=== PATIENT | female | born 1980 | race Caucasian/White ===

== ENCOUNTER 2016-08-28 07:15 | Emergency (ER) | payer OTHER ==
[~2016-08-28] VITALS: Ht 172.7 cm; Wt 86.2 kg
[~2016-08-28 07:15] MED LIST: AMOX500C2 PO; BETH25TA; CIPR500T4 PO; CIPR500T78 PO; CPR500T PO; CYCL10TA9 PO; DCS100C PO; DOXY100C2 PO; FAMO-119 PO; FLUO40CA PO; GABA300T PO; HYDR-1231 PO; HYDR-2890 PO; HYDR-34 PO; HYDR-3720 PO; HYDR-707 PO; IBP800T PO; IBUP800T26 PO; MELO-195 PO; METR500T PO; NAPR-243 PO; NITR-65 PO; NITR100C44 PO; ONDA-42 SL; ONDA8TAB12 PO; ONDA8TAB13 PO; ONDN4T PO; OXYC-12 PO; OXYC1TAB12 PO; PHEN-640 PO; PHEN200T27 PO; POTA-51 PO; POTA10CA43 PO; PRD20T PO; TRAM50TA2 PO
--- OUTSIDE RECORDS SUMMARY | 2016-08-28 07:20 | XMS REPORT | Continuity of Care Document ---
Author Author [facility] Organization [facility] Address Unknown Phone Unavailable Care Team Providers Care Sandblast Or Shotblast Equipment Tender Name Role Phone NO, LOCAL PHYSICIAN PCP Unavailable Insurance Providers Payer Name Policy Number Subscriber Name Relationship [facility] [id number] Annalee Chavarria 19 Self / Same As Patient Advance Directives Directive Response Recorded Date/Time Advance Directives No 12/31/14 12:25pm Health Care Power of Security Test Engineer No 12/31/14 12:25pm Organ Donor Yes 12/31/14 12:25pm Resuscitation Status Full Code 12/31/14 12:25pm Problems Medical Problems Problem Onset Date Status Right lower quadrant pain Unknown Active Nausea alone Unknown Active Urinary tract infection Unknown Active Vomiting and diarrhea Unknown Active Abdominal pain Unknown Active Hypokalemia Unknown Active Medications Medication Dose Route Sig Days/Qty Instructions Order Date Discontinued Date Status Meloxicam (Mobic) 1 Each PO DAILY 09/21/12 10/22/13 Discontinued Acetaminophen/Hydrocodone Bitart 1 Ea PO Q6HR PRN 09/21/12 06/09/14 Discontinued Ciprofloxacin 1 Tab PO TWICE A DAY 7 Days 09/21/12 10/22/13 Discontinued Ondansetron HCl 1 Tab PO TWICE A DAY 20 Qty 09/21/12 10/22/13 Discontinued Ciprofloxacin HCl 500 Mg PO TWICE A DAY 14 Qty 12/10/13 01/07/14 Discontinued Metronidazole 1 Each PO THREE TIMES A DAY 21 Qty 12/10/13 01/07/14 Discontinued Ibuprofen (Motrin) 800 Mg PO q8h PRN PAIN 10 Qty 01/07/14 06/09/14 Discontinued Ondansetron Hcl 4 Mg SL EVERY 4HRS PRN 10 Qty 01/07/14 06/09/14 Discontinued Acetaminophen/Hydrocodone Bitart 1 Ea PO Q6HR PRN 06/09/14 11/27/14 Discontinued Hydrocodone Bit/Acetaminophen 1-2 Tab PO EVERY 6 HOURS PRN PAIN 10 Qty 06/09/14 11/27/14 Discontinued Ondansetron Hcl 4 Mg SL EVERY 4HRS 10 Qty FOR NAUSEA AND VOMITING Active Nitrofurantoin Macrocrystals 1 Each PO TWICE A DAY 14 Qty 06/09/14 Discontinued Ciprofloxacin 500 Mg PO TWICE A DAY 7 Days 06/15/14 11/27/14 Discontinued Tramadol Hcl 50 Mg PO FOUR TIMES DAILY 30 Qty 11/15/14 Active Hydrocodone Bit/Acetaminophen 1 Each PO EVERY 6 HOURS PRN PAIN Active Docusate Sodium 100 Mg PO TWICE A DAY 60 Qty 12/03/14 12/31/14 Discontinued Ibuprofen 800 Mg PO GIVE EVERY 6 HR ON SCHEDULE 60 Qty 12/03/14 Active Oxycodone Hcl/Acetaminophen 1-2 Tab PO EVERY 4HRS PRN PAIN 60 Qty 12/03 Active Nitrofurantoin/Nitrofuran Mac 100 Mg PO DAILY 10 Qty 12/03/14 Discontinued Bethanechol Chloride 30 Qty 12/31/14 Active Ondansetron 8 Mg PO EVERY 6 HOURS PRN NAUSEA/VOMITING 10 Qty 12/31/14 Active Phenazopyridine HCl 1 Each PO THREE TIMES A DAY PRN PAIN 15 Qty Active Ciprofloxacin HCl 500 Mg PO TWICE A DAY 6 Qty 12/31/14 Active Potassium Chloride (Micro K) 2 Each PO TWICE A DAY WITH MEALS 8 Qty Active Social History Social History Problem Response Recorded Date/Time Alcohol Use Denies Use 12/31/2014 12:25pm Recreational Drug Use No 12/31/2014 12:25pm Recent Foreign Travel No 12/31/2014 12:21pm Recent Infectious Disease Exposure No 12/31/2014 12:21pm Sexually Transmitted Disease No 12/31/2014 12:25pm HIV/AIDS No 12/31/2014 12:25pm Smoking Status Never a Smoker 12/31/2014 12:25pm Query Response Start Date Stop Date Smoking Status Never a Smoker Hospital Discharge Instructions No hospital discharge instructions. Plan of Care No plan of care. Functional Status No functional status results. Allergies, Adverse Reactions, Alerts Allergen Type Severity Reaction Status Last Updated Sulfa (Sulfonamide Antibiotics) ([id number]) Allergy Severe RASH Active Morphine Allergy Severe RASH Active 05/24/12 Immunizations No immunization records. Vital Signs Acute Vital Signs Vital Response Date/Time Temperature (Fahrenheit) 97.8 degrees F (97.6 - 99.5) Temperature (Calculated Celsius) 36.74259 degrees C (36.4 - 37.5) Temperature Source Temporal Pulse Rate (adult) 105 bpm (60 - 90) Respiratory Rate 18 bpm (12 - 24) O2 Sat by Pulse Oximetry 99 % (88 - 100) Blood Pressure 189/101 mm Hg Pain Pain Intensity 6 Height (Feet) 5 feet Height (Inches) 8.00 inches Height (Calculated Centimeters) 172.047018 cm Weight (Pounds) 190 pounds Weight (Calculated Grams) 60526.551 gm Weight (Calculated Kilograms) 86.238355 kilograms Calculated BMI 28.12 Results Laboratory Results Test Name Result Units Flags Reference Collection Date/Time Result Date/ Time Comments White Blood Count 11.0 10^3/uL 4.3-11.0 12/03/2014 2:50pm 12/03/2014 2: 59pm Red Blood Count 3.33 10^6/uL L 4.35-5.85 12/03/2014 2:50pm 12/03/2014 2: 59pm Hemoglobin 8.8 G/DL L 11.5-16.0 12/03/2014 2:50pm 12/03/2014 2:59pm Hematocrit 28 % L 35-52 12/03/2014 2:50pm 12/03/2014 2:59pm Mean Corpuscular Volume 84 FL 80-99 12/03/2014 2:50pm 12/03/2014 2: 59pm Mean Corpuscular Hemoglobin 26 PG 25-34 12/03/2014 2:50pm 12/03/2014 2: 59pm Mean Corpuscular Hemoglobin Concent 32 G/DL 32-36 12/03/2014 2:50pm 2:59pm Red Cell Distribution Width 13.7 % 10.0-14.5 12/03/2014 2:50pm 2014 2:59pm Platelet Count 314 10^3/uL 130-400 12/03/2014 2:50pm 12/03/2014 2:59pm Mean Platelet Volume 11.0 FL H 7.4-10.4 12/03/2014 2:50pm 12/03/2014 2: 59pm Neutrophils (%) (Auto) 74 % 42-75 12/03/2014 2:50pm 12/03/2014 2:59pm Lymphocytes (%) (Auto) 18 % 12-44 12/03/2014 2:50pm 12/03/2014 2:59pm Monocytes (%) (Auto) 7 % 0-12 12/03/2014 2:50pm 12/03/2014 2:59pm Eosinophils (%) (Auto) 0 % 0-10 12/03/2014 2:50pm 12/03/2014 2:59pm Basophils (%) (Auto) 0 % 0-10 12/03/2014 2:50pm 12/03/2014 2:59pm Neutrophils # (Auto) 8.2 X 10^3 H 1.8-7.8 12/03/2014 2:50pm 12/03/2014 2: 59pm Lymphocytes # (Auto) 2.0 X 10^3 1.0-4.0 12/03/2014 2:50pm 12/03/2014 2: 59pm Monocytes # (Auto) 0.7 X 10^3 0.0-1.0 12/03/2014 2:50pm 12/03/2014 2: 59pm Eosinophils # (Auto) 0.0 10^3/uL 0.0-0.3 12/03/2014 2:50pm 12/03/2014 2 :59pm Basophils # (Auto) 0.0 10^3/uL 0.0-0.1 12/03/2014 2:50pm 12/03/2014 2: 59pm Sodium Level 142 MMOL/L 135-145 12/03/2014 2:50pm 12/03/2014 3:32pm Potassium Level 3.7 MMOL/L 3.6-5.0 12/03/2014 2:50pm 12/03/2014 3:32pm Chloride Level 109 MMOL/L H 98-107 12/03/2014 2:5012/03/2014 3:32pm Carbon Dioxide Level 23 MMOL/L 21-32 12/03/2014 2:50pm 12/03/2014 3: 32pm Blood Urea Nitrogen 11 MG/DL 7-18 12/03/2014 2:5012/03/2014 3:32pm Creatinine 0.62 MG/DL 0.60-1.30 12/03/2014 2:5012/03/2014 3:32pm BUN/Creatinine Ratio 18 12/03/2014 2:5012/03/2014 3:32pm Estimat Glomerular Filtration Rate > 60 12/03/2014 2:502014 3:32pm GFR INTERPRETIVE DATA UNITS FOR ESTIMATED GFR (eGFR): mL/min/1.73 M2 REFERENCE RANGE FOR ESTIMATED GFR (eGFR) eGFR NORMAL eGFR >60 MODERATELY DECREASED eGFR 30-59 SEVERLY DECREASED eGFR 15-29 KIDNEY FAILURE <15 (OR DIALYSIS) Glucose Level 133 MG/DL H 70-105 12/03/2014 2:50pm 12/03/2014 3:32pm Calcium Level 8.2 MG/DL L 8.5-10.1 12/03/2014 2:5012/03/2014 3:32pm Total Bilirubin 0.6 MG/DL 0.1-1.0 12/03/2014 2:5012/03/2014 3:32pm Alkaline Phosphatase 38 U/L L 40-136 12/03/2014 2:5012/03/2014 3:32pm Aspartate Amino Transf (AST/SGOT) 13 U/L 5-34 12/03/2014 2:502014 3:32pm Alanine Aminotransferase (ALT/SGPT) 9 U/L 0-55 12/03/2014 2:502014 3:32pm Total Protein 5.5 G/DL L 6.4-8.2 12/03/2014 2:50pm 12/03/2014 3:32pm Albumin 3.1 G/DL L 3.2-4.5 12/03/2014 2:5012/03/2014 3:32pm 17-Hydroxyprogesterone 75.10 NG/DL <=206.00 12/02/2014 9:07am 2014 5:44am INTERPRETIVE INFORMATION for 17-Hydroxyprogesterone in females: Follicular 15 to 70 ng/dL Luteal 35 to 290 ng/dL REFERENCE INTERVAL: 17-Hydroxyprogesterone Qnt, HPLC-MS/MS Access complete set of age- and/or gender-specific referenceintervals for this test in the [employer] [facility] ([facility]). Test developed and characteristics determined by [facility]. See Compliance Statement B: [facility] Performed by [facility], [address] [place] [id number] [email or web address] Michele Heredia MD - Lab. Director White Blood Count 5.8 10^3/uL 4.3-11.0 12/31/2014 12:39pm 12/31/2014 12 :46pm Red Blood Count 4.66 10^6/uL 4.35-5.85 12/31/2014 12:39pm 12/31/2014 12 :46pm Hemoglobin 12.0 G/DL 11.5-16.0 12/31/2014 12:39pm 12/31/2014 12:46pm Hematocrit 37 % 35-52 12/31/2014 12:39pm 12/31/2014 12:46pm Mean Corpuscular Volume 79 FL L 80-99 12/31/2014 12:39pm 12/31/2014 12: 46pm Mean Corpuscular Hemoglobin 26 PG 25-34 12/31/2014 12:39pm 12/31/2014 12:46pm Mean Corpuscular Hemoglobin Concent 32 G/DL 32-36 12/31/2014 12:39pm 12:46pm Red Cell Distribution Width 13.8 % 10.0-14.5 12/31/2014 12:39pm 2014 12:46pm Platelet Count 347 10^3/uL 130-400 12/31/2014 12:39pm 12/31/2014 12: 46pm Mean Platelet Volume 11.0 FL H 7.4-10.4 12/31/2014 12:39pm 12/31/2014 12: 46pm Neutrophils (%) (Auto) 46 % 42-75 12/31/2014 12:39pm 12/31/2014 12: 46pm Lymphocytes (%) (Auto) 40 % 12-44 12/31/2014 12:39pm 12/31/2014 12: 46pm Monocytes (%) (Auto) 8 % 0-12 12/31/2014 12:39pm 12/31/2014 12:46pm Eosinophils (%) (Auto) 5 % 0-10 12/31/2014 12:39pm 12/31/2014 12:46pm Basophils (%) (Auto) 1 % 0-10 12/31/2014 12:39pm 12/31/2014 12:46pm Neutrophils # (Auto) 2.7 X 10^3 1.8-7.8 12/31/2014 12:39pm 12/31/2014 12:46pm Lymphocytes # (Auto) 2.3 X 10^3 1.0-4.0 12/31/2014 12:39pm 12/31/2014 12:46pm Monocytes # (Auto) 0.4 X 10^3 0.0-1.0 12/31/2014 12:39pm 12/31/2014 12: 46pm Eosinophils # (Auto) 0.3 10^3/uL 0.0-0.3 12/31/2014 12:39pm 12/31/2014 12:46pm Basophils # (Auto) 0.1 10^3/uL 0.0-0.1 12/31/2014 12:39pm 12/31/2014 12 :46pm Urine Color YELLOW 12/31/2014 3:pm 12/31/2014 3:40pm Urine Clarity CLEAR 12/31/2014 3:pm 12/31/2014 3:40pm Urine pH 6.5 5-9 12/31/2014 3:pm 12/31/2014 3:40pm Urine Specific [place] 1.005 * 1.016-1.022 12/31/2014 3:pm 2014 3:40pm Urine Protein 2+ * NEGATIVE 12/31/2014 3:pm 12/31/2014 3:40pm Urine Glucose (UA) NEGATIVE NEGATIVE 12/31/2014 3:pm 12/31/2014 3: 40pm Urine RBC (Auto) 1+ * NEGATIVE 12/31/2014 3:15pm 12/31/2014 3:40pm Urine Ketones NEGATIVE NEGATIVE 12/31/2014 3:15pm 12/31/2014 3:40pm Urine Nitrite NEGATIVE NEGATIVE 12/31/2014 3:15pm 12/31/2014 3:40pm Urine Bilirubin NEGATIVE NEGATIVE 12/31/2014 3:15pm 12/31/2014 3: 40pm Urine Urobilinogen NORMAL MG/DL NORMAL 12/31/2014 3:15pm 12/31/2014 3: 40pm Urine Leukocyte Esterase NEGATIVE NEGATIVE 12/31/2014 3:15pm 2014 3:40pm Urine RBC RARE /HPF 12/31/2014 3:15pm 12/31/2014 3:40pm Urine WBC 2-5 /HPF 12/31/2014 3:15pm 12/31/2014 3:40pm Urine Bacteria FEW /HPF * 12/31/2014 3:15pm 12/31/2014 3:40pm Urine Squamous Epithelial Cells 0-2 /HPF 12/31/2014 3:15pm 2014 3:40pm Urine Crystals NONE /LPF 12/31/2014 3:15pm 12/31/2014 3:40pm Urine Casts NONE /LPF 12/31/2014 3:15pm 12/31/2014 3:40pm Urine Mucus NEGATIVE /LPF 12/31/2014 3:15pm 12/31/2014 3:40pm Urine Culture Indicated NO 12/31/2014 3:15pm 12/31/2014 3:40pm Sodium Level 142 MMOL/L 135-145 12/31/2014 12:39pm 12/31/2014 1:06pm Potassium Level 2.8 MMOL/L L 3.6-5.0 12/31/2014 12:39pm 12/31/2014 1: 06pm Chloride Level 106 MMOL/L 98-107 12/31/2014 12:39pm 12/31/2014 1:06pm Carbon Dioxide Level 24 MMOL/L 21-32 12/31/2014 12:39pm 12/31/2014 1: 06pm Blood Urea Nitrogen 13 MG/DL 7-18 12/31/2014 12:39pm 12/31/2014 1:06pm Creatinine 0.82 MG/DL 0.60-1.30 12/31/2014 12:39pm 12/31/2014 1:06pm BUN/Creatinine Ratio 16 12/31/2014 12:39pm 12/31/2014 1:06pm Estimat Glomerular Filtration Rate > 60 12/31/2014 12:39pm 2014 1:06pm GFR INTERPRETIVE DATA UNITS FOR ESTIMATED GFR (eGFR): mL/min/1.73 M2 REFERENCE RANGE FOR ESTIMATED GFR (eGFR) eGFR NORMAL eGFR >60 MODERATELY DECREASED eGFR 30-59 SEVERLY DECREASED eGFR 15-29 KIDNEY FAILURE <15 (OR DIALYSIS) Glucose Level 143 MG/DL H 70-105 12/31/2014 12:39pm 12/31/2014 1:06pm Calcium Level 9.1 MG/DL 8.5-10.1 12/31/2014 12:39pm 12/31/2014 1:06pm Total Bilirubin 0.6 MG/DL 0.1-1.0 12/31/2014 12:39pm 12/31/2014 1:06pm Alkaline Phosphatase 61 U/L 40-136 12/31/2014 12:39pm 12/31/2014 1: 06pm Aspartate Amino Transf (AST/SGOT) 20 U/L 5-34 12/31/2014 12:39pm 2014 1:06pm Alanine Aminotransferase (ALT/SGPT) 21 U/L 0-55 12/31/2014 12:39pm 1:06pm Total Protein 7.4 G/DL 6.4-8.2 12/31/2014 12:39pm 12/31/2014 1:06pm Albumin 4.1 G/DL 3.2-4.5 12/31/2014 12:39pm 12/31/2014 1:06pm Lipase 20 U/L 8-78 12/31/2014 12:39pm 12/31/2014 1:06pm Procedures Procedure Status Date Provider(s) EXTENSIVE REPAIR OF VAGINA completed 12/02/14 LEE MELTON MD [facility] W/T/O 250 G OR LESS completed 12/02/14 LEE MELTON MD REPAIR OF BLADDER WOUND completed 12/02/14 LEE MELTON MD Encounters Encounter Location Date/Time Departed Emergency Room [facility] 12/31/14 12:16pm Registered Clinic [facility] 12/11/14 9:40am Registered Clinic [facility] 12/10/14 10:50am Departed Surgical Day Care [facility] 12/02/14 8:30am Recent Diagnosis
[2016-08-28] MEDS ORDERED: NS IV 1000 ML 1,000 ML IV ONE (07:37)
[2016-08-28] MEDS ORDERED: KETOROLAC 30 MG/ML VIAL IVP STA (07:37)
[2016-08-28] MEDS ORDERED: fentaNYL INJECTION 100 MCG/2 ML AMP IVP STA ×2 (07:44→10:28)
[2016-08-28] MEDS ORDERED: ONDANSETRON 4 MG/2 ML (SDV) Z0FRAN IVP ONE ×2 (07:45→10:30)
--- NOTE | 2016-08-28 07:49 | ED Abdominal Pain ---
General Chief Complaint: Abdominal/GI Problems Stated Complaint: LOW ABD PAIN Nursing Triage Note: c/o low abd pain x 2 days. Vomiting reported with intermittant fever. No diarrhea. Had normal BM this morning. Sepsis Screen: Possible Sepsis Risk Source of Information: Patient Exam Limitations: No Limitations History of Present Illness Time Seen By Provider: 07:37 Initial Comments Here with complaint of lower abdominal pain for the last few days with intermittent fever. She denies diarrhea but has had vomiting. Denies blood in her vomit or stool. Denies dysuria. Does have history of kidney stones but states this feels different. Has had a complete hysterectomy and appendectomy. States pain is increasing. She has had limited intake of food or fluids due to nausea and pain. Denies vaginal discharge or bleeding. Timing/Duration: 2-3 Days Severity/Quality: Moderate, Severe, Aching Location: RLQ, Suprapubic Radiation: No Radiation Activities at Onset: None Modifying Factors: Worsens With Eating, Worsens With Movement, Improves With Resting Associated Symptoms: No Back Pain, No Chest Pain, Fever/Chills Nausea/ VomitingNo Shortness of Air, No Weakness Allergies and Home Medications Allergies Coded Allergies: Sulfa (Sulfonamide Antibiotics) (Verified Allergy, Severe, RASH, 05/24/12) morphine (Verified Allergy, Severe, RASH, 05/24/12) Home Medications No Active Prescriptions or Reported Meds Review of Systems Constitutional: see HPI chills fever EENTM: No Symptoms Reported Respiratory: No Symptoms Reported Cardiovascular: No Symptoms ReportedDenies Chest Pain, Denies Palpitations Gastrointestinal: Abdominal PainDenies Diarrhea, NauseaDenies Rectal Bleeding , Vomiting Genitourinary: See HPIDenies Frequency, Denies Pain Musculoskeletal: no symptoms reported Skin: no symptoms reported Psychiatric/Neurological: No Symptoms Reported All Other Systems Reviewed Negative Unless Noted: Yes Past Rjtcrdh-Zvxojx-Nfbwij Hx Patient Social History Alcohol Use: Occasionally Uses Recreational Drug Use: No Smoking Status: Never a Smoker Recent Foreign Travel: No Contact w/Someone Who Travel: No Recent Infectious Disease Expo: No Recent Hopitalizations: No Seasonal Allergies Seasonal Allergies: No Surgeries HX Surgeries: Yes (BACKx2, KIDNEY STENT, D&E, ENDOMETRIOSIS) Surgeries: Abdominal, Appendectomy, Section, Hysterectomy, Orthopedic Respiratory Hx Respiratory Disorders: No Cardiovascular Hx Cardiac Disorders: No Neurological Hx Neurological Disorders: Yes Neurological Disorders: Headaches /Migraines Reproductive System : No Hx Reproductive Disorders: Yes Sexually Transmitted Disease: No HIV/AIDS: No Female Reproductive Disorders: Endometriosis [employer] History: Hysterectomy Genitourinary Hx Genitourinary Disorders: Yes (RENAL STENT) Genitourinary Disorders: Kidney Infection, Bladder Infection, Kidney Stones, UTI-Chronic Gastrointestinal Hx Gastrointestinal Disorders: No Musculoskeletal Hx Musculoskeletal Disorders: Yes Musculoskeletal Disorders: Back Injury, Chronic Back Pain Endocrine Hx Endocrine Disorders: No HEENT HX ENT Disorders: No Loss of Vision: Denies Hearing Impairment: Denies Cancer Hx Cancer: No Psychosocial Hx Psychiatric Problems: Yes Behavioral Health Disorders: Depression Integumentary HX Skin/Integumentary Disorder: No Blood Transfusions Hx Blood Disorders: No Adverse Reaction to a Blood Tr: No Reviewed Nursing Assessment Reviewed/Agree w Nursing PMH: Yes Family Medical History Significant Family History: Cancer, Diabetes, Hypertension, Other Conditions/Hx Family Medial History: Arthritis 19 FATHER 19 MOTHER Asthma 19 FATHER Diabetes mellitus 19 MOTHER FH: congestive heart failure 19 MOTHER Hypercholesterolemia 19 MOTHER Hypertension 19 MOTHER Kidney disease 19 MOTHER Physical Exam Vital Signs VS - Last 72 Hours, by Label 08/28/16 08/28/16 08/28/16 07:30 07:40 07:50 Temp 97.3 97.3 Pulse 105 Resp 18 B/P 143/107 Pulse Ox 98 Capillary Refill : Less Than 3 Seconds General Appearance: WD/WN no apparent distress HEENT: PERRL/EOMI pharynx normal Neck: full range of motion supple Respiratory: lungs clear normal breath sounds Cardiovascular: no murmur tachycardia Peripheral Pulses: 2+ Dorsalis Pedis (R), 2+ Left Dors-Pedis (L), 2+ Radial Pulses (R), 2+ Radial Pulses (L) Gastrointestinal: soft tenderness (lower abdominal area overall but right greater than left) Extremities: non-tender normal inspection no pedal edema Back: normal inspection no CVA tenderness no vertebral tenderness Neurologic/Psychiatric: alert oriented x 3 Skin: normal color warm/dry Progress/Results/Core Measures Results/Orders Lab Results Laboratory Tests Test 08/28/16 07:30 08/28/16 07:55 Range/Units Urine Bacteria MODERATE H /HPF Urine Bilirubin NEGATIVE NEGATIVE Urine Casts NONE /LPF Urine Clarity SLIGHTLY CLOUDY Urine Color YELLOW Urine Crystals NONE /LPF Urine Culture Indicated YES Urine Glucose (UA) NEGATIVE NEGATIVE Urine Ketones NEGATIVE NEGATIVE Urine Leukocyte Esterase 1+ H NEGATIVE Urine Mucus NEGATIVE /LPF Urine Nitrite POSITIVE H NEGATIVE Urine Protein 1+ H NEGATIVE Urine RBC NONE /HPF Urine RBC (Auto) NEGATIVE NEGATIVE Urine Specific [place] 1.015 L 1.016-1.022 Urine Squamous Epithelial Cells 2-5 /HPF Urine Urobilinogen NORMAL NORMAL MG/DL Urine WBC 2-5 /HPF Urine pH 5 5-9 Alanine Aminotransferase (ALT/SGPT) 12 0-55 U/L Albumin 4.6 H 3.2-4.5 G/DL Alkaline Phosphatase 66 40-136 U/L Anion Gap 13 5-14 MMOL/L Aspartate Amino Transf (AST/SGOT) 12 5-34 U/L BUN/Creatinine Ratio 9 Basophils # (Auto) 0.0 0.0-0.1 10^3/uL Basophils (%) (Auto) 0 0-10 % Blood Urea Nitrogen 7 7-18 MG/DL Calcium Level 9.3 8.5-10.1 MG/DL Carbon Dioxide Level 18 L 21-32 MMOL/L Chloride Level 107 98-107 MMOL/L Creatinine 0.77 0.60-1.30 MG/DL Eosinophils # (Auto) 0.0 0.0-0.3 10^3/uL Eosinophils (%) (Auto) 1 0-10 % Estimat Glomerular Filtration Rate > 60 Glucose Level 119 H 70-105 MG/DL Hematocrit 38 35-52 % Hemoglobin 12.8 11.5-16.0 G/DL Lymphocytes # (Auto) 1.7 1.0-4.0 X 10^3 Lymphocytes (%) (Auto) 24 12-44 % Mean Corpuscular Hemoglobin 27 25-34 PG Mean Corpuscular Hemoglobin Concent 34 32-36 G/DL Mean Corpuscular Volume 79 L 80-99 FL Mean Platelet Volume 10.5 H 7.4-10.4 FL Monocytes # (Auto) 0.2 0.0-1.0 X 10^3 Monocytes (%) (Auto) 3 0-12 % Neutrophils # (Auto) 5.1 1.8-7.8 X 10^3 Neutrophils (%) (Auto) 71 42-75 % Platelet Count 413 H 130-400 10^3/uL Potassium Level 3.0 L 3.6-5.0 MMOL/L Red Blood Count 4.83 4.35-5.85 10^6/uL Red Cell Distribution Width 15.0 H 10.0-14.5 % Sodium Level 138 135-145 MMOL/L Total Bilirubin 0.7 0.1-1.0 MG/DL Total Protein 7.9 6.4-8.2 G/DL White Blood Count 7.2 4.3-11.0 10^3/uL My Orders Orders-RANI GAMBOA MD Cbc With Automated Diff (08/28/16 07:37) Comprehensive Metabolic Panel (08/28/16 07:37) Ua Culture If Indicated (08/28/16 07:37) Saline Lock/Iv-Start (08/28/16 07:37) Ns Iv 1000 Ml (Sodium Chloride 0.9%) (08/28/16 07:37) Ketorolac Injection (Toradol Injection) (08/28/16 07:37) Ondansetron Injection (Zofran Injectio (08/28/16 07:45) Fentanyl Injection (Sublimaze Injection (08/28/16 07:44) Urine Culture (08/28/16 07:30) Ct Abdomen/Pelvis W (08/28/16 09:30) Iohexol Injection (Omnipaque 350 Mg/Ml 1 (08/28/16 09:45) Ns (Ivpb) (Sodium Chloride 0.9% Ivpb Bag (08/28/16 09:45) Ceftriaxone Injection (Rocephin Injectio (08/28/16 10:30) Fentanyl Injection (Sublimaze Injection (08/28/16 10:28) Ondansetron Injection (Zofran Injectio (08/28/16 10:30) Medications Given in ED Current Medications Medications Dose Ordered Sig/Aleida Route Start Time Stop Time Status Last Admin Dose Admin Ceftriaxone Sodium/Sodium Chloride 50 ml @ 100 mls/hr ONCE ONCE IV 08/28/16 10:30 08/28/16 10:59 DC 08/28/16 10:59 100 MLS/HR Iohexol 100 ml ONCE ONCE IV 08/28/16 09:45 08/28/16 09:46 DC 08/28/16 09:41 100 ML Ondansetron HCl 4 mg ONCE ONCE IVP 08/28/16 07:45 08/28/16 07:46 DC 08/28/16 07:50 4 MG Ondansetron HCl 4 mg ONCE ONCE IVP 08/28/16 10:30 08/28/16 10:31 DC 08/28/16 10:54 4 MG Sodium Chloride 1,000 ml @ 0 mls/hr Q0M ONCE IV 08/28/16 07:37 08/28/16 07:39 DC 08/28/16 07:40 0 MLS/HR Sodium Chloride 100 ml 100 ml ONCE ONCE IV 08/28/16 09:45 08/28/16 09:46 DC 08/28/16 09:41 80 ML Vital Signs/I&O Vital Sign - Last 12Hours 08/28/16 08/28/16 08/28/16 07:30 07:40 07:50 Temp 97.3 97.3 Pulse 105 Resp 18 B/P 143/107 Pulse Ox 98 Blood Pressure Mean: 119 Progress Note : Progress Note Seen and evaluated. IV, labs and UA ordered. Normal saline 1 L bolus. Toradol 30 mg IV, fentanyl 50 g IV and Zofran 4 mg IV ordered. Anticipate CT but we will wait for UA studies. Monitor patient. UTI noted on UA. Pain persisted. CT ordered. Monitor patient. 1045: Rocephin 1 g IV because she had repeat pain and nausea with concerns for vomiting. Fentanyl 50 g IV and Zofran 4 mg IV ordered as well. Monitor patient. 1110: CT results discussed with patient. We will attempt outpatient therapy with oral antibiotics, pain medicines and nausea medicines. Patient was in agreement with plan. Discharged home with return precautions. Patient verbalize understanding instructions and agreement with plan. Diagnostic Imaging Diagonstic Imaging: CT Plain Films/CT/US/NM/MRI: abdomen, pelvis Comments VIA [facility]. [place], [place] NAME: ANNALEE CHAVARRIA [facility] REC#: [id number] PT STATUS: REG ER : 1980 PHYSICIAN: RANI GAMBOA MD ADMIT DATE: 08/28/16/ER Draft Date of Exam:08/28/16 CT ABDOMEN/PELVIS W PROCEDURE: CT abdomen and pelvis with contrast. TECHNIQUE: Multiple contiguous axial images were obtained through the abdomen and pelvis after administration of intravenous contrast. INDICATION: Abdominal pain. Nausea. COMPARISON: CT abdomen pelvis with IV contrast 12/31/2014. FINDINGS: Stable 8 mm cyst in the left hepatic lobe. Hysterectomy. Appendectomy. 4.0 cm cystic structure in the left pelvis is continuous with a left ovarian vein and presumably originates from a retained left ovary. No right ovary is identified. The gallbladder, pancreas, spleen, adrenals, kidneys and collecting systems are negative. Lung bases are clear. No free intraperitoneal air/fluid, lymphadenopathy or evidence of bowel obstruction. Postoperative findings of laminectomy and fusion at L3-L4. IMPRESSION: 4 cm simple cystic structure in the left pelvis appears to be originating from a retained left ovary and this patient with hysterectomy. CT of the abdomen and pelvis, otherwise unremarkable. No free fluid or intraperitoneal air. No evidence of obstruction. Dictated on workstation # [id number] Dict: 08/28/16 0955 Trans: 08/28/16 1010 [facility] [id number] Interpreted by: ARIEL DANIELS MD Electronically signed by: Departure Impression Impression: Primary Impression: Urinary tract infection Qualified Code: N30.00 - Acute cystitis without hematuria Additional Impression: Nausea and vomiting Qualified Code: R11.14 - Bilious vomiting Disposition: 01 HOME, SELF-CARE Condition: Stable Departure-Patient Inst. Decision time for Depature: 11:25 Referrals: [facility] (PCP/Family) Primary Care Physician Patient Instructions: Acute Abdomen (Belly Pain), Adult (DC), Nausea and Vomiting, Adult (DC), Urinary Tract Infection, Adult (DC) Add. Discharge Instructions: All discharge instructions reviewed with patient and/or family. Voiced understanding. Take medications as directed. Follow-up with your doctor on Tuesday for recheck and further evaluation. Return for worsening, fever, vomiting, weakness, breathing problems or other concerns as needed. Drink plenty of fluids. Discussed with your doctor about the ovarian cyst structure noted on CT. Scripts No Active Prescriptions or Reported Meds Copy Copies To 1: BRIAN JACOBS TIMOTHY D MD Aug 28, 2016 07:49
[2016-08-28 08:04] LABS: BASOPHILS % (AUTO) 0 % (0-10); EOSINOPHILS % (AUTO) 1 % (0-10); LYMPHOCYTES # (AUTO) 1.7 X 10^3 (1.0-4.0); LYMPHOCYTES % (AUTO) 24 % (12-44); MEAN CORPUSCULAR HEMOGLOBIN 27 PG (25-34); MEAN CORPUSCULAR HGB CONC 34 G/DL (32-36); MEAN CORPUSCULAR VOLUME 79 FL (80-99); MEAN PLATELET VOLUME 10.5 FL (7.4-10.4); MONOCYTES # (AUTO) 0.2 X 10^3 (0.0-1.0); MONOCYTES % (AUTO) 3 % (0-12); NEUTROPHILS # (AUTO) 5.1 X 10^3 (1.8-7.8); NEUTROPHILS % (AUTO) 71 % (42-75); PLATELET COUNT 413 10^3/uL (130-400); RED BLOOD COUNT 4.83 10^6/uL (4.35-5.85); WHITE BLOOD COUNT 7.2 10^3/uL (4.3-11.0)
[2016-08-28 08:23] LABS: ALANINE AMINOTRANSFERASE 12 U/L (0-55); ALBUMIN 4.6 G/DL (3.2-4.5); ANION GAP 13 MMOL/L (5-14); ASPARTATE AMINO TRANSFERASE 12 U/L (5-34); BILIRUBIN,TOTAL 0.7 MG/DL (0.1-1.0); BLOOD UREA NITROGEN 7 MG/DL (7-18); BUN/CREATININE RATIO 9; CALCIUM 9.3 MG/DL (8.5-10.1); CARBON DIOXIDE 18 MMOL/L (21-32); CHLORIDE 107 MMOL/L (98-107); CREATININE SERUM 0.77 MG/DL (0.60-1.30); GFR ESTIMATED > 60; GLUCOSE 119 MG/DL (70-105); SODIUM 138 MMOL/L (135-145); TOTAL PROTEIN 7.9 G/DL (6.4-8.2)
[2016-08-28 08:57] LABS: BILIRUBIN,URINE NEGATIVE (NEGATIVE); KETONES,URINE NEGATIVE (NEGATIVE); LEUKOCYTE ESTERASE ,URINE 1+ (NEGATIVE); NITRITE,URINE POSITIVE (NEGATIVE); PH,URINE 5 (5-9); PROTEIN,URINE 1+ (NEGATIVE); UROBILINOGEN,URINE NORMAL (NORMAL)
[2016-08-28] MEDS ORDERED: NS 100 ML (IVPB) BAG IV ONE (09:45)
[2016-08-28] MEDS ORDERED: IOHEXOL 350 MG/ML 100 ML (OMNIPAQUE 350) VIAL IV ONE (09:45)
--- NOTE | 2016-08-28 10:11 | Diagnostic Imaging Report ---
PROCEDURE: CT abdomen and pelvis with contrast. TECHNIQUE: Multiple contiguous axial images were obtained through the abdomen and pelvis after administration of intravenous contrast. INDICATION: Abdominal pain. Nausea. COMPARISON: CT abdomen pelvis with IV contrast 12/31/2014. FINDINGS: Stable 8 mm cyst in the left hepatic lobe. Hysterectomy. Appendectomy. 4.0 cm cystic structure in the left pelvis is continuous with a left ovarian vein and presumably originates from a retained left ovary. No right ovary is identified. The gallbladder, pancreas, spleen, adrenals, kidneys and collecting systems are negative. Lung bases are clear. No free intraperitoneal air/fluid, lymphadenopathy or evidence of bowel obstruction. Postoperative findings of laminectomy and fusion at L3-L4. IMPRESSION: 4 cm simple cystic structure in the left pelvis appears to be originating from a retained left ovary and this patient with hysterectomy. CT of the abdomen and pelvis, otherwise unremarkable. No free fluid or intraperitoneal air. No evidence of obstruction. Dictated by: Dictated on workstation # [id number]
[2016-08-28] MEDS ORDERED: cefTRIAXone INJECTION 1,000 MG in NS (IVPB) 50 ML IV ONE (10:30)
[2016-08-28] MEDS ORDERED: HYDR-3812 PO (11:28)
[2016-08-28] MEDS ORDERED: CIPR500T4 PO (11:28)
[2016-08-28 11:50] VITALS: BP 138/88
== END 2016-08-28 11:50 | disposition home or self-care (01) ==
LOC: EDUNIT# 07:15 → ER 07:16
DX: N39.0 Urinary tract infection, site not specified (principal); R11.2 Nausea with vomiting, unspecified; N83.202 Unspecified ovarian cyst, left side; Z90.710 Acquired absence of both cervix and uterus
CPT/HCPCS: 36415; 74177; 80053; 81000; 85025; 87077; 87088; 87186; 96361; 96365; 96375; 96376

== ENCOUNTER → 2017-03-28 | Outpatient (CLI) | payer OTHER ==
[~2017-03-28] MED LIST changes: +CATHETER FLUSH 10 ML SYR IV PRN; +HYDR-3812 PO; +IOHEXOL 350 MG/ML 100 ML (OMNIPAQUE 350) VIAL IV ONE; +NS 100 ML (IVPB) BAG IV ONE
--- NOTE | 2017-03-28 13:16 | Diagnostic Imaging Report ---
PROCEDURE: CT abdomen and pelvis with contrast. TECHNIQUE: Multiple contiguous axial images were obtained through the abdomen and pelvis after administration of intravenous contrast. INDICATION: Right-sided abdominal swelling. Low back pain, nausea, and vomiting. CORRELATION STUDY: 08/28/2016. FINDINGS: Lung bases clear. An 8-mm low-density nodule, left lobe of the liver anteriorly, favoring probable cyst unchanged. Additional asymmetric geographic low-attenuation adjacent falciform ligament, left lobe of the liver, favors probable fatty infiltration. Gallbladder is slightly distended. No significant bile duct dilatation. Pancreas, spleen, adrenal glands unremarkable. Abdominal aorta normal. Major branches patent. Splenic vein and portal vein patent. Kidneys unremarkable. There may be a tiny cyst of the right kidney. Gastrointestinal tract demonstrates no obstruction or inflammation. Findings compatible with prior appendectomy with clips adjacent to the cecum. No abdominal ascites or free air. Urinary bladder unremarkable. Hysterectomy changes are noted. Two adjacent low-density masses in the left adnexa favoring probable cysts present. Largest measuring 2.5 cm has decreased in size, previously measured 4.3 cm. Osseous structures demonstrate no acute feature. Increased sclerosis, L4-L5 disc space, likely owing to inter spacer device with prior laminectomy changes of the lower lumbar spine. IMPRESSION: 1. Negative for acute abnormality about the abdomen and/or pelvis. 2. Gallbladder is somewhat distended but otherwise unremarkable. 2. Left adnexal cystic masses with post hysterectomy changes. Dictated by: Dictated on workstation # [id number]
== END ==
LOC: RAD 11:17
PROVIDERS: ATTEND Nurse Practitioner Community Health
DX: N83.202 Unspecified ovarian cyst, left side (principal); Z90.710 Acquired absence of both cervix and uterus; R10.31 Right lower quadrant pain; R11.0 Nausea
CPT/HCPCS: 74177

== ENCOUNTER 2017-04-11 22:03 | Emergency (ER) | payer OTHER ==
[~2017-04-11] VITALS: Ht 172.7 cm; Wt 83.9 kg
[~2017-04-11 22:03] MED LIST changes: -CATHETER FLUSH 10 ML SYR IV PRN; -IOHEXOL 350 MG/ML 100 ML (OMNIPAQUE 350) VIAL IV ONE; -NS 100 ML (IVPB) BAG IV ONE
[2017-04-11 22:16] VITALS: BP 112/93
[2017-04-11] MEDS ORDERED: NS IV 500 ML 500 ML IV ONE (22:31)
--- NOTE | 2017-04-11 22:39 | ED Abdominal Pain ---
General Chief Complaint: Abdominal/GI Problems Stated Complaint: STOMACH/BACK PAIN Nursing Triage Note: PT REPORTS R UPPER ABDOMINAL PAIN THAT RADIATES TO THE MIDLINE. PT ALSO REPORTS VOMITING AND INTERMITTENT CONSTIPATION/DIAHRREA. Sepsis Screen: No Definite Risk Source of Information: Patient Exam Limitations: No Limitations History of Present Illness Time Seen By Provider: 22:24 Initial Comments Patient presents to ER by private conveyance with a chief complaint she is having all over abdominal pain mostly situated on her right side wrap around her back and feels that the knife stabbing into her back. She's been had thing this pain off and on for last 6 months that is accompanied with nausea and vomiting a couple times tonight. She has no blood in the vomitus. She is been worked up by her primary care physician who has given her pain medicines as well as Phenergan which tonight is not working. She has also been given a referral to a general surgeon at [facility] in [place], [place] however she does not have the appointment or the physician's name yet. She has an extensive surgical history of her abdomen to include section, hysterectomy, 2 surgeries for endometriosis debulking, and another abdominal surgery by Dr. Cordero about 2 years ago for something with her rectum and a mesh being placed and adhesiolysis as well as apparently her bladder was nicked so they tied her bladder up. She was doing fine until the beginning of this year about 9 months ago she started having some pains again. 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 She had this didn't subsequently removed and was told if she ever had problems with that again that she would probably need a bypass graft placed but she has not ever had to follow-up with that urologist Dr. Jovel in [place]. Her last bowel movement was earlier today and was normal. However for the last several weeks she has had intermittent diarrhea and constipation. She started seeing her primary care physician 2 weeks ago for this series of symptoms that started about 6 weeks ago. He checked her urine and told her she might have a UTI but she says she chronically has a UTI. She just recently finished an unknown antibiotic. She claims she's lost 11 pounds in the last 6 weeks. She had her appendix taken out by Dr. Consuelo but still has her gallbladder intact. Allergies and Home Medications Allergies Coded Allergies: Sulfa (Sulfonamide Antibiotics) (Verified Allergy, Severe, RASH, 05/24/12) morphine (Verified Allergy, Severe, RASH, 05/24/12) Home Medications Cephalexin 500 Mg Capsule, 500 MG PO BID for 10 Days, #20 Ref 0 Prescribed by: RENE PUGH on 04/12/17116 Ciprofloxacin HCl 500 Mg Tablet, 500 MG PO BID, #14 Prescribed by: RANI GAMBOA on 08/28/16 1128 Hydrocodone/Acetaminophen 1 Each Tablet, 1-2 EACH PO Q6H PRN for PAIN, #10 Prescribed by: RANI GAMBOA on 08/28/16 1128 Ondansetron 4 Mg Tab.rapdis, 4 MG PO Q4H PRN for NAUSEA/VOMITING-1ST LINE, #30 Ref 0 Prescribed by: RENE PUGH on 04/12/17 011 Oxycodone HCl/Acetaminophen 1 Each Tablet, 1-2 EACH PO Q6H PRN for BREAKTHROUGH PAIN, #20 Ref 0 Prescribed by: RENE PUGH on 04/12/17116 Promethazine HCl 25 Mg Supp.rect, 25 MG RC Q6H PRN for NAUSEA/VOMITING-2ND LINE , #12 Ref 0 Prescribed by: RENE PUGH on 04/12/17116 Review of Systems Constitutional: No chills, No diaphoresis, No fever EENTM: No Blurred Vision, No Double Vision Respiratory: Denies Cough, Denies Shortness of Air Cardiovascular: Denies Chest Pain, Denies Lightheadedness, Denies Palpitations , Denies Syncope Gastrointestinal: See HPI, Abdomen Distended, Abdominal Pain, Denies Blood Streaked Stools, Denies Constipated, Denies Diarrhea, Nausea, Vomiting Genitourinary: Denies Burning, Denies Discharge Musculoskeletal: see HPI, back pain, No gout, No joint pain Skin: No pruritus, No rash Psychiatric/Neurological: Denies Headache, Denies Numbness, Denies Paresthesia Hematologic/Lymphatic: Denies Easy Bleeding, Denies Easy Bruising Past Lvwizaa-Bplvxo-Rkkdyr Hx Patient Social History Alcohol Use: Rarely Uses Recreational Drug Use: No Smoking Status: Never a Smoker Recent Foreign Travel: No Contact w/Someone Who Travel: No Recent Infectious Disease Expo: No Recent Hopitalizations: No Physical Abuse: No Sexual Abuse: No Mistreated: No Fear: No Seasonal Allergies Seasonal Allergies: No Surgeries History of Surgeries: Yes (BACKx2, KIDNEY STENT, D&E, ENDOMETRIOSIS) Surgeries: Abdominal, Appendectomy, Section, Hysterectomy, Orthopedic Respiratory History of Respiratory Disorde: No Cardiovascular History of Cardiac Disorders: No Neurological History of Neurological Disord: Yes Neurological Disorders: Headaches /Migraines Reproductive System Hx Reproductive Disorders: Yes Sexually Transmitted Disease: No HIV/AIDS: No Female Reproductive Disorders: Endometriosis [employer] History: Hysterectomy Genitourinary Genitourinary Disorders: Kidney Infection, Bladder Infection, Kidney Stones, UTI-Chronic Gastrointestinal History of Gastrointestinal Di: No Musculoskeletal History of Musculoskeletal Dis: Yes Musculoskeletal Disorders: Back Injury, Chronic Back Pain Endocrine History of Endocrine Disorders: No HEENT Loss of Vision: Denies Hearing Impairment: Denies Cancer History of Cancer: No Psychosocial History of Psychiatric Problem: Yes Behavioral Health Disorders: Depression Suicide Risk Score: 0 Integumentary History of Skin or Integumenta: No Blood Transfusions History of Blood Disorders: No Adverse Reaction to a Blood Tr: No Family Medical History Significant Family History: Cancer, Diabetes, Hypertension, Other Conditions/Hx Family Medial History: Arthritis 19 FATHER 19 MOTHER Asthma 19 FATHER Diabetes mellitus 19 MOTHER FH: congestive heart failure 19 MOTHER Hypercholesterolemia 19 MOTHER Hypertension 19 MOTHER Kidney disease 19 MOTHER Physical Exam Vital Signs VS - Last 72 Hours, by Label 04/11/17 22:16 Temp 97.0 Pulse 111 Resp 20 B/P (MAP) 112/93 Pulse Ox 97 Capillary Refill : Less Than 3 Seconds General Appearance: WD/WN, moderate distress HEENT: PERRL/EOMI, pharynx normal Neck: full range of motion, normal inspection Respiratory: chest non-tender, lungs clear, normal breath sounds, no respiratory distress Cardiovascular: normal peripheral pulses, regular rate, rhythm, no edema, no murmur Peripheral Pulses: 2+ Dorsalis Pedis (R), 2+ Left Dors-Pedis (L), 2+ Radial Pulses (R), 2+ Radial Pulses (L) Gastrointestinal: normal bowel sounds, no organomegaly (Ching sign negative), No distended, No guarding, No rebound, tenderness (diffusely however very tender to the right lower quadrant without rebound) Extremities: normal range of motion, non-tender, normal inspection, no pedal edema, no calf tenderness, normal capillary refill Back: normal inspection, CVA tenderness (R), CVA tenderness (L) Neurologic/Psychiatric: alert, normal mood/affect, oriented x 3 Skin: normal color, warm/dry Progress/Results/Core Measures Results/Orders Lab Results Laboratory Tests Test 04/11/17 22:36 04/11/17 22:46 Range/Units Urine Color VALENTINO H Urine Clarity SLIGHTLY CLOUDY Urine pH 5 5-9 Urine Specific [place] 1.020 1.016-1.022 Urine Protein 2+ H NEGATIVE Urine Glucose (UA) NEGATIVE NEGATIVE Urine Ketones NEGATIVE NEGATIVE Urine Nitrite NEGATIVE NEGATIVE Urine Bilirubin NEGATIVE NEGATIVE Urine Urobilinogen NORMAL NORMAL MG/DL Urine Leukocyte Esterase 3+ H NEGATIVE Urine RBC (Auto) 1+ H NEGATIVE Urine RBC 0-2 /HPF Urine WBC 10-25 H /HPF Urine Squamous Epithelial Cells 2-5 /HPF Urine Crystals NONE /LPF Urine Bacteria LARGE H /HPF Urine Casts NONE /LPF Urine Mucus SMALL H /LPF Urine Culture Indicated YES Urine Opiates Screen POSITIVE H NEGATIVE Urine Oxycodone Screen NEGATIVE NEGATIVE Urine Methadone Screen NEGATIVE NEGATIVE Urine Propoxyphene Screen NEGATIVE NEGATIVE Urine Barbiturates Screen NEGATIVE NEGATIVE Ur Tricyclic Antidepressants Screen POSITIVE H NEGATIVE Urine Phencyclidine Screen NEGATIVE NEGATIVE Urine Amphetamines Screen NEGATIVE NEGATIVE Urine Methamphetamines Screen NEGATIVE NEGATIVE Urine Benzodiazepines Screen NEGATIVE NEGATIVE Urine Cocaine Screen NEGATIVE NEGATIVE Urine Cannabinoids Screen POSITIVE H NEGATIVE White Blood Count 8.3 4.3-11.0 10^3/uL Red Blood Count 4.95 4.35-5.85 10^6/uL Hemoglobin 13.3 11.5-16.0 G/DL Hematocrit 40 35-52 % Mean Corpuscular Volume 80 80-99 FL Mean Corpuscular Hemoglobin 27 25-34 PG Mean Corpuscular Hemoglobin Concent 34 32-36 G/DL Red Cell Distribution Width 14.7 H 10.0-14.5 % Platelet Count 395 130-400 10^3/uL Mean Platelet Volume 10.9 H 7.4-10.4 FL Neutrophils (%) (Auto) 68 42-75 % Lymphocytes (%) (Auto) 25 12-44 % Monocytes (%) (Auto) 8 0-12 % Eosinophils (%) (Auto) 0 0-10 % Basophils (%) (Auto) 0 0-10 % Neutrophils # (Auto) 5.6 1.8-7.8 X 10^3 Lymphocytes # (Auto) 2.1 1.0-4.0 X 10^3 Monocytes # (Auto) 0.6 0.0-1.0 X 10^3 Eosinophils # (Auto) 0.0 0.0-0.3 10^3/uL Basophils # (Auto) 0.0 0.0-0.1 10^3/uL Sodium Level 140 135-145 MMOL/L Potassium Level 3.1 L 3.6-5.0 MMOL/L Chloride Level 102 98-107 MMOL/L Carbon Dioxide Level 22 21-32 MMOL/L Anion Gap 16 H 5-14 MMOL/L Blood Urea Nitrogen 13 7-18 MG/DL Creatinine 1.19 0.60-1.30 MG/DL Estimat Glomerular Filtration Rate 51 BUN/Creatinine Ratio 11 Glucose Level 109 H 70-105 MG/DL Calcium Level 9.8 8.5-10.1 MG/DL Magnesium Level 2.2 1.8-2.4 MG/DL Total Bilirubin 0.8 0.1-1.0 MG/DL Aspartate Amino Transf (AST/SGOT) 12 5-34 U/L Alanine Aminotransferase (ALT/SGPT) 9 0-55 U/L Alkaline Phosphatase 59 40-136 U/L Total Protein 8.5 H 6.4-8.2 GM/DL Albumin 4.8 H 3.2-4.5 GM/DL Lipase 14 8-78 U/L My Orders Orders - RENE PUGH Cbc With Automated Diff (04/11/17 22:31) Comprehensive Metabolic Panel (04/11/17 22:31) Drug Screen Stat (Urine) (04/11/17 22:31) Lipase (04/11/17 22:31) Magnesium (04/11/17 22:31) Ua Culture If Indicated (04/11/17 22:31) Saline Lock/Iv-Start (04/11/17 22:31) Ns Iv 500 Ml (Sodium Chloride 0.9%) (04/11/17 22:31) Ondansetron Injection (Zofran Injectio (04/11/17 22:45) Fentanyl Injection (Sublimaze Injection (04/11/17 22:45) Ct Abdomen/Pelvis W (04/11/17 22:50) Iohexol Injection (Omnipaque 350 Mg/Ml 1 (04/11/17 23:15) Ns (Ivpb) (Sodium Chloride 0.9% Ivpb Bag (04/11/17 23:15) Potassium Chloride (Tablet) (K Dur Table (04/11/17 23:30) Urine Culture (04/11/17 22:36) Ondansetron Injection (Zofran Injectio (04/12/17 00:30) Fentanyl Injection (Sublimaze Injection (04/12/17 01:00) Rx-Ondansetron Po (Rx-Zofran Po) (04/12/17 01:08) Ceftriaxone Injection (Rocephin Injectio (04/12/17 01:15) Ceftriaxone Injection (Rocephin Injectio (04/12/17 01:02) Ns (Ivpb) (Sodium Chloride 0.9% Ivpb Bag (04/12/17 01:04) Rx-Oxycodone/Apap 5-325 Mg (Rx-Percocet (04/12/17 01:30) Medications Given in ED Current Medications Medications Dose Ordered Sig/Aleida Route Start Time Stop Time Status Last Admin Dose Admin Ceftriaxone Sodium 1000 mg/ Sodium Chloride 50 ml @ 100 mls/hr ONCE ONCE IV 04/12/17 01:15 04/12/17 01:32 DC 04/12/17 01:16 100 MLS/HR Fentanyl Citrate 50 mcg ONCE ONCE IVP 04/11/17 22:45 04/11/17 22:46 DC 04/11/17 22:54 50 MCG Fentanyl Citrate 100 mcg ONCE ONCE IVP 04/12/17 01:00 04/12/17 01:01 DC 04/12/17 01:15 100 MCG Iohexol 100 ml ONCE ONCE IV 04/11/17 23:15 04/11/17 23:16 DC 04/11/17 23:10 100 ML Ondansetron HCl 4 mg ONCE ONCE IVP 04/11/17 22:45 04/11/17 22:46 DC 04/11/17 22:53 4 MG Ondansetron HCl 4 mg ONCE ONCE IVP 04/12/17 00:30 04/12/17 00:31 DC 04/12/17 00:25 4 MG Oxycodone/ Acetaminophen 1 ea Q4H PRN PO 04/12/17 01:30 04/12/17 01:32 DC 04/12/17 01:29 1 EA Potassium Chloride 20 meq ONCE ONCE PO 04/11/17 23:30 04/11/17 23:31 DC 04/11/17 23:33 20 MEQ Sodium Chloride 80 ml ONCE ONCE IV 04/11/17 23:15 04/11/17 23:16 DC 04/11/17 23:10 80 ML Sodium Chloride 500 ml @ 0 mls/hr Q0M ONCE IV 04/11/17 22:31 04/11/17 22:33 DC 04/11/17 22:53 0 MLS/HR Vital Signs/I&O Vital Sign - Last 12Hours 04/11/17 22:16 Temp 97.0 Pulse 111 Resp 20 B/P (MAP) 112/93 Pulse Ox 97 Blood Pressure Mean: 99 Progress Note : Time: 22:44 Progress Note Endometriosis, adhesions, urinary tract infection or obstructed urinary system, colitis. We'll obtain another CT to surgery allayed compared to the March 28 CT of the abdomen pelvis. We will also obtain urine by straight catheter instead of clean catch to reduce the risk of contaminants. Reviewed the historical lab records and imaging. Diagnostic Imaging Diagonstic Imaging: CT (03/28/17) Plain Films/CT/US/NM/MRI: abdomen, pelvis Comments NAME: ANNALEE [facility] REC#: [id number] PHYSICIAN: JASMIN MOSER CC: JASMIN MOSER; DESTINY LIMA DO Page 2 of 2 RADIOLOGY REPORT VIA [place], [place] CC: JASMIN MOSER; DESTINY LIMA DO Page 1 of 2 RADIOLOGY REPORT NAME: ANNALEE [facility]RI[facility] REC#: [id number] PT STATUS: REG CLI : 1980 PHYSICIAN: JASMIN MOSER ADMIT DATE: 03/28/17/RAD Signed Date of Exam: 03/28/17 CT ABDOMEN/PELVIS W PROCEDURE: CT abdomen and pelvis with contrast. TECHNIQUE: Multiple contiguous axial images were obtained through the abdomen and pelvis after administration of intravenous contrast. INDICATION: Right-sided abdominal swelling. Low back pain, nausea, and vomiting. CORRELATION STUDY: 08/28/2016. FINDINGS: Lung bases clear. An 8-mm low-density nodule, left lobe of the liver anteriorly, favoring probable cyst unchanged. Additional asymmetric geographic low-attenuation adjacent falciform ligament, left lobe of the liver, favors probable fatty infiltration. Gallbladder is slightly distended. No significant bile duct dilatation. Pancreas, spleen, adrenal glands unremarkable. Abdominal aorta normal. Major branches patent. Splenic vein and portal vein patent. Kidneys unremarkable. There may be a tiny cyst of the right kidney. Gastrointestinal tract demonstrates no obstruction or inflammation. Findings compatible with prior appendectomy with clips adjacent to the cecum. No abdominal ascites or free air. Urinary bladder unremarkable. Hysterectomy changes are noted. Two adjacent low-density masses in the left adnexa favoring probable cysts present. Largest measuring 2.5 cm has decreased in size, previously measured 4.3 cm. Osseous structures demonstrate no acute feature. Increased sclerosis, L4-L5 disc space, likely owing to inter spacer device with prior laminectomy changes of the lower lumbar spine. IMPRESSION: 1. Negative for acute abnormality about the abdomen and/or pelvis. 2. Gallbladder is somewhat distended but otherwise unremarkable. 2. Left adnexal cystic masses with post hysterectomy changes. Dictated by: Dictated on workstation # [id number] Dict: 03/28/17 1254 Trans: 03/28/171955 Interpreted by: DESTINY LIMA DO Electronically signed by: DESTINY LIMA DO 03/28/171955 Diagonstic Imaging: CT Plain Films/CT/US/NM/MRI: abdomen, pelvis Comments palmira seen in the kidneys, ureters or bladder. no hydronephrosis. there is persistent evidence of lesion within the hepatic segment 2/for a likely simple cysts. gallbladder, spleen, pancreas, adrenal glands are unremarkable. kidneys, ureters and urinary bladder are unremarkable. uterus is surgically absent. no adnexal masses. appendix is surgically absent. stomach, small bowel and colon are unremarkable. postsurgical changes within the lumbar spine. no acute fracture. Reviewed: Reviewed by Me Departure Impression Impression: Primary Impression: Abdominal pain Qualified Codes: R10.31 - Right lower quadrant pain Additional Impression: UTI (urinary tract infection) Qualified Codes: N30.00 - Acute cystitis without hematuria Disposition: HOME, SELF-CARE Condition: Stable Departure-Patient Inst. Decision time for Depature: 01:11 Referrals: ASIM AGUILAR MD (PCP) Primary Care Physician JASMIN MOSER (Family) Primary Care Physician Patient Instructions: Acute Abdomen (Belly Pain), Adult (DC) Add. Discharge Instructions: While you do appear to have a urinary tract infection we have not satisfactorily explained why you keep getting urinary tract infections. It would be reasonable to follow up with general surgeon as well as a urologist. Tomorrow morning please call Dr. Dow at his clinic at [phone] for follow-up. Please keep in contact with your primary care physician as well for pain management and nausea management. I will send home Zofran 4 mg to be taken 1-2 tablets every 4 hours and you may continue to use the Phenergan or you may use the Phenergan suppositories if you're unable to keep the Phenergan down. We have given you a single dose of Rocephin through your IV tonight and he will need to pick up and delivery driver the Keflex at the pharmacy tomorrow to be taken twice a day with food. Make sure you're drinking plenty of fluids to catch up with your fluid loss from nausea and help flush your kidneys. All discharge instructions reviewed with patient and/or family. Voiced understanding. Scripts Oxycodone HCl/Acetaminophen (Percocet 10-325 mg Tablet) 1 Each Tablet 1-2 EACH PO Q6H Y for BREAKTHROUGH PAIN, #20 TAB 0 Refills Prov: RENE PUGH 04/12/17 Cephalexin (Keflex) 500 Mg Capsule 500 MG PO BID for 10 Days, #20 CAP 0 Refills Prov: RENE PUGH 04/12/17 Promethazine HCl (Phenergan) 25 Mg Supp.rect 25 MG RC Q6H Y for NAUSEA/VOMITING-2ND LINE, #12 SUPP.RECT 0 Refills Prov: RENE PUGH 04/12/17 Ondansetron (Zofran Odt) 4 Mg Tab.rapdis 4 MG PO Q4H Y for NAUSEA/VOMITING-1ST LINE, #30 TAB 0 Refills Prov: RENE PUGH 04/12/17 Copy Copies To 1: BRIAN JACOBS DO Copies To 2: LISA DOW MD, TITUS J Apr 11, 2017 22:39
[2017-04-11] MEDS ORDERED: ONDANSETRON 4 MG/2 ML (SDV) Z0FRAN IVP ONE (22:45)
[2017-04-11] MEDS ORDERED: fentaNYL INJECTION 100 MCG/2 ML AMP IVP ONE (22:45)
[2017-04-11 22:55] LABS: BASOPHILS % (AUTO) 0 % (0-10); EOSINOPHILS % (AUTO) 0 % (0-10); LYMPHOCYTES # (AUTO) 2.1 X 10^3 (1.0-4.0); LYMPHOCYTES % (AUTO) 25 % (12-44); MEAN CORPUSCULAR HEMOGLOBIN 27 PG (25-34); MEAN CORPUSCULAR HGB CONC 34 G/DL (32-36); MEAN CORPUSCULAR VOLUME 80 FL (80-99); MEAN PLATELET VOLUME 10.9 FL (7.4-10.4); MONOCYTES # (AUTO) 0.6 X 10^3 (0.0-1.0); MONOCYTES % (AUTO) 8 % (0-12); NEUTROPHILS # (AUTO) 5.6 X 10^3 (1.8-7.8); NEUTROPHILS % (AUTO) 68 % (42-75); PLATELET COUNT 395 10^3/uL (130-400); RED BLOOD COUNT 4.95 10^6/uL (4.35-5.85); RED CELL DISTRIBUTION WIDTH 14.7 % (10.0-14.5); WHITE BLOOD COUNT 8.3 10^3/uL (4.3-11.0)
[2017-04-11] MEDS ORDERED: IOHEXOL 350 MG/ML 100 ML (OMNIPAQUE 350) VIAL IV ONE (23:15)
[2017-04-11] MEDS ORDERED: NS 100 ML (IVPB) BAG IV ONE (23:15)
[2017-04-11 23:19] LABS: ALBUMIN 4.8 GM/DL (3.2-4.5); BILIRUBIN,TOTAL 0.8 MG/DL (0.1-1.0); CALCIUM 9.8 MG/DL (8.5-10.1); CREATININE SERUM 1.19 MG/DL (0.60-1.30); MAGNESIUM 2.2 MG/DL (1.8-2.4); POTASSIUM 3.1 MMOL/L (3.6-5.0); TOTAL PROTEIN 8.5 GM/DL (6.4-8.2)
[2017-04-11] MEDS ORDERED: KCL 20 MEQ TAB (K-DUR) PO ONE (23:30)
[2017-04-11 23:33] LABS: BILIRUBIN,URINE NEGATIVE (NEGATIVE); KETONES,URINE NEGATIVE (NEGATIVE); LEUKOCYTE ESTERASE ,URINE 3+ (NEGATIVE); NITRITE,URINE NEGATIVE (NEGATIVE); PH,URINE 5 (5-9); PROTEIN,URINE 2+ (NEGATIVE); UROBILINOGEN,URINE NORMAL (NORMAL)
[2017-04-12] MEDS ORDERED: ONDANSETRON 4 MG/2 ML (SDV) Z0FRAN IVP ONE (00:30)
[2017-04-12] MEDS ORDERED: fentaNYL INJECTION 100 MCG/2 ML AMP IVP ONE (01:00)
[2017-04-12] MEDS ORDERED: cefTRIAXone 1 GM (ROCEPHIN) VIAL ONE (01:02)
[2017-04-12] MEDS ORDERED: NS (IVPB) 50 ML ONE (01:04)
[2017-04-12] MEDS ORDERED: RX-ONDANSETRON 4 MG ODT (ZOFRAN) PPK #4 PO STA (01:08)
[2017-04-12] MEDS ORDERED: cefTRIAXone INJECTION 1,000 MG in NS (IVPB) 50 ML IV ONE (01:15)
[2017-04-12] MEDS ORDERED: ONDA4TAB8 PO (01:17)
[2017-04-12] MEDS ORDERED: PROM25SU43 RC (01:17)
[2017-04-12] MEDS ORDERED: OXYC-202 PO (01:17)
[2017-04-12] MEDS ORDERED: CEPH-507 PO (01:17)
[2017-04-12] MEDS ORDERED: RX-OXYCODONE/APAP 5-325 MG #4 TAB PK PO PRN (01:30)
--- NOTE | 2017-04-12 07:03 | Diagnostic Imaging Report ---
PROCEDURE: CT abdomen and pelvis with contrast. TECHNIQUE: Multiple contiguous axial images were obtained through the abdomen and pelvis after administration of intravenous contrast. INDICATION: Abdominal pain with history of kidney stones COMPARISON: 03/28/2017 FINDINGS: Lower chest: The lung bases are clear. No pericardial or pleural effusion. Peritoneum: No free intraperitoneal air or fluid. Liver and biliary system: Stable focal fatty infiltration along the gallbladder fossa. Unchanged 1 cm cyst lateral segment 2 of the liver. The gallbladder is normal. No biliary duct dilation. Spleen and Pancreas: Spleen is normal. The pancreas enhances normally without mass lesion or peripancreatic inflammatory changes. Adrenals: Normal. tract: The kidneys enhance normally without suspicious mass or obstruction. No renal or ureteral calculi. Urinary bladder is distended without wall thickening. Status post hysterectomy. No adnexal mass. Left ovary is normal in appearance. Right ovary is not identified. GI tract: Stomach is decompressed. No bowel obstruction. No pericolonic inflammatory changes. Appendectomy. Vasculature and Lymph nodes: Normal caliber aorta. No abdominal or pelvic lymphadenopathy. Musculoskeletal: No concerning osseous lesion. Status post L3 laminectomy with L3-4 discectomy. IMPRESSION: 1. No urinary tract calculi or obstructive uropathy. 2. No acute inflammatory process in the abdomen or pelvis. 3. Findings are in agreement with the preliminary report. Dictated by: Dictated on workstation # [id number]
== END 2017-04-12 01:32 | disposition home or self-care (01) ==
LOC: EDUNIT# 22:03 → ER 22:05
DX: N39.0 Urinary tract infection, site not specified (principal); F32.9 Major depressive disorder, single episode, unspecified; G43.909 Migraine, unspecified, not intractable, without status migrainosus; Z87.442 Personal history of urinary calculi; Z80.9 Family history of malignant neoplasm, unspecified; Z82.49 Family history of ischemic heart disease and other diseases of the circulatory system; Z90.710 Acquired absence of both cervix and uterus
CPT/HCPCS: 36415; 74177; 80053; 80306; 81000; 83690; 83735; 85025; 87088; 87186; 96361; 96374; 96375; 96376; 99282

== ENCOUNTER 2017-06-18 00:14 | Emergency (ER) | payer OTHER ==
[~2017-06-18] VITALS: Ht 172.7 cm; Wt 77.1 kg
[~2017-06-18 00:14] MED LIST changes: +CEPH-507 PO; +ONDA4TAB8 PO; +OXYC-202 PO; +PROM25SU43 RC
[2017-06-18] MEDS ORDERED: FAMOTIDINE 20MG/2ML IV (PEPCID) IV STA (00:29)
[2017-06-18] MEDS ORDERED: ANTACID SUSP 30 ML UDC (MYLANTA) PO ONE (00:30)
[2017-06-18] MEDS ORDERED: LIDOCAINE 2% VISCOUS 15 ML UDC PO ONE (00:30)
--- NOTE | 2017-06-18 00:38 | ED Chest Pain ---
General Chief Complaint: Chest Pain Stated Complaint: BE BARROSO Source: patient, other Exam Limitations: no limitations History of Present Illness Time seen by provider: 00:29 Initial Comments Patient presents to ER by private conveyance with a chief complaint that she's having some chest pain and left-sided chest and radiates to her back. Started just prior to arrival. She's been having this pain intermittently since yesterday lasting several hours. She tried Tylenol without any help. She tried ibuprofen this did not help either. She's having no shortness of breath and only a dry occasional cough. She has no upper respirations symptoms. She has no abdominal pain. She has no primary history of coronary disease. No primary family history is known since she is adopted. She's had problems with palpitations and chest pain in the past but never had it worked up. She is having palpitations tonight as well. Palpitations felt like pounding in her heart followed by fluttering. She's nauseated and had some vomiting tonight. She's been nauseated and having vomiting for the past week off and on as well. She has a history of hysterectomy for endometriosis as well as to endometriosis debulking surgeries and a rectal reconstruction surgery. She still has her gallbladder and appendix. As the patient is more critical she's giving me more history included her nausea and vomiting that she going on since February. She says she's had a CAT scan to workup her nausea and vomiting that showed a spot on her liver and kidneys. She was also told there were some retained ovarian tissue. Allergies and Home Medications Allergies Coded Allergies: Sulfa (Sulfonamide Antibiotics) (Verified Allergy, Severe, RASH, 06/18/17) morphine (Verified Allergy, Severe, RASH, 06/18/17) Review of Systems Constitutional: No chills, No diaphoresis, No fever, No malaise EENTM: No Blurred Vision, No Double Vision Respiratory: See HPI, Cough, Denies Shortness of Air Cardiovascular: See HPI, Chest Pain, Palpitations, Denies Syncope Gastrointestinal: Denies Abdomen Distended, Denies Abdominal Pain, Denies Constipated, Denies Diarrhea, Denies Nausea Genitourinary: Denies Burning, Denies Discharge Musculoskeletal: No back pain, No joint pain Skin: No pruritus, No rash Psychiatric/Neurological: Denies Headache, Denies Numbness, Denies Paresthesia Past [id number] Hx Patient Social History Alcohol Use: Denies Use Recreational Drug Use: No Smoking Status: Never a Smoker 2nd Hand Smoke Exposure: No Recent Foreign Travel: No Contact w/Someone Who Travel: No Recent Hopitalizations: No Seasonal Allergies Seasonal Allergies: No Surgeries History of Surgeries: Yes (BACKx2, KIDNEY STENT, D&E, ENDOMETRIOSIS) Surgeries: Abdominal, Appendectomy, Section, Hysterectomy, Orthopedic Respiratory History of Respiratory Disorde: No Cardiovascular History of Cardiac Disorders: No Neurological History of Neurological Disord: Yes Neurological Disorders: Headaches /Migraines Reproductive System Hx Reproductive Disorders: Yes Sexually Transmitted Disease: No HIV/AIDS: No Female Reproductive Disorders: Endometriosis AD TAKER History: Hysterectomy Genitourinary Genitourinary Disorders: Kidney Infection, Bladder Infection, Kidney Stones, UTI-Chronic Gastrointestinal History of Gastrointestinal Di: No Musculoskeletal History of Musculoskeletal Dis: Yes Musculoskeletal Disorders: Back Injury, Chronic Back Pain Endocrine History of Endocrine Disorders: No HEENT Loss of Vision: Denies Hearing Impairment: Denies Cancer History of Cancer: No Psychosocial History of Psychiatric Problem: Yes Behavioral Health Disorders: Depression Integumentary History of Skin or Integumenta: No Blood Transfusions History of Blood Disorders: No Adverse Reaction to a Blood Tr: No Family Medical History Significant Family History: Cancer, Diabetes, Hypertension, Other Conditions/Hx Family Medial History: Arthritis 19 FATHER 19 MOTHER Asthma 19 FATHER Diabetes mellitus 19 MOTHER FH: congestive heart failure 19 MOTHER Hypercholesterolemia 19 MOTHER Hypertension 19 MOTHER Kidney disease 19 MOTHER Physical Exam Vital Signs Vital Sign - Last 12Hours Capillary Refill : General Appearance: No Apparent Distress, WD/WN HEENT: PERRL/EOMI, Pharynx Normal Neck: Full Range of Motion, Non Tender, Supple Respiratory: Chest Non Tender, Lungs Clear, Normal Breath Sounds, No Accessory Muscle Use, No Respiratory Distress Cardiovascular: Regular Rate, Rhythm, No Edema, No JVD Gastrointestinal: Normal Bowel Sounds, No Organomegaly, Non Tender, Soft Neurologic/Psychiatric: Alert, Oriented x3 Skin: Normal Color, Warm/Dry Progress/Results/Core Measures Results/Orders Lab Results Laboratory Tests Test 06/18/17 00:29 06/18/17 01:39 Range/Units White Blood Count 10.2 4.3-11.0 10^3/uL Red Blood Count 4.54 4.35-5.85 10^6/uL Hemoglobin 12.5 11.5-16.0 G/DL Hematocrit 36 35-52 % Mean Corpuscular Volume 79 L 80-99 FL Mean Corpuscular Hemoglobin 28 25-34 PG Mean Corpuscular Hemoglobin Concent 35 32-36 G/DL Red Cell Distribution Width 14.5 10.0-14.5 % Platelet Count 462 H 130-400 10^3/uL Mean Platelet Volume 10.4 7.4-10.4 FL Neutrophils (%) (Auto) 61 42-75 % Lymphocytes (%) (Auto) 30 12-44 % Monocytes (%) (Auto) 8 0-12 % Eosinophils (%) (Auto) 2 0-10 % Basophils (%) (Auto) 1 0-10 % Neutrophils # (Auto) 6.2 1.8-7.8 X 10^3 Lymphocytes # (Auto) 3.0 1.0-4.0 X 10^3 Monocytes # (Auto) 0.8 0.0-1.0 X 10^3 Eosinophils # (Auto) 0.2 0.0-0.3 10^3/uL Basophils # (Auto) 0.1 0.0-0.1 10^3/uL Prothrombin Time 12.2 12.2-14.7 SEC INR Comment 0.9 0.8-1.4 Activated Partial Thromboplast Time 30 24-35 SEC D-Dimer < 0.27 0.00-0.49 UG/ML Sodium Level 142 135-145 MMOL/L Potassium Level 2.8 L 3.6-5.0 MMOL/L Chloride Level 104 98-107 MMOL/L Carbon Dioxide Level 25 21-32 MMOL/L Anion Gap 13 5-14 MMOL/L Blood Urea Nitrogen 4 L 7-18 MG/DL Creatinine 0.74 0.60-1.30 MG/DL Estimat Glomerular Filtration Rate > 60 BUN/Creatinine Ratio 5 Glucose Level 113 H 70-105 MG/DL Calcium Level 10.1 8.5-10.1 MG/DL Magnesium Level 1.7 L 1.8-2.4 MG/DL Total Bilirubin 0.6 0.1-1.0 MG/DL Aspartate Amino Transf (AST/SGOT) 11 5-34 U/L Alanine Aminotransferase (ALT/SGPT) 20 0-55 U/L Alkaline Phosphatase 72 40-136 U/L Myoglobin 16.5 10.0-92.0 NG/ML Troponin I < 0.30 <0.30 NG/ML Total Protein 7.7 6.4-8.2 GM/DL Albumin 4.4 3.2-4.5 GM/DL Lipase 28 8-78 U/L Urine Color YELLOW Urine Clarity CLEAR Urine pH 6.5 5-9 Urine Specific [place] 1.010 L 1.016-1.022 Urine Protein NEGATIVE NEGATIVE Urine Glucose (UA) NEGATIVE NEGATIVE Urine Ketones NEGATIVE NEGATIVE Urine Nitrite NEGATIVE NEGATIVE Urine Bilirubin NEGATIVE NEGATIVE Urine Urobilinogen NORMAL NORMAL MG/DL Urine Leukocyte Esterase NEGATIVE NEGATIVE Urine RBC (Auto) NEGATIVE NEGATIVE Urine RBC NONE /HPF Urine WBC NONE /HPF Urine Squamous Epithelial Cells 2-5 /HPF Urine Crystals NONE /LPF Urine Bacteria LARGE H /HPF Urine Casts NONE /LPF Urine Mucus NEGATIVE /LPF Urine Culture Indicated YES Urine Opiates Screen NEGATIVE NEGATIVE Urine Oxycodone Screen NEGATIVE NEGATIVE Urine Methadone Screen NEGATIVE NEGATIVE Urine Propoxyphene Screen NEGATIVE NEGATIVE Urine Barbiturates Screen NEGATIVE NEGATIVE Ur Tricyclic Antidepressants Screen NEGATIVE NEGATIVE Urine Phencyclidine Screen NEGATIVE NEGATIVE Urine Amphetamines Screen POSITIVE H NEGATIVE Urine Methamphetamines Screen NEGATIVE NEGATIVE Urine Benzodiazepines Screen NEGATIVE NEGATIVE Urine Cocaine Screen NEGATIVE NEGATIVE Urine Cannabinoids Screen NEGATIVE NEGATIVE My Orders Orders - KEATON,RENE J Cbc With Automated Diff (06/18/17 00:29) Magnesium (06/18/17 00:29) Ekg Tracing (06/18/17 00:29) Cardiac Profile 1 (06/18/17 00:29) Comprehensive Metabolic Panel (06/18/17 00:29) Myoglobin Serum (06/18/17 00:29) Protime With Inr (06/18/17:) Partial Thromboplastin Time (06/18/17 00:29) O2 (06/18/17 00:29) Monitor-Rhythm Ecg Trace Only (06/18/17 00:29) Lipid Panel (06/19/17 06:00) Saline Lock/Iv-Start (06/18/17 00:29) Lipase (06/18/17 00:29) Fibrin Degradation Products (06/18/17:29) Chest Pa/Lat (2 View) (06/18/17 00:29) Lidocaine 2% Viscous 15 Ml (Xylocaine Vi (06/18/17 00:30) Antacid Suspension (Mylanta Suspension (06/18/17 00:30) Famotidine Injection (Pepcid Injection) (06/18/17 00:29) Ua Culture If Indicated (06/18/17 00:49) Drug Screen Stat (Urine) (06/18/17 00:49) Ondansetron Injection (Zofran Injectio (06/18/17 01:03) Ondansetron Injection (Zofran Injectio (06/18/17 01:15) Potassium Chloride (Tablet) (K Dur Table (06/18/17 01:15) Magnesium Oxide Tablet (Mag Ox Tablet) (06/18/17 01:15) Lactated Ringers (Lr 1000 Ml Iv Solution (06/18/17 01:18) Potassium Cl 10meq/50ml Ivpb (Kcl 10 Meq (06/18/17 01:30) Magnesium 1 Gm/100 Ml Ivpb (Magnesium Perrin (06/18/17 01:30) Fentanyl Injection (Sublimaze Injection (06/18/17 01:45) Ondansetron Injection (Zofran Injectio (06/18/17 01:45) Urine Culture (06/18/17 01:39) Fentanyl Injection (Sublimaze Injection (06/18/17 03:00) Ondansetron Injection (Zofran Injectio (06/18/17 03:00) Ekg Tracing (06/18/17 02:46) Ct Abdomen/Pelvis W (06/18/17 02:46) Rx-Ondansetron Po (Rx-Zofran Po) (06/18/17 04:52) Hydrocodone/Apap 5/325 Tablet (Lortab 5 (06/18/17 05:00) Medications Given in ED Current Medications Medications Dose Ordered Sig/Aleida Route Start Time Stop Time Status Last Admin Dose Admin Al Hydrox/Mg Hydrox/Simethicone 30 ml ONCE ONCE PO 06/18/17 00:30 06/18/17 00:33 DC 06/18/17 00:54 30 ML Fentanyl Citrate 50 mcg ONCE ONCE IVP 06/18/17 01:45 06/18/17 01:46 DC 06/18/17 01:49 50 MCG Fentanyl Citrate 50 mcg ONCE ONCE IVP 06/18/17 03:00 06/18/17 03:01 DC 06/18/17 03:04 50 MCG Lactated Ringer's 1,000 ml @ 0 mls/hr Q0M ONCE IV 06/18/17 01:18 06/18/17 01:19 DC 06/18/17 01:25 0 MLS/HR Lidocaine HCl 15 ml ONCE ONCE PO 06/18/17 00:30 06/18/17 00:33 DC 06/18/17 00:54 15 ML Magnesium Sulfate/ Dextrose 100 ml @ 100 mls/hr ONCE ONCE IV 06/18/17 01:30 06/18/17 02:29 DC 06/18/17 01:54 100 MLS/HR Ondansetron HCl 4 mg ONCE ONCE IVP 06/18/17 01:45 06/18/17 01:46 DC 06/18/17 01:48 4 MG Ondansetron HCl 4 mg STK-MED ONCE .ROUTE 06/18/17 01:03 06/18/17 01:05 DC 06/18/17 01:06 4 MG Potassium Chloride 50 ml @ 50 mls/hr Q1H ONCE IV 06/18/17 01:30 06/18/17 02:29 DC 06/18/17 02:56 50 MLS/HR Vital Signs/I&O Vital Sign - Last 12Hours 06/18/17 06/18/17 06/18/17 00:38 00:38 00:38 Temp 98.7 Pulse 102 Resp 14 B/P (MAP) 160/106 (124) Pulse Ox 98 98 O2 Delivery Room Air Room Air Room Air Progress Note #1: Time: 00:37 Progress Note We'll get a urine drug screen, chest x-ray, blood work give her an aspirin. Coronary disease is rather unlikely. We'll get fibrin degradation products and give her a GI cocktail. Progress Note #2: Time: 01:20 Progress Note Lipase is normal. A referred gallbladder pain would explain the nausea vomiting and neck pain. The alkaline phosphatase is normal. She has no Ching sign on examination. Her nausea is improving on the nausea medicine. Her pain has not let up much. She was unable to drink much of the GI cocktail due to her nausea however. We'll try some opiates for pain. Recurrent endometriosis would also explain some of her symptoms. The patient's history gets longer and longer nausea explain she's been worked up before with a CAT scan outpatient for her nausea and vomiting has been going on for 3 months. There is apparently some retained ovarian tissue and may be some sort of a mass growing on it. Perhaps this is endometriosis recurrent. Reexamination demonstrates her abdomen to be still with a negative for Ching sign and but right lower quadrant is very tender. She says she had her appendix out when she had her hysterectomy. She may benefit from a pelvic ultrasound. She had a CT of the abdomen to 3 months ago that demonstrated no significant pathology or mass on the ovaries. She has an ultrasound from 2014 of her gallbladder that was normal. Progress Note #3: Time: 01:43 Progress Note We discussed with the patient and her significant other the likelihood of endometriosis recurrent versus other pelvic pathology and we could do an ultrasound tonight or rigidity just get her pain, nausea, hypokalemia, hypomagnesemia under control and get her follow-up with her primary care physician in the next 1-2 weeks to do the workup outpatient. There is very limited benefit to doing the ultrasound tonight as her not likely to do anything if it is endometriosis. Been going on for several months so the complaint is fairly subacute. The patient agrees to this probably more appropriate just to get her pain and nausea under control and get her follow-up with her own doctor. Progress Note #4: Time: 03:19 Progress Note Patient's chest pain came back severe intensity. We got another EKG does not show any changes. Her abdomen is modestly more tender than it was before. We'll go ahead and obtain a CT abdomen with contrast. Her nausea is back. Fentanyl and Zofran. ECG Initial ECG Impression Date: Jun 18, 2017 Initial ECG Impression Time: 00:21 Initial ECG Rate: 104 Initial ECG Rhythm: S.Tach Initial ECG Intervals: Normal Initial ECG Impression: Normal, Nonspecific Changes Initial ECG Comparisson: No Previous ECG Available Comment Sinus tachycardia without T-wave elevation or depression. No evidence of pericarditis on EKG. Borderline flattened T waves. EKG : EKG Time: 02:45 Rate: 95 Rhythm: Normal Sinus ECG Comparisson: Unchanged ECG Impression: Normal Comment No T-wave elevation or depression. Diagnostic Imaging Diagonstic Imaging: Xray Plain Films/CT/US/NM/MRI: chest (2v) Comments No acute cardiopulmonary processes noted. Reviewed: Reviewed by Me Departure Impression Impression: Primary Impression: Amphetamine adverse reaction Qualified Codes: T43.625A - Adverse effect of amphetamines, initial encounter Additional Impressions: Abdominal pain Qualified Codes: R10.84 - Generalized abdominal pain Nausea and vomiting Qualified Codes: R11.2 - Nausea with vomiting, unspecified Disposition: 01 HOME, SELF-CARE Condition: Improved Departure-Patient Inst. Decision time for Depature: 04:55 Referrals: [facility] (PCP/Family) Primary Care Physician Patient Instructions: Nausea and Vomiting, Adult (DC) Add. Discharge Instructions: Drink plenty of fluids. Use the nausea medicine every 6 hours as needed for nausea. Follow-up with her primary care physician this week. All discharge instructions reviewed with patient and/or family. Voiced understanding. Scripts Ondansetron (Zofran Odt) 4 Mg Tab.rapdis 4 MG PO Q6H Y for NAUSEA/VOMITING-1ST LINE, #8 TAB 0 Refills Prov: RENE PUGH 06/18/17 Hydrocodone/Acetaminophen (Hydrocodon -Acetaminophen 5-325) 1 Each Tablet 1 EACH PO Q6H Y for BREAKTHROUGH PAIN, #8 TAB 0 Refills Prov: RENE PUGH 06/18/17 Copy Copies To 1: BRIAN JACOBS TITUS J Jun 18, 2017 00:38
[2017-06-18 00:43] LABS: BASOPHILS # (AUTO) 0.1 10^3/uL (0.0-0.1); BASOPHILS % (AUTO) 1 % (0-10); EOSINOPHILS # (AUTO) 0.2 10^3/uL (0.0-0.3); EOSINOPHILS % (AUTO) 2 % (0-10); LYMPHOCYTES % (AUTO) 30 % (12-44); MEAN CORPUSCULAR HEMOGLOBIN 28 PG (25-34); MEAN CORPUSCULAR HGB CONC 35 G/DL (32-36); MEAN CORPUSCULAR VOLUME 79 FL (80-99); MEAN PLATELET VOLUME 10.4 FL (7.4-10.4); MONOCYTES # (AUTO) 0.8 X 10^3 (0.0-1.0); MONOCYTES % (AUTO) 8 % (0-12); NEUTROPHILS # (AUTO) 6.2 X 10^3 (1.8-7.8); NEUTROPHILS % (AUTO) 61 % (42-75); PLATELET COUNT 462 10^3/uL (130-400); RED BLOOD COUNT 4.54 10^6/uL (4.35-5.85); RED CELL DISTRIBUTION WIDTH 14.5 % (10.0-14.5); WHITE BLOOD COUNT 10.2 10^3/uL (4.3-11.0)
[2017-06-18 00:53] LABS: INR 0.9 (0.8-1.4); PROTHROMBIN TIME PATIENT 12.2 SEC (12.2-14.7)
[2017-06-18] MEDS ORDERED: ONDANSETRON 4 MG/2 ML (SDV) Z0FRAN ONE (01:03)
[2017-06-18 01:04] LABS: ALANINE AMINOTRANSFERASE 20 U/L (0-55); ALBUMIN 4.4 GM/DL (3.2-4.5); ANION GAP 13 MMOL/L (5-14); ASPARTATE AMINO TRANSFERASE 11 U/L (5-34); BILIRUBIN,TOTAL 0.6 MG/DL (0.1-1.0); BLOOD UREA NITROGEN 4 MG/DL (7-18); BUN/CREATININE RATIO 5; CALCIUM 10.1 MG/DL (8.5-10.1); CARBON DIOXIDE 25 MMOL/L (21-32); CHLORIDE 104 MMOL/L (98-107); CREATININE SERUM 0.74 MG/DL (0.60-1.30); GFR ESTIMATED > 60; GLUCOSE 113 MG/DL (70-105); LIPASE 28 U/L (8-78); MAGNESIUM 1.7 MG/DL (1.8-2.4); POTASSIUM 2.8 MMOL/L (3.6-5.0); SODIUM 142 MMOL/L (135-145); TOTAL PROTEIN 7.7 GM/DL (6.4-8.2)
[2017-06-18 01:11] LABS: MYOGLOBIN SERUM 16.5 NG/ML (10.0-92.0)
[2017-06-18] MEDS ORDERED: ONDANSETRON 4 MG/2 ML (SDV) Z0FRAN IVP ONE ×3 (01:15→03:00)
[2017-06-18] MEDS ORDERED: MAGNESIUM OXIDE (MAG-OX)400 MG TAB PO ONE (01:15)
[2017-06-18] MEDS ORDERED: KCL 20 MEQ TAB (K-DUR) PO ONE (01:15)
[2017-06-18] MEDS ORDERED: LACTATED RINGERS 1,000 ML IV ONE (01:18)
[2017-06-18] MEDS ORDERED: POTASSIUM CL 10MEQ/50ML IVPB 50 ML IV ONE (01:30)
[2017-06-18] MEDS ORDERED: MAGNESIUM 1 GM/100 ML IVPB 100 ML IV ONE (01:30)
[2017-06-18] MEDS ORDERED: fentaNYL INJECTION 100 MCG/2 ML AMP IVP ONE ×2 (01:45→03:00)
[2017-06-18 01:50] LABS: BILIRUBIN,URINE NEGATIVE (NEGATIVE); KETONES,URINE NEGATIVE (NEGATIVE); LEUKOCYTE ESTERASE ,URINE NEGATIVE (NEGATIVE); NITRITE,URINE NEGATIVE (NEGATIVE); PH,URINE 6.5 (5-9); PROTEIN,URINE NEGATIVE (NEGATIVE); UROBILINOGEN,URINE NORMAL (NORMAL)
[2017-06-18] MEDS ORDERED: RX-ONDANSETRON 4 MG ODT (ZOFRAN) PPK #4 PO STA (04:52)
[2017-06-18] MEDS ORDERED: HYDR-3812 PO (04:56)
[2017-06-18] MEDS ORDERED: ONDA4TAB8 PO (04:56)
[2017-06-18] MEDS ORDERED: HYDROcodone/APAP 5 MG/325 MG (LORTAB) TAB PO ONE (05:00)
[2017-06-18 05:15] VITALS: BP 163/108
--- NOTE | 2017-06-18 07:31 | Diagnostic Imaging Report ---
PROCEDURE: CT abdomen and pelvis with contrast. TECHNIQUE: Multiple contiguous axial images were obtained through the abdomen and pelvis after administration of intravenous contrast. INDICATION: Chest pain, shortness of air, nausea COMPARISON: April 11, 2017 FINDINGS: The visualized lung bases are clear. Hypodensities are identified adjacent to the falciform ligament anteriorly. These appear similar to prior examinations. The liver is otherwise unremarkable. The spleen is unremarkable. The adrenal glands are unremarkable. The pancreas is unremarkable. The gallbladder is decompressed, though otherwise unremarkable. The kidneys and bilateral ureters are unremarkable. No aneurysmal dilatation of the abdominal aorta. The urinary bladder is unremarkable. The uterus is not visualized, likely surgically absent. Small bilateral ovarian cysts are identified. No large abnormal adnexal mass lesion. Postsurgical changes of prior appendectomy. No bowel obstruction or pneumatosis. No significant adenopathy, free air, or free fluid within the abdomen or pelvis. Postsurgical changes within the lower lumbar spine. No acute osseous abnormality. IMPRESSION: Similar hypodensities within the anterior aspect of the liver. These are favored to relate to focal fatty infiltration with an adjacent cyst. Bilateral ovarian cysts, which are small in size. These are likely physiologic cysts. Additional findings as above. Agree with preliminary interpretation. Dictated by: Dictated on workstation # [id number]
--- NOTE | 2017-06-18 07:37 | Diagnostic Imaging Report ---
INDICATION: Heart palpitations chest pain. COMPARISON: None. FINDINGS: Frontal and lateral views of the chest demonstrate clear lungs bilaterally. The heart is normal. No pneumothorax. The osseous structures normal. IMPRESSION: Negative chest. Dictated by: Dictated on workstation # [id number]
== END 2017-06-18 05:19 | disposition home or self-care (01) ==
LOC: EDUNIT# 00:14 → ER 00:16
DX: R11.2 Nausea with vomiting, unspecified (principal); R10.84 Generalized abdominal pain; G43.909 Migraine, unspecified, not intractable, without status migrainosus; F32.9 Major depressive disorder, single episode, unspecified; T43.625A Adverse effect of amphetamines, initial encounter; Z87.442 Personal history of urinary calculi; Z90.710 Acquired absence of both cervix and uterus; Z90.49 Acquired absence of other specified parts of digestive tract; Z87.59 Personal history of other complications of pregnancy, childbirth and the puerperium; Z82.49 Family history of ischemic heart disease and other diseases of the circulatory system
CPT/HCPCS: 36415; 71020; 74177; 80053; 80306; 81000; 83690; 83735; 83874; 84484; 85025; 85379; 85610; 85730; 87077; 87088; 87186; 93005; 93041

== ENCOUNTER → 2017-08-17 | Outpatient (CLI) | payer OTHER ==
[~2017-08-17] MED LIST changes: +ACHD5005 PO; +CATHETER FLUSH 10 ML SYR IV PRN; -HYDR-3812 PO; +IOHEXOL 350 MG/ML 100 ML (OMNIPAQUE 350) VIAL IV ONE; +NS 250 ML (IVPB) BAG IV ONE
[2017-08-17 13:11] LABS: HEMOGLOBIN 12.8 G/DL (11.5-16.0); MEAN PLATELET VOLUME 10.4 FL (7.4-10.4); RED BLOOD COUNT 4.72 10^6/uL (4.35-5.85); RED CELL DISTRIBUTION WIDTH 13.8 % (10.0-14.5); WHITE BLOOD COUNT 7.6 10^3/uL (4.3-11.0)
[2017-08-17 13:15] LABS: BILIRUBIN,URINE NEGATIVE (NEGATIVE); CLARITY,URINE SLIGHTLY CLOUDY; COLOR,URINE YELLOW; GLUCOSE, URINE (UA) NEGATIVE (NEGATIVE); KETONES,URINE NEGATIVE (NEGATIVE); LEUKOCYTE ESTERASE ,URINE 2+ (NEGATIVE); NITRITE,URINE POSITIVE (NEGATIVE); PH,URINE 6 (5-9); PROTEIN,URINE 1+ (NEGATIVE); UROBILINOGEN,URINE NORMAL (NORMAL)
[2017-08-17 13:23] LABS: BACTERIA,URINE LARGE /HPF; SQUAMOUS EPITHELIAL CELL,UR 25-50 /HPF
[2017-08-17 13:30] LABS: ALANINE AMINOTRANSFERASE 32 U/L (0-55); ALBUMIN 4.5 GM/DL (3.2-4.5); ALKALINE PHOSPHATASE 71 U/L (40-136); BILIRUBIN,TOTAL 0.7 MG/DL (0.1-1.0); BUN/CREATININE RATIO 10; CALCIUM 9.6 MG/DL (8.5-10.1); CARBON DIOXIDE 22 MMOL/L (21-32); CHLORIDE 100 MMOL/L (98-107); CREATININE SERUM 0.72 MG/DL (0.60-1.30); GFR ESTIMATED > 60; GLUCOSE 121 MG/DL (70-105); POTASSIUM 3.6 MMOL/L (3.6-5.0); SODIUM 135 MMOL/L (135-145); TOTAL PROTEIN 7.9 GM/DL (6.4-8.2)
--- NOTE | 2017-08-17 14:51 | Diagnostic Imaging Report ---
PROCEDURE: CT abdomen and pelvis with and without contrast. TECHNIQUE: Precontrast acquisitions were acquired through the abdomen and pelvis. Multiple contiguous axial images were obtained through the abdomen and pelvis after the administration of intravenous contrast. INDICATION: Right lower quadrant pain. COMPARISON: None available. FINDINGS: Lower chest: 06/18/2017. Peritoneum: No free intraperitoneal air or fluid. Liver and biliary system: Focal fatty infiltration along the falciform ligament is stable. No concerning hepatic lesions. The gallbladder is normal. No biliary duct dilation. Spleen and Pancreas: Spleen is normal. The pancreas enhances normally without mass lesion or peripancreatic inflammatory changes. Adrenals: Normal. tract: The kidneys enhance normally without suspicious mass or obstruction. Urinary bladder is distended without wall thickening. Status post hysterectomy. No adnexal mass. GI tract: Stomach is decompressed. No bowel obstruction. No pericolonic inflammatory changes. Status post appendectomy. Vasculature and Lymph nodes: Normal caliber aorta. No abdominal or pelvic lymphadenopathy. Musculoskeletal: No concerning osseous lesion. L3 laminectomy with L3-L4 discectomy. There is no abdominal, pelvic or groin hernia. IMPRESSION: 1. No acute inflammatory or obstructive process in the abdomen or pelvis. 2. No abdominal, pelvic or groin hernia. 3. Status post appendectomy. Report was called to Ish Flood/KATHY by wesley at 2:50 pm. Dictated by: Dictated on workstation # [id number]
== END ==
LOC: RAD 12:57
PROVIDERS: ATTEND Nurse Practitioner Family
DX: R10.31 Right lower quadrant pain (principal)
CPT/HCPCS: 36415; 74178; 80053; 81000; 85027; 87088; 87186

== ENCOUNTER → 2017-08-29 | Outpatient (CLI) | payer OTHER ==
[~2017-08-29] MED LIST changes: -IOHEXOL 350 MG/ML 100 ML (OMNIPAQUE 350) VIAL IV ONE; -NS 250 ML (IVPB) BAG IV ONE; +OXYC-464 PO; +PANT40TA2 PO
--- NOTE | 2017-08-29 12:54 | Diagnostic Imaging Report ---
CLINICAL INDICATION: Patient with right upper quadrant pain. COMPARISON: CT scan of the abdomen and pelvis with and without contrast dated 08/17/2017. PROCEDURE: The patient was administered 5.14 millicuries of technetium 99m Choletec. After 60 minutes of the images, one half can of Ensure was drink followed by another 60 minutes of imaging. Patient became nauseous after Ensure ingestion. A nuclear medicine hepatobiliary scan with ejection fraction was performed. FINDINGS: There is prompt uptake and excretion of radiotracer by the liver. Activity is visible in the gallbladder by 10 minutes and the small bowel by 5 minutes. There is note of reflux of radiotracer within the stomach. Ejection fraction of the gallbladder is calculated at 50% (normal > 33 %). The gallbladder visibly empties on the scans following the ingestion of Ensure. IMPRESSION: Normal hepatobiliary scan with normal gallbladder ejection fraction. Dictated by: Dictated on workstation # [id number]
== END ==
LOC: CARD 09:58
PROVIDERS: ATTEND Surgery
DX: R10.11 Right upper quadrant pain (principal); R11.2 Nausea with vomiting, unspecified
CPT/HCPCS: 78227

== ENCOUNTER 2017-08-31 13:00 | Outpatient (CLI) | payer OTHER ==
[~2017-08-31] VITALS: Ht 172.7 cm; Wt 77.1 kg
[~2017-08-31 13:00] MED LIST changes: -CATHETER FLUSH 10 ML SYR IV PRN; -OXYC-464 PO; -PANT40TA2 PO
[2017-08-31] MEDS ORDERED: PROM25SU43 RC (13:50)
[2017-08-31] MEDS ORDERED: OXYC-464 PO (13:50)
[2017-09-01] MEDS ORDERED: PANT40TA2 PO (15:21)
== END 2017-08-31 13:52 ==
LOC: PREOP 13:00
PROVIDERS: ATTEND Surgery
DX: Z01.818 Encounter for other preprocedural examination (principal); K82.8 Other specified diseases of gallbladder; K21.9 Gastro-esophageal reflux disease without esophagitis

== ENCOUNTER 2017-09-01 09:36 | Day surgery (SDC) | payer OTHER ==
[~2017-09-01] VITALS: Ht 172.7 cm; Wt 77.1 kg
[~2017-09-01 09:36] MED LIST changes: +OXYC-464 PO
[2017-09-01] MEDS ORDERED: ceFAZolin INJECTION 1,000 MG in NS (IVPB) 50 ML IV ONE (09:45)
[2017-09-01] MEDS ORDERED: CATHETER FLUSH 10 ML SYR IV PRN (10:00)
[2017-09-01] MEDS ORDERED: ceFAZolin 1 GM/NS 50 ML IVPB IV ONE ×2 (10:00)
[2017-09-01 10:08] VITALS: BP 141/76
[2017-09-01] MEDS ORDERED: ONDANSETRON 4 MG/2 ML (SDV) Z0FRAN IVP ONE (10:15)
--- NOTE | 2017-09-01 10:51 | Progress Note-Pre Operative ---
Pre-Operative Progress Note H&P Reviewed The H&P was reviewed, patient examined and no changes noted. Date Seen by Provider: Sep 01, 2017 Time Seen by Provider: 10:45 Date H&P Reviewed: Sep 01, 2017 Time H&P Reviewed: 10:45 Pre-Operative Diagnosis: symptomatic biliary dyskinesia ASPEN SHOOK MD Sep 01, 2017 10:51 am
[2017-09-01] MEDS ORDERED: HYDROcodone/APAP 5 MG/325 MG (LORTAB) TAB PO ONE (11:00)
[2017-09-01] MEDS ORDERED: ACETAMINOPHEN 325 MG TABLET/CAPLET (TYLENOL) PO PRN ×2 (11:00)
[2017-09-01] MEDS ORDERED: ONDANSETRON 4 MG/2 ML (SDV) Z0FRAN IVP PRN ×2 (11:00→15:15)
[2017-09-01] MEDS ORDERED: BUP/EPI 0.5% 1:200,000 (SENSORCAINE) 30 ML VIAL ONE (12:35)
[2017-09-01] MEDS ORDERED: ceFAZolin 1,000 MG (ANCEF) VIAL ONE (12:44)
[2017-09-01] MEDS ORDERED: NS (IVPB) 50 ML ONE (12:44)
[2017-09-01] MEDS ORDERED: fentaNYL INJECTION 100 MCG/2 ML AMP ONE ×2 (12:56→13:46)
[2017-09-01] MEDS ORDERED: ROCURONIUM 50 MG/5 ML (ZEMURON) VIAL IV ONE ×2 (12:56→14:17)
[2017-09-01] MEDS ORDERED: proPOfol 200 MG/20 ML (DIPRIVAN) VIAL IV ONE (12:56)
[2017-09-01] MEDS ORDERED: MIDAZOLAM 2 MG/2 ML (VERSED) VIAL ONE (12:56)
[2017-09-01] MEDS ORDERED: LIDOCAINE PF 2% 5 ML (XYLOCAINE) VIAL ONE (12:56)
[2017-09-01] MEDS ORDERED: LACTATED RINGERS 1,000 ML IV ONE (12:56)
[2017-09-01] MEDS ORDERED: ONDANSETRON 4 MG/2 ML (SDV) Z0FRAN ONE (12:56)
[2017-09-01] MEDS ORDERED: DEXAMETHASONE 10 MG/ML (DECADRON) 1 ML VIAL ONE (12:57)
[2017-09-01] MEDS ORDERED: SEVOFLURANE (ULTANE) 15 ML INHAL SOLN ONE ×8 (12:57→15:04)
[2017-09-01] MEDS: LACTATED RINGERS 1,000 ML IV PRN ×3 (13:21→14:50)
[2017-09-01] MEDS: fentaNYL INJECTION 100 MCG/2 ML AMP IVP PRN ×5 (15:15→18:30)
--- NOTE | 2017-09-01 15:20 | Progress Note-Post Operative ---
Post-Operative Progess Note Surgeon (s)/Plasterer Helper (s) Surgeon ASPEN SHOOK MD Plasterer Helper: tristin awan SENIOR INVESTMENT ANALYST Pre-Operative Diagnosis symptomatic biliary dyskinesia Post-Operative Diagnosis same, intraabdominal adhesions, pelvic mass. Procedure & Operative Findings Date of Procedure 09/01/17 Procedure Performed/Findings laparoscopic lysis of adhesions and cholecystectomy. EGD with bx. Anesthesia Type GET Estimated Blood Loss Estimated blood loss (mL): minimal Specimens/Packing Specimens Removed gallbladder. GE jxn, antrum. ASPEN SHOOK MD Sep 01, 2017 3:20 pm
[2017-09-01] MEDS ORDERED: PANT40TA2 PO (15:21)
--- NOTE | 2017-09-01 15:21 | Discharge Inst-Surgical ---
D/C Lap Instructions-BOONE New, Converted, or Re-Newed RX: RX on Chart Follow Up Appt in 2 weeks Activity as tolerated No driving for 24 hours No driving while on pain medications Incentive Spirometry use every 2 hours while awake Regular Diet Symptoms to Report: Fever over 101 degree F, Nausea/Vomiting Infection Signs and Symptoms to report: Increased redness, Foul odor of wound, Increased drainage Bathing instructions: May shower Operative Area Clean/Dry; Keep incision clean/dry If any problems/questions: Contact your physician or go to Emergency Room ASPEN SHOOK MD Sep 01, 2017 3:21 pm
[2017-09-01] MEDS: MEPERIDINE (DEMEROL) INJ 50 MG/ML IVP PRN ×2 (15:30→15:45)
[2017-09-01] MEDS ORDERED: HYDROcodone/APAP 5 MG/325 MG (LORTAB) TAB ONE (16:41)
[2017-09-01 17:05] VITALS: BP 151/96
[2017-09-01 18:00] VITALS: BP 152/90
[2017-09-01] MEDS: NS IV 1000 ML 1,000 ML IV SCH ×2 (18:15→18:49)
[2017-09-01 19:57] VITALS: BP 132/84
[2017-09-01] MEDS: ONDANSETRON 4 MG/2 ML (SDV) Z0FRAN IVP PRN (20:47)
[2017-09-01] MEDS: oxyCODONE/APAP 7.5-325 MG (PERCOCET 7.5) TABLET PO PRN (21:38)
[2017-09-02] MEDS: ONDANSETRON 4 MG/2 ML (SDV) Z0FRAN IVP PRN ×3 (00:52→09:05)
[2017-09-02 00:57] VITALS: BP 140/95
[2017-09-02] MEDS: fentaNYL INJECTION 100 MCG/2 ML AMP IVP PRN ×2 (00:57→05:12)
--- NOTE | 2017-09-02 01:00 | OPERATIVE REPORT ---
DATE OF SERVICE: 09/01/2017 ATTENDING CHEMICAL TECHNICIAN: [facility] PREOPERATIVE DIAGNOSES: Abdominal pain and symptomatic biliary dyskinesia as well as peptic ulcer disease. POSTOPERATIVE DIAGNOSES: Intra-abdominal adhesions towards the right lower abdominal wall. There appeared to be a mass in the pelvis which was midline which may be remnants from her previous gynecologic surgery or ovary, dilated gallbladder. Reflux esophagitis class B, moderate severity gastritis. PROCEDURES: Diagnostic laparoscopy, laparoscopic lysis of adhesions which took approximately 60 minutes, laparoscopic cholecystectomy, EGD with biopsy. SURGEON: Dr. Shook. DOCTOR OF VETERINARY MEDICINE: Ish Flood APRN. ANESTHESIA: General endotracheal. ESTIMATED BLOOD LOSS: Minimal. FINDINGS: Intra-abdominal adhesions, more towards the pelvis and the right lower abdominal quadrant. There was a mass in the pelvis, just right of midline, which could be remnants from her previous gynecologic surgeries. Distended gallbladder. Reflux esophagitis, class B. No hiatal hernia, moderate severity gastritis. DISPOSITION: The patient tolerated the procedure well. INDICATIONS: The patient Vincent a 37-year-old female who was referred over to us for abdominal pain, nausea and vomiting as well as diarrhea. She has had abdominal discomfort now for the past two months which has progressively worsened. She states that she has lost approximately 20 pounds over this timeframe. She reports that at any time, however, after meals as well she does have nausea and vomiting. She reports significant gynecologic history including a placenta previa requiring a section and during the section, there was a bowel injury that was repaired as well as a partial hysterectomy. She reports approximately two years later, she underwent a completion hysterectomy and appendectomy as well as what sounds to be a rectocele repair. Also an attempt was made for bladder mesh placement; however, due to a previous history of endometriosis and scar tissue, this could not be accomplished and a primary repair was undertaken. She reports that she does have history of epigastric pain and indigestion like symptoms as well as mild reflux. She also reports that she has pain in the right lower abdominal quadrant as well. An ultrasound was performed of the gallbladder which did not show any gallstones. A HIDA scan was then performed which did show a normal ejection fraction of approximately a 50%; however, after the administration of a Kinevac analog, she did have reproduction of symptoms including the pain in the right lateral abdomen with radiation towards the back as well as nausea and vomiting. This was consistent with a symptomatic biliary dyskinesia. DESCRIPTION OF PROCEDURE: The patient was brought to the operating room, laid supine on the table. After adequate IV pain and sedating medications and general endotracheal intubation, the abdomen was prepped and draped in standard surgical fashion. A 0.5% Marcaine with epinephrine was then used to anesthetize the overlying skin in the left upper abdominal quadrant and a small transverse skin incision made using a 15 blade. An 0 silk suture was applied to the medial aspect of the incision for retraction and a Veress needle inserted with a low opening pressure of 0 mmHg and the abdomen was then insufflated to 15 mmHg pressure. The Veress needle was removed and a 5 mm Xcel trocar placed followed by a 5 mm 45-degree angle laparoscope visualizing the peritoneal cavity. A 4-quadrant abdominal exploration was performed. There were adhesions towards the right lateral abdominal wall encompassing some small bowel as well as the left colon. There was also an adhesive band towards the pelvis. There was some scar tissue within the pelvis as well as a heaped up area in the pelvis just right of midline, medial to the epigastric vessels, which appeared bi-lobulated. This may represent remnants from her previous gynecologic surgeries as well as a previous endometrioma. If this becomes symptomatic, this will need to be investigated further. A distended gallbladder was also noted, most likely consistent with symptomatic biliary dyskinesia. An area in the epigastric region was then anesthetized using 0.5% Marcaine with epinephrine and a transverse skin incision made using a 15 blade. In a similar manner, a right upper abdominal quadrant 5 mm port was placed. We then proceeded with taking down of the adhesions towards the anterior abdominal wall connected to the left colon as well as the small bowel and pelvis using the Sonicision. This was done in a meticulous fashion with visualization of good hemostasis. This took approximately 60 minutes. We then turned our attention towards the laparoscopic cholecystectomy. The fundus of the gallbladder was retracted anteriorly and superiorly. The hepatoduodenal ligament was then opened using electrocautery as well as blunt dissection with the hook instrument. The entire critical view of safety was identified including the triangle of Calot as well as the cystic duct and artery as they are the only two structures going into the gallbladder as well as the cystic plate behind the proximal gallbladder. A timeout was then taken and the cystic duct and artery were then clipped proximally, distally and cut with EndoShears. A small bleeder was identified; however, controlled with a clip. The gallbladder was then dissected off the liver bed using electrocautery on the hook instrument as well as with visualization of good hemostasis as well as no leaking ducts of Luschka. Due to the previous bleeder, we decided to place FloSeal fibrin glue as well. The gallbladder was removed through the 10 mm port site using an EndoCatch bag. The 10 mm port site fascia and peritoneum were then closed under direct visualization using a Benjamín-Jim device and 0 Vicryl suture. The abdomen was desufflated and remaining ports removed. All skin incisions were closed using 4-0 Monocryl running subcuticular sutures. Wounds were then cleaned and covered with Dermabond. Under the same anesthesia, the EGD portion was then performed. The mouthpiece was applied and the endoscope was placed in the mouth, visualizing the pharynx and hypopharyngeal region. Vocal cords, epiglottis and vallecula identified and appeared to be normal. The endotracheal tube was visualized going through the vocal cords. The endoscope was then gently intubated in the esophageal opening and esophagus insufflated. Endoscope was then advanced to 1st, 2nd and 3rd portions of the esophagus. At the level of the GE junction, a reflux esophagitis class B identified. There were no ulcers or strictures identified in this region. A biopsy was taken with forceps with visualization of good hemostasis. The endoscope was then advanced into the stomach and the endoscope retroflexed visualizing no hiatal hernia. A moderate severity gastritis was noted towards the antrum of the stomach. There were no formal ulcers, polyps or any neoplasms identified. A biopsy was taken with forceps with visualization of good hemostasis. The endoscope was then advanced to the pylorus into the first and second portions of the duodenum which appeared normal. The endoscope was then advanced to the pylorus and the first and second portions of the duodenum which appeared normal with no distal obstructions. The endoscope was then withdrawn while taking a second look and suctioning residual air with no additional findings. The patient tolerated the procedure well. We will start IV and oral pain medication as well as a clear liquid diet. Once she is tolerating clears and has good pain control with oral pain medications and ambulating well, we will discharge her home. She will be instructed to do no heavy lifting or exertion for the next six weeks. Job ID: [id number] DocumentID: [id number] Dictated Date: 09/01/2017 15:33:45 Data Storage Specialist Date: 09/02/2017 00:59:48 Dictated By: ASPEN SHOOK MD MTDD
[2017-09-02 04:21] VITALS: BP 140/93
[2017-09-02] MEDS: NS IV 1000 ML 1,000 ML IV SCH (04:56)
[2017-09-02] MEDS: oxyCODONE/APAP 7.5-325 MG (PERCOCET 7.5) TABLET PO PRN ×2 (04:56→09:05)
[2017-09-02 06:54] LABS: BASOPHILS % (AUTO) 0 % (0-10); EOSINOPHILS % (AUTO) 0 % (0-10); HEMATOCRIT 34 % (35-52); HEMOGLOBIN 11.6 G/DL (11.5-16.0); LYMPHOCYTES # (AUTO) 0.8 X 10^3 (1.0-4.0); LYMPHOCYTES % (AUTO) 20 % (12-44); MEAN CORPUSCULAR HEMOGLOBIN 27 PG (25-34); MEAN CORPUSCULAR HGB CONC 34 G/DL (32-36); MEAN CORPUSCULAR VOLUME 80 FL (80-99); MEAN PLATELET VOLUME 11.1 FL (7.4-10.4); MONOCYTES # (AUTO) 0.4 X 10^3 (0.0-1.0); MONOCYTES % (AUTO) 9 % (0-12); NEUTROPHILS # (AUTO) 2.8 X 10^3 (1.8-7.8); NEUTROPHILS % (AUTO) 70 % (42-75); PLATELET COUNT 278 10^3/uL (130-400); RED BLOOD COUNT 4.26 10^6/uL (4.35-5.85); RED CELL DISTRIBUTION WIDTH 14.3 % (10.0-14.5)
[2017-09-02 07:44] VITALS: BP 131/86
== END 2017-09-02 11:50 | disposition home or self-care (01) ==
LOC: SDC 09:36 → 4TH 17:53 → SDC 09-02 11:50
PROVIDERS: ATTEND Surgery
DX: K81.1 Chronic cholecystitis (principal); K21.0 Gastro-esophageal reflux disease with esophagitis; K29.70 Gastritis, unspecified, without bleeding; N73.6 Female pelvic peritoneal adhesions (postinfective)
CPT/HCPCS: 36415; 85025; 87081

== ENCOUNTER → 2017-09-05 | Outpatient (CLI) | payer OTHER ==
[~2017-09-05] MED LIST changes: +PANT40TA2 PO
[2017-09-05 17:09] LABS: BASOPHILS % (AUTO) 0 % (0-10); EOSINOPHILS # (AUTO) 0.2 10^3/uL (0.0-0.3); EOSINOPHILS % (AUTO) 2 % (0-10); HEMATOCRIT 37 % (35-52); HEMOGLOBIN 12.5 G/DL (11.5-16.0); LYMPHOCYTES # (AUTO) 1.3 X 10^3 (1.0-4.0); LYMPHOCYTES % (AUTO) 13 % (12-44); MEAN CORPUSCULAR HEMOGLOBIN 27 PG (25-34); MEAN CORPUSCULAR HGB CONC 34 G/DL (32-36); MEAN CORPUSCULAR VOLUME 80 FL (80-99); MEAN PLATELET VOLUME 10.6 FL (7.4-10.4); MONOCYTES # (AUTO) 0.8 X 10^3 (0.0-1.0); MONOCYTES % (AUTO) 8 % (0-12); NEUTROPHILS # (AUTO) 7.7 X 10^3 (1.8-7.8); NEUTROPHILS % (AUTO) 77 % (42-75); PLATELET COUNT 462 10^3/uL (130-400); RED BLOOD COUNT 4.63 10^6/uL (4.35-5.85); RED CELL DISTRIBUTION WIDTH 14.8 % (10.0-14.5)
[2017-09-05 17:33] LABS: ALANINE AMINOTRANSFERASE 16 U/L (0-55); ALBUMIN 4.3 GM/DL (3.2-4.5); ALKALINE PHOSPHATASE 83 U/L (40-136); BILIRUBIN,TOTAL 1.3 MG/DL (0.1-1.0); BUN/CREATININE RATIO 15; CALCIUM 10.3 MG/DL (8.5-10.1); CARBON DIOXIDE 22 MMOL/L (21-32); CHLORIDE 100 MMOL/L (98-107); CREATININE SERUM 0.73 MG/DL (0.60-1.30); GFR ESTIMATED > 60; GLUCOSE 143 MG/DL (70-105); POTASSIUM 3.4 MMOL/L (3.6-5.0); SODIUM 136 MMOL/L (135-145); TOTAL PROTEIN 8.2 GM/DL (6.4-8.2)
--- NOTE | 2017-09-05 19:04 | Diagnostic Imaging Report ---
INDICATION: Recent surgery, now with fever and abdominal pain post laparoscopic cholecystectomy. TECHNIQUE: Two-view chest at 05:39 p.m. CORRELATION STUDY: 06/18/2017. FINDINGS: The heart size, mediastinal configuration and pulmonary vasculature are within normal limits. Areas of atelectasis about the lung bases. No emil infiltrate. No significant effusion or pneumothorax. Visualized osseous structures are unremarkable. IMPRESSION: 1. Mild bibasilar atelectasis. Dictated by: Dictated on workstation # [id number]
--- NOTE | 2017-09-05 20:30 | Diagnostic Imaging Report ---
INDICATION: Post recent laparoscopic cholecystectomy, now with abdominal pain and fever.. TECHNIQUE: Single supine view of the abdomen 5:41 PM CORRELATION STUDY: None FINDINGS: Multiple clips in the right upper quadrant presumably cholecystectomy changes. Bowel gas pattern has relatively unremarkable appearance as visualized on single imaging. No findings to suggest high degree bowel obstruction. No pathologic intra-abdominal calcifications. Mild leftward curvature lumbar spine. There does appear to be prominent ossification likely fusion across the C4-C5 vertebral segments with transitional anatomy with lumbarization at the S1. IMPRESSION: 1. Relatively unremarkable appearing bowel gas pattern. No findings to suggest high degree bowel obstruction. Dictated by: Dictated on workstation # [id number]
--- NOTE | 2017-09-07 10:58 | Physician Query-Final Dx ---
MELY STUBBS 09/07/17 1058: Clinic Account Progress/Dx Physician Query: Please specify the location of the patients abd pain thank you Date of Service Sep 05, 2017 at 16:52 ASPEN SHOOK MD 09/07/17 1102: Clinic Account Progress/Dx Physician Query: Please give diagnosis DIAGNOSIS: Diagnosis diffuse abdominal pain with most severe in right lower abdominal quadrant. MELY STUBBS Sep 07, 2017 10:58 ASPEN SHOOK MD Sep 07, 2017 11:02
== END ==
LOC: LAB 16:52
PROVIDERS: ATTEND Surgery
DX: R50.9 Fever, unspecified (principal); R10.11 Right upper quadrant pain; R10.84 Generalized abdominal pain; Z98.890 Other specified postprocedural states
CPT/HCPCS: 36415; 71046; 74018; 80053; 85025

== ENCOUNTER → 2017-09-19 | Outpatient (CLI) | payer OTHER ==
[~2017-09-19] MED LIST changes: +AMOX-358 PO; +CATHETER FLUSH 10 ML SYR IV PRN; +HYDR-3816 PO; +IOHEXOL 350 MG/ML 150 ML (OMNIPAQUE 350) VIAL IV ONE; +NS 100 ML (IVPB) BAG IV ONE; +PANT40TA3 PO; +PROM25TA14 PO
[2017-09-19 14:46] LABS: BASOPHILS % (AUTO) 0 % (0-10); EOSINOPHILS # (AUTO) 0.2 10^3/uL (0.0-0.3); EOSINOPHILS % (AUTO) 2 % (0-10); HEMATOCRIT 35 % (35-52); HEMOGLOBIN 11.4 G/DL (11.5-16.0); LYMPHOCYTES # (AUTO) 1.5 X 10^3 (1.0-4.0); LYMPHOCYTES % (AUTO) 15 % (12-44); MEAN CORPUSCULAR HEMOGLOBIN 27 PG (25-34); MEAN CORPUSCULAR HGB CONC 33 G/DL (32-36); MEAN CORPUSCULAR VOLUME 82 FL (80-99); MEAN PLATELET VOLUME 9.9 FL (7.4-10.4); MONOCYTES # (AUTO) 0.3 X 10^3 (0.0-1.0); MONOCYTES % (AUTO) 3 % (0-12); NEUTROPHILS # (AUTO) 7.6 X 10^3 (1.8-7.8); NEUTROPHILS % (AUTO) 80 % (42-75); PLATELET COUNT 730 10^3/uL (130-400); RED BLOOD COUNT 4.27 10^6/uL (4.35-5.85); RED CELL DISTRIBUTION WIDTH 14.9 % (10.0-14.5); WHITE BLOOD COUNT 9.5 10^3/uL (4.3-11.0)
[2017-09-19 14:52] LABS: BILIRUBIN,URINE NEGATIVE (NEGATIVE); CLARITY,URINE CLEAR; COLOR,URINE YELLOW; GLUCOSE, URINE (UA) NEGATIVE (NEGATIVE); KETONES,URINE NEGATIVE (NEGATIVE); LEUKOCYTE ESTERASE ,URINE 1+ (NEGATIVE); NITRITE,URINE NEGATIVE (NEGATIVE); PH,URINE 6.5 (5-9); PROTEIN,URINE NEGATIVE (NEGATIVE); UROBILINOGEN,URINE NORMAL (NORMAL)
[2017-09-19 15:00] LABS: BACTERIA,URINE TRACE /HPF; SQUAMOUS EPITHELIAL CELL,UR 25-50 /HPF; WBC,URINE RARE /HPF
[2017-09-19 15:06] LABS: ALANINE AMINOTRANSFERASE 25 U/L (0-55); ALBUMIN 4.2 GM/DL (3.2-4.5); ALKALINE PHOSPHATASE 195 U/L (40-136); BILIRUBIN,TOTAL 0.6 MG/DL (0.1-1.0); BUN/CREATININE RATIO 10; CARBON DIOXIDE 21 MMOL/L (21-32); CHLORIDE 102 MMOL/L (98-107); CREATININE SERUM 0.71 MG/DL (0.60-1.30); GFR ESTIMATED > 60; GLUCOSE 123 MG/DL (70-105); POTASSIUM 4.3 MMOL/L (3.6-5.0); SODIUM 136 MMOL/L (135-145); TOTAL PROTEIN 8.3 GM/DL (6.4-8.2)
--- NOTE | 2017-09-19 16:07 | Diagnostic Imaging Report ---
PROCEDURE: CT angiography of the abdomen and chest with and without contrast. TECHNIQUE: After intravenous administration of contrast, thin section axial CT angiography of the abdomen and chest were obtained. Multiple MIP reformats were provided. INDICATION: Status post cholecystectomy with upper abdominal fluid collections. The study is performed for followup. FINDINGS: CTA chest: Evaluation of the pulmonary arterial system is without evidence of thromboembolism. No filling defects are identified within central, lobar or segmental pulmonary arteries. The thoracic aorta is normal caliber. There is no dissection. No pericardial or pleural fluid is seen. Parenchymal evaluation does show resolution of previously seen bilateral pulmonary infiltrates. CT abdomen: The previously noted right perihepatic/subcapsular fluid has completely resolved. There is some residual fluid near the gallbladder fossa/subhepatic location measuring approximately 4.2 x 4.6 cm. No gas within the fluid collection is identified. No biliary ductal dilatation is seen. The pancreas and spleen are unremarkable. No adrenal mass is identified. The kidneys are unremarkable. Aorta is nonaneurysmal. The bowel loops are normal caliber. There is no free fluid present. IMPRESSION: 1. No evidence of pulmonary embolism. 2. Resolution of bilateral pulmonary infiltrates since prior exam from 09/10/2017. 3. Complete resolution of perihepatic/subcapsular fluid. There is some residual fluid near the gallbladder fossa subhepatic location, similar to prior exam. No gas within the fluid is seen. Continued close followup to confirm resolution is recommended. No new abnormality is identified. Dictated by: Dictated on workstation # [id number]
== END ==
LOC: RAD 14:25
PROVIDERS: ATTEND Surgery
DX: R10.9 Unspecified abdominal pain (principal); R06.02 Shortness of breath; R50.9 Fever, unspecified; Z90.49 Acquired absence of other specified parts of digestive tract
CPT/HCPCS: 36415; 71275; 74175; 80053; 81000; 85025; 85379

== ENCOUNTER 2017-09-28 12:18 | Emergency (ER) | payer OTHER ==
[~2017-09-28] VITALS: Ht 172.7 cm; Wt 85.3 kg
[~2017-09-28 12:18] MED LIST changes: -CATHETER FLUSH 10 ML SYR IV PRN; -IOHEXOL 350 MG/ML 150 ML (OMNIPAQUE 350) VIAL IV ONE; -NS 100 ML (IVPB) BAG IV ONE
[2017-09-28] MEDS ORDERED: NS IV 1000 ML 1,000 ML IV ONE (13:10)
[2017-09-28] MEDS ORDERED: KETOROLAC 30 MG/ML VIAL IVP STA (13:10)
--- NOTE | 2017-09-28 13:13 | ED Abdominal Pain ---
General Chief Complaint: Abdominal/GI Problems Stated Complaint: ABD PAIN/F/V Nursing Triage Note: C/O R SIDE AFTER GALLBLADDER SURG 3 WEEKS AGO. SHE WAS IN HOSPITAL 2 WEEKS FOR THE [facility] TO SEE CANCER FOR PLT BEING 900. WAS TOLD BY DR GR TO COME TO ER. Sepsis Screen: No Definite Risk Source of Information: Patient Exam Limitations: No Limitations History of Present Illness Date Seen by Provider: Sep 28, 2017 Time Seen by Provider: 12:50 Allergies and Home Medications Allergies Coded Allergies: Sulfa (Sulfonamide Antibiotics) (Verified Allergy, Severe, RASH, 06/18/17) morphine (Verified Allergy, Severe, RASH, Pt has had Percocet & Lortab in the past w/o issue, 09/01/17) Home Medications Oxycodone HCl/Acetaminophen 1 Each Tablet, 1 EACH PO Q4H Prescribed by: MARIETTA ROGEL on 09/14/17 1310 Pantoprazole Sodium 40 Mg Tablet.dr, 40 MG PO DAILY, (Reported) Promethazine HCl 25 Mg Tablet, 12.5 MG PO Q3HR PRN for NAUSEA/VOMITING Prescribed by: MARIETTA ROGEL on 09/14/17 1310 Past Qyzfdql-Nyrzsj-Ujiriq Hx Patient Social History Alcohol Use: Occasionally Uses Recreational Drug Use: No 2nd Hand Smoke Exposure: No Recent Foreign Travel: No Contact w/Someone Who Travel: No Recent Infectious Disease Expo: No Recent Hopitalizations: No Immunizations Up To Date Date of Influenza Vaccine: Apr 20, 2017 Seasonal Allergies Seasonal Allergies: No Surgeries History of Surgeries: Yes (BACKx2, KIDNEY STENT, D&E, DXLS X2 FOR ENDOMETRIOSIS ) Surgeries: Abdominal, Appendectomy, Bladder Surgery, Section, Hysterectomy, Orthopedic Respiratory History of Respiratory Disorde: No Cardiovascular History of Cardiac Disorders: No Neurological History of Neurological Disord: Yes (WHEN ) Neurological Disorders: Headaches /Migraines Reproductive System Hx Reproductive Disorders: No Sexually Transmitted Disease: No HIV/AIDS: No Female Reproductive Disorders: Endometriosis 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 Genitourinary Genitourinary Disorders: Kidney Infection, Bladder Infection, Kidney Stones, UTI-Chronic Gastrointestinal History of Gastrointestinal Di: Yes (VOMITING X 1 YR (LOST 40 LBS IN THE LAST YR.)) Gastrointestinal Disorders: Gastroesophageal Reflux, Chronic Diarrhea, Gall Bladder Disease Musculoskeletal History of Musculoskeletal Dis: Yes (X 2 BACK SURG) Musculoskeletal Disorders: Back Injury, Chronic Back Pain Endocrine History of Endocrine Disorders: No HEENT History of HEENT Disorders: No Loss of Vision: Denies Hearing Impairment: Denies Cancer History of Cancer: No Psychosocial History of Psychiatric Problem: Yes Behavioral Health Disorders: Depression Integumentary History of Skin or Integumenta: No Blood Transfusions History of Blood Disorders: No Adverse Reaction to a Blood Tr: No Family Medical History Significant Family History: Cancer, Diabetes, Hypertension, Other Conditions/Hx Family Medial History: Arthritis 19 FATHER 19 MOTHER Asthma 19 FATHER Diabetes mellitus 19 MOTHER FH: congestive heart failure 19 MOTHER Hypercholesterolemia 19 MOTHER Hypertension 19 MOTHER Kidney disease 19 MOTHER Physical Exam Vital Signs VS - Last 72 Hours, by Label 09/28/17 09/28/17 09/28/17 09/28/17 12:22 13:41 14:51 16:42 Temp 97.0 97.0 97.0 97.0 Pulse 111 B/P (MAP) 133/90 (104) Pulse Ox 98 Capillary Refill : Less Than 3 Seconds Focused Exam Evaluation Lactate Level Laboratory Tests 09/28/17 13:36: Lactic Acid Level 1.69 Lactic Acid Level Laboratory Tests Test 09/28/17 13:36 Lactic Acid Level 1.69 MMOL/L (0.50-2.00) Progress/Results/Core Measures Results/Orders Lab Results Laboratory Tests Test 09/28/17 13:36 09/28/17 14:50 Range/Units White Blood Count 9.3 4.3-11.0 10^3/uL Red Blood Count 4.69 4.35-5.85 10^6/uL Hemoglobin 12.4 11.5-16.0 G/DL Hematocrit 38 35-52 % Mean Corpuscular Volume 80 80-99 FL Mean Corpuscular Hemoglobin 26 25-34 PG Mean Corpuscular Hemoglobin Concent 33 32-36 G/DL Red Cell Distribution Width 15.0 H 10.0-14.5 % Platelet Count 467 H 130-400 10^3/uL Mean Platelet Volume 10.3 7.4-10.4 FL Neutrophils (%) (Auto) 79 H 42-75 % Lymphocytes (%) (Auto) 15 12-44 % Monocytes (%) (Auto) 4 0-12 % Eosinophils (%) (Auto) 2 0-10 % Basophils (%) (Auto) 0 0-10 % Neutrophils # (Auto) 7.3 1.8-7.8 X 10^3 Lymphocytes # (Auto) 1.4 1.0-4.0 X 10^3 Monocytes # (Auto) 0.4 0.0-1.0 X 10^3 Eosinophils # (Auto) 0.2 0.0-0.3 10^3/uL Basophils # (Auto) 0.0 0.0-0.1 10^3/uL Sodium Level 137 135-145 MMOL/L Potassium Level 4.4 3.6-5.0 MMOL/L Chloride Level 103 98-107 MMOL/L Carbon Dioxide Level 22 21-32 MMOL/L Anion Gap 12 5-14 MMOL/L Blood Urea Nitrogen 9 7-18 MG/DL Creatinine 0.67 0.60-1.30 MG/DL Estimat Glomerular Filtration Rate > 60 BUN/Creatinine Ratio 13 Glucose Level 103 70-105 MG/DL Lactic Acid Level 1.69 0.50-2.00 MMOL/L Calcium Level 10.1 8.5-10.1 MG/DL Total Bilirubin 0.5 0.1-1.0 MG/DL Aspartate Amino Transf (AST/SGOT) 15 5-34 U/L Alanine Aminotransferase (ALT/SGPT) 16 0-55 U/L Alkaline Phosphatase 132 40-136 U/L Troponin I < 0.30 <0.30 NG/ML Total Protein 8.4 H 6.4-8.2 GM/DL Albumin 4.4 3.2-4.5 GM/DL Lipase 17 8-78 U/L TSH [place] Testing 0.81 0.35-4.94 UIU/ML Urine Color YELLOW Urine Clarity CLEAR Urine pH 5 5-9 Urine Specific [place] 1.005 L 1.016-1.022 Urine Protein NEGATIVE NEGATIVE Urine Glucose (UA) NEGATIVE NEGATIVE Urine Ketones NEGATIVE NEGATIVE Urine Nitrite NEGATIVE NEGATIVE Urine Bilirubin NEGATIVE NEGATIVE Urine Urobilinogen NORMAL NORMAL MG/DL Urine Leukocyte Esterase NEGATIVE NEGATIVE Urine RBC (Auto) NEGATIVE NEGATIVE Urine RBC NONE /HPF Urine WBC NONE /HPF Urine Squamous Epithelial Cells 10-25 H /HPF Urine Crystals NONE /LPF Urine Bacteria NONE /HPF Urine Casts NONE /LPF Urine Mucus NEGATIVE /LPF Urine Culture Indicated NO Micro Results Microbiology 09/28/17 Influenza Types A,B Antigen (ODELL) - Final, Complete My Orders Orders - SUNIL STEVENSON Saline Lock/Iv-Start (09/28/17 13:10) Cbc With Automated Diff (09/28/17 13:10) Comprehensive Metabolic Panel (09/28/17 13:10) Lactic Acid Analyzer (09/28/17 13:10) Lipase (09/28/17 13:10) Thyroid Analyzer (09/28/17 13:10) Troponin I (09/28/17 13:10) Ua Culture If Indicated (09/28/17 13:10) Blood Culture (09/28/17 13:10) Influenza A And B Antigens (09/28/17 13:10) Ondansetron Injection (Zofran Injectio (09/28/17 13:15) Ketorolac Injection (Toradol Injection) (09/28/17 13:10) Ns Iv 1000 Ml (Sodium Chloride 0.9%) (09/28/17 13:10) Ct Talia Chest/Noang Abd-Pelv W (09/28/17 13:10) Iohexol Injection (Omnipaque 350 Mg/Ml 1 (09/28/17 13:30) Di Iv Start (Assessment) .on IV start (09/28/17 13:18) Ns (Ivpb) (Sodium Chloride 0.9%) (09/28/17 13:30) Hydromorphone Injection (Dilaudid Inject (09/28/17 14:43) Hyoscyamine Sl Tablet (Levsin Sl Tablet) (09/28/17 16:30) Metoclopramide Injection (Reglan Injecti (09/28/17 16:26) Hydromorphone Injection (Dilaudid Inject (09/28/17 16:26) Medications Given in ED Current Medications Medications Dose Ordered Sig/Aleida Route Start Time Stop Time Status Last Admin Dose Admin Hyoscyamine Sulfate 0.125 mg ONCE ONCE PO 09/28/17 16:30 09/28/17 16:31 DC 09/28/17 16:42 0.125 MG Iohexol 125 ml ONCE ONCE IV 09/28/17 13:30 09/28/17 13:31 DC 09/28/17 14:32 125 ML Ondansetron HCl 4 mg ONCE ONCE IVP 09/28/17 13:15 09/28/17 13:16 DC 09/28/17 13:41 4 MG Sodium Chloride 250 ml ONCE ONCE IV 09/28/17 13:30 09/28/17 13:31 DC 09/28/17 14:32 250 ML Sodium Chloride 1,000 ml @ 0 mls/hr Q0M ONCE IV 09/28/17 13:10 09/28/17 13:13 DC 09/28/17 13:41 1,000 MLS/HR Vital Signs/I&O Vital Sign - Last 12Hours 09/28/17 09/28/17 09/28/17 09/28/17 12:22 13:41 14:51 16:42 Temp 97.0 97.0 97.0 97.0 Pulse 111 B/P (MAP) 133/90 (104) Pulse Ox 98 Blood Pressure Mean: 104 Departure Impression Impression: Primary Impression: Abdominal pain Additional Impressions: Cystic lesion of pelvic viscera Gastroparesis Disposition: HOME, SELF-CARE Condition: Improved Departure-Patient Inst. Decision time for Depature: 18:31 Referrals: ASPEN GR MD NO,LOCAL PHYSICIAN (PCP) Primary Care Physician ZULAY RENE MD Patient Instructions: Gastroparesis (Delayed Gastric Emptying) (DC), Ovarian Cyst (DC), Viral Gastroenteritis, Adult (DC) Add. Discharge Instructions: All discharge instructions reviewed with patient and/or family. Voiced understanding. Medications as instructed. Increase proton X to 40 mg twice daily. Avoid fatty foods, spicy foods, carbonated beverages, caffeinated beverages. Do not lie down within 2 hours of eating. Follow-up with Dr. Gr as an outpatient. Proceed with the small bowel follow-through as an outpatient. Discuss having a gastric emptying study with Dr. Gr at your next appointment. Follow-up with the family practitioner of your choice to establish care. Follow-up with the shaker out of your choice for further evaluation and possible need for outpatient ultrasound of the cystic lesion in the left pelvis. Call for appointment time. Return to the emergency department for worsened symptoms or any other concerns. Scripts Metoclopramide HCl (Reglan) 10 Mg Tablet 10 MG PO ACHS, #40 TAB 0 Refills Prov: SUNIL STEVENSON 09/28/17 Hyoscyamine Sulfate (Hyoscyamine Sulfate) 0.125 Mg Tab.subl 0.125 MG SL Q4H Y for SPASMS, #30 TAB 0 Refills Prov: SUNIL STEVENSON 09/28/17 Ondansetron (Ondansetron Odt) 8 Mg Tab.rapdis 8 MG PO Q6H Y for NAUSEA/VOMITING-1ST LINE, #10 TAB 0 Refills Prov: SUNIL STEVENSON 09/28/17 Work/School Note: Local Medical Staff Listing SUNIL STEVENSON Sep 28, 2017 13:13
[2017-09-28] MEDS ORDERED: ONDANSETRON 4 MG/2 ML (SDV) Z0FRAN IVP ONE (13:15)
[2017-09-28] MEDS ORDERED: IOHEXOL 350 MG/ML 150 ML (OMNIPAQUE 350) VIAL IV ONE (13:30)
[2017-09-28] MEDS ORDERED: NS 250 ML (IVPB) BAG IV ONE (13:30)
[2017-09-28 13:45] LABS: BASOPHILS % (AUTO) 0 % (0-10); EOSINOPHILS # (AUTO) 0.2 10^3/uL (0.0-0.3); EOSINOPHILS % (AUTO) 2 % (0-10); HEMATOCRIT 38 % (35-52); HEMOGLOBIN 12.4 G/DL (11.5-16.0); LYMPHOCYTES # (AUTO) 1.4 X 10^3 (1.0-4.0); LYMPHOCYTES % (AUTO) 15 % (12-44); MEAN CORPUSCULAR HEMOGLOBIN 26 PG (25-34); MEAN CORPUSCULAR HGB CONC 33 G/DL (32-36); MEAN CORPUSCULAR VOLUME 80 FL (80-99); MEAN PLATELET VOLUME 10.3 FL (7.4-10.4); MONOCYTES # (AUTO) 0.4 X 10^3 (0.0-1.0); MONOCYTES % (AUTO) 4 % (0-12); NEUTROPHILS # (AUTO) 7.3 X 10^3 (1.8-7.8); NEUTROPHILS % (AUTO) 79 % (42-75); PLATELET COUNT 467 10^3/uL (130-400); RED BLOOD COUNT 4.69 10^6/uL (4.35-5.85); WHITE BLOOD COUNT 9.3 10^3/uL (4.3-11.0)
[2017-09-28 14:04] LABS: ALANINE AMINOTRANSFERASE 16 U/L (0-55); ALBUMIN 4.4 GM/DL (3.2-4.5); ALKALINE PHOSPHATASE 132 U/L (40-136); BILIRUBIN,TOTAL 0.5 MG/DL (0.1-1.0); BUN/CREATININE RATIO 13; CALCIUM 10.1 MG/DL (8.5-10.1); CARBON DIOXIDE 22 MMOL/L (21-32); CHLORIDE 103 MMOL/L (98-107); CREATININE SERUM 0.67 MG/DL (0.60-1.30); GFR ESTIMATED > 60; GLUCOSE 103 MG/DL (70-105); LIPASE 17 U/L (8-78); POTASSIUM 4.4 MMOL/L (3.6-5.0); SODIUM 137 MMOL/L (135-145); TOTAL PROTEIN 8.4 GM/DL (6.4-8.2)
[2017-09-28 14:24] LABS: TSH (THYROID ANALYZER) 0.81 UIU/ML (0.35-4.94)
[2017-09-28] MEDS ORDERED: HYDROmorphone (DILAUDID) 2 MG/ML VIAL IVP STA ×2 (14:43→16:26)
[2017-09-28 15:01] LABS: BILIRUBIN,URINE NEGATIVE (NEGATIVE); CLARITY,URINE CLEAR; COLOR,URINE YELLOW; GLUCOSE, URINE (UA) NEGATIVE (NEGATIVE); KETONES,URINE NEGATIVE (NEGATIVE); LEUKOCYTE ESTERASE ,URINE NEGATIVE (NEGATIVE); NITRITE,URINE NEGATIVE (NEGATIVE); PH,URINE 5 (5-9); PROTEIN,URINE NEGATIVE (NEGATIVE); UROBILINOGEN,URINE NORMAL (NORMAL)
--- NOTE | 2017-09-28 15:15 | Diagnostic Imaging Report ---
INDICATION: Right-sided abdominal pain status post hysterectomy. COMPARISON: 09/19/2017 TECHNIQUE: Postcontrast CTA of the chest was performed. Contrast bolus was timed for optimal opacification of the arterial structures. Multiplanar and 3-D reformats were also performed and reviewed. FINDINGS: CTA chest: There is no evidence of acute pulmonary embolus to the first subsegmental division of the pulmonary arteries. Thoracic aorta is normal in size and contour. Heart size is within normal limits. There is no large pericardial effusion. No pathologically enlarged or morphologically abnormal adenopathy is seen within the mediastinum, ana maria, nor axilla. Evaluation lung peace demonstrates no focal consolidation, pleural effusion, nor pneumothorax. There is mild image degradation secondary to motion artifact. However, no pulmonary nodules or masses are seen. Bony structures show no acute abnormalities. No lytic or blastic bony lesions are seen. CT ABDOMEN: Patient is now status post cholecystectomy. Small focal fluid collection is again identified near the gallbladder fossa and measures approximately 3.2 x 2.6 cm. This is decreased in size compared to 4.6 x 4.2 cm on exam dated 09/19/2017. No new loculated air-fluid collections are seen within the abdomen. There is no free fluid or free air. The kidneys, adrenal glands, spleen, and pancreas have a normal appearance. There is a small hypodense cysts within segment 3 of the liver. Otherwise, liver is unremarkable as well. Small bowel loops are nondistended. Normal appendix cannot be adequately identified, but appears to be surgically absent. No abnormal mesenteric or retroperitoneal adenopathy is seen. Bony structures show no acute abnormalities. CT PELVIS: Complex left adnexal cystic structure is identified and measures 4 x 3.8 cm. This is new when compared to prior exam and is likely on the basis of ovarian cyst. Small amount of free fluid is also noted within the pelvis. There is no new loculated fluid collection or free air. No abnormal lymph nodes are seen. Urinary bladder is grossly unremarkable. Bony structures show no acute abnormalities. IMPRESSION: 1. No CT evidence of acute pulmonary embolus. 2. No other acute cardiopulmonary process. 3. Interval decrease in size of focal fluid collection in the gallbladder fossa. Given the history of recent cholecystectomy, findings could be on the basis of resolving postsurgical fluid collection such as seroma, hematoma, or possible abscess. 4. Interval development of complex left adnexal cystic structure; likely ovarian in origin. 5. Small amount of free fluid within the lower pelvis; likely physiologic. No new loculated air-fluid collection is identified. Dictated by: Dictated on workstation # [id number]
[2017-09-28] MEDS ORDERED: METOCLOPRAMIDE INJ 10 MG/2 ML (REGLAN) IVP STA (16:26)
[2017-09-28] MEDS ORDERED: HYOSCYAMINE 0.125 MG (LEVSIN) TAB PO ONE (16:30)
[2017-09-28] MEDS ORDERED: HYOS-19 SL (18:35)
[2017-09-28] MEDS ORDERED: ONDA8TAB13 PO (18:35)
[2017-09-28] MEDS ORDERED: METO-310 PO (18:35)
[2017-09-28 19:06] VITALS: BP 128/84
== END 2017-09-28 19:06 | disposition home or self-care (01) ==
LOC: EDUNIT# 12:18 → ER 12:20
DX: N94.89 Other specified conditions associated with female genital organs and menstrual cycle (principal); K31.84 Gastroparesis; F32.9 Major depressive disorder, single episode, unspecified; K21.9 Gastro-esophageal reflux disease without esophagitis; G43.909 Migraine, unspecified, not intractable, without status migrainosus; Z98.890 Other specified postprocedural states; Z90.49 Acquired absence of other specified parts of digestive tract; Z90.710 Acquired absence of both cervix and uterus; Z87.442 Personal history of urinary calculi; Z87.59 Personal history of other complications of pregnancy, childbirth and the puerperium; Z88.2 Allergy status to sulfonamides; Z88.5 Allergy status to narcotic agent
CPT/HCPCS: 36415; 71275; 74177; 80053; 81000; 83605; 83690; 84443; 84484; 85025; 87040; 87804

== ENCOUNTER → 2017-09-30 | Outpatient (CLI) | payer OTHER ==
[~2017-09-30] MED LIST changes: +DIATRIZOATE MEGLUM/SODIUM 37% 120 ML (GASTROGRAFIN) PO ONE; +HYOS-19 SL; +METO-310 PO
--- NOTE | 2017-09-30 12:56 | Diagnostic Imaging Report ---
Procedure: Small bowel follow-through. Indication: Abdominal pain. Findings: The preliminary film shows a fair amount of fecal material throughout the colon. There is also considerable amount of particulate matter in the stomach The patient swallowed Gastrografin without difficulty. The transit time through the small bowel was approximately 1 hour (normal 30 minutes to 3 hours). There is no abnormal dilatation, narrowing or mass effect involving the small bowel. The terminal ileum was visualized and was unremarkable. Impression: The small bowel exam is within normal limits. Dictated by: Dictated on workstation # [id number]
== END ==
LOC: RAD 08:16
PROVIDERS: ATTEND Surgery
DX: R10.9 Unspecified abdominal pain (principal); R11.2 Nausea with vomiting, unspecified
CPT/HCPCS: 74250

== ENCOUNTER → 2017-10-06 | Outpatient (CLI) | payer OTHER ==
[~2017-10-06] MED LIST changes: -DIATRIZOATE MEGLUM/SODIUM 37% 120 ML (GASTROGRAFIN) PO ONE
--- NOTE | 2017-10-06 14:37 | Diagnostic Imaging Report ---
INDICATION: Left pelvic mass noted on recent CT. The study is performed for further evaluation. Correlation is made with CT study from 09/28/2017. FINDINGS: Transabdominal and transvaginal pelvic sonography was performed. The uterus is surgically absent. The right ovary is not visualized. The left ovary measures 4.0 x 3.1 x 4.2 cm. Complex cystic mass in the left adnexa is again noted measuring 3.1 x 3.5 x 2.8 cm, correlating with the CT abnormality. This does contain some internal debris. There is vascularity along the margins. No free fluid is detected. IMPRESSION: Complex cystic mass in the left adnexa, likely ovarian and correlating with the CT abnormality. This may represent a hemorrhagic cyst. Close sonographic follow-up with repeat study in 4-6 weeks is recommended to confirm resolution. Dictated by: Dictated on workstation # [id number]
== END ==
LOC: RAD 13:39
DX: R19.09 Other intra-abdominal and pelvic swelling, mass and lump (principal)
CPT/HCPCS: 76830; 76856

== ENCOUNTER 2017-10-07 15:45 | Outpatient (RCR) | payer OTHER ==
[2017-10-07 17:18] LABS: ABSOLUTE RETIC # 58 10e9/L (24-90); BASOPHILS % (AUTO) 1 % (0-10); EOSINOPHILS # (AUTO) 0.3 10^3/uL (0.0-0.3); EOSINOPHILS % (AUTO) 5 % (0-10); HEMATOCRIT 34 % (35-52); HEMOGLOBIN 11.4 G/DL (11.5-16.0); LYMPHOCYTES # (AUTO) 2.2 X 10^3 (1.0-4.0); LYMPHOCYTES % (AUTO) 39 % (12-44); MEAN CORPUSCULAR HEMOGLOBIN 27 PG (25-34); MEAN CORPUSCULAR HGB CONC 33 G/DL (32-36); MEAN CORPUSCULAR VOLUME 80 FL (80-99); MEAN PLATELET VOLUME 10.3 FL (7.4-10.4); MONOCYTES # (AUTO) 0.4 X 10^3 (0.0-1.0); MONOCYTES % (AUTO) 7 % (0-12); NEUTROPHILS # (AUTO) 2.8 X 10^3 (1.8-7.8); NEUTROPHILS % (AUTO) 49 % (42-75); PLATELET COUNT 398 10^3/uL (130-400); RED BLOOD COUNT 4.28 10^6/uL (4.35-5.85); RED CELL DISTRIBUTION WIDTH 15.5 % (10.0-14.5); RETICULOCYTE % 1.36 % (0.50-2.40); WHITE BLOOD COUNT 5.7 10^3/uL (4.3-11.0)
[2017-10-07 18:08] LABS: BAND NEUTROPHILS 7 %; BASOPHILS % (MANUAL) 1 %; EOSINOPHILS % (MANUAL) 3 %; LYMPHOCYTES % (MANUAL) 56 %; MONOCYTES % (MANUAL) 3 %; NEUTROPHILS % (MANUAL) 30 %
[2017-10-07 18:09] LABS: RBC MORPH NORMAL
[2017-10-08] MEDS ORDERED: PROM25SU44 (23:03)
[2017-10-08] MEDS ORDERED: HYDR-3816 (23:03)
[2017-10-09] MEDS ORDERED: ONDA4TAB8 SL (02:45)
[2017-11-02] MEDS ORDERED: ACHD5005 PO (15:57)
[2017-11-29] MEDS ORDERED: ACHD5005 PO (17:32)
[2017-12-01] MEDS ORDERED: ACHD5005 PO (09:04)
[2017-12-01] MEDS ORDERED: IBUP-1773 PO (09:04)
[2017-12-04] MEDS ORDERED: OXYC-202 PO (12:26)
[2017-12-25] MEDS ORDERED: HYDR-3812 (22:42)
[2017-12-26] MEDS ORDERED: CEPH-507 PO (00:29)
== END 2018-01-05 | disposition home or self-care (01) ==
LOC: ONC 15:45
PROVIDERS: ATTEND Internal Medicine Hematology & Oncology
DX: D47.3 Essential (hemorrhagic) thrombocythemia (principal); Z80.0 Family history of malignant neoplasm of digestive organs; Z80.3 Family history of malignant neoplasm of breast; Z80.41 Family history of malignant neoplasm of ovary
CPT/HCPCS: 81270; 85007; 85027; 85045; 88184; 88185; 88368; 88369; 99214

== ENCOUNTER 2017-10-08 22:16 | Emergency (ER) | payer OTHER ==
[~2017-10-08] VITALS: Ht 172.7 cm; Wt 81.6 kg
[2017-10-08] MEDS ORDERED: PROM25SU44 (23:03)
[2017-10-08] MEDS ORDERED: HYDR-3816 (23:03)
[2017-10-08] MEDS ORDERED: NS IV 1000 ML 1,000 ML IV SCH (23:17)
[2017-10-08 23:22] LABS: BASOPHILS % (AUTO) 1 % (0-10); EOSINOPHILS # (AUTO) 0.3 10^3/uL (0.0-0.3); EOSINOPHILS % (AUTO) 6 % (0-10); HEMATOCRIT 36 % (35-52); LYMPHOCYTES # (AUTO) 2.7 X 10^3 (1.0-4.0); LYMPHOCYTES % (AUTO) 49 % (12-44); MEAN CORPUSCULAR HEMOGLOBIN 27 PG (25-34); MEAN CORPUSCULAR HGB CONC 34 G/DL (32-36); MEAN CORPUSCULAR VOLUME 81 FL (80-99); MEAN PLATELET VOLUME 10.6 FL (7.4-10.4); MONOCYTES # (AUTO) 0.4 X 10^3 (0.0-1.0); MONOCYTES % (AUTO) 7 % (0-12); NEUTROPHILS % (AUTO) 37 % (42-75); PLATELET COUNT 408 10^3/uL (130-400); RED BLOOD COUNT 4.43 10^6/uL (4.35-5.85); RED CELL DISTRIBUTION WIDTH 15.5 % (10.0-14.5); WHITE BLOOD COUNT 5.5 10^3/uL (4.3-11.0)
[2017-10-08] MEDS ORDERED: ONDANSETRON 4 MG/2 ML (SDV) Z0FRAN IVP ONE (23:30)
[2017-10-08] MEDS ORDERED: KETOROLAC 30 MG/ML VIAL IVP ONE (23:30)
[2017-10-08 23:38] LABS: ALANINE AMINOTRANSFERASE 11 U/L (0-55); ALKALINE PHOSPHATASE 92 U/L (40-136); BILIRUBIN,TOTAL 0.4 MG/DL (0.1-1.0); BUN/CREATININE RATIO 12; CALCIUM 9.1 MG/DL (8.5-10.1); CARBON DIOXIDE 22 MMOL/L (21-32); CHLORIDE 106 MMOL/L (98-107); CREATININE SERUM 0.66 MG/DL (0.60-1.30); GFR ESTIMATED > 60; GLUCOSE 99 MG/DL (70-105); LIPASE 13 U/L (8-78); SODIUM 139 MMOL/L (135-145); TOTAL PROTEIN 7.3 GM/DL (6.4-8.2)
[2017-10-09 00:09] LABS: BILIRUBIN,URINE NEGATIVE (NEGATIVE); CLARITY,URINE CLEAR; COLOR,URINE YELLOW; GLUCOSE, URINE (UA) NEGATIVE (NEGATIVE); KETONES,URINE NEGATIVE (NEGATIVE); LEUKOCYTE ESTERASE ,URINE 1+ (NEGATIVE); NITRITE,URINE NEGATIVE (NEGATIVE); PH,URINE 6.5 (5-9); PROTEIN,URINE NEGATIVE (NEGATIVE); UROBILINOGEN,URINE NORMAL (NORMAL)
[2017-10-09 00:23] LABS: BACTERIA,URINE NEGATIVE /HPF; SQUAMOUS EPITHELIAL CELL,UR 0-2 /HPF
[2017-10-09] MEDS ORDERED: FAMOTIDINE 20MG/2ML IV (PEPCID) IV STA (01:21)
[2017-10-09] MEDS ORDERED: LIDOCAINE 2% VISCOUS 15 ML UDC PO ONE (01:30)
[2017-10-09] MEDS ORDERED: ANTACID SUSP 30 ML UDC (MYLANTA) PO ONE (01:30)
[2017-10-09] MEDS ORDERED: ONDA4TAB8 SL (02:45)
[2017-10-09] MEDS ORDERED: PROMETHAZINE INJ 25 MG/ML (PHENERGAN) AMP IVP ONE (02:45)
[2017-10-09] MEDS ORDERED: fentaNYL INJECTION 100 MCG/2 ML AMP IVP ONE ×2 (02:45)
--- NOTE | 2017-10-09 02:45 | ED General ---
General Chief Complaint: Respiratory Problems Stated Complaint: SOB,CP Nursing Triage Note: PT REPORTING SOA WORSENING SINCE D/C, PAIN IN RIGHT LATERAL LOWER RIB AND RUQ (HX OF FLUID COLLECTION @ LIVER), AND ALSO R CALF PAIN > L CALF PAIN. HX OF FREQUENT N/V OVER A YR. TOOK PHENERGAN AND HYDROCODONE AT 1830. Nursing Sepsis Screen: No Definite Risk Source of Information: Patient, Old Records Exam Limitations: No Limitations History of Present Illness Date Seen by Provider: Oct 08, 2017 Time Seen by Provider: 23:15 Initial Comments This 37-year-old woman presents to the emergency room with complaints of "right ribs hurting", headache, right calf pain, pain with inspiration. Symptoms have been intermittent. Headache and leg pain are new tonight. She has been taking hydrocodone dose was at 18:30. She feels like there is a "ball under my rib cage". She vomited 1 today. She reports intermittent fever up to 103. She has chronic diarrhea but no change in bowel habits recently. She is afebrile at present. On exam she is tender in the upper abdomen. Patient has had some degree of symptoms for the past month since having cholecystectomy and EGD by Dr. Gr September 01. On EGD she was found to have gastritis. She had a fluid collection in the right upper quadrant noted on subsequent imaging which has been decreasing in size. Patient has had extensive imaging done over the past month including abdominal/pelvic ultrasound, CT exams 2, and hepatobiliary scan. She has a left adnexal mass that requires following. No other acute abnormalities to account for her pain have been identified in her workups. Allergies and Home Medications Allergies Coded Allergies: Sulfa (Sulfonamide Antibiotics) (Verified Allergy, Severe, RASH, 06/18/17) morphine (Verified Allergy, Severe, RASH, Pt has had Percocet & Lortab in the past w/o issue, 09/01/17) Home Medications Ondansetron 4 Mg Tab.rapdis, 4 MG SL Q4H PRN for NAUSEA/VOMITING-1ST LINE Prescribed by: TELMA AKHTAR on 10/09/17 0245 Oxycodone HCl/Acetaminophen 1 Each Tablet, 1 EACH PO Q4H Prescribed by: MARIETTA ROGEL on 09/14/17 1310 Pantoprazole Sodium 40 Mg Tablet., 40 MG PO DAILY, (Reported) Promethazine HCl 25 Mg Tablet, 12.5 MG PO Q3HR PRN for NAUSEA/VOMITING Prescribed by: MARIETTA ROGEL on 09/14/17 1310 Patient Home Medication List Home Medication List Reviewed: Yes Constitutional: see HPI EENTM: no symptoms reported Respiratory: see HPI Cardiovascular: no symptoms reported Gastrointestinal: see HPI Genitourinary: no symptoms reported : No Musculoskeletal: see HPI Skin: no symptoms reported Psychiatric/Neurological: See HPI Hematologic/Lymphatic: No Symptoms Reported Past Vntmddq-Yajzev-Ebhxyl Hx Patient Social History Alcohol Use: Occasionally Uses Recreational Drug Use: No (Reports no illicit usage hx) Smoking Status: Never a Smoker 2nd Hand Smoke Exposure: No Recent Foreign Travel: No Contact w/Someone Who Travel: No Recent Infectious Disease Expo: No Recent Hopitalizations: No Immunizations Up To Date Date of Influenza Vaccine: Apr 20, 2017 Seasonal Allergies Seasonal Allergies: No Surgeries History of Surgeries: Yes (BACKx2, KIDNEY STENT, D&E, DXLS X2 FOR ENDOMETRIOSIS ) Surgeries: Abdominal, Appendectomy, Bladder Surgery, Section, Hysterectomy, Orthopedic Respiratory History of Respiratory Disorde: No Cardiovascular History of Cardiac Disorders: No Neurological History of Neurological Disord: Yes Neurological Disorders: Headaches /Migraines Reproductive System : No Hx Reproductive Disorders: No Sexually Transmitted Disease: No HIV/AIDS: No Female Reproductive Disorders: Endometriosis 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 Genitourinary History of Genitourinary Disor: Yes Genitourinary Disorders: Kidney Infection, Bladder Infection, Kidney Stones, UTI-Chronic Gastrointestinal History of Gastrointestinal Di: Yes (VOMITING X 1 YR (LOST 40 LBS IN THE LAST YR.)) Gastrointestinal Disorders: Gastroesophageal Reflux, Chronic Diarrhea, Gall Bladder Disease Musculoskeletal History of Musculoskeletal Dis: Yes (X 2 BACK SURG) Musculoskeletal Disorders: Back Injury, Chronic Back Pain Endocrine History of Endocrine Disorders: No HEENT History of HEENT Disorders: No Loss of Vision: Denies Hearing Impairment: Denies Cancer History of Cancer: No Cancer 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 Psychosocial History of Psychiatric Problem: Yes Behavioral Health Disorders: Depression Integumentary History of Skin or Integumenta: No Blood Transfusions History of Blood Disorders: No Adverse Reaction to a Blood Tr: No Family Medical History Significant Family History: Cancer, Diabetes, Hypertension, Other Conditions/Hx Family Medial History: Arthritis 19 FATHER 19 MOTHER Asthma 19 FATHER Diabetes mellitus 19 MOTHER FH: congestive heart failure 19 MOTHER Hypercholesterolemia 19 MOTHER Hypertension 19 MOTHER Kidney disease 19 MOTHER Physical Exam Vital Signs Vital Signs - First Documented 10/08/17 22:17 Temp 98.9 Pulse 99 Resp 16 B/P (MAP) 153/91 (111) Pulse Ox 100 O2 Delivery Room Air Capillary Refill : Less Than 3 Seconds General Appearance: No Apparent Distress, WD/WN HEENT: PERRL/EOMI, Normal ENT Inspection, Pharynx Normal Neck: Normal Inspection Respiratory: Lungs Clear, Normal Breath Sounds, No Accessory Muscle Use, No Respiratory Distress Cardiovascular: Regular Rate, Rhythm, No Edema, No Murmur Gastrointestinal: Normal Bowel Sounds, Soft, Tenderness (Upper abdomen) Extremity: Normal Inspection, No Pedal Edema, Calf Tenderness (Right), Other ( Positive Ilsa on the right) Neurologic/Psychiatric: Alert, Oriented x3, No Motor/Sensory Deficits, Normal Mood/Affect, sausage stuffer II-XII Norm as Tested Skin: Normal Color, Warm/Dry Progress/Results/Core Measures Suspected Sepsis Recent Fever Within 48 Hours: No Infection Criteria Present: Documented Infection New/Unexplained Altered Menta: No Sepsis Screen: No Definite Risk Sepsis Diagnosis: SIRS Temperature:98.9 Pulse: 99 Respiratory Rate: 16 Laboratory Tests 10/08/17 22:30: White Blood Count 5.5 Blood Pressure 153 /91 Mean: 111 Laboratory Tests 10/08/17 22:30: Creatinine 0.66, Platelet Count 408H, Total Bilirubin 0.4 Results/Orders Lab Results Laboratory Tests Test 10/08/17 22:30 10/09/17 00:01 Range/Units White Blood Count 5.5 4.3-11.0 10^3/uL Red Blood Count 4.43 4.35-5.85 10^6/uL Hemoglobin 12.0 11.5-16.0 G/DL Hematocrit 36 35-52 % Mean Corpuscular Volume 81 80-99 FL Mean Corpuscular Hemoglobin 27 25-34 PG Mean Corpuscular Hemoglobin Concent 34 32-36 G/DL Red Cell Distribution Width 15.5 H 10.0-14.5 % Platelet Count 408 H 130-400 10^3/uL Mean Platelet Volume 10.6 H 7.4-10.4 FL Neutrophils (%) (Auto) 37 L 42-75 % Lymphocytes (%) (Auto) 49 H 12-44 % Monocytes (%) (Auto) 7 0-12 % Eosinophils (%) (Auto) 6 0-10 % Basophils (%) (Auto) 1 0-10 % Neutrophils # (Auto) 2.0 1.8-7.8 X 10^3 Lymphocytes # (Auto) 2.7 1.0-4.0 X 10^3 Monocytes # (Auto) 0.4 0.0-1.0 X 10^3 Eosinophils # (Auto) 0.3 0.0-0.3 10^3/uL Basophils # (Auto) 0.0 0.0-0.1 10^3/uL D-Dimer 0.92 H 0.00-0.49 UG/ML Sodium Level 139 135-145 MMOL/L Potassium Level 4.0 3.6-5.0 MMOL/L Chloride Level 106 98-107 MMOL/L Carbon Dioxide Level 22 21-32 MMOL/L Anion Gap 11 5-14 MMOL/L Blood Urea Nitrogen 8 7-18 MG/DL Creatinine 0.66 0.60-1.30 MG/DL Estimat Glomerular Filtration Rate > 60 BUN/Creatinine Ratio 12 Glucose Level 99 70-105 MG/DL Calcium Level 9.1 8.5-10.1 MG/DL Total Bilirubin 0.4 0.1-1.0 MG/DL Aspartate Amino Transf (AST/SGOT) 19 5-34 U/L Alanine Aminotransferase (ALT/SGPT) 11 0-55 U/L Alkaline Phosphatase 92 40-136 U/L C-Reactive Protein High Sensitivity 0.64 H 0.00-0.50 MG/DL Total Protein 7.3 6.4-8.2 GM/DL Albumin 4.0 3.2-4.5 GM/DL Lipase 13 8-78 U/L Urine Color YELLOW Urine Clarity CLEAR Urine pH 6.5 5-9 Urine Specific Temperance 1.005 L 1.016-1.022 Urine Protein NEGATIVE NEGATIVE Urine Glucose (UA) NEGATIVE NEGATIVE Urine Ketones NEGATIVE NEGATIVE Urine Nitrite NEGATIVE NEGATIVE Urine Bilirubin NEGATIVE NEGATIVE Urine Urobilinogen NORMAL NORMAL MG/DL Urine Leukocyte Esterase 1+ H NEGATIVE Urine RBC (Auto) NEGATIVE NEGATIVE Urine RBC NONE /HPF Urine WBC NONE /HPF Urine Squamous Epithelial Cells 0-2 /HPF Urine Crystals NONE /LPF Urine Bacteria NEGATIVE /HPF Urine Casts NONE /LPF Urine Mucus NEGATIVE /LPF Urine Culture Indicated NO My Orders Orders - TELMA NAIDU MD Cbc With Automated Diff (10/08/17 23:17) Comprehensive Metabolic Panel (10/08/17 23:17) Hs C Reactive Protein (10/08/17 23:17) Lipase (10/08/17 23:17) Saline Lock/Iv-Start (10/08/17 23:17) Chest Pa/Lat (2 View) (10/08/17 23:17) Saline Lock/Iv-Start (10/08/17 23:17) Ns Iv 1000 Ml (Sodium Chloride 0.9%) (10/08/17 23:17) Ondansetron Injection (Zofran Injectio (10/08/17 23:30) Ketorolac Injection (Toradol Injection) (10/08/17 23:30) Fibrin Degradation Products (10/08/17 23:20) Ua Culture If Indicated (10/09/17 00:00) Fentanyl Injection (Sublimaze Injection (10/09/17 00:00) Us Venous Lower Ext Rt (10/09/17 23:39) Lidocaine 2% Viscous 15 Ml (Xylocaine Vi (10/09/17 01:30) Antacid Suspension (Mylanta Suspension (10/09/17 01:30) Famotidine Injection (Pepcid Injection) (10/09/17 01:21) Fentanyl Injection (Sublimaze Injection (10/09/17 02:45) Promethazine Injection (Phenergan Injec (10/09/17 02:45) Medications Given in ED Vital Signs/I&O Capillary Refill : Less Than 3 Seconds Blood Pressure Mean: 111 Progress Note : Progress Note Patient's workup here was unremarkable. She required multiple doses of pain medications and antiemetics. She has had extensive imaging in the past as well including hepatobiliary scan post cholecystectomy, CT scans 2, and pelvic ultrasound in the recent past. She was dismissed home with no further interventions. Diagnostic Imaging Diagonstic Imaging: Xray, Ultrasound Plain Films/CT/US/NM/MRI: chest, leg Comments Venous Doppler of the left leg discussed with infectious disease technician. No evidence of DVT. Diagonstic Imaging: Xray Plain Films/CT/US/NM/MRI: chest Comments Two-view chest x-ray viewed by me. Report not yet available. No acute abnormalities appreciated. Departure Impression Impression: Primary Impression: Upper abdominal pain Additional Impression: Nausea and vomiting Qualified Codes: R11.2 - Nausea with vomiting, unspecified Disposition: 01 HOME, SELF-CARE Condition: Improved Departure-Patient Inst. Decision time for Depature: 02:35 Referrals: NO,LOCAL PHYSICIAN (PCP/Family) Primary Care Physician Patient Instructions: Nausea and Vomiting, Adult Add. Discharge Instructions: Drink plenty of clear liquids. Use your pain medication as prescribed. For nausea, start with Zofran (ondansetron) and add Phenergan with) promethazine ) for nausea not controlled by Zofran. Return to care if symptoms worsen. Follow up with your primary care provider and/or Dr. Gr on Tuesday. All discharge instructions reviewed with patient and/or family. Voiced understanding. Scripts Ondansetron (Zofran Odt) 4 Mg Tab.rapdis 4 MG SL Q4H Y for NAUSEA/VOMITING-1ST LINE, #10 TAB 1 Refill Prov: TELMA NAIDU MD 10/09/17 Copy Copies To 1: ASPEN GR MD, JOSHUA T MD Oct 09, 2017 02:45
[2017-10-09 03:15] VITALS: BP 116/83
--- NOTE | 2017-10-09 07:41 | Diagnostic Imaging Report ---
PROCEDURE: US right lower extremity venous. INDICATION: Right calf pain. EXAMINATION: Right lower extremity venous Doppler 10/09/2017 TECHNIQUE: Waveform and spectral analysis of the lower extremity venous structures. FINDINGS: There is no evidence for deep vein thrombosis with normal compressibility, augmentation and spontaneity of all visualized venous structures. IMPRESSION: 1. No evidence for deep vein thrombosis. Findings agree with the preliminary report. Dictated by: Dictated on workstation # [id number]
--- NOTE | 2017-10-09 07:44 | Diagnostic Imaging Report ---
INDICATION: Difficulty breathing, right lower chest pain. EXAMINATION: Chest 2 views 10/08/2017. COMPARISON: 09/05/17. FINDINGS: The cardiomediastinal silhouette is unremarkable. The pulmonary vasculature is within normal limits. The lungs and pleural spaces are clear. IMPRESSION: No evidence of an acute cardiopulmonary process. Dictated by: Dictated on workstation # [id number]
== END 2017-10-09 03:15 | disposition home or self-care (01) ==
LOC: EDUNIT# 22:16 → ER 22:18
DX: R10.11 Right upper quadrant pain (principal); R11.2 Nausea with vomiting, unspecified; F32.9 Major depressive disorder, single episode, unspecified; K21.9 Gastro-esophageal reflux disease without esophagitis; G43.909 Migraine, unspecified, not intractable, without status migrainosus; Z87.19 Personal history of other diseases of the digestive system; Z87.442 Personal history of urinary calculi; Z90.49 Acquired absence of other specified parts of digestive tract; Z87.59 Personal history of other complications of pregnancy, childbirth and the puerperium; Z88.2 Allergy status to sulfonamides; Z88.6 Allergy status to analgesic agent
CPT/HCPCS: 36415; 71046; 80053; 81000; 83690; 85025; 85379; 86141

== ENCOUNTER 2017-10-11 06:01 | Outpatient (CLI) | payer OTHER ==
[~2017-10-11] VITALS: Ht 172.7 cm; Wt 81.6 kg
[~2017-10-11 06:01] MED LIST changes: +HYDR-3816; +ONDA4TAB8 SL; +PROM25SU44
== END 2017-10-11 14:09 ==
LOC: PREOP 06:01
PROVIDERS: ATTEND Surgery
DX: Z01.818 Encounter for other preprocedural examination (principal); K92.1 Melena; R10.9 Unspecified abdominal pain

== ENCOUNTER 2017-10-14 11:36 | Day surgery (SDC) | payer OTHER ==
[~2017-10-14] VITALS: Ht 172.7 cm; Wt 81.6 kg
[2017-10-14] MEDS ORDERED: NS IV 500 ML 500 ML ONE (11:51)
[2017-10-14] MEDS ORDERED: NS IV 500 ML 500 ML IV PRN (12:09)
[2017-10-14] MEDS ORDERED: LIDOCAINE JELLY 2% (XYLOCAINE) 5 ML TUBE MM PRN (12:15)
[2017-10-14 12:16] VITALS: BP 138/91
--- NOTE | 2017-10-14 12:39 | Conscious Sedation/ASA ---
Conscious Sedation Pre-Proced Time Reviewed: 12:20 ASA Class: 2 Airway Mallampati Classification: ([place] appropriate class) I. II. III, IV Lungs Heart ASA score ASA 1: a normal healthy patient ASA 2: a patient with a mild systemic disease (mid diabetes, controlled hypertension, obesity ASA 3: a patient with a severe systemic disease that limits activity (angina , COPD, prior Myocardial infarction) ASA 4: a patient with an incapacitating disease that is a constant threat to life (CHF, renal failure) ASA 5: a moribund patient not expected to survive 24 hrs. (ruptured aneurysm) ASA 6: a declared brain patient whose organs are being harvested. For emergent operations, add the letter E after the classification Grade 2 Sedation Plan: Analgesia, Amnesia, Plan communicated to team members, Discussed options with patient/fam, Discussed risks with patient/fam Note The patient is an appropriate candidate to undergo the planned procedure, sedation, and anesthesia. The patient immediately re-assessed prior to indication. ASPEN SHOOK MD Oct 14, 2017 12:39 pm
--- NOTE | 2017-10-14 12:40 | Progress Note-Pre Operative ---
Pre-Operative Progress Note H&P Reviewed The H&P was reviewed, patient examined and no changes noted. Date Seen by Provider: Oct 14, 2017 Time Seen by Provider: 12:20 Date H&P Reviewed: Oct 14, 2017 Time H&P Reviewed: 12:20 Pre-Operative Diagnosis: persistent abd pain, thrombocytosis ASPEN SHOOK MD Oct 14, 2017 12:39 pm
[2017-10-14] MEDS ORDERED: HYDROcodone/APAP 5 MG/325 MG (LORTAB) TAB PO PRN (12:45)
[2017-10-14] MEDS ORDERED: ACETAMINOPHEN 325 MG TABLET/CAPLET (TYLENOL) PO PRN (12:45)
[2017-10-14] MEDS ORDERED: ONDANSETRON 4 MG/2 ML (SDV) Z0FRAN IV PRN (12:45)
[2017-10-14] MEDS ORDERED: LIDOCAINE JELLY 2% (XYLOCAINE) 5 ML TUBE ONE (13:05)
[2017-10-14] MEDS ORDERED: fentaNYL INJECTION 100 MCG/2 ML AMP ONE ×2 (13:05)
[2017-10-14] MEDS ORDERED: MIDAZOLAM 2 MG/2 ML (VERSED) VIAL ONE ×6 (13:05→13:32)
[2017-10-14] MEDS: MIDAZOLAM 2 MG/2 ML (VERSED) VIAL IVP PRN ×2 (13:25→13:28)
[2017-10-14] MEDS: fentaNYL INJECTION 100 MCG/2 ML AMP IVP PRN ×2 (13:26→13:29)
[2017-10-14] MEDS ORDERED: proPOfol 200 MG/20 ML (DIPRIVAN) VIAL IV ONE ×3 (13:32→13:49)
--- NOTE | 2017-10-14 14:07 | Progress Note-Post Operative ---
Post-Operative Progess Note Surgeon (s)/Fire Watcher (s) Surgeon ASPEN SHOOK MD Fire Watcher: none Pre-Operative Diagnosis persistent abd pain, thrombocytosis Post-Operative Diagnosis chronic stage 2 ext hemorrhoids, no rectal or colon lesions. Procedure & Operative Findings Date of Procedure 10/14/17 Procedure Performed/Findings Colonoscopy. Anesthesia Type MAC Estimated Blood Loss Estimated blood loss (mL): minimal Specimens/Packing Specimens Removed none ASPEN SHOOK MD Oct 14, 2017 2:07 pm
--- NOTE | 2017-10-14 14:09 | Discharge Inst-Surgical ---
D/C Lap Instructions-BOONE Follow Up PRN Activity as tolerated High Fiber Diet 25g or more per day Avoid Alcohol, Caffeine, Spicy [place] and Acid foods. Drink 64 fluid oz or more of fluids per day. Symptoms to Report: Fever over 101 degree F, Nausea/Vomiting If any problems/questions: Contact your physician or go to Emergency Room ASPEN SHOOK MD Oct 14, 2017 2:09 pm
--- NOTE | 2017-10-14 14:09 | Anesthesia-General Post-Op ---
MAC Patient Condition Mental Status/LOC: Same as Preop Cardiovascular: Satisfactory Nausea/Vomiting: Absent Respiratory: Satisfactory Pain: Controlled Complications: Absent Post Op Complications Complications None Follow Up Care/Instructions Patient Instructions None needed. Anesthesiology Discharge Order Discharge Order Patient is doing well, no complaints, stable vital signs, no apparent adverse anesthesia problems. No complications reported per nursing. SHAMIR WANG CRNA Oct 14, 2017 14:09
[2017-10-14 14:20] VITALS: BP 108/68
[2017-10-14 14:45] VITALS: BP 124/78
[2017-10-14 14:50] VITALS: BP 124/78
--- NOTE | 2017-10-14 19:18 | OPERATIVE REPORT ---
DATE OF SERVICE: 10/14/2017 ATTENDING PRIMARY ROLL FORMING MACHINE SET UP MECHANIC: [facility]. Dr. Seals. PREOPERATIVE DIAGNOSES: Persistent abdominal pain, thrombocytosis. POSTOPERATIVE DIAGNOSES: Chronic stage II external hemorrhoids. Remainder of the rectum and colon were normal. PROCEDURE: Colonoscopy. SURGEON: Aspen Shook MD. ANESTHESIA: Monitored anesthesia care. ESTIMATED BLOOD LOSS: Minimal. FINDINGS: Chronic stage II external hemorrhoids, not actively edematous nor inflamed and no bleeding. The remainder of the rectum and colon were normal. There were no polyps or any neoplasms identified. There is also no dark implants that would indicate an endometriosis. DISPOSITION: The patient tolerated the procedure well. INDICATIONS: The patient is a 37-year-old female with a persistent right lower quadrant abdominal pain with associated nausea and vomiting. She states that this has been around for a significant amount of time, encompassing now for several months. She states that she has lost approximately 20 pounds. She has a history of previous placenta previa requiring section, partial hysterectomy and history of endometriosis and status post exploratory laparotomy, completion hysterectomy, appendectomy and rectocele repair. She did have a protracted recovery after this. On 09/02/2017, she underwent a diagnostic laparoscopy and lysis of adhesions of the right lower abdominal quadrant and the pelvis as well as a laparoscopic cholecystectomy and EGD with biopsy. Intra-abdominal adhesions were identified more towards the pelvis as well as with the right lower abdominal quadrant; however, not severe. It was also round like mass in the right pelvis, just right of midline which was the most likely consistent with a retained right ovary. She has had persistent pain and she has had multiple emergency room visits as well as an admission for postoperative pain. She was found to have a platelet count of 730 as well as a slight elevation of the D-dimer at 1.37. A CT scan of the abdomen and pelvis were performed, which did not show pulmonary emboli. She was referred to hematology where the recommendation was made to proceed with colonoscopy. DESCRIPTION OF PROCEDURE: The patient was brought to the endoscopy suite, laid in the left lateral decubitus position with head slightly elevated. After adequate IV pain and sedative medications and monitored anesthesia care, digital rectal examination was performed. Mild chronic stage II external hemorrhoids were identified, which are not actively demonstrated nor inflamed and no bleeding. Normal sphincter tone was felt and there were no palpable masses. The endoscope was then intubated to the anus and rectum gently insufflated. The endoscope was then advanced to the valves of Shields of the rectum with no polyps or any neoplasms identified. We then proceeded through the sigmoid colon where no diverticulosis identified. Endoscope was then advanced to the mid of the descending, transverse, ascending colon and cecum. These segments were normal. There were no polyps, neoplasms or any endometrial implants identified throughout the colon or rectum. The endoscope was then slowly withdrawn while taking a second look and suctioning of residual air with no additional findings. The patient tolerated the procedure well. We will refer her back to hematology. We feel that she could potentially benefit from a gastroenterology referral as well as evaluation of what appears to be a retained right ovary. Job ID: [id number] DocumentID: [id number] Dictated Date: 10/14/2017 14:14:01 Estate Planning Counselor Date: 10/14/2017 19:18:17 Dictated By: ASPEN SHOOK MD MTDD
== END 2017-10-14 15:00 | disposition home or self-care (01) ==
LOC: ENDO 11:36
PROVIDERS: ATTEND Surgery
DX: R10.31 Right lower quadrant pain (principal); K64.1 Second degree hemorrhoids; D47.3 Essential (hemorrhagic) thrombocythemia; G43.909 Migraine, unspecified, not intractable, without status migrainosus; Z79.899 Other long term (current) drug therapy

== ENCOUNTER → 2017-10-18 | Outpatient (CLI) | payer OTHER ==
--- NOTE | 2017-10-18 13:40 | Diagnostic Imaging Report ---
INDICATION: Screening. TECHNIQUE: Screening digital mammography was performed bilaterally with a Computer Aided Detection (CAD) system. 3-D tomosynthesis was also performed and reviewed. FINDINGS: There is moderately dense fibroglandular tissue bilaterally. There is a small area of architectural distortion in the superior aspect of the right breast on the MLO projection. There is no other dominant mass, spiculated lesion, or suspicious calcification identified. The skin, nipples, and axillae are unremarkable. IMPRESSION: There is a small area of architectural distortion in the superior aspect of the right breast on the MLO projection. This likely reflects superimposed fibroglandular tissue; however, spot compression views and, if warranted, ultrasound would be recommended to completely exclude the possibility of a discrete underlying mass. ACR BI-RADS Category 0: Incomplete. (Needs additional imaging evaluation). Result letter will be mailed to the patient. Note: At least 10% of breast cancer is not imaged by mammography. Dictated by: Dictated on workstation # [id number]
--- NOTE | 2017-10-18 16:45 | Diagnostic Imaging Report ---
INDICATION: Abdominal pain with nausea and emesis. TECHNIQUE/FINDINGS: The patient ingested a standard test meal containing 1 mCi of technetium 99m sulfur colloid. The initial images reveal activity within the gastric lumen. Activity clears from the stomach with approximately 50% emptying at 1 hour. The time to one/half emptying is calculated to be 67 minutes. 90% of activity is cleared at the 85 minute time point. IMPRESSION: Gastric emptying is unremarkable with a normal emptying time. No outlet obstruction is present. Dictated by: Dictated on workstation # [id number]
== END ==
LOC: CARD 08:29
PROVIDERS: ATTEND Internal Medicine Hematology & Oncology
DX: Z12.31 Encounter for screening mammogram for malignant neoplasm of breast (principal); R11.2 Nausea with vomiting, unspecified; R92.8 Other abnormal and inconclusive findings on diagnostic imaging of breast
CPT/HCPCS: 77067; 78264

== ENCOUNTER 2017-11-02 12:36 | Emergency (ER) | payer OTHER ==
[~2017-11-02] VITALS: Ht 172.7 cm; Wt 86.2 kg
[2017-11-02] MEDS ORDERED: NS IV 1000 ML 1,000 ML IV ONE (13:02)
[2017-11-02 13:09] LABS: BILIRUBIN,URINE NEGATIVE (NEGATIVE); CLARITY,URINE CLEAR; COLOR,URINE YELLOW; GLUCOSE, URINE (UA) NEGATIVE (NEGATIVE); KETONES,URINE NEGATIVE (NEGATIVE); LEUKOCYTE ESTERASE ,URINE 1+ (NEGATIVE); NITRITE,URINE POSITIVE (NEGATIVE); PH,URINE 6 (5-9); PROTEIN,URINE 2+ (NEGATIVE); UROBILINOGEN,URINE 1 MG/DL (NORMAL)
[2017-11-02 13:10] LABS: BASOPHILS % (AUTO) 0 % (0-10); EOSINOPHILS % (AUTO) 1 % (0-10); HEMATOCRIT 38 % (35-52); HEMOGLOBIN 12.7 G/DL (11.5-16.0); LYMPHOCYTES # (AUTO) 2.4 X 10^3 (1.0-4.0); LYMPHOCYTES % (AUTO) 29 % (12-44); MEAN CORPUSCULAR HEMOGLOBIN 27 PG (25-34); MEAN CORPUSCULAR HGB CONC 33 G/DL (32-36); MEAN CORPUSCULAR VOLUME 81 FL (80-99); MEAN PLATELET VOLUME 10.5 FL (7.4-10.4); MONOCYTES # (AUTO) 0.5 X 10^3 (0.0-1.0); MONOCYTES % (AUTO) 6 % (0-12); NEUTROPHILS # (AUTO) 5.5 X 10^3 (1.8-7.8); NEUTROPHILS % (AUTO) 65 % (42-75); PLATELET COUNT 406 10^3/uL (130-400); RED BLOOD COUNT 4.74 10^6/uL (4.35-5.85); RED CELL DISTRIBUTION WIDTH 15.1 % (10.0-14.5); WHITE BLOOD COUNT 8.5 10^3/uL (4.3-11.0)
[2017-11-02] MEDS ORDERED: fentaNYL INJECTION 100 MCG/2 ML AMP IVP ONE ×2 (13:15→16:00)
[2017-11-02] MEDS ORDERED: ONDANSETRON 4 MG/2 ML (SDV) Z0FRAN IVP ONE (13:15)
[2017-11-02 13:26] LABS: ALANINE AMINOTRANSFERASE 11 U/L (0-55); ALBUMIN 4.7 GM/DL (3.2-4.5); ALKALINE PHOSPHATASE 67 U/L (40-136); BILIRUBIN,TOTAL 0.8 MG/DL (0.1-1.0); BUN/CREATININE RATIO 14; CALCIUM 9.8 MG/DL (8.5-10.1); CARBON DIOXIDE 22 MMOL/L (21-32); CHLORIDE 107 MMOL/L (98-107); CREATININE SERUM 0.79 MG/DL (0.60-1.30); GFR ESTIMATED > 60; GLUCOSE 102 MG/DL (70-105); LIPASE 20 U/L (8-78); POTASSIUM 3.2 MMOL/L (3.6-5.0); SODIUM 140 MMOL/L (135-145); TOTAL PROTEIN 8.4 GM/DL (6.4-8.2)
[2017-11-02 13:29] LABS: BACTERIA,URINE TRACE /HPF; RBC,URINE RARE /HPF
[2017-11-02] MEDS ORDERED: KETOROLAC 30 MG/ML VIAL IVP ONE (14:15)
[2017-11-02] MEDS ORDERED: cefTRIAXone INJECTION 1,000 MG in NS (IVPB) 100 ML IV ONE (14:30)
--- NOTE | 2017-11-02 14:56 | Diagnostic Imaging Report ---
INDICATION: Generalized abdominal pain. TIME OF EXAMINATION: 2:45 PM. FINDINGS: Two views of the abdomen demonstrate surgical clips in the right upper quadrant. The bowel gas pattern is nonobstructed. No pathologic calcifications are seen. There are postop changes of osseous fusion at the L4-5 level. IMPRESSION: No acute abnormality in the abdomen is identified. Dictated by: Dictated on workstation # [id number]
[2017-11-02] MEDS ORDERED: ACHD5005 PO (15:57)
--- NOTE | 2017-11-02 15:57 | ED Abdominal Pain ---
General Chief Complaint: Abdominal/GI Problems Stated Complaint: ABD PAIN,FEVER,VOMITING Nursing Triage Note: PT AMBULATED TO ROOM 6 PT CO OF ABD PAIN, FEVER AND VOMITING, STATES R SIDED PAIN STARTED YESTERDAY, PT WAS SEEN AT [facility] YESTERDAY AND GIVEN SCRIPT FOR CIPRO. PT STATES TEMP UP TO 101.0 HAS TAKEN MOTRIN THIS AM Sepsis Screen: No Definite Risk Source of Information: Patient Exam Limitations: No Limitations History of Present Illness Date Seen by Provider: Nov 02, 2017 Time Seen by Provider: 12:50 Initial Comments This 37-year-old young lady presents to the emergency room with exacerbation of abdominal pain. She has had extensive problems with pain and other abdominal symptoms and has had numerous procedures and imaging studies performed. She had a cholecystectomy about 2 months ago. She fell after that resulting in liver injury and possible intra-abdominal hemorrhaging. She has had pain persistently since that time. Her pain is sharp and stabbing primarily on the right side and in the lower abdomen. It is painful with inspiration as well. She reports other additional medical problems that have been addressed recently including thrombocytosis and an abnormal mammogram. She reports having temperature at home up to 101.5. However, she is afebrile now. She last took ibuprofen around 08:00. She had recent imaging suggesting abnormality with the left ovary. However, review of operative reports notes BSO in 2014. Patient is treating her nausea with Zofran and Phenergan at home. Patient also has a history of endometriosis and adhesiolysis. Her current local physicians are Dr. James and Dr. Gr. She has no primary care provider. She is presently on Cipro for urinary tract infection. Allergies and Home Medications Allergies Coded Allergies: Sulfa (Sulfonamide Antibiotics) (Verified Allergy, Severe, RASH, 10/11/17) morphine (Verified Allergy, Severe, RASH, Pt has had Percocet & Lortab in the past w/o issue, 10/11/17) Home Medications Hydrocodone Bit/Acetaminophen 1 Tab Tab, 1 TAB PO Q6H PRN for PAIN-MODERATE TO SEVERE Prescribed by: TELMA AKHTAR on 11/02/17 4087 Ondansetron 4 Mg Tab.rapdis, 4 MG SL Q4H PRN for NAUSEA/VOMITING-1ST LINE Prescribed by: TELMA AKHTAR on 10/09/17 0245 Oxycodone HCl/Acetaminophen 1 Each Tablet, 1 EACH PO Q4H Prescribed by: MARIETTA ROGEL on 09/14/17 1310 Pantoprazole Sodium 40 Mg Tablet.dr, 40 MG PO DAILY, (Reported) Promethazine HCl 25 Mg Tablet, 12.5 MG PO Q3HR PRN for NAUSEA/VOMITING Prescribed by: MARIETTA ROGEL on 09/14/17 1310 Patient Home Medication List Home Medication List Reviewed: Yes Review of Systems Constitutional: no symptoms reported EENTM: No Symptoms Reported Respiratory: See HPI Cardiovascular: No Symptoms Reported Gastrointestinal: See HPI Genitourinary: See HPI Musculoskeletal: no symptoms reported Skin: no symptoms reported Psychiatric/Neurological: No Symptoms Reported Endocrine: No Symptoms Reported Hematologic/Lymphatic: No Symptoms Reported Past Mufxqqg-Biqgag-Zrujzq Hx Patient Social History 2nd Hand Smoke Exposure: No Recent Foreign Travel: No Contact w/Someone Who Travel: No Recent Infectious Disease Expo: No Recent Hopitalizations: Yes (GALLBLADDER SURGERY, LIVER LACERATION) Immunizations Up To Date Tetanus Booster (TDap): Unknown Date of Influenza Vaccine: Apr 20, 2017 Seasonal Allergies Seasonal Allergies: No Past Medical History Surgeries: Yes (BACKx2, KIDNEY STENT, D&E, DXLS X2 FOR ENDOMETRIOSIS) Abdominal, Appendectomy, Bladder Surgery, Section, Gallbladder, Hysterectomy, Orthopedic Respiratory: No Currently Using CPAP: No Currently Using BIPAP: No Cardiac: No Neurological: Yes Headaches /Migraines : No Reproductive Disorders: No Female Reproductive Disorders: Endometriosis G[employer] History: Hysterectomy Sexually Transmitted Disease: No HIV/AIDS: No Kidney Infection, Bladder Infection, Kidney Stones, UTI-Chronic Gastrointestinal: Yes (VOMITING X 1 YR (LOST 40 LBS IN THE LAST YR.)) Gastroesophageal Reflux, Chronic Diarrhea, Gall Bladder Disease Musculoskeletal: Yes (X 2 BACK SURG) Back Injury, Chronic Back Pain Endocrine: No HEENT: No Loss of Vision: Bilateral Hearing Impairment: Denies Cancer: No Psychosocial: Yes Depression Integumentary: No Blood Disorders: No Adverse Reaction/Blood Tranf: No (HAS HAD BLOOD WITH NO REACTION) Family Medical History Arthritis 19 FATHER 19 MOTHER Asthma 19 FATHER Diabetes mellitus 19 MOTHER FH: congestive heart failure 19 MOTHER Hypercholesterolemia 19 MOTHER Hypertension 19 MOTHER Kidney disease 19 MOTHER Cancer, Diabetes, Hypertension, Other Conditions/Hx Physical Exam Vital Signs Vital Signs - First Documented 11/02/17 12:40 Temp 97.7 Pulse 107 Resp 20 B/P (MAP) 147/93 (111) Pulse Ox 97 Capillary Refill : Less Than 3 Seconds General Appearance: WD/WN, no apparent distress HEENT: PERRL/EOMI, normal ENT inspection, pharynx normal, other (Oropharynx somewhat dry) Neck: normal inspection Respiratory: lungs clear, normal breath sounds, no respiratory distress, no accessory muscle use Cardiovascular: regular rate, rhythm, no edema, no murmur Gastrointestinal: normal bowel sounds, soft, tenderness (Throughout her lower abdomen, more intense on the right) Extremities: normal inspection, no pedal edema Neurologic/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: 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-XII 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 as tested, no motor/sensory deficits, alert, normal mood/affect, oriented x 3 Skin: normal color, warm/dry Progress/Results/Core Measures Lab Results Laboratory Tests Test 11/02/17 12:50 11/02/17 13:03 Range/Units White Blood Count 8.5 4.3-11.0 10^3/uL Red Blood Count 4.74 4.35-5.85 10^6/uL Hemoglobin 12.7 11.5-16.0 G/DL Hematocrit 38 35-52 % Mean Corpuscular Volume 81 80-99 FL Mean Corpuscular Hemoglobin 27 25-34 PG Mean Corpuscular Hemoglobin Concent 33 32-36 G/DL Red Cell Distribution Width 15.1 H 10.0-14.5 % Platelet Count 406 H 130-400 10^3/uL Mean Platelet Volume 10.5 H 7.4-10.4 FL Neutrophils (%) (Auto) 65 42-75 % Lymphocytes (%) (Auto) 29 12-44 % Monocytes (%) (Auto) 6 0-12 % Eosinophils (%) (Auto) 1 0-10 % Basophils (%) (Auto) 0 0-10 % Neutrophils # (Auto) 5.5 1.8-7.8 X 10^3 Lymphocytes # (Auto) 2.4 1.0-4.0 X 10^3 Monocytes # (Auto) 0.5 0.0-1.0 X 10^3 Eosinophils # (Auto) 0.0 0.0-0.3 10^3/uL Basophils # (Auto) 0.0 0.0-0.1 10^3/uL Sodium Level 140 135-145 MMOL/L Potassium Level 3.2 L 3.6-5.0 MMOL/L Chloride Level 107 98-107 MMOL/L Carbon Dioxide Level 22 21-32 MMOL/L Anion Gap 11 5-14 MMOL/L Blood Urea Nitrogen 11 7-18 MG/DL Creatinine 0.79 0.60-1.30 MG/DL Estimat Glomerular Filtration Rate > 60 BUN/Creatinine Ratio 14 Glucose Level 102 70-105 MG/DL Calcium Level 9.8 8.5-10.1 MG/DL Total Bilirubin 0.8 0.1-1.0 MG/DL Aspartate Amino Transf (AST/SGOT) 13 5-34 U/L Alanine Aminotransferase (ALT/SGPT) 11 0-55 U/L Alkaline Phosphatase 67 40-136 U/L C-Reactive Protein High Sensitivity 1.06 H 0.00-0.50 MG/DL Total Protein 8.4 H 6.4-8.2 GM/DL Albumin 4.7 H 3.2-4.5 GM/DL Lipase 20 8-78 U/L Urine Color YELLOW Urine Clarity CLEAR Urine pH 6 5-9 Urine Specific [place] 1.020 1.016-1.022 Urine Protein 2+ H NEGATIVE Urine Glucose (UA) NEGATIVE NEGATIVE Urine Ketones NEGATIVE NEGATIVE Urine Nitrite POSITIVE H NEGATIVE Urine Bilirubin NEGATIVE NEGATIVE Urine Urobilinogen 1 NORMAL MG/DL Urine Leukocyte Esterase 1+ H NEGATIVE Urine RBC (Auto) NEGATIVE NEGATIVE Urine RBC RARE /HPF Urine WBC 2-5 /HPF Urine Squamous Epithelial Cells 10-25 H /HPF Urine Crystals NONE /LPF Urine Bacteria TRACE /HPF Urine Casts NONE /LPF Urine Mucus SMALL H /LPF Urine Culture Indicated YES Micro Results Microbiology 11/02/17 Urine Culture - Preliminary, Resulted Yeast species Lactobacillus species My Orders Orders - TELMA NAIDU MD Cbc With Automated Diff (11/02/17 13:02) Comprehensive Metabolic Panel (11/02/17 13:02) Hs C Reactive Protein (11/02/17 13:02) Lipase (11/02/17 13:02) Ua Culture If Indicated (11/02/17 13:02) Saline Lock/Iv-Start (11/02/17 13:02) Ns Iv 1000 Ml (Sodium Chloride 0.9%) (11/02/17 13:02) Ondansetron Injection (Zofran Injectio (11/02/17 13:15) Fentanyl Injection (Sublimaze Injection (11/02/17 13:15) Urine Culture (11/02/17 13:03) Ketorolac Injection (Toradol Injection) (11/02/17 14:15) Abdomen, Flat & Upright/Decub (11/02/17 14:13) Ceftriaxone Injection (Rocephin Injectio (11/02/17 14:30) Fentanyl Injection (Sublimaze Injection (11/02/17 16:00) Potassium Chloride (Tablet) (Klor Con Ta (11/02/17 16:00) Us Non Ob Pelvis Comp/Transvag (11/02/17 14:30) Medications Given in ED Vital Signs/I&O 11/02/17 11/02/17 12:40 16:10 Temp 97.7 Pulse 107 93 Resp 20 18 B/P (MAP) 147/93 (111) 146/92 Pulse Ox 97 97 11/03/17 00:00 Intake Total 1000 ml Balance 1000 ml Blood Pressure Mean: 111 Progress Note : Progress Note Patient was treated with fentanyl, Zofran, and IV fluids. Imaging was pursued with ultrasound and plain film. CT was not pursued as she has had numerous CT imaging studies in the recent past and there is concern about cumulative radiation exposure. Ultrasound and x-ray showed no significant new findings. Labs were relatively unremarkable. Rocephin have been ordered for treatment of UTI but then it was noted patient is already taking Cipro for this treatment. Rocephin was canceled. Toradol and a second dose of fentanyl were given for additional pain management. Potassium was replaced orally. Diagonstic Imaging: Xray Plain Films/CT/US/NM/MRI: abdomen Comments Abdominal x-ray viewed by me and report reviewed. See report below: NAME: ANNALEE CHAVARRIA [facility] REC#: [id number] PT STATUS: REG ER : 1980 PHYSICIAN: TELMA NAIDU MD ADMIT DATE: 11/02/17/ER Signed Date of Exam: 11/02/17 ABDOMEN, FLAT & UPRIGHT/DECUB INDICATION: Generalized abdominal pain. TIME OF EXAMINATION: 2:45 PM. FINDINGS: Two views of the abdomen demonstrate surgical clips in the right upper quadrant. The bowel gas pattern is nonobstructed. No pathologic calcifications are seen. There are postop changes of osseous fusion at the L4-5 level. IMPRESSION: No acute abnormality in the abdomen is identified. Dictated by: Dictated on workstation # [id number] Dict: 11/02/17 1450 Trans: 11/02/17 1525 Interpreted by: LAUREEN AMANDA MD Electronically signed by: LAUREEN AMANDA MD 11/02/17 1525 Diagonstic Imaging: Ultrasound Plain Films/CT/US/NM/MRI: pelvis Comments NAME: ANNALEE CHAVARRIA [facility] REC#: [id number] PT STATUS: DEP ER : 1980 PHYSICIAN: TELMA NAIDU MD ADMIT DATE: 11/02/17/ER Signed Date of Exam: 11/02/17 US NON OB PELVIS COMP/TRANSVAG PATIENT HISTORY: Pelvic pain. TECHNIQUE: Transabdominal and transvaginal ultrasound of the pelvis COMPARISON: 10/06/2017 FINDINGS: The transvaginal ultrasound demonstrates bowel and bowel gas. The ovaries are not seen. The uterus is absent. No filling defects are seen in the bladder. On the transabdominal ultrasound, in the right adnexa, there is a hypoechoic structure measuring 5.0 x 2.7 x 2.2 cm with blood flow, which has the appearance of an ovary. The left adnexa is not well seen due to bowel gas. IMPRESSION: Suboptimal visualization of the pelvis due to bowel gas transabdominally and transvaginally. No left adnexal masses are identified. A hypoechoic structure in the right adnexa has the appearance of a normal ovary, with vascular flow. Dictated by: Dictated on workstation # [id number] Dict: 11/02/17 1629 Trans: 11/02/17 1645 Interpreted by: STEVEN PARKER MD Electronically signed by: STEVEN PARKER MD 11/02/17 1645 Reviewed: Reviewed by Me Departure Impression Primary Impression: exacerbation of chronic abdominal pain Additional Impressions: Nausea and vomiting Qualified Codes: R11.2 - Nausea with vomiting, unspecified Hypokalemia Urinary tract infection Qualified Codes: N39.0 - Urinary tract infection, site not specified Disposition: HOME, SELF-CARE Condition: Improved Departure-Patient Inst. Decision time for Depature: 15:55 Referrals: NO,LOCAL PHYSICIAN (PCP) Primary Care Physician Patient Instructions: Acute Abdomen (Belly Pain), Adult (DC), Urinary Tract Infection, Adult (DC) Add. Discharge Instructions: Continue with your antinausea medications as previously prescribed. Finish your antibiotic as prescribed. Establish with a primary care provider soon as possible. Return to care if symptoms are worsening or if you develop new concerning symptoms such as persistent fevers over 100. All discharge instructions reviewed with patient and/or family. Voiced understanding. Scripts Hydrocodone Bit/Acetaminophen (Hydrocodone/Acetaminophen 5/325mg Tablet) 1 Tab Tab 1 TAB PO Q6H PRN for PAIN-MODERATE TO SEVERE, #14 TAB Prov: TELMA NAIDU MD 11/02/17 Copy Copies To 1: ASPEN GR MD Copies To 2: POP JAMES MD, JOSHUA T MD Nov 02, 2017 15:57
[2017-11-02] MEDS ORDERED: KCL 10 MEQ TAB (MICRO K) PO ONE (16:00)
[2017-11-02 16:10] VITALS: BP 146/92
--- NOTE | 2017-11-02 16:45 | Diagnostic Imaging Report ---
PATIENT HISTORY: Pelvic pain. TECHNIQUE: Transabdominal and transvaginal ultrasound of the pelvis COMPARISON: 10/06/2017 FINDINGS: The transvaginal ultrasound demonstrates bowel and bowel gas. The ovaries are not seen. The uterus is absent. No filling defects are seen in the bladder. On the transabdominal ultrasound, in the right adnexa, there is a hypoechoic structure measuring 5.0 x 2.7 x 2.2 cm with blood flow, which has the appearance of an ovary. The left adnexa is not well seen due to bowel gas. IMPRESSION: Suboptimal visualization of the pelvis due to bowel gas transabdominally and transvaginally. No left adnexal masses are identified. A hypoechoic structure in the right adnexa has the appearance of a normal ovary, with vascular flow. Dictated by: Dictated on workstation # [id number]
== END 2017-11-02 16:10 | disposition home or self-care (01) ==
LOC: EDUNIT# 12:36 → ER 12:38
DX: N39.0 Urinary tract infection, site not specified (principal); K21.9 Gastro-esophageal reflux disease without esophagitis; F32.9 Major depressive disorder, single episode, unspecified; G43.909 Migraine, unspecified, not intractable, without status migrainosus; E87.6 Hypokalemia; Z90.49 Acquired absence of other specified parts of digestive tract; Z87.59 Personal history of other complications of pregnancy, childbirth and the puerperium; Z90.710 Acquired absence of both cervix and uterus; Z98.890 Other specified postprocedural states; Z87.440 Personal history of urinary (tract) infections; Z87.442 Personal history of urinary calculi; Z87.828 Personal history of other (healed) physical injury and trauma; Z87.42 Personal history of other diseases of the female genital tract; Z87.19 Personal history of other diseases of the digestive system; Z88.2 Allergy status to sulfonamides; Z88.5 Allergy status to narcotic agent
CPT/HCPCS: 36415; 74019; 76830; 76856; 80053; 81000; 83690; 85025; 86141; 87088; 96361; 96374; 96375; 96376

== ENCOUNTER → 2017-11-21 | Outpatient (CLI) | payer OTHER ==
[~2017-11-21] MED LIST changes: +HYDR-3812; +IBUP-1773 PO
--- NOTE | 2017-11-21 18:33 | Diagnostic Imaging Report ---
EXAMINATION: Ultrasound of the right breast. INDICATION: Abnormal mammogram. FINDINGS: The screening mammogram performed on 10/18/2017 noted a small area of architectural distortion in the superior aspect of the right breast on the MLO projection. The diagnostic mammogram performed earlier today failed to show any sign of malignancy in this area. On this exam, there is no discrete solid or cystic mass evident. I suspect that the density seen on the mammogram was secondary to fibroglandular tissue alone. Even so, I would recommend that a short-term (6-month) follow-up mammogram of the right breast be obtained for continued evaluation. IMPRESSION: There is no evidence for malignancy. Recommendations as above. ACR BI-RADS Category 3: Probably benign findings. Dictated by: Dictated on workstation # [id number]
--- NOTE | 2017-11-22 08:14 | Diagnostic Imaging Report ---
EXAM: Unilateral diagnostic right mammogram FINDINGS: The baseline screening mammogram performed on 10/18/2017 suggests a small area of architectural distortion in the superior aspect of the right breast on the MLO view. Compression views of this area in the MLO projection show that this density still seems to persist. However, it is not evident on the true lateral view. In reviewing the tomographic images, I suspect that this finding is secondary to fibroglandular tissue. Even so, I would recommend an ultrasound be performed for further study. IMPRESSION: There is no evidence of malignancy. Ultrasound would be recommended for further evaluation of the right breast, however. ACR BI-RADS Category 0: Incomplete. (Needs additional imaging evaluation). Result letter will be mailed to the patient. Note: At least 10% of breast cancer is not imaged by mammography. Dictated by: Dictated on workstation # [id number]
== END ==
LOC: RAD 12:54
PROVIDERS: ATTEND Internal Medicine Hematology & Oncology
DX: R92.8 Other abnormal and inconclusive findings on diagnostic imaging of breast (principal)

== ENCOUNTER 2017-11-29 05:33 | Outpatient (CLI) | payer OTHER ==
[~2017-11-29] VITALS: Ht 172.7 cm; Wt 86.2 kg
[~2017-11-29 05:33] MED LIST changes: -HYDR-3812; -IBUP-1773 PO
[2017-11-29] MEDS ORDERED: ACHD5005 PO (17:32)
[2017-12-01] MEDS ORDERED: ACHD5005 PO (09:04)
[2017-12-01] MEDS ORDERED: IBUP-1773 PO (09:04)
== END 2017-11-29 08:41 ==
LOC: PREOP 05:33
PROVIDERS: ATTEND Obstetrics & Gynecology
DX: Z01.818 Encounter for other preprocedural examination (principal); R10.2 Pelvic and perineal pain

== ENCOUNTER 2017-11-29 14:31 | Emergency (ER) | payer OTHER ==
[~2017-11-29] VITALS: Ht 172.7 cm; Wt 86.2 kg
[2017-11-29] MEDS ORDERED: RT-ALBUTEROL/IPRATROPIUM 3 ML (DUONEB) VIAL INH ONE (14:45)
[2017-11-29] MEDS ORDERED: ONDANSETRON 4 MG/2 ML (SDV) Z0FRAN IVP ONE ×2 (15:15→18:15)
[2017-11-29] MEDS ORDERED: NS IV 1000 ML 1,000 ML IV ONE (15:56)
[2017-11-29] MEDS ORDERED: PROMETHAZINE INJ 25 MG/ML (PHENERGAN) AMP IVP ONE (16:00)
[2017-11-29] MEDS ORDERED: raNItidine 50 MG/2 ML INJ (ZANTAC) IJ ONE (16:00)
[2017-11-29] MEDS ORDERED: fentaNYL INJECTION 100 MCG/2 ML AMP IVP ONE (16:00)
[2017-11-29 16:06] LABS: BILIRUBIN,URINE NEGATIVE (NEGATIVE); CLARITY,URINE CLEAR; COLOR,URINE YELLOW; GLUCOSE, URINE (UA) NEGATIVE (NEGATIVE); KETONES,URINE NEGATIVE (NEGATIVE); LEUKOCYTE ESTERASE ,URINE NEGATIVE (NEGATIVE); NITRITE,URINE NEGATIVE (NEGATIVE); PH,URINE 6 (5-9); PROTEIN,URINE NEGATIVE (NEGATIVE); UROBILINOGEN,URINE NORMAL (NORMAL)
[2017-11-29 17:11] LABS: BASOPHILS % (AUTO) 0 % (0-10); EOSINOPHILS % (AUTO) 0 % (0-10); HEMATOCRIT 34 % (35-52); HEMOGLOBIN 11.2 G/DL (11.5-16.0); LYMPHOCYTES # (AUTO) 1.2 X 10^3 (1.0-4.0); LYMPHOCYTES % (AUTO) 17 % (12-44); MEAN CORPUSCULAR HEMOGLOBIN 27 PG (25-34); MEAN CORPUSCULAR HGB CONC 33 G/DL (32-36); MEAN CORPUSCULAR VOLUME 82 FL (80-99); MEAN PLATELET VOLUME 10.6 FL (7.4-10.4); MONOCYTES # (AUTO) 0.4 X 10^3 (0.0-1.0); MONOCYTES % (AUTO) 6 % (0-12); NEUTROPHILS # (AUTO) 5.4 X 10^3 (1.8-7.8); NEUTROPHILS % (AUTO) 76 % (42-75); PLATELET COUNT 339 10^3/uL (130-400); RED BLOOD COUNT 4.14 10^6/uL (4.35-5.85); RED CELL DISTRIBUTION WIDTH 14.4 % (10.0-14.5); WHITE BLOOD COUNT 7.2 10^3/uL (4.3-11.0)
[2017-11-29] MEDS ORDERED: SCOPOLAMINE 1.5 MG (TRANSDERM-SCOP) PATCH TD ONE (17:15)
[2017-11-29 17:32] LABS: MAGNESIUM 1.9 MG/DL (1.8-2.4)
[2017-11-29] MEDS ORDERED: ACHD5005 PO (17:32)
--- NOTE | 2017-11-29 17:32 | ED Abdominal Pain ---
General Chief Complaint: Abdominal/GI Problems Stated Complaint: FEVER/N/V/TROUBLE BREATHING Nursing Triage Note: PT C/O SOB AND NAUSEA AND VOMITTING FOR THE PAST THREE DAYS. PT STATES HER LIVER WAS LACERATED IN SEPTEMBER AND HAS HAD THESE PROBLEMS OFF AND ON SINCE THEN. PT C/O PAIN IN THE LIVER AREA. Sepsis Screen: No Definite Risk Source of Information: Patient Exam Limitations: No Limitations History of Present Illness Date Seen by Provider: November 29, 2017 Time Seen by Provider: 14:36 Initial Comments This 37-year-old woman with history of chronic problems with abdominal pain, nausea, vomiting, and diarrhea presents to the emergency room with exacerbation of symptoms. Her pain is primarily in the right upper quadrant. It hurts with breathing. It wraps around toward her back. She reports Zofran and Phenergan at home were insufficient for controlling her nausea and vomiting. She has been taking Motrin and Tylenol at home. She is out of hydrocodone recently prescribed. Her flareup seems to have been over the past 2 days. She had a recent colonoscopy. No significant abnormalities were identified. She has an exploratory surgery scheduled with Dr. GODFREY in 2 days. See prior ER notes for more details. Allergies and Home Medications Allergies Coded Allergies: Sulfa (Sulfonamide Antibiotics) (Verified Allergy, Severe, RASH, 11/29/17) morphine (Verified Allergy, Severe, RASH, Pt has had Percocet & Lortab in the past w/o issue, 11/29/17) Home Medications Hydrocodone Bit/Acetaminophen 1 Tab Tab, 1 TAB PO Q4H PRN for PAIN-MODERATE TO SEVERE Prescribed by: TELMA AKTHAR on 11/29/17 1732 Promethazine HCl 25 Mg Tablet, 12.5 MG PO Q3HR PRN for NAUSEA/VOMITING Prescribed by: MARIETTA ROGEL on 09/14/17 1310 Patient Home Medication List Home Medication List Reviewed: Yes Review of Systems Constitutional: no symptoms reported EENTM: No Symptoms Reported Respiratory: See HPI Cardiovascular: No Symptoms Reported Gastrointestinal: See HPI Genitourinary: No Symptoms Reported Musculoskeletal: no symptoms reported Skin: no symptoms reported Psychiatric/Neurological: No Symptoms Reported Endocrine: No Symptoms Reported Past Uxebknf-Jrlpad-Zarwkp Hx Patient Social History 2nd Hand Smoke Exposure: No Recent Foreign Travel: No Contact w/Someone Who Travel: No Recent Infectious Disease Expo: No Recent Hopitalizations: Yes (GALLBLADDER SURGERY, LIVER LACERATION) Immunizations Up To Date Tetanus Booster (TDap): Unknown Date of Influenza Vaccine: Apr 20, 2017 Seasonal Allergies Seasonal Allergies: No Past Medical History Surgeries: Yes (BACKx2, KIDNEY STENT, D&E, DXLS X2 FOR ENDOMETRIOSIS) Abdominal, Appendectomy, Bladder Surgery, Section, Gallbladder, Hysterectomy Respiratory: No Currently Using CPAP: No Currently Using BIPAP: No Cardiac: No Neurological: Yes Headaches /Migraines Reproductive Disorders: Yes (CPP) Female Reproductive Disorders: Endometriosis 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 Sexually Transmitted Disease: No HIV/AIDS: No Kidney Infection, Bladder Infection, Kidney Stones, UTI-Chronic Gastrointestinal: Yes (VOMITING X 1 YR (LOST 40 LBS IN THE LAST YR.)) Chronic Diarrhea Musculoskeletal: Yes (X 2 BACK SURG) Back Injury, Chronic Back Pain Endocrine: No HEENT: No Loss of Vision: Bilateral Hearing Impairment: Denies Cancer: No Psychosocial: Yes Depression Integumentary: No Blood Disorders: No Adverse Reaction/Blood Tranf: No (HAS HAD BLOOD WITH NO REACTION) Family Medical History Arthritis 19 FATHER 19 MOTHER Asthma 19 FATHER Diabetes mellitus 19 MOTHER FH: congestive heart failure 19 MOTHER Hypercholesterolemia 19 MOTHER Hypertension 19 MOTHER Kidney disease 19 MOTHER Cancer, Diabetes, Hypertension, Other Conditions/Hx Physical Exam Vital Signs Vital Signs - First Documented 11/29/17 11/29/17 15:06 18:45 Temp 97.6 Pulse 107 Resp 16 B/P (MAP) 149/100 (116) Pulse Ox 99 O2 Delivery Room Air Capillary Refill : Less Than 3 Seconds General Appearance: WD/WN, mild distress HEENT: PERRL/EOMI, normal ENT inspection, pharynx normal Neck: normal inspection Respiratory: lungs clear, normal breath sounds, no respiratory distress, no accessory muscle use Cardiovascular: regular rate, rhythm, no edema, no murmur Gastrointestinal: normal bowel sounds, soft, tenderness (Mild in the right upper quadrant) Extremities: normal inspection, no pedal edema Neurologic/Psychiatric: outside energy sales representatives II-XII nml as tested, no motor/sensory deficits, alert, normal mood/affect, oriented x 3 Skin: normal color, warm/dry Progress/Results/Core Measures Results/Orders Lab Results Laboratory Tests Test 11/29/17 15:44 11/29/17 17:03 Range/Units Urine Color YELLOW Urine Clarity CLEAR Urine pH 6 5-9 Urine Specific [place] 1.010 L 1.016-1.022 Urine Protein NEGATIVE NEGATIVE Urine Glucose (UA) NEGATIVE NEGATIVE Urine Ketones NEGATIVE NEGATIVE Urine Nitrite NEGATIVE NEGATIVE Urine Bilirubin NEGATIVE NEGATIVE Urine Urobilinogen NORMAL NORMAL MG/DL Urine Leukocyte Esterase NEGATIVE NEGATIVE Urine RBC (Auto) NEGATIVE NEGATIVE Urine RBC NONE /HPF Urine WBC NONE /HPF Urine Squamous Epithelial Cells 2-5 /HPF Urine Crystals NONE /LPF Urine Bacteria NONE /HPF Urine Casts NONE /LPF Urine Mucus NEGATIVE /LPF Urine Culture Indicated NO White Blood Count 7.2 4.3-11.0 10^3/uL Red Blood Count 4.14 L 4.35-5.85 10^6/uL Hemoglobin 11.2 L 11.5-16.0 G/DL Hematocrit 34 L 35-52 % Mean Corpuscular Volume 82 80-99 FL Mean Corpuscular Hemoglobin 27 25-34 PG Mean Corpuscular Hemoglobin Concent 33 32-36 G/DL Red Cell Distribution Width 14.4 10.0-14.5 % Platelet Count 339 130-400 10^3/uL Mean Platelet Volume 10.6 H 7.4-10.4 FL Neutrophils (%) (Auto) 76 H 42-75 % Lymphocytes (%) (Auto) 17 12-44 % Monocytes (%) (Auto) 6 0-12 % Eosinophils (%) (Auto) 0 0-10 % Basophils (%) (Auto) 0 0-10 % Neutrophils # (Auto) 5.4 1.8-7.8 X 10^3 Lymphocytes # (Auto) 1.2 1.0-4.0 X 10^3 Monocytes # (Auto) 0.4 0.0-1.0 X 10^3 Eosinophils # (Auto) 0.0 0.0-0.3 10^3/uL Basophils # (Auto) 0.0 0.0-0.1 10^3/uL Sodium Level 141 135-145 MMOL/L Potassium Level 4.0 3.6-5.0 MMOL/L Chloride Level 110 H 98-107 MMOL/L Carbon Dioxide Level 19 L 21-32 MMOL/L Anion Gap 12 5-14 MMOL/L Blood Urea Nitrogen 7 7-18 MG/DL Creatinine 0.68 0.60-1.30 MG/DL Estimat Glomerular Filtration Rate > 60 BUN/Creatinine Ratio 10 Glucose Level 89 70-105 MG/DL Calcium Level 8.9 8.5-10.1 MG/DL Magnesium Level 1.9 1.8-2.4 MG/DL Total Bilirubin 0.5 0.1-1.0 MG/DL Aspartate Amino Transf (AST/SGOT) 16 5-34 U/L Alanine Aminotransferase (ALT/SGPT) 10 0-55 U/L Alkaline Phosphatase 60 40-136 U/L Total Protein 6.9 6.4-8.2 GM/DL Albumin 4.0 3.2-4.5 GM/DL Lipase 9 8-78 U/L My Orders Orders - TELMA NAIDU MD Albuterol/Ipra Inhalation Soln (Duoneb I (11/29/17 14:45) Svn Small Volume Nebulizer (11/29/17 14:36) Cbc With Automated Diff (11/29/17 14:36) Comprehensive Metabolic Panel (11/29/17 14:36) Saline Lock/Iv-Start (11/29/17 14:36) Ondansetron Injection (Zofran Injectio (11/29/17 15:15) Lipase (11/29/17 15:56) Magnesium (11/29/17 15:56) Ua Culture If Indicated (11/29/17 15:56) Fentanyl Injection (Sublimaze Injection (11/29/17 16:00) Promethazine Injection (Phenergan Injec (11/29/17 16:00) Saline Lock/Iv-Start (11/29/17 15:56) Ns Iv 1000 Ml (Sodium Chloride 0.9%) (11/29/17 15:56) Ranitidine Injection (Zantac Injection) (11/29/17 16:00) Scopolamine Patch (Transderm-Scop Patch) (11/29/17 17:15) Medications Given in ED Current Medications Medications Dose Ordered Sig/Aleida Route Start Time Stop Time Status Last Admin Dose Admin Fentanyl Citrate 75 mcg ONCE ONCE IVP 11/29/17 16:00 11/29/17 16:01 DC 11/29/17 16:13 75 MCG Ondansetron HCl 8 mg ONCE ONCE IVP 11/29/17 15:15 11/29/17 15:16 DC 11/29/17 15:37 8 MG Ondansetron HCl 8 mg ONCE ONCE IVP 11/29/17 18:15 11/29/17 18:16 DC 11/29/17 18:23 8 MG Promethazine HCl 25 mg ONCE ONCE IVP 11/29/17 16:00 11/29/17 16:01 DC 11/29/17 16:15 25 MG Ranitidine HCl 50 mg ONCE ONCE IJ 11/29/17 16:00 11/29/17 16:01 DC 11/29/17 16:18 50 MG Scopolamine 1.5 mg ONCE ONCE TD 11/29/17 17:15 11/29/17 17:16 DC 11/29/17 17:24 1.5 MG Sodium Chloride 1,000 ml @ 0 mls/hr Q0M ONCE IV 11/29/17 15:56 11/29/17 15:59 DC 11/29/17 16:25 1,000 MLS/HR Vital Signs/I&O 11/29/17 11/29/17 15:06 18:45 Temp 97.6 97.7 Pulse 107 99 Resp 16 20 B/P (MAP) 149/100 (116) 135/93 Pulse Ox 99 O2 Delivery Room Air Room Air Blood Pressure Mean: 116 Progress Progress Note : Progress Note Patient was hydrated with a liter of IV normal saline. Zofran and Phenergan were used for treatment of nausea. A scopolamine patch was placed for further treatment of nausea and vomiting. Workup was unremarkable. Patient was dismissed with a prescription for hydrocodone. Departure Impression Primary Impression: Abdominal pain Qualified Codes: R10.11 - Right upper quadrant pain Additional Impression: Nausea and vomiting Qualified Codes: R11.2 - Nausea with vomiting, unspecified Disposition: 01 HOME, SELF-CARE Condition: Improved Departure-Patient Inst. Referrals: JANNETTE MANE (PCP) Primary Care Physician NO,LOCAL PHYSICIAN (Family) Primary Care Physician Patient Instructions: Acute Abdomen (Belly Pain), Adult (DC) Add. Discharge Instructions: Keep your scheduled surgery and follow-up appointments. Drink plenty of clear liquids. You may continue to use Zofran and Phenergan as previously prescribed. You may leave your scopolamine patch on for up to 3 days. You may remove it early if you have trouble some side effects such as blurry vision, excessively dry mouth, etc. Return to care if symptoms are worsening. Usual hydrocodone as prescribed for pain. All discharge instructions reviewed with patient and/or family. Voiced understanding. Scripts Hydrocodone Bit/Acetaminophen (Hydrocodone/Acetaminophen 5/325mg Tablet) 1 Tab Tab 1 TAB PO Q4H PRN for PAIN-MODERATE TO SEVERE, #20 TAB Prov: TELMA NAIDU MD 11/29/17 TELMA NAIDU MD November 29, 2017 17:32
[2017-11-29 17:37] LABS: ALANINE AMINOTRANSFERASE 10 U/L (0-55); ALKALINE PHOSPHATASE 60 U/L (40-136); BILIRUBIN,TOTAL 0.5 MG/DL (0.1-1.0); BUN/CREATININE RATIO 10; CALCIUM 8.9 MG/DL (8.5-10.1); CARBON DIOXIDE 19 MMOL/L (21-32); CHLORIDE 110 MMOL/L (98-107); CREATININE SERUM 0.68 MG/DL (0.60-1.30); GFR ESTIMATED > 60; GLUCOSE 89 MG/DL (70-105); SODIUM 141 MMOL/L (135-145); TOTAL PROTEIN 6.9 GM/DL (6.4-8.2)
[2017-11-29] MEDS ORDERED: HYDROcodone/APAP 10 MG/325 MG (LORTAB) TAB PO STA (18:13)
[2017-11-29 18:45] VITALS: BP 135/93
== END 2017-11-29 18:45 | disposition home or self-care (01) ==
LOC: EDUNIT# 14:31 → ER 14:32
DX: R10.11 Right upper quadrant pain (principal); R11.2 Nausea with vomiting, unspecified; G43.909 Migraine, unspecified, not intractable, without status migrainosus; F32.9 Major depressive disorder, single episode, unspecified; Z82.49 Family history of ischemic heart disease and other diseases of the circulatory system; Z87.448 Personal history of other diseases of urinary system; Z87.440 Personal history of urinary (tract) infections; Z87.19 Personal history of other diseases of the digestive system; Z88.2 Allergy status to sulfonamides; Z88.5 Allergy status to narcotic agent; Z96.0 Presence of urogenital implants; Z90.49 Acquired absence of other specified parts of digestive tract; Z87.59 Personal history of other complications of pregnancy, childbirth and the puerperium; Z90.710 Acquired absence of both cervix and uterus
CPT/HCPCS: 36415; 80053; 81000; 83690; 83735; 85025; 96361; 96374; 96375; 96376

== ENCOUNTER 2017-12-01 07:46 | Inpatient (IN) | payer OTHER ==
[~2017-12-01] VITALS: Ht 172.7 cm; Wt 86.2 kg
[2017-12-01] MEDS: ceFAZolin INJECTION 1,000 MG in NS (IVPB) 50 ML IV ONE ×2 (07:25→08:50)
[2017-12-01 08:10] VITALS: BP 128/77
[2017-12-01] MEDS ORDERED: BUPIVACAINE 0.25% 30 ML (SENSORCAINE) VIAL ONE (08:27)
[2017-12-01 08:32] LABS: BASOPHILS % (AUTO) 0 % (0-10); EOSINOPHILS # (AUTO) 0.1 10^3/uL (0.0-0.3); EOSINOPHILS % (AUTO) 2 % (0-10); HEMATOCRIT 35 % (35-52); HEMOGLOBIN 11.4 G/DL (11.5-16.0); LYMPHOCYTES # (AUTO) 1.7 X 10^3 (1.0-4.0); LYMPHOCYTES % (AUTO) 25 % (12-44); MEAN CORPUSCULAR HEMOGLOBIN 27 PG (25-34); MEAN CORPUSCULAR HGB CONC 33 G/DL (32-36); MEAN CORPUSCULAR VOLUME 83 FL (80-99); MEAN PLATELET VOLUME 10.3 FL (7.4-10.4); MONOCYTES # (AUTO) 0.3 X 10^3 (0.0-1.0); MONOCYTES % (AUTO) 5 % (0-12); NEUTROPHILS # (AUTO) 4.6 X 10^3 (1.8-7.8); NEUTROPHILS % (AUTO) 68 % (42-75); PLATELET COUNT 356 10^3/uL (130-400); RED BLOOD COUNT 4.19 10^6/uL (4.35-5.85); RED CELL DISTRIBUTION WIDTH 14.5 % (10.0-14.5); WHITE BLOOD COUNT 6.8 10^3/uL (4.3-11.0)
[2017-12-01] MEDS: LACTATED RINGERS 1,000 ML IV PRN ×3 (08:38→11:01)
--- NOTE | 2017-12-01 08:40 | Progress Note-Pre Operative ---
Pre-Operative Progress Note H&P Reviewed The H&P was reviewed, patient examined and no changes noted. Date Seen by Provider: December 01, 2017 Time Seen by Provider: 08:30 Date H&P Reviewed: December 01, 2017 Time H&P Reviewed: 08:30 Pre-Operative Diagnosis: Acute on chronic pelvic pain, Pelvic cyst in the adnexa with history of BSO GIOVANNA GODFREY DO December 01, 2017 8:40 am
[2017-12-01] MEDS ORDERED: MIDAZOLAM 2 MG/2 ML (VERSED) VIAL ONE (08:41)
[2017-12-01] MEDS ORDERED: fentaNYL INJECTION 100 MCG/2 ML AMP ONE ×4 (08:41→11:59)
[2017-12-01] MEDS ORDERED: ceFAZolin 1,000 MG (ANCEF) VIAL ONE (08:44)
[2017-12-01] MEDS ORDERED: NS (IVPB) 50 ML ONE (08:44)
[2017-12-01] MEDS ORDERED: KETOROLAC 30 MG/ML VIAL IVP ONE (09:00)
[2017-12-01] MEDS ORDERED: D5 LR IV SOLUTION 1,000 ML IV SCH (09:00)
[2017-12-01] MEDS ORDERED: IBUP-1773 PO (09:04)
[2017-12-01] MEDS ORDERED: ACHD5005 PO (09:04)
--- NOTE | 2017-12-01 09:04 | Discharge Inst-Women's Service ---
Discharge Inst-Women's Serv Depart Medication/Instructions New, Converted or Re-Newed RX: RX on Chart Consults/Follow Up Additional Follow Up: Yes Orders/Referrals Dr. Gamboa in 2-3weeks Activity Activity: Activity as Tolerated Driving Instructions: No Driving for 1 Week NO SMOKING: NO SMOKING Nothing Inside Vagina: No Douching, No [place], No Tampons Diet Discharge Diet: No Restrictions Symptoms to Report to : Bleeding Excessive, Pain Increased, Fever Over 101 Degrees F, Vaginal Bleeding Increase, Questions/Concerns For Any Problems or Questions: Contact Your Physician Skin/Wound Care Infection Signs and Symptoms: Increased Redness, Foul Odor of Wound, Increased Drainage, Skin Itchy or Has a Rash, Increased Swelling, Temperature Above 101 F Operative Area Clean and Dry: Keep Incision Clean/Dry Stitches/North/Dermabond: Dermabond, Care of Stitches Bathing Instructions: GIOVANNA Murphy DO December 01, 2017 9:04 am
[2017-12-01] MEDS ORDERED: HYDROcodone/APAP 5 MG/325 MG (LORTAB) TAB PO PRN (09:15)
[2017-12-01] MEDS ORDERED: GLYCOPYRROLATE 0.2 MG/ML (ROBINUL) 2 ML VIAL ONE (09:17)
[2017-12-01] MEDS ORDERED: ROCURONIUM 10 MG/ML 5 ML SYRINGE IV ONE ×2 (09:17→09:46)
[2017-12-01] MEDS ORDERED: proPOfol 200 MG/20 ML (DIPRIVAN) VIAL IV ONE ×2 (09:17→11:57)
[2017-12-01] MEDS ORDERED: NEOSTIGMINE 1 MG/ML 5 ML SYRINGE ONE (09:17)
[2017-12-01] MEDS ORDERED: LIDOCAINE PF 2% 5 ML (XYLOCAINE) VIAL ONE (09:17)
[2017-12-01] MEDS ORDERED: DEXAMETHASONE 10 MG/ML (DECADRON) 1 ML VIAL ONE (09:17)
[2017-12-01] MEDS ORDERED: ONDANSETRON 4 MG/2 ML (SDV) Z0FRAN ONE (09:17)
[2017-12-01] MEDS ORDERED: HYDROmorphone 1 MG/ML (DILAUDID) 1 ML SYRINGE ONE (12:34)
[2017-12-01] MEDS: HYDROmorphone 1 MG/ML (DILAUDID) 1 ML SYRINGE IV PRN ×3 (12:41→13:01)
[2017-12-01] MEDS ORDERED: KETOROLAC 30 MG/ML VIAL ONE (12:41)
[2017-12-01] MEDS ORDERED: HYDROmorphone PF INJECTION 20 MG in NS (IVPB) 100 ML IV PRN (12:45)
[2017-12-01] MEDS ORDERED: ONDANSETRON 4 MG/2 ML (SDV) Z0FRAN IVP PRN ×2 (12:45)
[2017-12-01] MEDS ORDERED: KETOROLAC 30 MG/ML VIAL IVP SCH (12:45)
[2017-12-01] MEDS ORDERED: PROMETHAZINE INJ 25 MG/ML (PHENERGAN) AMP IVP PRN (12:45)
[2017-12-01] MEDS ORDERED: fentaNYL INJECTION 100 MCG/2 ML AMP IVP PRN (12:45)
[2017-12-01] MEDS ORDERED: ceFAZolin 2 GM IV Premixed 50 ML IV SCH (13:30)
[2017-12-01] MEDS ORDERED: metroNIDAZOLE 500MG/100ML IVPB 100 ML IV ONE (13:30)
[2017-12-01 13:45] VITALS: BP 130/87
[2017-12-01] MEDS: D5 LR IV SOLUTION 1,000 ML IV SCH (14:24)
[2017-12-01 14:30] VITALS: BP 126/84
[2017-12-01] MEDS: PROMETHAZINE INJ 25 MG/ML (PHENERGAN) AMP IVP PRN ×2 (16:33→22:12)
--- NOTE | 2017-12-01 17:14 | OPERATIVE REPORT ---
DATE OF SERVICE: 12/01/2017 PREOPERATIVE DIAGNOSES: 1. A 37-year-old female with chronic pelvic pain. 2. Pelvic cystic structure on CT exam. POSTOPERATIVE DIAGNOSES: 1. A 37-year-old female with chronic pelvic pain. 2. Pelvic cystic structure on CT exam. PROCEDURE: 1. Operative laparoscopy with extensive lysis of adhesions, both perihepatic and pelvic liberation of suspected residual left ovarian tissue from the pelvic sidewall and descending sigmoid colon with incidental transection of left ureter. 2. Cystoscopy with left ureteral stent catheter placement. 3. Laparotomy with reanastomosis of transected left ureter and left ureteral stent placement. SURGEON: DO SHONA Unger SURGEONS: Called to the room for assistance, Dr. Josefina Gr and Dr. Christian Truong. ANESTHESIA: General endotracheal. ESTIMATED BLOOD LOSS: 200 mL. URINE OUTPUT: 1200 mL of clear urine that became indigo carmine stained. FLUIDS: 2500 mL of lactated Ringer solution. FINDINGS: An extensively densely adhesed pelvic left sidewall including descending sigmoid colon to the left pelvic sidewall. Filmy adhesions around the previous gallbladder surgery perihepatically. SPECIMEN SENT: Was suspected left pelvic residual ovarian tissue. COMPLICATIONS: Left ureteral transection. INDICATION FOR PROCEDURE: This 37-year-old female is a patient, who has been having ongoing chronic pelvic pain for quite sometime. In her early 30s, she ended up undergoing what she was told was a total abdominal hysterectomy with bilateral salpingo-oophorectomy for ongoing pain and concern for underlying endometriosis after which her health continued to result in ongoing pelvic pain that was debilitating. Earlier this year, she underwent laparoscopic lysis of adhesions and a cholecystectomy with Dr. Gr. At that point, he thought that he may have seen a cystic structure in the pelvis consistent with a residual ovary. She was sent to me for further evaluation. In my evaluation, I did order a serum estradiol and FSH, which was reflective of residual estrogen production with the possibility of residual component of an ovary still remaining. The patient continued to have pelvic pain, so we agreed to proceed with diagnostic laparoscopy and removal of any residual ovarian tissue that could be encountered. Risk of the procedure were discussed with the patient in detail including risks of bleeding, infection, damage to any surrounding structures including, but not limited to bowel, bladder, ureter, kidneys, subsequent procedures that may need to be performed if any of these things should occur. We discussed risk of possible laparotomy and change in recovery time if anything should be encountered. Risk from anesthesia, postoperative complications and even were all discussed with the patient. After everything was covered and all the patient's questions and her 's questions were answered. Consent was obtained. The patient was taken to the operating room. OPERATIVE REPORT IN DETAIL: Once in the operating room, general anesthesia was found to be adequate. She was placed in dorsal lithotomy position, prepped and draped in a normal sterile fashion. A sterile sponge stick was placed in the patient's vagina and a Shore catheter was placed using sterile technique and a timeout was performed. I then took my attention to the abdomen after change of gloves was performed and infraumbilically, I infiltrated this area using 0.25% Marcaine to make a 5 mm incision and directed a Veress needle through the incision. Intraperitoneal placement was confirmed using the saline drop test. I then proceeded with insufflation using CO2 gas and opening pressure of 2 mmHg was noted. I proceeded to maximum pressure of 15 mmHg, at which point, I removed the Veress needle, introduced a 5 mm blunt trocar. Once in place, I am able to confirm intrauterine placement using the laparoscope. I then had the patient placed in steep Trendelenburg after visualizing the upper abdominal filmy adhesions and taking them down. Once in steep Trendelenburg, I am able to visualize all my findings as described above. The proximity of this residual left pelvic suspected ovarian tissue was extremely close and densely adhered to the sigmoid and descending colon. At which point, I consulted Dr. Gr as he was familiar with the patient from previous surgeries to come to the room to assist with careful dissection. Please see his operative report for complete details pertaining to this. However, I was in the room and assisted with Dr. Gr to take down these dense adhesions, which were very slowly and meticulously taken down as care not to damage any surrounding structures. After he had taken down the adhesions, we were able to isolate the tissue that we suspected was a residual infundibulopelvic ligament and transected. Hemostasis was noted; however, prior to removal of this ovarian tissue, we did notice an area that appeared to be a transected ureter that was spilling urine. We consulted Dr. Truong, who was able to come in and confirmed with us laparoscopically at which point he came in and placed a ureteral stent down the left ureter to identify the distal transected end of the ureter. Once this was done, we proceeded with making a paramedian laparotomy incision and removal all the other laparoscopic instruments. An incision was made paramedian to the right using a knife and carried down to the underlying fascia using Bovie cautery. The fascia was extended superiorly and inferiorly using Hernández scissors, which allowed us to identify the peritoneum, which were entered bluntly and extended using blunt traction. We placed a Markesan self-retaining retractor and Dr. Truong takes over the case at that point. Please see his dictation for complete details pertaining to the ureteral reanastomosis and stent placement after which all of our operative peace otherwise are inspected and found to be hemostatic. We then removed the self-retaining retractor. A drain was placed by Dr. Gr through the right laparoscopic trocar site and we then proceeded with closing in a Smead-Hebert fashion using #1 looped PDS. Once this was done, we reapproximated the skin using carli. Lap and sponge counts were correct at the end of the procedure. Instrument count was correct as well. Two grams of Ancef and 500 mg of Flagyl given intraoperatively for infection prophylaxis. Job ID: [id number] DocumentID: [id number] Dictated Date: 12/01/2017 13:24:31 Linotype Operator Date: 12/01/2017 17:13:25 Dictated By: GIOVANNA GODFREY DO
--- NOTE | 2017-12-01 18:18 | OPERATIVE REPORT ---
DATE OF SERVICE: 12/01/2017 ATTENDING PHYSICIAN: Dr. Gamboa. PREOPERATIVE DIAGNOSIS: Chronic abdominal pain with suspected retained ovarian remnant. POSTOPERATIVE DIAGNOSIS: Chronic abdominal pain with suspected retained ovarian remnant with intraoperatively identified left ureteral injury and primary repair. PRIMARY SURGEON: Dr. Gamboa with Dr. Shook assist and intraoperative consultation Dr. Truong. ANESTHESIA: General endotracheal. ESTIMATED BLOOD LOSS: 200 mL. FINDINGS: Densely adherent lesion of the left pelvic sidewall consistent with an ovarian remnant. There was a sigmoid colon attached to this as well as the left ureter. This was resected laparoscopically, however, intraoperatively it was identified that there was a transection of the left ureter, which was clean and at approximately the pelvic brim. Intraoperative consultation was made to urology and this was repaired primarily over a double-J stent. DISPOSITION: The patient tolerated the procedure well. INDICATIONS: The patient is a 37-year-old female known to us. We had seen in the past for chronic abdominal pain. She was found to have biliary dyskinesia and she had also reported that she had had chronic abdominal pain and issues from her previous surgery, which she thought was a total hysterectomy. Intraoperatively, it appeared that she did have an ovarian remnant retaining. This was left alone. We proceeded with lysis of adhesions as well as laparoscopic cholecystectomy. She had postoperative pain issues as well as nausea and also came back in with what appeared to be a subhepatic hematoma. Over time with medical management, this resolved on its own. She continued to have chronic abdominal pain and was referred to [facility] where labs were drawn, which did show an estradiol elevation consistent with a retained ovary. I was consulted intraoperatively due to the fact that I had seen the patient before and she had significant adhesion tissue to the sigmoid colon. Two 5 mm ports were previously placed and we placed another 5 mm port in the right lateral position under direct visualization. The ovarian remnant was then retracted anterior and cephalad. The adherent tissue to the sigmoid colon was then taken down using blunt dissection as well as Sonicision. We then proceeded with dissection of the ovary identifying the iliac artery; however, we did not see the left ureter during the process of dissection. We proceeded with close dissection taking down any diaphanous tissue to the left ovarian remnant and this was done using blunt dissection as well as a Sonicision. Good hemostasis was observed. Intraoperatively, it was identified a tubular structure which did move, which was consistent with a ureteral transection. An intraoperative consultation was made to urology and the surgery was turned over to urology where we proceeded with a primary repair over double-J stent without any tension using 4-0 chromic interrupted sutures. The patient tolerated the procedure well. We will continue to follow her hospital course. Job ID: [id number] DocumentID: [id number] Dictated Date: 12/01/2017 13:43:06 Principal Software Architect Date: 12/01/2017 18:17:54 Dictated By: ASPEN SHOOK MD MTDD
[2017-12-01 18:20] VITALS: BP 126/70
[2017-12-01] MEDS: HYDROmorphone PF INJECTION 20 MG in NS (IVPB) 100 ML IV PRN (18:20)
[2017-12-01] MEDS: KETOROLAC 30 MG/ML VIAL IVP SCH (19:25)
[2017-12-01 21:00] VITALS: BP 130/76
[2017-12-01] MEDS ORDERED: FAMOTIDINE 20MG/2ML IV (PEPCID) IVP SCH (21:00)
[2017-12-01] MEDS ORDERED: raNItidine 50 MG/2 ML INJ (ZANTAC) ONE (21:57)
[2017-12-02] VITALS (7 sets, daily range): BP systolic 100–133; BP diastolic 60–82
[2017-12-02] MEDS: METOCLOPRAMIDE INJ 10 MG/2 ML (REGLAN) IVP SCH ×5 (00:16→23:40)
[2017-12-02] MEDS: KETOROLAC 30 MG/ML VIAL IVP SCH ×2 (00:26→06:17)
[2017-12-02] MEDS: D5 LR IV SOLUTION 1,000 ML IV SCH ×3 (00:30→23:32)
[2017-12-02] MEDS: HYDROmorphone PF INJECTION 20 MG in NS (IVPB) 100 ML IV PRN (03:59)
[2017-12-02] MEDS: PROMETHAZINE INJ 25 MG/ML (PHENERGAN) AMP IVP PRN ×3 (04:01→19:55)
[2017-12-02 05:50] LABS: BASOPHILS % (AUTO) 0 % (0-10); EOSINOPHILS % (AUTO) 0 % (0-10); HEMATOCRIT 29 % (35-52); HEMOGLOBIN 9.5 G/DL (11.5-16.0); LYMPHOCYTES # (AUTO) 2.1 X 10^3 (1.0-4.0); LYMPHOCYTES % (AUTO) 21 % (12-44); MEAN CORPUSCULAR HEMOGLOBIN 27 PG (25-34); MEAN CORPUSCULAR HGB CONC 33 G/DL (32-36); MEAN CORPUSCULAR VOLUME 83 FL (80-99); MEAN PLATELET VOLUME 10.6 FL (7.4-10.4); MONOCYTES # (AUTO) 0.8 X 10^3 (0.0-1.0); MONOCYTES % (AUTO) 9 % (0-12); NEUTROPHILS # (AUTO) 6.8 X 10^3 (1.8-7.8); NEUTROPHILS % (AUTO) 70 % (42-75); PLATELET COUNT 399 10^3/uL (130-400); RED CELL DISTRIBUTION WIDTH 14.7 % (10.0-14.5); WHITE BLOOD COUNT 9.7 10^3/uL (4.3-11.0)
[2017-12-02 06:17] LABS: ALANINE AMINOTRANSFERASE 8 U/L (0-55); ALBUMIN 3.5 GM/DL (3.2-4.5); ALKALINE PHOSPHATASE 66 U/L (40-136); BILIRUBIN,TOTAL 0.3 MG/DL (0.1-1.0); BUN/CREATININE RATIO 9; CARBON DIOXIDE 22 MMOL/L (21-32); CHLORIDE 102 MMOL/L (98-107); CREATININE SERUM 0.67 MG/DL (0.60-1.30); GFR ESTIMATED > 60; GLUCOSE 123 MG/DL (70-105); POTASSIUM 3.1 MMOL/L (3.6-5.0); SODIUM 136 MMOL/L (135-145)
--- NOTE | 2017-12-02 07:34 | Progress Note-Standard ---
Standard Progress Note Progress Notes/Assess & Plan Date Seen by Provider: December 02, 2017 Time Seen by Provider: 07:20 Progress/Assessment & Plan POD 1 Patient doing well this morning. Reports good pain control with the BENCH HAND,and tolerated regular diet last night without difficulty. She has gotten up to chair. Shore out at 0630. Dressing partially saturated. Vital Sign - Last 24 Hours 12/01/17 12/01/17 12/01/17 12/01/17 08:10 13:45 14:30 18:20 Temp 99.1 97.6 Pulse 85 90 92 Resp 18 22 20 18 B/P (MAP) 128/77 (94) 130/87 (101) 126/84 (98) Pulse Ox 97 96 96 O2 Delivery Room Air Room Air Room Air 12/01/17 12/01/17 12/01/17 12/02/17 18:20 21:00 21:00 00:25 Temp 99.6 98.1 99.1 Pulse 89 80 100 Resp 20 18 18 18 B/P (MAP) 126/70 (88) 130/76 (94) 100/60 (73) Pulse Ox 96 96 97 O2 Delivery Room Air Room Air 12/02/17 03:50 Temp 98.6 Pulse 96 Resp 18 B/P (MAP) 112/63 (79) Pulse Ox 95 Intake and Output 12/01/17 12/01/17 12/02/17 15:00 23:00 07:00 Intake Total 3050 ml 1660 ml 1760 ml Output Total 1875 ml 930 ml 1010 ml Balance 1175 ml 730 ml 750 ml DARLENE: 60 cc overnight UOP: 1200 mL overnight Laboratory Tests Test 12/01/17 08:20 12/02/17 05:21 Range/Units White Blood Count 6.8 9.7 4.3-11.0 10^3/uL Red Blood Count 4.19 L 3.50 L 4.35-5.85 10^6/uL Hemoglobin 11.4 L 9.5 L 11.5-16.0 G/DL Hematocrit 35 29 L 35-52 % Mean Corpuscular Volume 83 83 80-99 FL Mean Corpuscular Hemoglobin 27 27 25-34 PG Mean Corpuscular Hemoglobin Concent 33 33 32-36 G/DL Red Cell Distribution Width 14.5 14.7 H 10.0-14.5 % Platelet Count 356 399 130-400 10^3/uL Mean Platelet Volume 10.3 10.6 H 7.4-10.4 FL Neutrophils (%) (Auto) 68 70 42-75 % Lymphocytes (%) (Auto) 25 21 12-44 % Monocytes (%) (Auto) 5 9 0-12 % Eosinophils (%) (Auto) 2 0 0-10 % Basophils (%) (Auto) 0 0 0-10 % Neutrophils # (Auto) 4.6 6.8 1.8-7.8 X 10^3 Lymphocytes # (Auto) 1.7 2.1 1.0-4.0 X 10^3 Monocytes # (Auto) 0.3 0.8 0.0-1.0 X 10^3 Eosinophils # (Auto) 0.1 0.0 0.0-0.3 10^3/uL Basophils # (Auto) 0.0 0.0 0.0-0.1 10^3/uL Sodium Level 136 135-145 MMOL/L Potassium Level 3.1 L 3.6-5.0 MMOL/L Chloride Level 102 98-107 MMOL/L Carbon Dioxide Level 22 21-32 MMOL/L Anion Gap 12 5-14 MMOL/L Blood Urea Nitrogen 6 L 7-18 MG/DL Creatinine 0.67 0.60-1.30 MG/DL Estimat Glomerular Filtration Rate > 60 BUN/Creatinine Ratio 9 Glucose Level 123 H 70-105 MG/DL Calcium Level 8.0 L 8.5-10.1 MG/DL Total Bilirubin 0.3 0.1-1.0 MG/DL Aspartate Amino Transf (AST/SGOT) 12 5-34 U/L Alanine Aminotransferase (ALT/SGPT) 8 0-55 U/L Alkaline Phosphatase 66 40-136 U/L Total Protein 6.0 L 6.4-8.2 GM/DL Albumin 3.5 3.2-4.5 GM/DL Incision: c/d/i carli in place Abd: soft, mildly tender, non distended. DARLENE fluid is serosanguineous Diagnosis: POD 1 Operative laparoscopy with extensive EDY Removal of left pelvic side wall mass(suspected ovarian remnant) Incidental ureteral transection Laparotomy with reanastomosis of ureter and stent placement Acute blood loss anemia P: Continue drain management, and strict I and Os Repeat labs tomorrow Shore dc, dc BENCH HAND later, convert to oral meds Saline lock IV Encourage ambulation GIOVANNA GODFREY DO December 02, 2017 07:34
[2017-12-02] MEDS ORDERED: raNItidine 50 MG/2 ML INJ (ZANTAC) ONE (09:57)
[2017-12-02] MEDS: DOCUSATE SODIUM 100 MG (COLACE) CAP PO SCH ×2 (10:15→21:05)
[2017-12-02] MEDS: oxyCODONE/APAP 7.5-325 MG (PERCOCET 7.5) TABLET PO PRN ×2 (10:40→14:50)
[2017-12-02] MEDS ORDERED: KCL 20 MEQ TAB (K-DUR) PO ONE (13:02)
[2017-12-02] MEDS: IBUPROFEN 800 MG (MOTRIN) TAB PO SCH ×3 (13:10→23:40)
--- NOTE | 2017-12-02 14:05 | Progress Note (SOAP) ---
Subjective Date Seen by Provider: December 02, 2017 Time Seen by Provider: 13:00 Subjective/Events-last exam doing well. tolerating diet. pain controlled. good urine output with minimal DARLENE output. Objective Exam Vital Signs Date Time Temp Pulse Resp B/P (MAP) Pulse Ox O2 Delivery O2 Flow Rate FiO2 12/02/17 13:10 98.3 96 18 121/79 (93) 98 Room Air 12/02/17 10:00 99.1 93 18 118/79 (92) 96 Room Air 12/02/17 07:15 18 12/02/17 03:50 98.6 96 18 112/63 (79) 95 12/02/17 00:25 99.1 100 18 100/60 (73) 97 12/01/17 21:00 98.1 80 18 130/76 (94) 96 Room Air 12/01/17 21:00 18 12/01/17 18:20 99.6 89 20 126/70 (88) 96 Room Air 12/01/17 18:20 18 12/01/17 14:30 92 20 126/84 (98) 96 Room Air I & O 12/02/17 07:00 Intake Total 6470 ml Output Total 3815 ml Balance 2655 ml Capillary Refill : General Appearance: No Apparent Distress HEENT: PERRL/EOMI Neck: Full Range of Motion Respiratory: Chest Non Tender, Lungs Clear Cardiovascular: Regular Rate, Rhythm Gastrointestinal: normal bowel sounds, soft, other (incision clean/dry) Extremity: Normal Capillary Refill Neurologic/Psychiatric: Alert, Oriented x3 Skin: Normal Color Lymphatic: No Adenopathy Results Lab Laboratory Tests 12/02/17 05:21: White Blood Count 9.7, Red Blood Count 3.50L, Hemoglobin 9.5L, Hematocrit 29L, Mean Corpuscular Volume 83, Mean Corpuscular Hemoglobin 27, Mean Corpuscular Hemoglobin Concent 33, Red Cell Distribution Width 14.7H, Platelet Count 399, Mean Platelet Volume 10.6H, Neutrophils (%) (Auto) 70, Lymphocytes (%) (Auto) 21 , Monocytes (%) (Auto) 9, Eosinophils (%) (Auto) 0, Basophils (%) (Auto) 0, Neutrophils # (Auto) 6.8, Lymphocytes # (Auto) 2.1, Monocytes # (Auto) 0.8, Eosinophils # (Auto) 0.0, Basophils # (Auto) 0.0, Sodium Level 136, Potassium Level 3.1L, Chloride Level 102, Carbon Dioxide Level 22, Anion Gap 12, Blood Urea Nitrogen 6L, Creatinine 0.67, Estimat Glomerular Filtration Rate > 60, BUN/ Creatinine Ratio 9, Glucose Level 123H, Calcium Level 8.0L, Total Bilirubin 0.3 , Aspartate Amino Transf (AST/SGOT) 12, Alanine Aminotransferase (ALT/SGPT) 8, Alkaline Phosphatase 66, Total Protein 6.0L, Albumin 3.5 Assessment/Plan Assessment/Plan Assess & Plan/Chief Complaint s/p expl lap, lt ovarian remnant resection, lysis of adhesions, primary left ureteral repair over stent. doing well with good urine output and minimal DARLENE output. tolerating diet with adequate pain control. will need to increase ambulation and use IS. abdominal binder while ambulating. ASPEN SHOOK MD December 02, 2017 2:05 pm
--- NOTE | 2017-12-02 14:45 | Anesthesia-General Post-Op ---
General Patient Condition Mental Status/LOC: Same as Preop Cardiovascular: Satisfactory Nausea/Vomiting: Absent Respiratory: Satisfactory Pain: Controlled Complications: Absent Post Op Complications Complications None Follow Up Care/Instructions Patient Instructions None needed. Anesthesia/Patient Condition Patient Condition Patient is doing well, no complaints, stable vital signs, no apparent adverse anesthesia problems. No complications reported per nursing. AYESHA BETANCOURT CRNA December 02, 2017 14:45
[2017-12-02] MEDS: HYDROmorphone 1 MG/ML (DILAUDID) 1 ML SYRINGE IV PRN ×3 (15:52→21:48)
[2017-12-02] MEDS: oxyCODONE/APAP 10/325MG (PERCOCET 10) TABLET PO PRN ×2 (19:00→23:44)
[2017-12-02] MEDS: CATHETER FLUSH 10 ML SYR IV PRN ×2 (19:55→21:05)
[2017-12-02] MEDS: raNItidine 50 MG/2 ML INJ (ZANTAC) IV SCH (21:05)
--- NOTE | 2017-12-03 02:21 | OPERATIVE REPORT ---
DATE OF SERVICE: 12/01/2017 ATTENDING PHYSICIAN: Dr. Gamboa. SUMMARY: I was asked to come into the operating room by Dr. Gamboa who was doing a diagnostic laparoscopy during which he discovered that the ureter was transected on the left side proximally and was detected; however, the distal end apparently had retracted distally and was not well detected. I scrubbed in and I went ahead with the following procedure. PREOPERATIVE DIAGNOSIS: Left ureteral laceration. POSTOPERATIVE DIAGNOSIS: Left ureteral laceration. OPERATION PERFORMED: Cystoscopy and Lt ureteral catheterization and Repair of left ureteral laceration by ureteroureterostomy and stent SURGEON: Christian Dow MD CREW CAR DRIVER: Dr. Gamboa and Dr. Gr. COMPLICATIONS: None. DESCRIPTION OF PROCEDURE: I went ahead first and performed a cystoscopy and I passed a 6-Colombian ureteral catheter into the left ureteral orifice and it was grasped laparoscopically by Dr. Gamboa to identify the distal end of the cut ureter. Then, Dr. Gamboa went ahead and did an exploratory laparotomy. I extended the incision to the suprapubic area and identified both ureteral ends. I went ahead and released the ureter more proximally to obtain a good length and to allow a tension-free anastomosis of the two ends together. The distal end was quite proximal from the bladder, which allowed a direct end-to-end anastomosis without the need for reimplantation of the ureter. There was a good blood supply of both ends throughout the operation. I went ahead and spatulated both ends, the proximal one posteriorly and the distal one anteriorly, to provide a patent wide anastomosis, especially that the ureter was pretty thin. We withdrew the ureteral catheter. I went ahead first and put a posterior suture of 4-0 chromic catgut and then I passed a 6-Colombian 26 cm double-J stent proximally and distally. The patient was given indigo carmine or methylene blue that was seen spurting nicely from the holes of the stent. I went ahead and put the anterior sutures all in a watertight fashion and avoiding the stent, of course. There was no leakage from the suture line at all. There was no tension and I recommended to leave a drain in that area and then Dr. Gamboa and Dr. Gr proceeded with the closure that they will dictate. I recommended to leave the drain till less than 50cc per 24 hours, Before removing the stent in 2-3 weeks, we will obtain a CT A&P to confirm proper healing and no stricture. Estimated blood loss on my part is negligible. Job ID: [id number] DocumentID: [id number] Dictated Date: 12/02/2017 14:43:46 Ctrs Date: 12/03/2017 02:20:34 Dictated By: CHRISTIAN DOW MD MTDD
[2017-12-03] MEDS: ONDANSETRON 4 MG/2 ML (SDV) Z0FRAN IVP PRN ×2 (03:17→20:52)
[2017-12-03] MEDS: oxyCODONE/APAP 10/325MG (PERCOCET 10) TABLET PO PRN ×2 (03:47→09:09)
[2017-12-03] MEDS: PROMETHAZINE INJ 25 MG/ML (PHENERGAN) AMP IVP PRN ×3 (03:52→22:02)
[2017-12-03] MEDS: CATHETER FLUSH 10 ML SYR IV PRN ×3 (03:53→20:53)
[2017-12-03 05:25] LABS: BASOPHILS % (AUTO) 0 % (0-10); EOSINOPHILS # (AUTO) 0.3 10^3/uL (0.0-0.3); EOSINOPHILS % (AUTO) 3 % (0-10); HEMATOCRIT 29 % (35-52); HEMOGLOBIN 9.4 G/DL (11.5-16.0); LYMPHOCYTES # (AUTO) 2.5 X 10^3 (1.0-4.0); LYMPHOCYTES % (AUTO) 25 % (12-44); MEAN CORPUSCULAR HEMOGLOBIN 27 PG (25-34); MEAN CORPUSCULAR HGB CONC 32 G/DL (32-36); MEAN CORPUSCULAR VOLUME 84 FL (80-99); MEAN PLATELET VOLUME 10.5 FL (7.4-10.4); MONOCYTES # (AUTO) 0.5 X 10^3 (0.0-1.0); MONOCYTES % (AUTO) 6 % (0-12); NEUTROPHILS # (AUTO) 6.4 X 10^3 (1.8-7.8); NEUTROPHILS % (AUTO) 66 % (42-75); PLATELET COUNT 323 10^3/uL (130-400); RED BLOOD COUNT 3.48 10^6/uL (4.35-5.85); RED CELL DISTRIBUTION WIDTH 14.5 % (10.0-14.5); WHITE BLOOD COUNT 9.7 10^3/uL (4.3-11.0)
[2017-12-03] MEDS: IBUPROFEN 800 MG (MOTRIN) TAB PO SCH ×3 (05:35→18:10)
[2017-12-03] MEDS: METOCLOPRAMIDE INJ 10 MG/2 ML (REGLAN) IVP SCH ×3 (05:35→18:10)
[2017-12-03 05:36] VITALS: BP 109/69
[2017-12-03 05:54] LABS: ALANINE AMINOTRANSFERASE 9 U/L (0-55); ALBUMIN 3.6 GM/DL (3.2-4.5); ALKALINE PHOSPHATASE 71 U/L (40-136); BILIRUBIN,TOTAL 0.3 MG/DL (0.1-1.0); BUN/CREATININE RATIO 9; CALCIUM 8.8 MG/DL (8.5-10.1); CARBON DIOXIDE 20 MMOL/L (21-32); CHLORIDE 108 MMOL/L (98-107); CREATININE SERUM 0.67 MG/DL (0.60-1.30); GFR ESTIMATED > 60; GLUCOSE 166 MG/DL (70-105); POTASSIUM 3.4 MMOL/L (3.6-5.0); SODIUM 141 MMOL/L (135-145); TOTAL PROTEIN 6.2 GM/DL (6.4-8.2)
[2017-12-03] MEDS: D5 LR IV SOLUTION 1,000 ML IV SCH (07:59)
[2017-12-03] MEDS: HYDROmorphone 1 MG/ML (DILAUDID) 1 ML SYRINGE IV PRN ×3 (08:56→23:23)
[2017-12-03 09:00] VITALS: BP 121/78
[2017-12-03] MEDS: KCL 20 MEQ TAB (K-DUR) PO SCH (09:04)
[2017-12-03] MEDS: DOCUSATE SODIUM 100 MG (COLACE) CAP PO SCH ×2 (09:04→20:53)
[2017-12-03] MEDS: raNItidine 50 MG/2 ML INJ (ZANTAC) IV SCH ×2 (09:09→21:56)
--- NOTE | 2017-12-03 09:47 | Progress Note (SOAP) ---
Subjective Date Seen by Provider: December 03, 2017 Time Seen by Provider: 09:30 Subjective/Events-last exam Patient has increased activity. Has been walking. Shore out yesterday and [employer] DC'd. Fluilds to have been DC'd but order not written so continued overnight. Complains of nausea, but states that this is a "normal thing" for her. She is using pain medications and states that her pain is controlled. States she is passing gas. Tolerating diet. Full pressure dressing was newly applied this morning. DARLENE with serosanguinous drainage. > 350 ml/24 hours Focused Exam Respiratory: Chest Non Tender, Lungs Clear, Normal Breath Sounds, No Accessory Muscle Use, No Respiratory Distress Cardiovascular: Regular Rate, Rhythm Objective Exam Vital Signs Date Time Temp Pulse Resp B/P (MAP) Pulse Ox O2 Delivery O2 Flow Rate FiO2 12/03/17 05:36 98.4 90 18 109/69 (82) 97 Room Air 12/02/17 23:40 98.1 91 18 119/81 (94) 98 Room Air 12/02/17 21:40 97.7 97 18 132/81 (98) 97 Room Air 12/02/17 18:45 97.9 96 18 133/82 (99) 98 Room Air 12/02/17 13:55 18 12/02/17 13:10 98.3 96 18 121/79 (93) 98 Room Air 12/02/17 10:00 99.1 93 18 118/79 (92) 96 Room Air I & O 12/03/17 07:00 Intake Total 4343 ml Output Total 2625 ml Balance 1718 ml Capillary Refill : General Appearance: No Apparent Distress, WD/WN, Other (eating breakfast. tolerating diet) Respiratory: Chest Non Tender, Lungs Clear, Normal Breath Sounds, No Accessory Muscle Use, No Respiratory Distress Cardiovascular: Regular Rate, Rhythm Gastrointestinal: normal bowel sounds, soft, other (Bandage removed. Has pressure dressing intact, applied this am. North are intact and no drainage. There is a drain dressing and this is saturated. Will be replaced today. DARLENE with serosanguinous drainage. ) Extremity: No Calf Tenderness Neurologic/Psychiatric: Alert, Oriented x3 Skin: Normal Color, Warm/Dry Results Lab Laboratory Tests 12/03/17 05:16: White Blood Count 9.7, Red Blood Count 3.48L, Hemoglobin 9.4L, Hematocrit 29L, Mean Corpuscular Volume 84, Mean Corpuscular Hemoglobin 27, Mean Corpuscular Hemoglobin Concent 32, Red Cell Distribution Width 14.5, Platelet Count 323, Mean Platelet Volume 10.5H, Neutrophils (%) (Auto) 66, Lymphocytes (%) (Auto) 25 , Monocytes (%) (Auto) 6, Eosinophils (%) (Auto) 3, Basophils (%) (Auto) 0, Neutrophils # (Auto) 6.4, Lymphocytes # (Auto) 2.5, Monocytes # (Auto) 0.5, Eosinophils # (Auto) 0.3, Basophils # (Auto) 0.0, Sodium Level 141, Potassium Level 3.4L, Chloride Level 108H, Carbon Dioxide Level 20L, Anion Gap 13, Blood Urea Nitrogen 6L, Creatinine 0.67, Estimat Glomerular Filtration Rate > 60, BUN/ Creatinine Ratio 9, Glucose Level 166H, Calcium Level 8.8, Total Bilirubin 0.3, Aspartate Amino Transf (AST/SGOT) 15, Alanine Aminotransferase (ALT/SGPT) 9, Alkaline Phosphatase 71, Total Protein 6.2L, Albumin 3.6 Microbiology //18 MRSA Screen - Final, Complete MRSA not isolated Procedures POD 1 Operative laparoscopy with extensive EDY Removal of left pelvic side wall mass(suspected ovarian remnant) Incidental ureteral transection Laparotomy with reanastomosis of ureter and stent placement Assessment/Plan Assessment/Plan Assess & Plan/Chief Complaint POD #2 - stable, doing well DARLENE cannot be removed. Routine post operative care. Wound does not need pressure dressing. Does not need dressed. Can use an island if patient desires. Replace DARLENE drain sponge. REmove DARLENE when < 50 ml/24 hours. ROBERT JAMES DO December 03, 2017 09:47
--- NOTE | 2017-12-03 10:01 | Progress Note-Urology ---
Progress Note-Urology Progress Notes/Assess & Plan Progress/Assessment & Plan CONTINUE DOING VERY WELL. YESTERDAY I FULLY EXPLAINED TO HER AND HER OR FINDINGS AND PROCEDURE, PRESENT AND FUTURE CONCERNS AND PLANS. THEY FULLY UNDERSTOOD AND ALL QUESTIONS ANSWERED WITH NURSE PRESENT. PLAN IS TO LEAVE HEMOVAC TILL DRAINS LESS THAN 50CC IN 24HRS. IN 2-3 WEEKS, WE WILL OBTAIN A CT A&P TO DECIDE ON REMOVING STENT Final Diagnosis LT URETERAL LACERATION, POST REPAIR LISA DOW MD December 03, 2017 10:01 am
--- NOTE | 2017-12-03 11:45 | Progress Note (SOAP) ---
Subjective Date Seen by Provider: December 03, 2017 Time Seen by Provider: 11:15 Subjective/Events-last exam Patient seen with Dr. Gr. Patient reports doing well. minimal abdominal discomfort. No nausea/vomiting. Tolerating diet. Passing gas and urinating without problems. No BM yet. Ambulating. Objective Exam Vital Signs Date Time Temp Pulse Resp B/P (MAP) Pulse Ox O2 Delivery O2 Flow Rate FiO2 12/03/17 05:36 98.4 90 18 109/69 (82) 97 Room Air 12/02/17 23:40 98.1 91 18 119/81 (94) 98 Room Air 12/02/17 21:40 97.7 97 18 132/81 (98) 97 Room Air 12/02/17 18:45 97.9 96 18 133/82 (99) 98 Room Air 12/02/17 13:55 18 12/02/17 13:10 98.3 96 18 121/79 (93) 98 Room Air I & O 12/03/17 07:00 Intake Total 4343 ml Output Total 2625 ml Balance 1718 ml Capillary Refill : General Appearance: No Apparent Distress, WD/WN HEENT: PERRL/EOMI, TMs Normal Neck: Full Range of Motion, Normal Inspection, Non Tender, Supple Respiratory: Chest Non Tender, Lungs Clear, Normal Breath Sounds, No Accessory Muscle Use, No Respiratory Distress Cardiovascular: Regular Rate, Rhythm, No Edema Gastrointestinal: normal bowel sounds, soft, tenderness, other (Right side abdominal DARLENE drain with SS drainage in the bulb.) Extremity: Normal Capillary Refill, Normal Inspection, Normal Range of Motion, Non Tender, No Calf Tenderness, No Pedal Edema Neurologic/Psychiatric: Alert, Oriented x3 Skin: Normal Color, Warm/Dry, Other (Midline abdominal incision with skin carli in place. No redness, erythema, or drainage noted. ) Results Lab Laboratory Tests 12/03/17 05:16: White Blood Count 9.7, Red Blood Count 3.48L, Hemoglobin 9.4L, Hematocrit 29L, Mean Corpuscular Volume 84, Mean Corpuscular Hemoglobin 27, Mean Corpuscular Hemoglobin Concent 32, Red Cell Distribution Width 14.5, Platelet Count 323, Mean Platelet Volume 10.5H, Neutrophils (%) (Auto) 66, Lymphocytes (%) (Auto) 25 , Monocytes (%) (Auto) 6, Eosinophils (%) (Auto) 3, Basophils (%) (Auto) 0, Neutrophils # (Auto) 6.4, Lymphocytes # (Auto) 2.5, Monocytes # (Auto) 0.5, Eosinophils # (Auto) 0.3, Basophils # (Auto) 0.0, Sodium Level 141, Potassium Level 3.4L, Chloride Level 108H, Carbon Dioxide Level 20L, Anion Gap 13, Blood Urea Nitrogen 6L, Creatinine 0.67, Estimat Glomerular Filtration Rate > 60, BUN/ Creatinine Ratio 9, Glucose Level 166H, Calcium Level 8.8, Total Bilirubin 0.3, Aspartate Amino Transf (AST/SGOT) 15, Alanine Aminotransferase (ALT/SGPT) 9, Alkaline Phosphatase 71, Total Protein 6.2L, Albumin 3.6 Microbiology 12/01/17 MRSA Screen - Final, Complete MRSA not isolated Assessment/Plan Assessment/Plan Assess & Plan/Chief Complaint s/p expl lap, lt ovarian remnant resection, lysis of adhesions, primary left ureteral repair over stent. Good urine output and DARLENE draining with SS drainage. Tolerating diet and pain controlled. Ambulating. Continue to increase ambulation and use IS. Abdominal binder when ambulating. Continue diet. JUAN PATRICIA ANALYTICAL LEAD December 03, 2017 11:45 am
[2017-12-03 12:00] VITALS: BP 124/85
[2017-12-03] MEDS ORDERED: SIMETHICONE 80 MG (MYLICON) CHEW PO PRN (12:15)
[2017-12-03] MEDS ORDERED: ACETAMINOPHEN 500 MG TAB (TYLENOL) PO PRN (16:00)
[2017-12-03 18:13] VITALS: BP 124/85
[2017-12-03 21:56] VITALS: BP 135/86
[2017-12-04] MEDS: CATHETER FLUSH 10 ML SYR IV PRN ×3 (00:50→06:28)
[2017-12-04] MEDS: METOCLOPRAMIDE INJ 10 MG/2 ML (REGLAN) IVP SCH ×3 (00:52→12:00)
[2017-12-04] MEDS: IBUPROFEN 800 MG (MOTRIN) TAB PO SCH ×3 (00:52→12:45)
[2017-12-04 02:40] VITALS: BP 98/60
[2017-12-04] MEDS: ONDANSETRON 4 MG/2 ML (SDV) Z0FRAN IVP PRN (05:13)
[2017-12-04 06:25] VITALS: BP 115/78
[2017-12-04 08:40] VITALS: BP 92/59
[2017-12-04] MEDS: KCL 20 MEQ TAB (K-DUR) PO SCH (08:42)
[2017-12-04] MEDS: DOCUSATE SODIUM 100 MG (COLACE) CAP PO SCH (08:42)
[2017-12-04] MEDS: raNItidine 50 MG/2 ML INJ (ZANTAC) IV SCH (08:42)
--- NOTE | 2017-12-04 09:56 | Progress Note (SOAP) ---
Subjective Date Seen by Provider: December 04, 2017 Time Seen by Provider: 09:30 Subjective/Events-last exam Patient seen with Dr. Gr. Patient reports doing well. Tolerating diet with minimal nausea. Reports that she did vomit twice yesterday. No fever/chills. Reports minimal abdominal pain. Urinating without any issues. Ambulating well. Objective Exam Vital Signs Date Time Temp Pulse Resp B/P (MAP) Pulse Ox O2 Delivery O2 Flow Rate FiO2 12/04/17 08:40 98.1 90 20 92/59 (70) 95 Room Air 12/04/17 06:25 97.7 89 18 115/78 (90) 95 Room Air 12/04/17 02:40 97.6 84 18 98/60 (73) 95 Room Air 12/03/17 21:56 97.9 91 18 135/86 (102) 97 Room Air 12/03/17 18:13 98.9 103 18 124/85 (98) 98 Room Air 12/03/17 12:00 98.1 94 20 124/85 (98) 98 Room Air I & O 12/04/17 07:00 Intake Total 2755 ml Output Total 2575 ml Balance 180 ml Capillary Refill : General Appearance: No Apparent Distress, WD/WN HEENT: PERRL/EOMI Neck: Full Range of Motion, Normal Inspection, Non Tender, Supple Respiratory: Chest Non Tender, Lungs Clear, Normal Breath Sounds, No Accessory Muscle Use, No Respiratory Distress Cardiovascular: Regular Rate, Rhythm, No Edema Gastrointestinal: normal bowel sounds, soft, tenderness, other (Right side abdominal DARLENE drain with SS drainage.) Extremity: Normal Capillary Refill, Normal Inspection, Normal Range of Motion, Non Tender, No Calf Tenderness, No Pedal Edema Neurologic/Psychiatric: Alert, Oriented x3 Skin: Normal Color, Warm/Dry, Other (Midline incision C/D/I with carli in place. No redness, erythema, or drainage.) Results Lab Microbiology 12/01/17 MRSA Screen - Final, Complete MRSA not isolated Assessment/Plan Assessment/Plan Assess & Plan/Chief Complaint s/p expl lap, lt ovarian remnant resection, lysis of adhesions, primary left ureteral repair over stent. Good urine output and DARLENE draining with SS drainage decreasing. Tolerating diet and pain controlled. Ambulating. Continue to increase ambulation and use IS. Abdominal binder when ambulating. Continue diet. Follow up with us in 1 week. Ok to DC home. JUAN PATRICIA APRN December 04, 2017 9:56 am
[2017-12-04 12:00] VITALS: BP 105/78
[2017-12-04] MEDS ORDERED: OXYC-202 PO (12:26)
--- NOTE | 2017-12-04 12:47 | Progress Note-Standard ---
Standard Progress Note Progress Notes/Assess & Plan Date Seen by Provider: December 04, 2017 Time Seen by Provider: 12:15 Progress/Assessment & Plan Patient has had some issues with nausea and pain. She was using 5/325 x 2 percocet every 4 hours and I changed to the oxycodone and acetominophen. She is using Motrin. Was given IV dilaudid as well. She is using IV dilaudid regularly. Also asking for phenergan regularly. This am is doing well. DARLENE drainage is decreased but still > 50 ml/24 hour. tolerating diet and voiding. + flatus abdomen is soft, Inc c/d/i Vital Signs 12/04/17 08:40 Temp 98.1 Pulse 90 Resp 20 B/P (MAP) 92/59 (70) Pulse Ox 95 O2 Delivery Room Air Intake and Output 12/04/17 00:00 Intake Total 4115 ml Output Total 2160 ml Balance 1955 ml Intake Oral 2930 ml IV Total 1185 ml Output Urine Total 2035 ml Drainage Total 50 ml Other 75 ml Plan discharge to home, Instructions given. Pain management per Dr. Gr. She was given percocet 10/325 #35 and phenergan. Also Motrin 600mg po q 6 hrs. Focused Exam Time of Focused Exam: 12:30 Respiratory: Chest Non Tender, Lungs Clear, Normal Breath Sounds, Other ROBERT JAMES DO December 04, 2017 12:47
--- NOTE | 2017-12-14 00:48 | DISCHARGE SUMMARY ---
DATE OF SERVICE: ADMISSION DIAGNOSIS: A 37-year-old female with chronic pelvic pain and a cystic structure on CT exam in the pelvis. DISCHARGE DIAGNOSES: 1. A 37-year-old female with chronic pelvic pain and a cystic structure on CT exam in the pelvis. 2. Postop day #3 from operative laparoscopy with extensive lysis of adhesion, removal of left pelvic sidewall mass and incidental ureteral transection followed by a laparotomy with reanastomosis of ureter and stent placement. 3. Acute blood loss anemia. ATTENDING PHYSICIAN: Mendel Gamboa DO. CONSULTATIONS: Made intraoperatively to Dr. Josefina Gr and Dr. Christian Truong. SERVICES: [facility]. HOSPITAL COURSE: Please see operative report for complete details pertaining to the patient's operative procedure as well as indications for inpatient admission of laparotomy with ureteral reanastomosis. POSTOPERATIVE COURSE: This patient was fairly uncomplicated. She did have a drain, which produced significant amount of serosanguineous fluid on the first couple of days postop. Her postop hemoglobin dropped down to 9.5 from 11.4. Therefore, she was started on iron supplementation. Her DARLENE drain had 60 mL overnight. Urine output remained stable. Despite ureteral placement, there was still some bloody urine noted that morning. However, the Shore catheter was discontinued on postop day #1. She was converted from [employer] pump pain management to oral narcotics for pain management. On postop day #2, the patient continued to do well. She was ambulating and voiding freely. Her incision remained clean, dry and intact. Her [employer] had been completely discontinued the following day. Hemoglobin remained stable at 9.4. On postop day #3, the patient continued to progress, was increased on her pain medication to Percocet 5 mg every 4 hours. She was also given occasional IV Dilaudid as well; however, was weaned off that throughout the day allowing us for discharge later that day. The patient was given routine postoperative precautions as well as follow up with Dr. Gr in the short term for DARLENE drain removal. Follow up with Dr. Truong for ureteral stent removal as well; however, this is going to be in 6 to 8 weeks. Follow up was made with me in 7 to 10 days for incision check and staple removal. DISCHARGE MEDICATIONS: She was discharged on the following medications including Motrin 600 mg 1 p.o. q. 6 hours p.r.n. as needed for pain, #60 and Percocet 10/325 mg one p.o. q. 4-6 hours p.r.n. as needed for pain, #35. She will continue her promethazine that she was already taking. All of the patient's questions were answered pertaining to postoperative precautions and agreed to return to care if anything should occur. Follow up was made with physicians as directed. Job ID: [id number] DocumentID: [id number] Dictated Date: 12/13/2017 13:17:49 Social Sciences Chair Date: 12/14/2017 00:47:44 Dictated By: MENDEL GAMBOA DO
== END 2017-12-04 13:35 | disposition home or self-care (01) | DRG 742 ==
LOC: SDC 07:46 → WS 12:30 → SDC 12:33 → WS 12:33 → UNDOADMIN 12:34 → WS 12:34 → SDC 13:33 → WS 13:33 → UNDODISIN 12-04 13:35
PROVIDERS: ADMIT Obstetrics & Gynecology; ATTEND Obstetrics & Gynecology
PROC: 0DNN4ZZ Release Sigmoid Colon, Percutaneous Endoscopic Approach (ICD-10-PCS; 2017-12-01)
PROC: 0T170Z7 Bypass Left Ureter to Left Ureter, Open Approach (ICD-10-PCS; 2017-12-01)
PROC: 0T9780Z Drainage of Left Ureter with Drainage Device, Via Natural or Artificial Opening Endoscopic (ICD-10-PCS; 2017-12-01)
PROC: 0UT14ZZ Resection of Left Ovary, Percutaneous Endoscopic Approach (ICD-10-PCS; principal; 2017-12-01 08:52)
PROC: 0WJG4ZZ Inspection of Peritoneal Cavity, Percutaneous Endoscopic Approach (ICD-10-PCS; 2017-12-01 08:52)
DX: N99.83 Residual ovary syndrome (principal); K56.50 Intestinal adhesions [bands], unspecified as to partial versus complete obstruction; N73.6 Female pelvic peritoneal adhesions (postinfective); N99.72 Accidental puncture and laceration of a genitourinary system organ or structure during other procedure; Z53.31 Laparoscopic surgical procedure converted to open procedure
CPT/HCPCS: 36415; 80053; 85025; 86850; 86900; 86901; 87081; 88305; 94664

== ENCOUNTER 2017-12-25 21:48 | Emergency (ER) | payer OTHER ==
[~2017-12-25] VITALS: Ht 172.7 cm; Wt 86.2 kg
[~2017-12-25 21:48] MED LIST changes: +IBUP-1773 PO
[2017-12-25] MEDS ORDERED: NS IV 1000 ML 1,000 ML IV SCH (22:26)
[2017-12-25] MEDS ORDERED: cefTRIAXone INJECTION 1,000 MG in NS (IVPB) 50 ML IV ONE (22:30)
--- NOTE | 2017-12-25 22:37 | ED Abdominal Pain ---
General Chief Complaint: Abdominal/GI Problems Stated Complaint: FEVER 104.2 DARLENE DRAIN CLOUDY Source of Information: Patient, Family Exam Limitations: No Limitations History of Present Illness Date Seen by Provider: Dec 25, 2017 Time Seen by Provider: 22:30 Initial Comments The patient presents to the ER by private conveyance with a chief complaint that she's having abdominal pain left worse than right. She says she had a bowel movement this morning. She recently had surgery to have an ovary removed secondary to chronic pelvic pain. There was significant adhesions and so a general surgeon was called in and inadvertently a ureter was lacerated. Urology then placed a stent draining to a DARLENE drain. She says about 3-4 days ago she started noticing fevers as high as 103 but did not seek help until tonight because of the abdominal pain. She took 800 mg ibuprofen 2 hours before coming in and she could feel that her fever broke just before getting to the ER. She says she had recently been backed off to hydrocodone 5 which was working until about 2 days ago. Tonight she says she still having a lot of pain and nausea. The Phenergan helped some. She also has Zofran. The patient has not been vomiting or having diarrhea. She says before she started all the opiates she was having some diarrhea but not once she started the hydrocodone. Patient noticed about 2-3 days ago some white mucousy substance and her DARLENE drain. She says she's been putting out anywhere from 100-300 mL a day. Allergies and Home Medications Allergies Coded Allergies: Sulfa (Sulfonamide Antibiotics) (Verified Allergy, Severe, RASH, 11/29/17) morphine (Verified Allergy, Severe, RASH, Pt has had Percocet & Lortab in the past w/o issue, 11/29/17) Home Medications Ibuprofen 600 Mg Tablet, 600 MG PO Q6H Prescribed by: GIOVANNA GODFREY on 12/01/17 0904 Promethazine HCl 25 Mg Tablet, 12.5 MG PO Q3HR PRN for NAUSEA/VOMITING Prescribed by: MARIETTA ROGEL on 09/14/17 1310 Patient Home Medication List Home Medication List Reviewed: Yes Review of Systems Constitutional: chills; No diaphoresis; fever, malaise EENTM: No Blurred Vision, No Double Vision Respiratory: Denies Cough, Denies Shortness of Air Cardiovascular: Denies Chest Pain, Denies Palpitations, Denies Syncope Gastrointestinal: Denies Constipated, Denies Diarrhea; Nausea; Denies Poor Fluid Intake, Denies Vomiting Genitourinary: Denies Burning, Denies Discharge Musculoskeletal: No back pain, No joint pain Skin: No pruritus, No rash Psychiatric/Neurological: Denies Headache, Denies Numbness Past Ifunhow-Cazsdw-Dpqemx Hx Patient Social History Alcohol Use: Denies Use Recreational Drug Use: Yes Smoking Status: Unknown if Ever Smoked 2nd Hand Smoke Exposure: No Recent Foreign Travel: No Contact w/Someone Who Travel: No Recent Hopitalizations: Yes (OVARY SURGERY WITH BOWEL ADHESIONS AND URETER LAC) Immunizations Up To Date Tetanus Booster (TDap): Unknown Date of Influenza Vaccine: Apr 20, 2017 Seasonal Allergies Seasonal Allergies: No Past Medical History Surgeries: Yes (BACKx2, KIDNEY STENT, D&E, DXLS X2 FOR ENDOMETRIOSIS) Abdominal, Appendectomy, Bladder Surgery, Section, Gallbladder, Hysterectomy Respiratory: No Currently Using CPAP: No Currently Using BIPAP: No Cardiac: No Neurological: Yes Headaches /Migraines Reproductive Disorders: Yes (CPP) Female Reproductive Disorders: Endometriosis [employer] History: Hysterectomy Sexually Transmitted Disease: No HIV/AIDS: No Genitourinary: Yes Kidney Infection, Bladder Infection, Kidney Stones, UTI-Chronic Gastrointestinal: Yes (N/V) Chronic Diarrhea Musculoskeletal: Yes (X 2 BACK SURG) Back Injury, Chronic Back Pain Endocrine: No HEENT: No Loss of Vision: Bilateral Hearing Impairment: Denies Cancer: No Psychosocial: Yes Depression Integumentary: No Blood Disorders: No Adverse Reaction/Blood Tranf: No (HAS HAD BLOOD WITH NO REACTION) Family Medical History Arthritis 19 FATHER 19 MOTHER Asthma 19 FATHER Diabetes mellitus 19 MOTHER FH: congestive heart failure 19 MOTHER Hypercholesterolemia 19 MOTHER Hypertension 19 MOTHER Kidney disease 19 MOTHER Cancer, Diabetes, Hypertension, Other Conditions/Hx Physical Exam Vital Signs Vital Signs - First Documented 12/25/17 22:15 Temp 97.1 Pulse 100 Resp 20 B/P (MAP) 136/82 (100) Pulse Ox 99 O2 Delivery Room Air Capillary Refill : General Appearance: WD/WN, mild distress HEENT: PERRL/EOMI, pharynx normal Neck: non-tender, supple, normal inspection Respiratory: lungs clear, normal breath sounds, no respiratory distress, no accessory muscle use Cardiovascular: normal peripheral pulses, regular rate, rhythm, no edema Gastrointestinal: normal bowel sounds, non tender, soft, other (percutaneous drain through the right lower quadrant. Skin is pink, approximated to the drain tube and without any drainage or discharge.) Genital/Rectal: other (fluid collecting in the DARLENE drain is jessica yellow with small amounts of mucus in it) Extremities: normal range of motion, non-tender, normal capillary refill Neurologic/Psychiatric: alert, normal mood/affect, oriented x 3 Skin: normal color, warm/dry, other (abdominal ventral incision is well approximated, clean, dry, pink without areas of fluctuance or's fluid collection palpable. Mildly tender to palpation.) Focused Exam Lactate Level 12/25/17 22:25: Lactic Acid Level 1.40 Lactic Acid Level Laboratory Tests Test 12/25/17 22:25 Lactic Acid Level 1.40 MMOL/L (0.50-2.00) Progress/Results/Core Measures Results/Orders Lab Results Laboratory Tests Test 12/25/17 22:25 12/25/17 22:46 Range/Units White Blood Count 7.3 4.3-11.0 10^3/uL Red Blood Count 4.27 L 4.35-5.85 10^6/uL Hemoglobin 11.6 11.5-16.0 G/DL Hematocrit 35 35-52 % Mean Corpuscular Volume 81 80-99 FL Mean Corpuscular Hemoglobin 27 25-34 PG Mean Corpuscular Hemoglobin Concent 34 32-36 G/DL Red Cell Distribution Width 14.8 H 10.0-14.5 % Platelet Count 418 H 130-400 10^3/uL Mean Platelet Volume 10.0 7.4-10.4 FL Neutrophils (%) (Auto) 67 42-75 % Lymphocytes (%) (Auto) 25 12-44 % Monocytes (%) (Auto) 4 0-12 % Eosinophils (%) (Auto) 4 0-10 % Basophils (%) (Auto) 0 0-10 % Neutrophils # (Auto) 4.9 1.8-7.8 X 10^3 Lymphocytes # (Auto) 1.9 1.0-4.0 X 10^3 Monocytes # (Auto) 0.3 0.0-1.0 X 10^3 Eosinophils # (Auto) 0.3 0.0-0.3 10^3/uL Basophils # (Auto) 0.0 0.0-0.1 10^3/uL Prothrombin Time 12.6 12.2-14.7 SEC INR Comment 0.9 0.8-1.4 Activated Partial Thromboplast Time 29 24-35 SEC Sodium Level 140 135-145 MMOL/L Potassium Level 4.1 3.6-5.0 MMOL/L Chloride Level 108 H 98-107 MMOL/L Carbon Dioxide Level 19 L 21-32 MMOL/L Anion Gap 13 5-14 MMOL/L Blood Urea Nitrogen 12 7-18 MG/DL Creatinine 0.69 0.60-1.30 MG/DL Estimat Glomerular Filtration Rate > 60 BUN/Creatinine Ratio 17 Glucose Level 105 70-105 MG/DL Lactic Acid Level 1.40 0.50-2.00 MMOL/L Calcium Level 9.9 8.5-10.1 MG/DL Total Bilirubin 0.3 0.1-1.0 MG/DL Aspartate Amino Transf (AST/SGOT) 15 5-34 U/L Alanine Aminotransferase (ALT/SGPT) 12 0-55 U/L Alkaline Phosphatase 70 40-136 U/L Total Protein 7.4 6.4-8.2 GM/DL Albumin 4.2 3.2-4.5 GM/DL Urine Color YELLOW Urine Clarity CLEAR Urine pH 6 5-9 Urine Specific [place] 1.020 1.016-1.022 Urine Protein 2+ H NEGATIVE Urine Glucose (UA) NEGATIVE NEGATIVE Urine Ketones NEGATIVE NEGATIVE Urine Nitrite NEGATIVE NEGATIVE Urine Bilirubin NEGATIVE NEGATIVE Urine Urobilinogen NORMAL NORMAL MG/DL Urine Leukocyte Esterase 2+ H NEGATIVE Urine RBC (Auto) 5+ H NEGATIVE Urine RBC 5-10 H /HPF Urine WBC 5-10 H /HPF Urine Squamous Epithelial Cells 2-5 /HPF Urine Renal Epithelial Cells NONE /HPF Urine Crystals NONE /LPF Urine Bacteria TRACE /HPF Urine Casts NONE /LPF Urine Mucus NEGATIVE /LPF Urine Culture Indicated YES Urine Opiates Screen NEGATIVE NEGATIVE Urine Oxycodone Screen NEGATIVE NEGATIVE Urine Methadone Screen NEGATIVE NEGATIVE Urine Propoxyphene Screen NEGATIVE NEGATIVE Urine Barbiturates Screen NEGATIVE NEGATIVE Ur Tricyclic Antidepressants Screen NEGATIVE NEGATIVE Urine Phencyclidine Screen NEGATIVE NEGATIVE Urine Amphetamines Screen NEGATIVE NEGATIVE Urine Methamphetamines Screen NEGATIVE NEGATIVE Urine Benzodiazepines Screen NEGATIVE NEGATIVE Urine Cocaine Screen NEGATIVE NEGATIVE Urine Cannabinoids Screen NEGATIVE NEGATIVE My Orders Orders - RENE PUGH Cbc With Automated Diff (12/25/17 22:26) Comprehensive Metabolic Panel (12/25/17 22:26) Lactic Acid Analyzer (12/25/17 22:26) Blood Culture (12/25/17:26) Sputum Culture (12/25/17:) Ua Culture If Indicated (12/25/17:26) Protime With Inr (12/25/17:) Partial Thromboplastin Time (12/25/17:26) Chest 1 View, Ap/Pa Only (12/25/17:26) O2 (12/25/17:26) Saline Lock/Iv-Start (12/25/17 22:26) Saline Lock/Iv-Start (12/25/17 22:26) Vital Signs Adult Sepsis Patie Q1H (12/25/17:26) Remove Rings In Anticipation O (12/25/17:26) Saline Lock/Iv-Start (12/25/17 22:26) Ns Iv 1000 Ml (Sodium Chloride 0.9%) (12/25/17 22:26) Ceftriaxone Injection (Rocephin Injectio (12/25/17 22:30) Body Fluid Culture (12/25/17:26) Fentanyl Injection (Sublimaze Injection (12/25/17 22:45) Ondansetron Injection (Zofran Injectio (12/25/17 22:45) Drug Screen Stat (Urine) (12/25/17 22:37) Ct Abdomen/Pelvis W (12/25/17 22:48) Urine Culture (12/25/17 22:46) Iohexol Injection (Omnipaque 350 Mg/Ml 1 (12/25/17 23:15) Ns (Ivpb) (Sodium Chloride 0.9%) (12/25/17 23:15) Medications Given in ED Current Medications Medications Dose Ordered Sig/Aleida Route Start Time Stop Time Status Last Admin Dose Admin Ceftriaxone Sodium 1000 mg/ Sodium Chloride 50 ml @ 100 mls/hr ONCE ONCE IV 12/25/17 22:30 12/25/17 22:59 DC 12/25/17 22:56 100 MLS/HR Fentanyl Citrate 50 mcg ONCE ONCE IVP 12/25/17 22:45 12/25/17 22:46 DC 12/25/17 22:57 50 MCG Iohexol 100 ml ONCE ONCE IV 6/10/18 23:15 12/25/17 23:16 DC 12/25/17 23:17 100 ML Ondansetron HCl 8 mg ONCE ONCE IVP 12/25/17 22:45 12/25/17 22:46 DC 12/25/17 22:56 8 MG Sodium Chloride 250 ml ONCE ONCE IV 12/25/17 23:15 12/25/17 23:16 DC 12/25/17 23:17 80 ML Vital Signs/I&O 12/25/17 12/25/17 22:15 22:57 Temp 97.1 97.1 Pulse 100 Resp 20 B/P (MAP) 136/82 (100) Pulse Ox 99 O2 Delivery Room Air Progress Progress Note #1: Time: 22:44 Progress Note 10 days ago pharmacy reveals she received 60 of Percocet and 6 days ago she received another 60 of hydrocodone. She was also discharged from the hospital with Percocet # 35 and again on 12/12, 12 days ago, she was given another 60 of Percocet. Progress Note #2: Time: 00:26 Progress Note Curiously the patient has been prescribed 215 tablets of opiates in the past 14 days and has none seen on the urine drug screen despite claiming that her pain has gotten worse and she has had to use more of her opiate pain medicine. Her labs are unremarkable. Her fluid culture and urinalysis indicates there may possibly be a urinary tract infection versus just irritation of having a drain in place. Other way she would be reasonable to follow up outpatient with your urologist on outpatient oral antibiotics. Ileus and enteritis is unlikely with normal bowel sounds and normal bowel movement today. Diagnostic Imaging Diagonstic Imaging: CT ( c c) Plain Films/CT/US/NM/MRI: abdomen, pelvis Comments No bowel obstruction. Possible ileus with component of enteritis is not excluded. Small amount of free fluid. No abscess identified. No evidence for contrast extravasation outside the left ureter status post left ureteral stent placement. Reviewed: Reviewed by Me Departure Impression Primary Impression: Urinary tract infection Qualified Codes: T83.510A - Infection and inflammatory reaction due to cystostomy catheter, initial encounter; N39.0 - Urinary tract infection, site not specified Disposition: 01 HOME, SELF-CARE Condition: Stable Departure-Patient Inst. Decision time for Depature: 00:28 Referrals: MADL,JANNETTE L WELFARE MANAGER (PCP) Primary Care Physician LISA DOW MD Patient Instructions: Urinary Tract Infection, Adult (DC) Add. Discharge Instructions: Drink plenty of fluids such as water. hospital supervisor the Keflex and take one capsule twice a day for the next 10 days. Follow-up with your urologist in the next 1-2 weeks. Use your pain and nausea medicines as prescribed. All discharge instructions reviewed with patient and/or family. Voiced understanding. Scripts Cephalexin (Keflex) 500 Mg Capsule 500 MG PO BID for 10 Days, #20 CAP 0 Refills Prov: RENE PUGH 12/26/17 Copy Copies To 1: BRIAN JACOBS DO; GIOVANNA GODFREY DO; ASPEN SHOOK MD; LISA DOW MD, TITUS J Dec 25, 2017 22:37
[2017-12-25] MEDS ORDERED: HYDR-3812 (22:42)
[2017-12-25 22:43] LABS: BASOPHILS % (AUTO) 0 % (0-10); EOSINOPHILS # (AUTO) 0.3 10^3/uL (0.0-0.3); EOSINOPHILS % (AUTO) 4 % (0-10); HEMATOCRIT 35 % (35-52); HEMOGLOBIN 11.6 G/DL (11.5-16.0); LYMPHOCYTES # (AUTO) 1.9 X 10^3 (1.0-4.0); LYMPHOCYTES % (AUTO) 25 % (12-44); MEAN CORPUSCULAR HEMOGLOBIN 27 PG (25-34); MEAN CORPUSCULAR HGB CONC 34 G/DL (32-36); MEAN CORPUSCULAR VOLUME 81 FL (80-99); MONOCYTES # (AUTO) 0.3 X 10^3 (0.0-1.0); MONOCYTES % (AUTO) 4 % (0-12); NEUTROPHILS # (AUTO) 4.9 X 10^3 (1.8-7.8); NEUTROPHILS % (AUTO) 67 % (42-75); PLATELET COUNT 418 10^3/uL (130-400); RED BLOOD COUNT 4.27 10^6/uL (4.35-5.85); RED CELL DISTRIBUTION WIDTH 14.8 % (10.0-14.5); WHITE BLOOD COUNT 7.3 10^3/uL (4.3-11.0)
[2017-12-25] MEDS ORDERED: fentaNYL INJECTION 100 MCG/2 ML AMP IVP ONE (22:45)
[2017-12-25] MEDS ORDERED: ONDANSETRON 4 MG/2 ML (SDV) Z0FRAN IVP ONE (22:45)
[2017-12-25 22:54] LABS: INR 0.9 (0.8-1.4); PROTHROMBIN TIME PATIENT 12.6 SEC (12.2-14.7)
[2017-12-25 23:05] LABS: ALANINE AMINOTRANSFERASE 12 U/L (0-55); ALBUMIN 4.2 GM/DL (3.2-4.5); ALKALINE PHOSPHATASE 70 U/L (40-136); BILIRUBIN,TOTAL 0.3 MG/DL (0.1-1.0); BUN/CREATININE RATIO 17; CALCIUM 9.9 MG/DL (8.5-10.1); CARBON DIOXIDE 19 MMOL/L (21-32); CHLORIDE 108 MMOL/L (98-107); CREATININE SERUM 0.69 MG/DL (0.60-1.30); GFR ESTIMATED > 60; GLUCOSE 105 MG/DL (70-105); POTASSIUM 4.1 MMOL/L (3.6-5.0); SODIUM 140 MMOL/L (135-145); TOTAL PROTEIN 7.4 GM/DL (6.4-8.2)
[2017-12-25 23:12] LABS: BILIRUBIN,URINE NEGATIVE (NEGATIVE); CLARITY,URINE CLEAR; COLOR,URINE YELLOW; GLUCOSE, URINE (UA) NEGATIVE (NEGATIVE); KETONES,URINE NEGATIVE (NEGATIVE); LEUKOCYTE ESTERASE ,URINE 2+ (NEGATIVE); NITRITE,URINE NEGATIVE (NEGATIVE); PH,URINE 6 (5-9); PROTEIN,URINE 2+ (NEGATIVE); UROBILINOGEN,URINE NORMAL (NORMAL)
[2017-12-25 23:13] LABS: BACTERIA,URINE TRACE /HPF
[2017-12-25 23:15] LABS: AMPHETAMINE SCREEN, URINE NEGATIVE (NEGATIVE); BARBITURATE SCREEN URINE NEGATIVE (NEGATIVE); BENZODIAZEPINES SCREEN URINE NEGATIVE (NEGATIVE); CANNABINOID SCREEN, URINE NEGATIVE (NEGATIVE); COCAINE SCREEN URINE NEGATIVE (NEGATIVE); METHADONE STAT NEGATIVE (NEGATIVE); METHAMPHETAMINE SCREEN URINE S NEGATIVE (NEGATIVE); OPIATE SCREEN URINE NEGATIVE (NEGATIVE); OXYCODONE STAT NEGATIVE (NEGATIVE); PROPOXYPHENE STAT NEGATIVE (NEGATIVE); TRICYCLIC ANTIDEPRESSANTS SCRE NEGATIVE (NEGATIVE)
[2017-12-25] MEDS ORDERED: NS 250 ML (IVPB) BAG IV ONE (23:15)
[2017-12-25] MEDS ORDERED: IOHEXOL 350 MG/ML 100 ML (OMNIPAQUE 350) VIAL IV ONE (23:15)
[2017-12-26] MEDS ORDERED: CEPH-507 PO (00:29)
[2017-12-26 00:39] VITALS: BP 123/80
--- NOTE | 2017-12-26 05:48 | Diagnostic Imaging Report ---
PROCEDURE: CT abdomen and pelvis with contrast. TECHNIQUE: Multiple contiguous axial images were obtained through the abdomen and pelvis after administration of intravenous contrast. INDICATION: Abdominal pain. Fever. Cloudy fluid in the DARLENE drains x3 days. COMPARISON: CT abdomen and pelvis with IV contrast 09/28/2017. FINDINGS: Surgical drain enters the right mid abdomen, crosses the anterior abdomen and terminates in the left colic gutter. A left ureteral stent is in the expected position. Small amount of free fluid in the pelvis along the right side of the rectum. No evidence of contrast extravasation. No organized fluid collections. Hysterectomy. Simple cyst in the left hepatic lobe. Cholecystectomy. No free intraperitoneal air. No lymphadenopathy. The pancreas, spleen, adrenals, kidneys and right collecting system are negative. Partially opacified bladder is unremarkable. No evidence of bowel obstruction or inflammation. Interbody fusion and laminectomy at L3-L4. No acute osseous findings. IMPRESSION: 1. Surgical drain entering the right abdomen terminates along the left colic gutter. Although there is small amount of free fluid dependently in the pelvis, there are no organized fluid collections. 2. Left ureteral stent in the expected position. 3. No evidence of ureteral leak. Dictated by: Dictated on workstation # [id number]
--- NOTE | 2017-12-26 06:37 | Diagnostic Imaging Report ---
Patient History: Fever, abdominal pain. Recent surgery. Technique: Single frontal view of the chest Comparison: 10/08/2017 FINDINGS: The lung volumes are normal. No focal consolidation is seen. No large pleural effusion or pneumothorax is seen. The cardiomediastinal silhouette is normal in size and contour. No acute osseous abnormality is seen. IMPRESSION: No acute pulmonary abnormality seen. Dictated by: Dictated on workstation # [id number]
== END 2017-12-26 00:39 | disposition home or self-care (01) ==
LOC: EDUNIT# 21:48 → ER 21:50
DX: N39.0 Urinary tract infection, site not specified (principal); G43.909 Migraine, unspecified, not intractable, without status migrainosus; F32.9 Major depressive disorder, single episode, unspecified; Z90.49 Acquired absence of other specified parts of digestive tract; Z87.59 Personal history of other complications of pregnancy, childbirth and the puerperium; Z87.442 Personal history of urinary calculi; Z90.710 Acquired absence of both cervix and uterus; Z87.828 Personal history of other (healed) physical injury and trauma; Z88.2 Allergy status to sulfonamides; Z88.5 Allergy status to narcotic agent; Z98.890 Other specified postprocedural states; Z96.0 Presence of urogenital implants
CPT/HCPCS: 36415; 71045; 74177; 80053; 80306; 81000; 83605; 85025; 85610; 85730; 87040; 87070; 87077; 87088; 87186; 87205; 96361; 96365; 96375

== ENCOUNTER → 2017-12-28 | Outpatient (CLI) | payer OTHER ==
[~2017-12-28] MED LIST changes: +HYDR-3812
== END ==
LOC: LAB 15:17
PROVIDERS: ATTEND Urology
DX: N99.72 Accidental puncture and laceration of a genitourinary system organ or structure during other procedure (principal)
CPT/HCPCS: 36415; 82570; 84520

== ENCOUNTER 2017-12-29 14:10 | Emergency (ER) | payer OTHER ==
[~2017-12-29] VITALS: Ht 172.7 cm; Wt 86.2 kg
[2017-12-29 15:14] LABS: BILIRUBIN,URINE NEGATIVE (NEGATIVE); CLARITY,URINE CLEAR; COLOR,URINE YELLOW; GLUCOSE, URINE (UA) NEGATIVE (NEGATIVE); KETONES,URINE NEGATIVE (NEGATIVE); LEUKOCYTE ESTERASE ,URINE 2+ (NEGATIVE); NITRITE,URINE POSITIVE (NEGATIVE); PH,URINE 6 (5-9); PROTEIN,URINE 1+ (NEGATIVE); UROBILINOGEN,URINE NORMAL (NORMAL)
[2017-12-29 15:26] LABS: BACTERIA,URINE TRACE /HPF; RBC,URINE 25-50 /HPF
[2017-12-29 15:27] LABS: AMPHETAMINE SCREEN, URINE NEGATIVE (NEGATIVE); BARBITURATE SCREEN URINE NEGATIVE (NEGATIVE); BENZODIAZEPINES SCREEN URINE NEGATIVE (NEGATIVE); CANNABINOID SCREEN, URINE NEGATIVE (NEGATIVE); COCAINE SCREEN URINE NEGATIVE (NEGATIVE); METHADONE STAT NEGATIVE (NEGATIVE); METHAMPHETAMINE SCREEN URINE S NEGATIVE (NEGATIVE); OPIATE SCREEN URINE NEGATIVE (NEGATIVE); OXYCODONE STAT POSITIVE (NEGATIVE); PROPOXYPHENE STAT NEGATIVE (NEGATIVE); TRICYCLIC ANTIDEPRESSANTS SCRE NEGATIVE (NEGATIVE)
--- NOTE | 2017-12-29 15:37 | ED Abdominal Pain ---
General Chief Complaint: Fever-Adult/Adol Stated Complaint: POSS URETOR STINT LEAKING Nursing Triage Note: ARRIVED VIA AMB TO ROOM 07 WITH CONTINUED COMPLAINTS OF LEFT SIDED ABD PAIN, LARGE AMOUNTS OF FLUID FROM DRALENE DRAIN, AND FEVER. STATES SHE CALLED HER SURGEONS OFFICE WHO REFERRED HER HERE. TOOK IBUPROFEN 800MG AT 1200 FOR A FEVER OF 103.6. THINKS SHE POSSIBLY HAS A URETOR STENT LEAK. Sepsis Screen: Possible Sepsis Risk History of Present Illness Date Seen by Provider: Dec 29, 2017 Time Seen by Provider: 14:55 Initial Comments 37-year-old female presents for left abdominal pain and increased drainage "up to 500 ML's from her DARLENE drain" per patient. At the time of this exam the patient reports she just emptied her drain when she urinated. There is trace to no drainage at this time, it is clear to tell yellow. She had surgery on 12/01/[address] Gr and Cooper and incurred a left uteral transection with repair by Dr. Dow. Fluid from the DARLENE drain was checked yesterday and the BUN was 16 and creatinine were 0.65 compatible with serum and not urine. She reports increasing left lower quadrant pain with some radiation to her flank. She's been afebrile here, however she reports that it was 103.6 at noon today and she took ibuprofen 800 mg. She is taking Keflex for a urinary tract infection. She has oxycodone and hydrocodone at home to use for pain, she hasn' t taken any for 3-4 hours. Timing/Duration: 1 Day Severity/Quality: Moderate Location: RLQ Radiation: No Radiation Associated Symptoms: Denies Symptoms Allergies and Home Medications Allergies Coded Allergies: Sulfa (Sulfonamide Antibiotics) (Verified Allergy, Severe, RASH, 11/29/17) morphine (Verified Allergy, Severe, RASH, Pt has had Percocet & Lortab in the past w/o issue, 11/29/17) Home Medications Cephalexin 500 Mg Capsule, 500 MG PO BID Prescribed by: RENE PUGH on 12/26/17 0029 Ibuprofen 600 Mg Tablet, 600 MG PO Q6H Prescribed by: GIOVANNA GODFREY on 12/01/17 0904 Promethazine HCl 25 Mg Tablet, 12.5 MG PO Q3HR PRN for NAUSEA/VOMITING Prescribed by: MARIETTA ROGEL on 09/14/17 1310 Patient Home Medication List Home Medication List Reviewed: Yes Review of Systems Constitutional: no symptoms reported, see HPI Gastrointestinal: See HPI, Abdominal Pain All Other Systems Reviewed Negative Unless Noted: Yes Past Ydqucaf-Zdhmmk-Yuwopl Hx Past Med/Social Hx: Reviewed Nursing Past Med/Soc Hx Patient Social History Alcohol Use: Rarely Uses Recreational Drug Use: No Smoking Status: Never a Smoker 2nd Hand Smoke Exposure: No Recent Foreign Travel: No Contact w/Someone Who Travel: No Recent Infectious Disease Expo: No Recent Hopitalizations: Yes (OVARY SURGERY WITH BOWEL ADHESIONS AND URETER LAC) Immunizations Up To Date Tetanus Booster (TDap): Unknown Date of Influenza Vaccine: Apr 20, 2017 Seasonal Allergies Seasonal Allergies: No Past Medical History Surgeries: Yes (BACKx2, KIDNEY STENT, D&E, DXLS X2 FOR ENDOMETRIOSIS) Abdominal, Appendectomy, Bladder Surgery, Section, Gallbladder, Hysterectomy Respiratory: No Currently Using CPAP: No Currently Using BIPAP: No Cardiac: No Neurological: Yes Headaches /Migraines Reproductive Disorders: Yes (CPP) Female Reproductive Disorders: Endometriosis [employer] History: Hysterectomy Sexually Transmitted Disease: No HIV/AIDS: No Genitourinary: Yes Kidney Infection, Bladder Infection, Kidney Stones, UTI-Chronic Gastrointestinal: Yes (N/V) Chronic Diarrhea Musculoskeletal: Yes (X 2 BACK SURG) Back Injury, Chronic Back Pain Endocrine: No HEENT: No Loss of Vision: Bilateral Hearing Impairment: Denies Cancer: No Psychosocial: Yes Depression Integumentary: No Blood Disorders: No Adverse Reaction/Blood Tranf: No (HAS HAD BLOOD WITH NO REACTION) Family Medical History Arthritis 19 FATHER 19 MOTHER Asthma 19 FATHER Diabetes mellitus 19 MOTHER FH: congestive heart failure 19 MOTHER Hypercholesterolemia 19 MOTHER Hypertension 19 MOTHER Kidney disease 19 MOTHER Cancer, Diabetes, Hypertension, Other Conditions/Hx Physical Exam Vital Signs Vital Signs - First Documented 12/29/17 14:35 Temp 97.2 Pulse 102 Resp 18 B/P (MAP) 129/79 (96) Pulse Ox 96 O2 Delivery Room Air Capillary Refill : Less Than 3 Seconds General Appearance: WD/WN, no apparent distress Gastrointestinal: normal bowel sounds, soft, tenderness (right lower quadrant) , other (incision sites well healed, drainage tube site right lower quadrant without erythema, warmth, or tenderness.) Neurologic/Psychiatric: no motor/sensory deficits, alert, normal mood/affect, oriented x 3 Skin: normal color, cyanosis; No jaundice Progress/Results/Core Measures Results/Orders Lab Results Laboratory Tests Test 12/29/17 15:00 12/29/17 15:33 Range/Units Urine Color YELLOW Urine Clarity CLEAR Urine pH 6 5-9 Urine Specific [place] 1.010 L 1.016-1.022 Urine Protein 1+ H NEGATIVE Urine Glucose (UA) NEGATIVE NEGATIVE Urine Ketones NEGATIVE NEGATIVE Urine Nitrite POSITIVE H NEGATIVE Urine Bilirubin NEGATIVE NEGATIVE Urine Urobilinogen NORMAL NORMAL MG/DL Urine Leukocyte Esterase 2+ H NEGATIVE Urine RBC (Auto) 4+ H NEGATIVE Urine RBC 25-50 H /HPF Urine WBC 5-10 H /HPF Urine Squamous Epithelial Cells 5-10 /HPF Urine Crystals NONE /LPF Urine Bacteria TRACE /HPF Urine Casts NONE /LPF Urine Mucus NEGATIVE /LPF Urine Culture Indicated YES Urine Opiates Screen NEGATIVE NEGATIVE Urine Oxycodone Screen POSITIVE H NEGATIVE Urine Methadone Screen NEGATIVE NEGATIVE Urine Propoxyphene Screen NEGATIVE NEGATIVE Urine Barbiturates Screen NEGATIVE NEGATIVE Ur Tricyclic Antidepressants Screen NEGATIVE NEGATIVE Urine Phencyclidine Screen NEGATIVE NEGATIVE Urine Amphetamines Screen NEGATIVE NEGATIVE Urine Methamphetamines Screen NEGATIVE NEGATIVE Urine Benzodiazepines Screen NEGATIVE NEGATIVE Urine Cocaine Screen NEGATIVE NEGATIVE Urine Cannabinoids Screen NEGATIVE NEGATIVE Body Fluid Creatinine 0.59 MG/DL Blood Urea Nitrogen 8 7-18 MG/DL My Orders Orders - NICK BURK Drug Screen Stat (Urine) (12/29/17 14:58) Ua Culture If Indicated (12/29/17 14:58) Urine Culture (12/29/17 15:00) Blood Urea Nitrogen (12/29/17 15:33) Creatinine,Body Fluid (12/29/17 15:33) Vital Signs/I&O 12/29/17 12/29/17 14:35 17:13 Temp 97.2 97.2 Pulse 102 102 Resp 18 20 B/P (MAP) 129/79 (96) 129/79 Pulse Ox 96 96 O2 Delivery Room Air Room Air Blood Pressure Mean: 96 Progress Progress Note : Time: 14:55 Progress Note Initial evaluation completed, recommended UA. [address] Dow per phone, he is ok with the drain coming out when ok with Drs. Gr and Cooper. He recommended continuing the Keflex. Her DARLENE drain fluid BUN 16, creatinine 0.65, this is compatible with serum results are not urine. 1600 spoke with Ish Flood APRN, he recommended follow-up at Dr. GR's office tomorrow, patient to call for appointment. No further treatment indicated at this time. He has adequate numbers of oxycodone that he prescribed earlier this week. 1630 charge instructions and return precautions reviewed with the patient. All questions answered. Departure Impression Primary Impression: Postoperative abdominal pain Disposition: HOME, SELF-CARE Condition: Stable Departure-Patient Inst. Decision time for Depature: 16:30 Referrals: [facility] [place]) Primary Care Physician JANNETTE MANE (Family) Primary Care Physician Patient Instructions: Acute Abdomen (Belly Pain), Adult (DC) Add. Discharge Instructions: Call Dr. GR's office for a follow-up appointment please Continue to take your pain medication, as prescribed by your surgeons Increase water intake. Continue to take your antibiotics as directed. Return to the emergency department for urgent health care needs. All discharge instructions reviewed with patient and/or family. Voiced understanding. Copy Copies To 1: LISA DOW MD Copies To 2: GIOVANNA GODFREY DO; ASPEN GR MD, AMY ARNP Dec 29, 2017 15:37
[2017-12-29 17:13] VITALS: BP 129/79
== END 2017-12-29 17:13 | disposition home or self-care (01) ==
LOC: EDUNIT# 14:10 → ER 14:11
DX: G89.18 Other acute postprocedural pain (principal); R10.31 Right lower quadrant pain; G43.909 Migraine, unspecified, not intractable, without status migrainosus; F32.9 Major depressive disorder, single episode, unspecified; Z82.49 Family history of ischemic heart disease and other diseases of the circulatory system; Z87.19 Personal history of other diseases of the digestive system; Z87.448 Personal history of other diseases of urinary system; Z88.2 Allergy status to sulfonamides; Z88.5 Allergy status to narcotic agent; Z98.890 Other specified postprocedural states; Z96.0 Presence of urogenital implants; Z90.89 Acquired absence of other organs; Z87.59 Personal history of other complications of pregnancy, childbirth and the puerperium; Z90.710 Acquired absence of both cervix and uterus
CPT/HCPCS: 36415; 80306; 81000; 82570; 84520; 87088

== ENCOUNTER → 2018-01-04 | Outpatient (CLI) | payer OTHER ==
--- NOTE | 2018-01-04 19:05 | Diagnostic Imaging Report ---
INDICATION: Ureteral injury. KUB at 2:54 PM FINDINGS: There is left-sided double-J ureteral stent that appears to pass from the kidney into the bladder in good position. Bowel gas pattern is normal. There are no pathologic masses or calcifications. IMPRESSION: Left double-J ureteral stent appears to be in satisfactory position. Dictated by: Dictated on workstation # [id number]
== END ==
LOC: RAD 14:19
PROVIDERS: ATTEND Urology
DX: S37.10XA Unspecified injury of ureter, initial encounter (principal); Z96.0 Presence of urogenital implants
CPT/HCPCS: 74018

== ENCOUNTER → 2018-02-14 | Outpatient (CLI) | payer OTHER ==
[~2018-02-14] MED LIST changes: +IOHEXOL 350 MG/ML 100 ML (OMNIPAQUE 350) VIAL IV ONE; +NS 250 ML (IVPB) BAG IV ONE
--- NOTE | 2018-02-14 15:08 | Diagnostic Imaging Report ---
PROCEDURE: CT abdomen and pelvis with and without contrast. TECHNIQUE: Precontrast acquisitions were acquired through the abdomen and pelvis. Multiple contiguous axial images were obtained through the abdomen and pelvis after the administration of intravenous contrast. INDICATION: Left ureteral injury, status post repair. Comparison is made with prior CT from 12/25/2017. FINDINGS: The lung bases are clear. A tiny low-density anterior right lobe of the liver is stable consistent with small cyst. No other liver lesions are seen. The gallbladder is surgically absent. No biliary ductal dilatation is seen. The pancreas and spleen are unremarkable. No adrenal mass is identified. A left ureteral stent has been removed. There is excretion of contrast into both renal collecting systems and ureters. No ureteral extravasation is seen. There are some postsurgical changes adjacent to the distal left ureter in the pelvis. The abdominal drain has been removed. There is no free fluid in the abdomen or pelvis. No loculated fluid collection is seen. The bowel loops are of normal caliber and appear nonobstructive. There is no free air. IMPRESSION: Surgical drain and left ureteral stent removal. No extravasation from the left ureter is identified. Contrast passes through the left ureter into the urinary bladder. No hydronephrosis is detected. No loculated fluid collection is seen. Dictated by: Dictated on workstation # [id number]
== END ==
LOC: RAD 13:24
PROVIDERS: ATTEND Urology
DX: S37.13XA Laceration of ureter, initial encounter (principal); Z98.890 Other specified postprocedural states
CPT/HCPCS: 74178

== ENCOUNTER → 2018-04-18 | Emergency (ER) | payer OTHER ==
[~2018-04-18] VITALS: Ht 172.7 cm; Wt 81.6 kg
[~2018-04-18] MED LIST changes: +KETOROLAC 30 MG/ML VIAL IVP STA; +LACTATED RINGERS 1,000 ML IV ONE; +ONDA8TAB9 PO; +ONDANSETRON 4 MG/2 ML (SDV) Z0FRAN IVP ONE; -OXYC-202 PO; +OXYC1TAB87 PO; +TRAM50TA2; +cefTRIAXone FOR IV USE 1,000 MG in NS (IVPB) 50 ML IV ONE; +diphenhydrAMINE 50 MG/ML INJ (BENADRYL) IVP ONE
--- OUTSIDE RECORDS SUMMARY | 2018-04-18 12:16 | XMS REPORT | Continuity of Care Document ---
Author Author [facility] [place] [facility] Address Unknown Phone Unavailable Allergies Active Description Code Type Severity Reaction Onset Reported/Identified Relationship to Patient Clinical Status Yes morphine Drug Allergy N/A N/A 12/12/2013 Yes Sulfa (Sulfonamide Antibiotics) Drug Allergy N/A N/A 12/12/2013 Medications There is no data. Problems Date Dx Coded Attending Type Code Diagnosis Diagnosed By 12/12/2013 BRIAN JACOBS DO 599.0 URINARY TRACT INFECTION 12/12/2013 DOV HAILE APRN 599.0 URINARY TRACT INFECTION 08/28/2014 DOV HAILE APRN 786.2 COUGH Procedures Code Description [place] [address] UA W/ CULTURE IF INDICATED 12/12/2013 51716 OXIMETRY 08/28/2014 Results There is no data. Encounters ACCT No. Visit Date/Time Discharge Status Pt. Type Provider Facility Loc./Unit Complaint [id number] 08/28/2014 12:45:00 08/28/2014 23:59:59 CLS Outpatient DOV HAILE APRN [id number] 12/12/2013 10:19:00 12/12/2013 23:59:59 CLS Outpatient BRIAN JACOBS DO
[2018-04-18 12:19] LABS: BILIRUBIN,URINE NEGATIVE (NEGATIVE); CLARITY,URINE SLIGHTLY CLOUDY; COLOR,URINE YELLOW; GLUCOSE, URINE (UA) NEGATIVE (NEGATIVE); KETONES,URINE NEGATIVE (NEGATIVE); LEUKOCYTE ESTERASE ,URINE 1+ (NEGATIVE); NITRITE,URINE POSITIVE (NEGATIVE); PH,URINE 6.5 (5-9); PROTEIN,URINE NEGATIVE (NEGATIVE); UROBILINOGEN,URINE NORMAL (NORMAL)
--- NOTE | 2018-04-18 12:25 | ED Abdominal Pain ---
General Chief Complaint: Abdominal/GI Problems Stated Complaint: TROUBLE BREATHING;R SIDE PAIN Nursing Triage Note: AMB TO ROOM WITH MALE. PATIENT REPORT HAS HAD MUTIPLE ABD SURG HAS HAD R UPPER ABD SURG FOR MONTHS. HYDROCODONE 7.5 NOT HELPING. HAS NOT SEEN HER DR FOR THIS COMPLAINT Sepsis Screen: No Definite Risk Source of Information: Patient History of Present Illness Date Seen by Provider: Apr 18, 2018 Time Seen by Provider: 11:57 Initial Comments C/O RIGHT SIDED ABDOMINAL PAIN RADIATING TO RIGHT FLANK STATES PAIN STARTED 4-5 DAYS AGO AND IS CONSTANT STATES IT HURTS TO TAKE A DEEP BREATH AND SHE FEELS SHORT OF BREATH FROM THE PAIN + NAUSEA/VOMITING--VOMITED X 2 YESTERDAY, NONE SINCE HAS CHRONIC DIARRHEA AND IS NO DIFFERENT THAN NORMAL. NORMALLY HAS 2-10 STOOLS A DAY STATES URINE HAS HAD A BAD ODOR LATELY--STATES "I ALWAYS HAVE A UTI--IT'S ALWAYS A GIVEN" C/O NON-PRODUCTIVE COUGH C/O COLD SWEATS PT STATES THIS FEELS THE SAME WHEN SHE HAD A LIVER LACERATION--ALSO HAD PNEUMONIA AT THE SAME TIME--WAS POST OP, BUT HAD ALSO FALLEN PT HAS HAD KIDNEY STONES WELL PT HAS HAD 3 SURGERIES THIS YEAR FOR CHRONIC ABDOMINAL PAIN COMPLAINTS PT LATER RELATES THAT SHE HAS HAD THIS SAME PAIN OFF AND ON FOR SEVERAL MONTHS PT STATES SHE HAS TAKEN IBUPROFEN AND HYDROCODONE 7.5 MG TODAY FOR PAIN AND IT ISN'T HELPING. ALSO HAS CHRONIC BACK PAIN HAS NOT SOUGHT CARE UNTIL TODAY FOR THIS PROBLEM SYMPTOMS NO DIFFERENT TODAY PT HAS HAD HYST/BSO, APPY, CHOLECYSTECTOMY, AND EXPLORATORY/DIAGNOSTIC LAPAROSCOPIES PT WITH MULTITUDE OF VISITS, BACK TO --WITH NEARLY ALL FOR ABDOMINAL PAIN AND RELATED COMPLAINTS PCP: YULY HAS SEEN MULTIPLE SURGEONS Allergies and Home Medications Allergies Coded Allergies: Sulfa (Sulfonamide Antibiotics) (Verified Allergy, Severe, RASH, 11/29/17) morphine (Verified Allergy, Severe, RASH, Pt has had Percocet & Lortab in the past w/o issue, 11/29/17) Home Medications Ibuprofen 600 Mg Tablet, 600 MG PO Q6H Prescribed by: GIOVANNA GODFREY on 12/01/17 0904 Nitrofurantoin Monohyd/M-Cryst 100 Mg Capsule, 200 MG PO BID Prescribed by: KELLY MURRY on 04/18/18 1535 Promethazine HCl 25 Mg Tablet, 12.5 MG PO Q3HR PRN for NAUSEA/VOMITING Prescribed by: MARIETTA ROGEL on 09/14/17 1310 Promethazine HCl 25 Mg Supp.rect, 25 MG RC Q4H Prescribed by: KLELY MURRY on 04/18/18 1535 Patient Home Medication List Home Medication List Reviewed: Yes Review of Systems Review of Systems Constitutional: see HPI, chills, diaphoresis Respiratory: See HPI, Cough, Shortness of Air Cardiovascular: See HPI, Chest Pain Gastrointestinal: See HPI, Abdominal Pain, Diarrhea, Nausea, Vomiting Genitourinary: See HPI, Flank Pain Musculoskeletal: see HPI, back pain Skin: no symptoms reported Psychiatric/Neurological: No Symptoms Reported Endocrine: No Symptoms Reported Hematologic/Lymphatic: No Symptoms Reported Past Ljivbix-Omjvii-Qzoorv Hx Patient Social History Alcohol Use: Occasionally Uses Recreational Drug Use: No ("TRIED" THC) Smoking Status: Never a Smoker 2nd Hand Smoke Exposure: Yes Recent Foreign Travel: No Contact w/Someone Who Travel: No Recent Infectious Disease Expo: No Recent Hopitalizations: Yes (OVARY SURGERY WITH BOWEL ADHESIONS AND URETER LAC) Immunizations Up To Date Tetanus Booster (TDap): Unknown Date of Influenza Vaccine: Apr 20, 2017 Seasonal Allergies Seasonal Allergies: No Past Medical History Surgeries: Yes (BACKx2; 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, 1 FOR URETERAL INJURY DURING SURGERY; D&E; DXLS X2 FOR ENDOMETRIOSIS; HYST/NAHUM) Abdominal, Appendectomy, Bladder Surgery, Section, Gallbladder, Hysterectomy, Renal Respiratory: No Currently Using CPAP: No Currently Using BIPAP: No Cardiac: No Neurological: Yes Headaches /Migraines Reproductive Disorders: Yes (CPP) Female Reproductive Disorders: Endometriosis [employer]GER History: Hysterectomy Sexually Transmitted Disease: No HIV/AIDS: No Genitourinary: Yes Kidney Infection, Bladder Infection, Kidney Stones, UTI-Chronic Gastrointestinal: Yes (LIVER LACERATION--NO SURGICAL REPAIR) Chronic Diarrhea Musculoskeletal: Yes (X 2 BACK SURG) Back Injury, Chronic Back Pain Endocrine: No HEENT: No Loss of Vision: Bilateral Hearing Impairment: Denies Cancer: No Psychosocial: Yes Depression Integumentary: No Blood Disorders: No Adverse Reaction/Blood Tranf: No (HAS HAD BLOOD WITH NO REACTION) Family Medical History Arthritis 19 FATHER 19 MOTHER Asthma 19 FATHER Diabetes mellitus 19 MOTHER FH: congestive heart failure 19 MOTHER Hypercholesterolemia 19 MOTHER Hypertension 19 MOTHER Kidney disease 19 MOTHER Cancer, Diabetes, Hypertension, Other Conditions/Hx Physical Exam Vital Signs Vital Signs - First Documented 04/18/18 11:48 Temp 98.5 Pulse 87 Resp 18 B/P (MAP) 153/91 (111) Pulse Ox 98 O2 Delivery Room Air Capillary Refill : Less Than 3 Seconds Height/Weight/BMI Height: 5'8.00" Weight: 180lbs. 0.0oz. 81.306205ll; 28.9 BMI Method:Stated General Appearance: WD/WN, no apparent distress, other (KEEPS HAND OVER MOUTH) HEENT: PERRL/EOMI Neck: normal inspection Respiratory: normal breath sounds, no respiratory distress, no accessory muscle use Cardiovascular: regular rate, rhythm, no murmur Gastrointestinal: no organomegaly, no pulsatile mass Extremities: normal inspection Back: CVA tenderness (R) Neurologic/Psychiatric: assistance representative II-XII nml as tested, no motor/sensory deficits, alert, normal mood/affect, oriented x 3 Skin: normal color, warm/dry Progress/Results/Core Measures Results/Orders Lab Results Laboratory Tests Test 04/18/18 12:12 04/18/18 12:38 Range/Units Urine Color YELLOW Urine Clarity SLIGHTLY CLOUDY Urine pH 6.5 5-9 Urine Specific Stanton 1.010 L 1.016-1.022 Urine Protein NEGATIVE NEGATIVE Urine Glucose (UA) NEGATIVE NEGATIVE Urine Ketones NEGATIVE NEGATIVE Urine Nitrite POSITIVE H NEGATIVE Urine Bilirubin NEGATIVE NEGATIVE Urine Urobilinogen NORMAL NORMAL MG/DL Urine Leukocyte Esterase 1+ H NEGATIVE Urine RBC (Auto) NEGATIVE NEGATIVE Urine RBC NONE /HPF Urine WBC 10-25 H /HPF Urine Squamous Epithelial Cells 10-25 H /HPF Urine Crystals NONE /LPF Urine Bacteria LARGE H /HPF Urine Casts NONE /LPF Urine Mucus NEGATIVE /LPF Urine Culture Indicated YES Urine Opiates Screen POSITIVE H NEGATIVE Urine Oxycodone Screen NEGATIVE NEGATIVE Urine Methadone Screen NEGATIVE NEGATIVE Urine Propoxyphene Screen NEGATIVE NEGATIVE Urine Barbiturates Screen NEGATIVE NEGATIVE Ur Tricyclic Antidepressants Screen NEGATIVE NEGATIVE Urine Phencyclidine Screen NEGATIVE NEGATIVE Urine Amphetamines Screen NEGATIVE NEGATIVE Urine Methamphetamines Screen NEGATIVE NEGATIVE Urine Benzodiazepines Screen NEGATIVE NEGATIVE Urine Cocaine Screen NEGATIVE NEGATIVE Urine Cannabinoids Screen NEGATIVE NEGATIVE White Blood Count 6.3 4.3-11.0 10^3/uL Red Blood Count 4.68 4.35-5.85 10^6/uL Hemoglobin 12.9 11.5-16.0 G/DL Hematocrit 38 35-52 % Mean Corpuscular Volume 81 80-99 FL Mean Corpuscular Hemoglobin 28 25-34 PG Mean Corpuscular Hemoglobin Concent 34 32-36 G/DL Red Cell Distribution Width 14.4 10.0-14.5 % Platelet Count 380 130-400 10^3/uL Mean Platelet Volume 10.6 H 7.4-10.4 FL Neutrophils (%) (Auto) 68 42-75 % Lymphocytes (%) (Auto) 25 12-44 % Monocytes (%) (Auto) 4 0-12 % Eosinophils (%) (Auto) 2 0-10 % Basophils (%) (Auto) 1 0-10 % Neutrophils # (Auto) 4.3 1.8-7.8 X 10^3 Lymphocytes # (Auto) 1.6 1.0-4.0 X 10^3 Monocytes # (Auto) 0.3 0.0-1.0 X 10^3 Eosinophils # (Auto) 0.1 0.0-0.3 10^3/uL Basophils # (Auto) 0.0 0.0-0.1 10^3/uL Sodium Level 142 135-145 MMOL/L Potassium Level 3.7 3.6-5.0 MMOL/L Chloride Level 103 98-107 MMOL/L Carbon Dioxide Level 26 21-32 MMOL/L Anion Gap 13 5-14 MMOL/L Blood Urea Nitrogen 7 7-18 MG/DL Creatinine 0.71 0.60-1.30 MG/DL Estimat Glomerular Filtration Rate > 60 BUN/Creatinine Ratio 10 Glucose Level 132 H 70-105 MG/DL Calcium Level 10.0 8.5-10.1 MG/DL Corrected Calcium 9.6 8.5-10.1 MG/DL Total Bilirubin 0.4 0.1-1.0 MG/DL Aspartate Amino Transf (AST/SGOT) 15 5-34 U/L Alanine Aminotransferase (ALT/SGPT) 14 0-55 U/L Alkaline Phosphatase 76 40-136 U/L Total Protein 8.1 6.4-8.2 GM/DL Albumin 4.5 3.2-4.5 GM/DL Amylase Level 30 25-125 U/L Lipase 11 8-78 U/L Micro Results Microbiology 04/18/18 Urine Culture - Preliminary, Resulted Sent To [facility] My Orders Orders - KELLY MURRY DO Saline Lock/Iv-Start (04/18/18 12:08) Amylase (04/18/18 12:08) Cbc With Automated Diff (04/18/18 12:08) Comprehensive Metabolic Panel (04/18/18 12:08) Lipase (04/18/18 12:08) Ua Culture If Indicated (04/18/18 12:08) Saline Lock/Iv-Start (04/18/18 12:08) Lactated Ringers (Lr 1000 Ml Iv Solution (04/18/18 12:08) Ondansetron Injection (Zofran Injectio (04/18/18 12:15) Ketorolac Injection (Toradol Injection) (04/18/18 12:08) Urine Culture (04/18/18 12:12) Ct Chest/Abdomen/Pelvis W (04/18/18 13:15) Iohexol Injection (Omnipaque 350 Mg/Ml 1 (04/18/18 13:30) Ns (Ivpb) (Sodium Chloride 0.9%) (04/18/18 13:30) Ondansetron Injection (Zofran Injectio (04/18/18 13:30) Ceftriaxone For Iv Use (Rocephin For I (04/18/18 13:30) Drug Screen Stat (Urine) (04/18/18 13:36) Diphenhydramine Injection (Benadryl Inje (04/18/18 14:15) Medications Given in ED Current Medications Medications Dose Ordered Sig/Aleida Route Start Time Stop Time Status Last Admin Dose Admin Ceftriaxone Sodium 1000 mg/ Sodium Chloride 60 ml @ 100 mls/hr ONCE ONCE IV 04/18/18 13:30 04/18/18 14:05 DC 04/18/18 13:57 100 MLS/HR Diphenhydramine HCl 25 mg ONCE ONCE IVP 04/18/18 14:15 04/18/18 14:16 DC 04/18/18 14:11 25 MG Iohexol 100 ml ONCE ONCE IV 04/18/18 13:30 04/18/18 13:31 DC 04/18/18 13:33 100 ML Lactated Ringer's 1,000 ml @ 0 mls/hr Q0M ONCE IV 04/18/18 12:08 04/18/18 12:10 DC 04/18/18 12:35 1,000 MLS/HR Ondansetron HCl 4 mg ONCE ONCE IVP 04/18/18 12:15 04/18/18 12:16 DC 04/18/18 12:34 4 MG Ondansetron HCl 8 mg ONCE ONCE IVP 04/18/18 13:30 04/18/18 13:31 DC 04/18/18 13:57 8 MG Sodium Chloride 250 ml ONCE ONCE IV 04/18/18 13:30 04/18/18 13:31 DC 04/18/18 13:33 80 ML Vital Signs/I&O 04/18/18 04/18/18 11:48 16:20 Temp 98.5 98.5 Pulse 87 87 Resp 18 18 B/P (MAP) 153/91 (111) 153/91 (111) Pulse Ox 98 98 O2 Delivery Room Air Blood Pressure Mean: 111 Progress Progress Note : Progress Note PT HOLDS HER HAND AND A TOWEL, SHEET, CLOTHING, ETC OVER HER MOUTH DURING ENTIRE EXAM SITTING IN CHAIR FOR MOST OF ER STAY LATER STATES "ZOFRAN NEVER WORKS-THEY HAVE TO GIVE ME PHENERGAN BUT I'M OUT" Diagnostic Imaging Comments CT CHEST/ABDOMEN/PELVIS--5 CM RIGHT ADNEXAL CYSTIC MASS, LIKELY OVARIAN--PER RADIOLOGIST REPORT @ 1525 Reviewed: Reviewed by Me Departure Impression Primary Impression: CHRONIC ABDOMINAL PAIN Additional Impressions: UTI (urinary tract infection) RIGHT ADNEXAL CYST Chronic pelvic pain in female Disposition: 01 HOME, SELF-CARE Condition: Stable Departure-Patient Inst. Referrals: GIOVANNA GODFREY,LOCAL PHYSICIAN (PCP) Primary Care Physician Patient Instructions: Acute Abdomen (Belly Pain), Adult (DC), Chronic Pelvic Pain (DC), Ovarian Cyst (DC), Urinary Tract Infection, Adult (DC) Add. Discharge Instructions: TAKE YOUR HOME PAIN MEDICATIONS PRESCRIBED CLEAR LIQUIDS TODAY--WATER, BROTH, JELLO, GATORADE TOMORROW IF YOU ARE BETTER, ADD BRATS DIET TO CLEAR LIQUIDS--BANANAS, RICE, APPLESAUCE, TOAST, SALTINES FOLLOW UP WITH DR. GODFREY THIS WEEK FOR FURTHER CARE All discharge instructions reviewed with patient and/or family. Voiced understanding. Scripts Nitrofurantoin Monohyd/M-Cryst (Macrobid 100 mg Capsule) 100 Mg Capsule 200 MG PO BID, #50 CAP Prov: KELLY MURRY DO 04/18/18 Promethazine HCl (Phenergan) 25 Mg Supp.rect 25 MG RC Q4H for Nausea/Vomiting, #10 SUPP.RECT Prov: KELLY MURRY DO 04/18/18 KELLY MURRY DO Apr 18, 2018 12:25
[2018-04-18 12:27] LABS: BACTERIA,URINE LARGE /HPF
[2018-04-18 12:46] LABS: BASOPHILS % (AUTO) 1 % (0-10); EOSINOPHILS # (AUTO) 0.1 10^3/uL (0.0-0.3); EOSINOPHILS % (AUTO) 2 % (0-10); HEMATOCRIT 38 % (35-52); HEMOGLOBIN 12.9 G/DL (11.5-16.0); LYMPHOCYTES # (AUTO) 1.6 X 10^3 (1.0-4.0); LYMPHOCYTES % (AUTO) 25 % (12-44); MEAN CORPUSCULAR HEMOGLOBIN 28 PG (25-34); MEAN CORPUSCULAR HGB CONC 34 G/DL (32-36); MEAN CORPUSCULAR VOLUME 81 FL (80-99); MEAN PLATELET VOLUME 10.6 FL (7.4-10.4); MONOCYTES # (AUTO) 0.3 X 10^3 (0.0-1.0); MONOCYTES % (AUTO) 4 % (0-12); NEUTROPHILS # (AUTO) 4.3 X 10^3 (1.8-7.8); NEUTROPHILS % (AUTO) 68 % (42-75); PLATELET COUNT 380 10^3/uL (130-400); RED BLOOD COUNT 4.68 10^6/uL (4.35-5.85); RED CELL DISTRIBUTION WIDTH 14.4 % (10.0-14.5); WHITE BLOOD COUNT 6.3 10^3/uL (4.3-11.0)
[2018-04-18 13:10] LABS: ALANINE AMINOTRANSFERASE 14 U/L (0-55); ALBUMIN 4.5 GM/DL (3.2-4.5); ALKALINE PHOSPHATASE 76 U/L (40-136); AMYLASE 30 U/L (25-125); BILIRUBIN,TOTAL 0.4 MG/DL (0.1-1.0); BUN/CREATININE RATIO 10; CARBON DIOXIDE 26 MMOL/L (21-32); CHLORIDE 103 MMOL/L (98-107); CREATININE SERUM 0.71 MG/DL (0.60-1.30); GFR ESTIMATED > 60; GLUCOSE 132 MG/DL (70-105); LIPASE 11 U/L (8-78); POTASSIUM 3.7 MMOL/L (3.6-5.0); SODIUM 142 MMOL/L (135-145); TOTAL PROTEIN 8.1 GM/DL (6.4-8.2)
[2018-04-18 14:05] LABS: AMPHETAMINE SCREEN, URINE NEGATIVE (NEGATIVE); BARBITURATE SCREEN URINE NEGATIVE (NEGATIVE); BENZODIAZEPINES SCREEN URINE NEGATIVE (NEGATIVE); CANNABINOID SCREEN, URINE NEGATIVE (NEGATIVE); COCAINE SCREEN URINE NEGATIVE (NEGATIVE); METHADONE STAT NEGATIVE (NEGATIVE); METHAMPHETAMINE SCREEN URINE S NEGATIVE (NEGATIVE); OPIATE SCREEN URINE POSITIVE (NEGATIVE); OXYCODONE STAT NEGATIVE (NEGATIVE); PROPOXYPHENE STAT NEGATIVE (NEGATIVE); TRICYCLIC ANTIDEPRESSANTS SCRE NEGATIVE (NEGATIVE)
--- NOTE | 2018-04-18 15:06 | Diagnostic Imaging Report ---
PROCEDURE: CT chest, abdomen, and pelvis with contrast. TECHNIQUE: Multiple contiguous axial images were obtained through the chest, abdomen, and pelvis after the administration of intravenous contrast. INDICATION: Right upper quadrant pain and right-sided bloating. Correlation is made with prior CT abdomen and pelvis study from 02/14/2018. CT CHEST: No axillary, hilar or mediastinal lymphadenopathy is detected. No pericardial or pleural fluid is identified. No pulmonary infiltrate, nodule or mass is detected. IMPRESSION: Unremarkable CT of the chest. CT ABDOMEN AND PELVIS: No discrete liver mass is identified apart from a tiny cyst in the left lobe. Gallbladder is surgically absent. No biliary ductal dilatation is seen. The pancreas and spleen are unremarkable. No adrenal mass is identified. The kidneys are unremarkable. The small and large bowel loops are normal caliber. No obstruction is seen. There is no ascites. Imaging through the pelvis does show a cystic mass in the right adnexa measuring approximately 5 cm. Likely ovarian. The uterus appears to be surgically absent. Bladder is unremarkable. No definite abdominal or pelvic lymphadenopathy is seen. IMPRESSION: 1. 5 cm cystic mass right adnexa, likely ovarian. This could be further characterized with pelvic sonography. No other significant abnormality is identified. Dictated by: Dictated on workstation # [id number]
[2018-04-18 16:20] VITALS: BP 153/91
== END | disposition home or self-care (01) ==
LOC: EDUNIT# 11:45 → ER 11:46
DX: N39.0 Urinary tract infection, site not specified (principal); N85.8 Other specified noninflammatory disorders of uterus; F32.9 Major depressive disorder, single episode, unspecified; G43.909 Migraine, unspecified, not intractable, without status migrainosus; Z88.2 Allergy status to sulfonamides; Z88.5 Allergy status to narcotic agent; Z87.19 Personal history of other diseases of the digestive system; Z87.440 Personal history of urinary (tract) infections; Z87.442 Personal history of urinary calculi; Z82.49 Family history of ischemic heart disease and other diseases of the circulatory system; Z77.22 Contact with and (suspected) exposure to environmental tobacco smoke (acute) (chronic); Z96.0 Presence of urogenital implants; Z90.89 Acquired absence of other organs; Z98.890 Other specified postprocedural states; Z90.710 Acquired absence of both cervix and uterus
CPT/HCPCS: 36415; 71260; 74177; 80053; 80306; 81000; 82150; 83690; 85025; 87077; 87088; 87186

== ENCOUNTER 2018-04-21 09:19 | Emergency (ER) | payer OTHER ==
[~2018-04-21] VITALS: Ht 172.7 cm; Wt 81.6 kg
[~2018-04-21 09:19] MED LIST changes: -IOHEXOL 350 MG/ML 100 ML (OMNIPAQUE 350) VIAL IV ONE; -KETOROLAC 30 MG/ML VIAL IVP STA; -LACTATED RINGERS 1,000 ML IV ONE; -NS 250 ML (IVPB) BAG IV ONE; -ONDA8TAB9 PO; -ONDANSETRON 4 MG/2 ML (SDV) Z0FRAN IVP ONE; -OXYC1TAB87 PO; -cefTRIAXone FOR IV USE 1,000 MG in NS (IVPB) 50 ML IV ONE; -diphenhydrAMINE 50 MG/ML INJ (BENADRYL) IVP ONE
--- OUTSIDE RECORDS SUMMARY | 2018-04-21 09:23 | XMS REPORT | Continuity of Care Document ---
Author Author [facility] Address Unknown Phone Unavailable Allergies Active Description [...] Procedures Code Description [place] [address] UA W/ CULTURE IF INDICATED 12/12/2013 [id number] OXIMETRY 08/28/2014 Results There is no data. Encounters ACCT No. Visit Date/Time Discharge Status Pt. Type Provider Facility Loc./Unit Complaint [id number] 08/28/2014 12:45:00 08/28/2014 23:59:59 CLS Outpatient DOV HAILE APRN [id number] 12/12/2013 10:19:00 12/12/2013 23:59:59 CLS Outpatient BRIAN JACOBS DO
[2018-04-21 10:14] LABS: BILIRUBIN,URINE NEGATIVE (NEGATIVE); CLARITY,URINE SLIGHTLY CLOUDY; COLOR,URINE YELLOW; GLUCOSE, URINE (UA) NEGATIVE (NEGATIVE); KETONES,URINE NEGATIVE (NEGATIVE); LEUKOCYTE ESTERASE ,URINE NEGATIVE (NEGATIVE); NITRITE,URINE NEGATIVE (NEGATIVE); PH,URINE 5 (5-9); PROTEIN,URINE 1+ (NEGATIVE); UROBILINOGEN,URINE NORMAL (NORMAL)
[2018-04-21 10:27] LABS: BACTERIA,URINE NEGATIVE /HPF
[2018-04-21 10:29] LABS: BASOPHILS % (AUTO) 0 % (0-10); EOSINOPHILS # (AUTO) 0.1 10^3/uL (0.0-0.3); EOSINOPHILS % (AUTO) 2 % (0-10); HEMATOCRIT 38 % (35-52); LYMPHOCYTES # (AUTO) 1.2 X 10^3 (1.0-4.0); LYMPHOCYTES % (AUTO) 19 % (12-44); MEAN CORPUSCULAR HEMOGLOBIN 27 PG (25-34); MEAN CORPUSCULAR HGB CONC 34 G/DL (32-36); MEAN CORPUSCULAR VOLUME 79 FL (80-99); MEAN PLATELET VOLUME 10.4 FL (7.4-10.4); MONOCYTES # (AUTO) 0.2 X 10^3 (0.0-1.0); MONOCYTES % (AUTO) 3 % (0-12); NEUTROPHILS # (AUTO) 4.9 X 10^3 (1.8-7.8); NEUTROPHILS % (AUTO) 76 % (42-75); PLATELET COUNT 443 10^3/uL (130-400); RED BLOOD COUNT 4.86 10^6/uL (4.35-5.85); RED CELL DISTRIBUTION WIDTH 14.5 % (10.0-14.5); WHITE BLOOD COUNT 6.4 10^3/uL (4.3-11.0)
[2018-04-21 10:48] LABS: ALANINE AMINOTRANSFERASE 11 U/L (0-55); ALBUMIN 4.7 GM/DL (3.2-4.5); ALKALINE PHOSPHATASE 80 U/L (40-136); BILIRUBIN,TOTAL 0.7 MG/DL (0.1-1.0); BUN/CREATININE RATIO 12; CALCIUM 9.8 MG/DL (8.5-10.1); CARBON DIOXIDE 21 MMOL/L (21-32); CHLORIDE 106 MMOL/L (98-107); CREATININE SERUM 0.75 MG/DL (0.60-1.30); GFR ESTIMATED > 60; GLUCOSE 101 MG/DL (70-105); LIPASE 11 U/L (8-78); POTASSIUM 3.6 MMOL/L (3.6-5.0); SODIUM 139 MMOL/L (135-145); TOTAL PROTEIN 8.3 GM/DL (6.4-8.2)
--- NOTE | 2018-04-21 10:54 | ED Abdominal Pain ---
General Chief Complaint: Abdominal/GI Problems Stated Complaint: VOMITING;NAUSEA;BACK PAIN Nursing Triage Note: PT PRESENTS TO ER WITH COMPLAINT OD ABD PAIN, NAUSEA, VOMITING. STATES PAIN RADIATES TO HER BACK. Sepsis Screen: No Definite Risk Source of Information: Patient Exam Limitations: No Limitations History of Present Illness Date Seen by Provider: Apr 21, 2018 Time Seen by Provider: 10:52 Initial Comments To ER with reports of right lower quadrant abdominal pain nausea and vomiting. The pain radiates to her back and down into her groin. She was seen here on 04/[address] done outpatient which showed a right adnexal mass. However she states that she's had a complete hysterectomy including both ovaries a few years ago. This right adnexal mass measuring 5 cm was not seen on 02/14/[address] She sees Dr. GODFREY. Timing/Duration: Getting Worse, Intermittent Severity/Quality: Moderate Location: RLQ Radiation: No Radiation Associated Symptoms: No Fever/Chills; Nausea/Vomiting Allergies and Home Medications Allergies Coded Allergies: Sulfa (Sulfonamide Antibiotics) (Verified Allergy, Severe, RASH, 11/29/17) morphine (Verified Allergy, Severe, RASH, Pt has had Percocet & Lortab in the past w/o issue, 11/29/17) Home Medications Ibuprofen 600 Mg Tablet, 600 MG PO Q6H Prescribed by: GIOVANNA GODFREY on 12/01/17 0904 Nitrofurantoin Monohyd/M-Cryst 100 Mg Capsule, 200 MG PO BID Prescribed by: KELLY MURRY on 04/18/18 1535 Promethazine HCl 25 Mg Tablet, 12.5 MG PO Q3HR PRN for NAUSEA/VOMITING Prescribed by: MARIETTA ROGEL on 09/14/17 1310 Promethazine HCl 25 Mg Supp.rect, 25 MG RC Q4H Prescribed by: KELLY MURRY on 04/18/18 1535 Patient Home Medication List Home Medication List Reviewed: Yes Review of Systems Review of Systems Constitutional: see HPI; No chills, No fever EENTM: No Symptoms Reported Respiratory: No Symptoms Reported Cardiovascular: No Symptoms Reported Gastrointestinal: See HPI, Abdominal Pain, Nausea, Vomiting Genitourinary: No Symptoms Reported Musculoskeletal: no symptoms reported Skin: no symptoms reported Psychiatric/Neurological: No Symptoms Reported Endocrine: No Symptoms Reported Past Loauydq-Ghobcl-Houuos Hx Patient Social History Alcohol Use: Denies Use Recreational Drug Use: No 2nd Hand Smoke Exposure: Yes Recent Foreign Travel: No Contact w/Someone Who Travel: No Recent Infectious Disease Expo: No Recent Hopitalizations: Yes (OVARY SURGERY WITH BOWEL ADHESIONS AND URETER LAC) Immunizations Up To Date Tetanus Booster (TDap): Unknown Date of Influenza Vaccine: Apr 20, 2017 Seasonal Allergies Seasonal Allergies: No Past Medical History Surgeries: Yes Abdominal, Appendectomy, Bladder Surgery, Section, Gallbladder, Hysterectomy, Renal Respiratory: No Currently Using CPAP: No Currently Using BIPAP: No Cardiac: No Neurological: Yes Headaches /Migraines Reproductive Disorders: Yes (CPP) Female 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 Sexually Transmitted Disease: No HIV/AIDS: No Genitourinary: Yes Kidney Infection, Bladder Infection, Kidney Stones, UTI-Chronic Gastrointestinal: Yes (LIVER LACERATION--NO SURGICAL REPAIR) Chronic Diarrhea Musculoskeletal: Yes (X 2 BACK SURG) Back Injury, Chronic Back Pain Endocrine: No HEENT: No Loss of Vision: Bilateral Hearing Impairment: Denies Cancer: No Psychosocial: Yes Depression Integumentary: No Blood Disorders: No Adverse Reaction/Blood Tranf: No (HAS HAD BLOOD WITH NO REACTION) Family Medical History Arthritis 19 FATHER 19 MOTHER Asthma 19 FATHER Diabetes mellitus 19 MOTHER FH: congestive heart failure 19 MOTHER Hypercholesterolemia 19 MOTHER Hypertension 19 MOTHER Kidney disease 19 MOTHER Cancer, Diabetes, Hypertension, Other Conditions/Hx Physical Exam Vital Signs Vital Signs - First Documented 04/21/18 09:30 Temp 98.5 Pulse 90 Resp 20 B/P (MAP) 130/107 (115) Pulse Ox 18 O2 Delivery Room Air Capillary Refill : Less Than 3 Seconds Height/Weight/BMI Height: 5'8.00" Weight: 180lbs. 0.0oz. 81.831389oa; 28.9 BMI Method:Stated General Appearance: WD/WN, no apparent distress HEENT: PERRL/EOMI, normal ENT inspection Respiratory: no respiratory distress, no accessory muscle use Cardiovascular: regular rate, rhythm, no murmur Gastrointestinal: normal bowel sounds, soft, tenderness Extremities: normal range of motion, non-tender Neurologic/Psychiatric: alert, normal mood/affect, oriented x 3 Skin: normal color, warm/dry Progress/Results/Core Measures Results/Orders Lab Results Laboratory Tests Test 04/21/18 10:05 04/21/18 10:22 Range/Units Urine Color YELLOW Urine Clarity SLIGHTLY CLOUDY Urine pH 5 5-9 Urine Specific [place] 1.010 L 1.016-1.022 Urine Protein 1+ H NEGATIVE Urine Glucose (UA) NEGATIVE NEGATIVE Urine Ketones NEGATIVE NEGATIVE Urine Nitrite NEGATIVE NEGATIVE Urine Bilirubin NEGATIVE NEGATIVE Urine Urobilinogen NORMAL NORMAL MG/DL Urine Leukocyte Esterase NEGATIVE NEGATIVE Urine RBC (Auto) NEGATIVE NEGATIVE Urine RBC NONE /HPF Urine WBC NONE /HPF Urine Squamous Epithelial Cells 10-25 H /HPF Urine Crystals NONE /LPF Urine Bacteria NEGATIVE /HPF Urine Casts NONE /LPF Urine Mucus NEGATIVE /LPF Urine Culture Indicated NO White Blood Count 6.4 4.3-11.0 10^3/uL Red Blood Count 4.86 4.35-5.85 10^6/uL Hemoglobin 13.0 11.5-16.0 G/DL Hematocrit 38 35-52 % Mean Corpuscular Volume 79 L 80-99 FL Mean Corpuscular Hemoglobin 27 25-34 PG Mean Corpuscular Hemoglobin Concent 34 32-36 G/DL Red Cell Distribution Width 14.5 10.0-14.5 % Platelet Count 443 H 130-400 10^3/uL Mean Platelet Volume 10.4 7.4-10.4 FL Neutrophils (%) (Auto) 76 H 42-75 % Lymphocytes (%) (Auto) 19 12-44 % Monocytes (%) (Auto) 3 0-12 % Eosinophils (%) (Auto) 2 0-10 % Basophils (%) (Auto) 0 0-10 % Neutrophils # (Auto) 4.9 1.8-7.8 X 10^3 Lymphocytes # (Auto) 1.2 1.0-4.0 X 10^3 Monocytes # (Auto) 0.2 0.0-1.0 X 10^3 Eosinophils # (Auto) 0.1 0.0-0.3 10^3/uL Basophils # (Auto) 0.0 0.0-0.1 10^3/uL Sodium Level 139 135-145 MMOL/L Potassium Level 3.6 3.6-5.0 MMOL/L Chloride Level 106 98-107 MMOL/L Carbon Dioxide Level 21 21-32 MMOL/L Anion Gap 12 5-14 MMOL/L Blood Urea Nitrogen 9 7-18 MG/DL Creatinine 0.75 0.60-1.30 MG/DL Estimat Glomerular Filtration Rate > 60 BUN/Creatinine Ratio 12 Glucose Level 101 70-105 MG/DL Calcium Level 9.8 8.5-10.1 MG/DL Corrected Calcium 8.5-10.1 MG/DL Total Bilirubin 0.7 0.1-1.0 MG/DL Aspartate Amino Transf (AST/SGOT) 12 5-34 U/L Alanine Aminotransferase (ALT/SGPT) 11 0-55 U/L Alkaline Phosphatase 80 40-136 U/L Total Protein 8.3 H 6.4-8.2 GM/DL Albumin 4.7 H 3.2-4.5 GM/DL Lipase 11 8-78 U/L My Orders Orders - ERAN CABRAL APRN Iv Heplock-Insert (Order) (04/21/18 10:50) Fentanyl Injection (Sublimaze Injection (04/21/18 11:00) Ondansetron Injection (Zofran Injectio (04/21/18 11:00) Ns Iv 1000 Ml (Sodium Chloride 0.9%) (04/21/18 11:00) Us Non Ob Transvaginal [id number] (04/21/18 10:52) Medications Given in ED Current Medications Medications Dose Ordered Sig/Aleida Route Start Time Stop Time Status Last Admin Dose Admin Fentanyl Citrate 50 mcg ONCE ONCE IVP 04/21/18 11:00 04/21/18 11:01 DC 04/21/18 10:59 50 MCG Ondansetron HCl 8 mg ONCE ONCE IVP 04/21/18 11:00 04/21/18 11:01 DC 04/21/18 10:59 8 MG Vital Signs/I&O 04/21/18 09:30 Temp 98.5 Pulse 90 Resp 20 B/P (MAP) 130/107 (115) Pulse Ox 18 O2 Delivery Room Air Blood Pressure Mean: 115 Departure Impression Primary Impression: Adnexal mass Disposition: HOME, SELF-CARE Condition: Stable Departure-Patient Inst. Decision time for Depature: 12:10 Referrals: NO,LOCAL PHYSICIAN (PCP/Family) Primary Care Physician Patient Instructions: Ovarian Cysts Add. Discharge Instructions: 1. Call Dr. GODFREY for further guidance on how to manage this. Pain medication as directed. All discharge instructions reviewed with patient and/or family. Voiced understanding. Scripts Ondansetron (Zofran Odt) 8 Mg Tab.rapdis 8 MG PO Q6H PRN for NAUSEA/VOMITING, #10 TAB Prov: ERAN CABRAL APRN 04/21/18 Oxycodone HCl/Acetaminophen (Percocet 5-325 mg Tablet) 1 Each Tablet 1 EACH PO Q4H PRN for PAIN-MODERATE MDD 6, #20 TAB Prov: ERAN CABRAL APRN 04/21/18 Copy Copies To 1: GIOVANNA GODFREY PETER J APRN Apr 21, 2018 10:54
[2018-04-21] MEDS: NS IV 1000 ML 1,000 ML IV SCH ×2 (10:59→11:08)
[2018-04-21] MEDS ORDERED: fentaNYL INJECTION 100 MCG/2 ML AMP IVP ONE ×2 (11:00→12:45)
[2018-04-21] MEDS ORDERED: ONDANSETRON 4 MG/2 ML (SDV) Z0FRAN IVP ONE (11:00)
[2018-04-21] MEDS ORDERED: OXYC1TAB87 PO (12:32)
[2018-04-21] MEDS ORDERED: ONDA8TAB9 PO (12:32)
[2018-04-21 13:01] VITALS: BP 128/90
--- NOTE | 2018-04-21 15:21 | Diagnostic Imaging Report ---
INDICATION: Pelvic pain. Patient has had prior hysterectomy and oophorectomy. The uterus and ovaries are surgically absent. There is a cystic mass in the right adnexa measuring 4.3 x 5.0 x 4.1 cm. No vascularity is seen. No free fluid. IMPRESSION: Status post hysterectomy and bilateral oophorectomy. There is a right adnexal cyst approximately 5 cm in size. Dictated by: Dictated on workstation # [id number]
== END 2018-04-21 13:01 | disposition home or self-care (01) ==
LOC: EDUNIT# 09:19 → ER 09:20
DX: R19.09 Other intra-abdominal and pelvic swelling, mass and lump (principal); G43.909 Migraine, unspecified, not intractable, without status migrainosus; F32.9 Major depressive disorder, single episode, unspecified; Z87.440 Personal history of urinary (tract) infections; Z87.448 Personal history of other diseases of urinary system; Z82.49 Family history of ischemic heart disease and other diseases of the circulatory system; Z88.2 Allergy status to sulfonamides; Z88.5 Allergy status to narcotic agent; Z90.710 Acquired absence of both cervix and uterus; Z77.22 Contact with and (suspected) exposure to environmental tobacco smoke (acute) (chronic); Z90.89 Acquired absence of other organs; Z98.890 Other specified postprocedural states
CPT/HCPCS: 36415; 76830; 80053; 81000; 83690; 85025

== ENCOUNTER → 2018-05-06 | Emergency (ER) | payer OTHER ==
[~2018-05-06] VITALS: Ht 172.7 cm; Wt 81.6 kg
[~2018-05-06] MED LIST changes: +HYDROmorphone 2 MG/ML VIAL (DILAUDID) IV PRN; +IOHEXOL 350 MG/ML 100 ML (OMNIPAQUE 350) VIAL IV ONE; +LISI-552; +LISI-596 PO; +NS 250 ML (IVPB) BAG IV ONE; +ONDA8TAB9 PO; +OXYC-471 PO; +OXYC1TAB87 PO; +PANT20TA2 PO; +RANI150T46 PO
--- OUTSIDE RECORDS SUMMARY | 2018-05-06 11:44 | XMS REPORT | Continuity of Care Document ---
Author Author [facility] Address Unknown Phone Unavailable Allergies Active Description [...] Procedures Code [place] [address] UA W/ CULTURE IF INDICATED 12/12/2013 15416 OXIMETRY 08/28/2014 Results There is no data. Encounters ACCT No. Visit Date/Time Discharge Status Pt. Type Provider Facility Loc./Unit Complaint [id number] 08/28/2014 12:45:00 08/28/2014 23:59:59 CLS Outpatient DOV HAILE APRN [id number] 12/12/2013 10:19:00 12/12/2013 23:59:59 CLS Outpatient BRIAN JACOBS DO
[2018-05-06 13:21] LABS: BASOPHILS % (AUTO) 0 % (0-10); EOSINOPHILS # (AUTO) 0.1 10^3/uL (0.0-0.3); EOSINOPHILS % (AUTO) 1 % (0-10); HEMATOCRIT 40 % (35-52); HEMOGLOBIN 13.6 G/DL (11.5-16.0); LYMPHOCYTES # (AUTO) 1.5 X 10^3 (1.0-4.0); LYMPHOCYTES % (AUTO) 21 % (12-44); MEAN CORPUSCULAR HEMOGLOBIN 26 PG (25-34); MEAN CORPUSCULAR HGB CONC 34 G/DL (32-36); MEAN CORPUSCULAR VOLUME 78 FL (80-99); MEAN PLATELET VOLUME 10.9 FL (7.4-10.4); MONOCYTES # (AUTO) 0.3 X 10^3 (0.0-1.0); MONOCYTES % (AUTO) 4 % (0-12); NEUTROPHILS # (AUTO) 5.4 X 10^3 (1.8-7.8); NEUTROPHILS % (AUTO) 74 % (42-75); PLATELET COUNT 368 10^3/uL (130-400); RED BLOOD COUNT 5.15 10^6/uL (4.35-5.85); RED CELL DISTRIBUTION WIDTH 14.5 % (10.0-14.5); WHITE BLOOD COUNT 7.3 10^3/uL (4.3-11.0)
[2018-05-06 13:25] LABS: BILIRUBIN,URINE NEGATIVE (NEGATIVE); CLARITY,URINE CLEAR; COLOR,URINE YELLOW; GLUCOSE, URINE (UA) NEGATIVE (NEGATIVE); KETONES,URINE NEGATIVE (NEGATIVE); LEUKOCYTE ESTERASE ,URINE 1+ (NEGATIVE); NITRITE,URINE NEGATIVE (NEGATIVE); PH,URINE 6 (5-9); PROTEIN,URINE NEGATIVE (NEGATIVE); UROBILINOGEN,URINE NORMAL (NORMAL)
[2018-05-06 13:36] LABS: BACTERIA,URINE TRACE /HPF
--- NOTE | 2018-05-06 13:40 | Diagnostic Imaging Report ---
PROCEDURE: CT abdomen and pelvis with contrast. TECHNIQUE: Multiple contiguous axial images were obtained through the abdomen and pelvis after administration of intravenous contrast. INDICATION: Right lower quadrant mass. Comparison is made with prior CT from 04/18/2018. The lung bases are clear. Low-density lesion in the left lobe of the liver is stable and likely represents a cyst. No other liver masses are seen. The gallbladder is surgically absent. The pancreas and spleen remain unremarkable. No adrenal mass is seen. Kidneys demonstrate symmetric enhancement. No hydronephrosis is seen. Aorta is non-aneurysmal. Small bowel loops are normal caliber. No obstruction is seen. No ascites. No inflammatory process is identified. The previously noted cyst in the right adnexa has decreased in size, now measuring 3.4 cm compared with 5 cm on prior. The bladder is unremarkable. No abdominal or pelvic lymphadenopathy is seen. IMPRESSION: Decrease in size of right ovarian cyst when compared with prior CT from 04/18/2018. The study is otherwise unremarkable. Dictated by: Dictated on workstation # [id number]
[2018-05-06 13:42] LABS: ALANINE AMINOTRANSFERASE 42 U/L (0-55); ALBUMIN 5.1 GM/DL (3.2-4.5); ALKALINE PHOSPHATASE 89 U/L (40-136); AMYLASE 29 U/L (25-125); BILIRUBIN,TOTAL 0.9 MG/DL (0.1-1.0); BUN/CREATININE RATIO 10; CALCIUM 10.2 MG/DL (8.5-10.1); CARBON DIOXIDE 21 MMOL/L (21-32); CHLORIDE 105 MMOL/L (98-107); CREATININE SERUM 0.78 MG/DL (0.60-1.30); GFR ESTIMATED > 60; GLUCOSE 126 MG/DL (70-105); LIPASE 14 U/L (8-78); POTASSIUM 3.2 MMOL/L (3.6-5.0); SODIUM 141 MMOL/L (135-145); TOTAL PROTEIN 8.9 GM/DL (6.4-8.2)
--- NOTE | 2018-05-06 13:46 | ED Abdominal Pain ---
General Chief Complaint: Abdominal/GI Problems Stated Complaint: MASS ON RIGHT SIDE Nursing Triage Note: ARRIVED VIA AMB TO ROOM 10. COMPLAINS OF RIGHT LOWER ABD PAIN THAT RADIATES INTO RIB CAGE AND BACK STARTING YESTERDAY. RECENT SURGERY WITH KIDO AND HAS SOME KIND OF UNKONWN MASS THAT POSSIBLY COULD BE OVERY RELATED. Sepsis Screen: No Definite Risk Source of Information: Patient Exam Limitations: No Limitations History of Present Illness Date Seen by Provider: May 06, 2018 Time Seen by Provider: 12:45 Initial Comments Patient is a 38 year old female who presents to the emergency room with complain of right low abdominal pain that radiates to her left upper quadrant. States that the pain started to become worse yesterday and progressively became worse over the last day. She reports that she has been seen several times for a right lower adnexal mass and reports that she is taking Oxycodone 5/325 at home for this but has recently ran out of this medication. She sees Dr. Gamboa and Dr. Gr for the mass and is in the process of being referred to for further evaluation. She reports she has an appointment with Dr. Gamboa early next week. Timing/Duration: Changing Over Time, Getting Worse Severity/Quality: Moderate Location: RLQ Radiation: RUQ Associated Symptoms: Denies Symptoms Allergies and Home Medications Allergies Coded Allergies: Sulfa (Sulfonamide Antibiotics) (Verified Allergy, Severe, RASH, 11/29/17) morphine (Verified Allergy, Severe, RASH, Pt has had Percocet & Lortab in the past w/o issue, 11/29/17) Home Medications Lisinopril 20 Mg Tablet, 20 MG PO DAILY, (Reported) Oxycodone HCl/Acetaminophen 1 Each Tablet, 1 EACH PO Q4H PRN for PAIN-MODERATE Prescribed by: MARIANO ZABALA on 05/06/18 1359 Pantoprazole Sodium 20 Mg Tablet.dr, 20 MG PO DAILY, (Reported) Ranitidine HCl 150 Mg Tablet, 150 MG PO BID, (Reported) Patient Home Medication List Home Medication List Reviewed: Yes Review of Systems Review of Systems Constitutional: see HPI; No chills, No fever Gastrointestinal: See HPI, Abdominal Pain All Other Systems Reviewed Negative Unless Noted: Yes Past Xyiapuw-Fbvojn-Gdmgyh Hx Past Med/Social Hx: Reviewed Nursing Past Med/Soc Hx Patient Social History Alcohol Use: Rarely Uses Recreational Drug Use: No Smoking Status: Never a Smoker 2nd Hand Smoke Exposure: Yes Recent Foreign Travel: No Contact w/Someone Who Travel: No Recent Infectious Disease Expo: No Recent Hopitalizations: Yes (OVARY SURGERY WITH BOWEL ADHESIONS AND URETER LAC) Immunizations Up To Date Tetanus Booster (TDap): Unknown Date of Influenza Vaccine: Apr 20, 2017 Seasonal Allergies Seasonal Allergies: No Past Medical History Surgeries: Yes Abdominal, Appendectomy, Bladder Surgery, Section, Gallbladder, Hysterectomy, Renal Respiratory: No Currently Using CPAP: No Currently Using BIPAP: No Cardiac: No Neurological: Yes Headaches /Migraines Reproductive Disorders: Yes (CPP) Female 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 Transmitted Disease: No HIV/AIDS: No Genitourinary: Yes Kidney Infection, Bladder Infection, Kidney Stones, UTI-Chronic Gastrointestinal: Yes (LIVER LACERATION--NO SURGICAL REPAIR) Chronic Diarrhea Musculoskeletal: Yes (X 2 BACK SURG) Back Injury, Chronic Back Pain Endocrine: No HEENT: No Loss of Vision: Bilateral Hearing Impairment: Denies Cancer: No Psychosocial: Yes Depression Integumentary: No Blood Disorders: No Adverse Reaction/Blood Tranf: No (HAS HAD BLOOD WITH NO REACTION) Family Medical History Reviewed Nursing Family Hx Arthritis 19 FATHER 19 MOTHER Asthma 19 FATHER Diabetes mellitus 19 MOTHER FH: congestive heart failure 19 MOTHER Hypercholesterolemia 19 MOTHER Hypertension 19 MOTHER Kidney disease 19 MOTHER Cancer, Diabetes, Hypertension, Other Conditions/Hx Physical Exam Vital Signs Vital Signs - First Documented 05/06/18 05/06/18 11:57 14:30 Temp 98.0 Pulse 104 Resp 16 B/P (MAP) 136/95 (109) Pulse Ox 98 O2 Delivery Room Air Capillary Refill : Less Than 3 Seconds Height/Weight/BMI Height: 5'8.00" Weight: 180lbs. 0.0oz. 81.869412ba; 28.9 BMI Method:Stated General Appearance: WD/WN, no apparent distress Respiratory: chest non-tender, lungs clear, normal breath sounds, no respiratory distress, no accessory muscle use Cardiovascular: normal peripheral pulses, regular rate, rhythm, no edema, no gallop, no JVD, no murmur Gastrointestinal: normal bowel sounds, soft, no organomegaly, no pulsatile mass , tenderness (right upper quadrant and right lower quadrant tenderness) Neurologic/Psychiatric: alert, normal mood/affect, oriented x 3 Skin: normal color, warm/dry Progress/Results/Core Measures Results/Orders Lab Results Laboratory Tests Test 05/06/18 11:40 05/06/18 13:05 05/06/18 13:13 Range/Units Lab Scanned Report Referred Lab Report [id number] Urine Color YELLOW Urine Clarity CLEAR Urine pH 6 5-9 Urine Specific [place] 1.010 L 1.016-1.022 Urine Protein NEGATIVE NEGATIVE Urine Glucose (UA) NEGATIVE NEGATIVE Urine Ketones NEGATIVE NEGATIVE Urine Nitrite NEGATIVE NEGATIVE Urine Bilirubin NEGATIVE NEGATIVE Urine Urobilinogen NORMAL NORMAL MG/DL Urine Leukocyte Esterase 1+ H NEGATIVE Urine RBC (Auto) NEGATIVE NEGATIVE Urine RBC NONE /HPF Urine WBC 2-5 /HPF Urine Squamous Epithelial Cells 2-5 /HPF Urine Crystals NONE /LPF Urine Bacteria TRACE /HPF Urine Casts NONE /LPF Urine Mucus NEGATIVE /LPF Urine Culture Indicated YES White Blood Count 7.3 4.3-11.0 10^3/uL Red Blood Count 5.15 4.35-5.85 10^6/uL Hemoglobin 13.6 11.5-16.0 G/DL Hematocrit 40 35-52 % Mean Corpuscular Volume 78 L 80-99 FL Mean Corpuscular Hemoglobin 26 25-34 PG Mean Corpuscular Hemoglobin Concent 34 32-36 G/DL Red Cell Distribution Width 14.5 10.0-14.5 % Platelet Count 368 130-400 10^3/uL Mean Platelet Volume 10.9 H 7.4-10.4 FL Neutrophils (%) (Auto) 74 42-75 % Lymphocytes (%) (Auto) 21 12-44 % Monocytes (%) (Auto) 4 0-12 % Eosinophils (%) (Auto) 1 0-10 % Basophils (%) (Auto) 0 0-10 % Neutrophils # (Auto) 5.4 1.8-7.8 X 10^3 Lymphocytes # (Auto) 1.5 1.0-4.0 X 10^3 Monocytes # (Auto) 0.3 0.0-1.0 X 10^3 Eosinophils # (Auto) 0.1 0.0-0.3 10^3/uL Basophils # (Auto) 0.0 0.0-0.1 10^3/uL Sodium Level 141 135-145 MMOL/L Potassium Level 3.2 L 3.6-5.0 MMOL/L Chloride Level 105 98-107 MMOL/L Carbon Dioxide Level 21 21-32 MMOL/L Anion Gap 15 H 5-14 MMOL/L Blood Urea Nitrogen 8 7-18 MG/DL Creatinine 0.78 0.60-1.30 MG/DL Estimat Glomerular Filtration Rate > 60 BUN/Creatinine Ratio 10 Glucose Level 126 H 70-105 MG/DL Calcium Level 10.2 H 8.5-10.1 MG/DL Corrected Calcium 8.5-10.1 MG/DL Total Bilirubin 0.9 0.1-1.0 MG/DL Aspartate Amino Transf (AST/SGOT) 24 5-34 U/L Alanine Aminotransferase (ALT/SGPT) 42 0-55 U/L Alkaline Phosphatase 89 40-136 U/L Total Protein 8.9 H 6.4-8.2 GM/DL Albumin 5.1 H 3.2-4.5 GM/DL Amylase Level 29 25-125 U/L Lipase 14 8-78 U/L Micro Results Microbiology 05/06/18 Urine Culture - Final, Complete See Report My Orders Orders - MARIANO ZABALA Comprehensive Metabolic Panel (05/06/18 12:52) Lipase (05/06/18 12:52) Amylase (05/06/18 12:52) Ua Culture If Indicated (05/06/18 12:52) Saline Lock/Iv-Start (05/06/18 12:52) Cbc With Automated Diff (05/06/18 12:52) Ct Abdomen/Pelvis W (05/06/18 12:52) Iohexol Injection (Omnipaque 350 Mg/Ml 1 (05/06/18 13:15) Ns (Ivpb) (Sodium Chloride 0.9%) (05/06/18 13:15) Hydromorphone Injection (Dilaudid Inject (05/06/18 13:30) Urine Culture (05/06/18 13:05) Medications Given in ED Vital Signs/I&O 05/06/18 05/06/18 11:57 14:30 Temp 98.0 Pulse 104 71 Resp 16 16 B/P (MAP) 136/95 (109) 125/85 (98) Pulse Ox 98 O2 Delivery Room Air Room Air Blood Pressure Mean: 109 Progress Progress Note : Time: 13:50 Progress Note I have seen and evaluated the patient. Her pain has improved with medication rating it at a 2/10. She has an appointment with Dr. Gamboa on 05/08/18. She agrees with plans of care, plans for discharge, return precautions were given. Voices no questions or concerns. Diagnostic Imaging Diagonstic Imaging: CT Plain Films/CT/US/NM/MRI: abdomen, pelvis Comments NAME: ANNALEE CHAVARRIA [facility] REC#: [id number] PHYSICIAN: MARIANO ZABALA CC: MARIANO ZABALA; LAUREEN AMANDA MD Page 2 of 2 RADIOLOGY REPORT VIA [place], [place] CC: MARIANO ZABALA; LAUREEN AMANDA MD Page 1 of 1 RADIOLOGY REPORT NAME: ANNALEE CHAVARRIA [facility] REC#: [id number] PT STATUS: REG ER : 1980 PHYSICIAN: MARIANO ZABALA ADMIT DATE: 05/06/18/ER Signed Date of Exam: 05/06/18 CT ABDOMEN/PELVIS W PROCEDURE: CT abdomen and pelvis with contrast. TECHNIQUE: Multiple contiguous axial images were obtained through the abdomen and pelvis after administration of intravenous contrast. INDICATION: Right lower quadrant mass. Comparison is made with prior CT from 04/18/2018. The lung bases are clear. Low-density lesion in the left lobe of the liver is stable and likely represents a cyst. No other liver masses are seen. The gallbladder is surgically absent. The pancreas and spleen remain unremarkable. No adrenal mass is seen. Kidneys demonstrate symmetric enhancement. No hydronephrosis is seen. Aorta is non-aneurysmal. Small bowel loops are normal caliber. No obstruction is seen. No ascites. No inflammatory process is identified. The previously noted cyst in the right adnexa has decreased in size, now measuring 3.4 cm compared with 5 cm on prior. The bladder is unremarkable. No abdominal or pelvic lymphadenopathy is seen. IMPRESSION: Decrease in size of right ovarian cyst when compared with prior CT from 04/18/2018. The study is otherwise unremarkable. Dictated by: Dictated on workstation # [id number] Dict: 05/06/18 1334 Trans: 05/06/18 1418 Interpreted by: LAUREEN AMANDA MD Electronically signed by: LAUREEN AMANDA MD 05/06/18 1418 Reviewed: Reviewed by Me Departure Impression Primary Impression: Adnexal mass Disposition: HOME, SELF-CARE Condition: Stable/Unchanged Departure-Patient Inst. Decision time for Depature: 13:57 Referrals: GIOVANNA GAMBOA TAKAAKI MD NO,LOCAL PHYSICIAN (PCP) Primary Care Physician Patient Instructions: Acute Abdomen (Belly Pain), Adult (DC) Add. Discharge Instructions: Take medication as directed. Keep your appointment as scheduled with Dr. GAMBOA on Tuesday. Return back to the emergency room for any worsening symptoms or concerns as needed. All discharge instructions reviewed with patient and/or family. Voiced understanding. Scripts Oxycodone HCl/Acetaminophen (Oxycodone-Acetaminophen 5-325) 1 Each Tablet 1 EACH PO Q4H PRN for PAIN-MODERATE MDD 6, #20 TAB Prov: MARIANO ZABALA 05/06/18 MARIANO ZABALA May 06, 2018 13:46
[2018-05-06 14:30] VITALS: BP 125/85
== END | disposition home or self-care (01) ==
LOC: EDUNIT# 11:38 → ER 11:40
DX: R19.09 Other intra-abdominal and pelvic swelling, mass and lump (principal); G43.909 Migraine, unspecified, not intractable, without status migrainosus; F32.9 Major depressive disorder, single episode, unspecified; Z87.19 Personal history of other diseases of the digestive system; Z82.49 Family history of ischemic heart disease and other diseases of the circulatory system; Z87.448 Personal history of other diseases of urinary system; Z87.440 Personal history of urinary (tract) infections; Z88.2 Allergy status to sulfonamides; Z88.5 Allergy status to narcotic agent; Z77.22 Contact with and (suspected) exposure to environmental tobacco smoke (acute) (chronic); Z90.89 Acquired absence of other organs; Z98.890 Other specified postprocedural states; Z90.710 Acquired absence of both cervix and uterus
CPT/HCPCS: 36415; 74177; 80053; 81000; 82150; 83690; 85025; 87088

== ENCOUNTER 2018-05-17 11:07 | Emergency (ER) | payer OTHER ==
[~2018-05-17] VITALS: Ht 172.7 cm; Wt 86.2 kg
[~2018-05-17 11:07] MED LIST changes: -HYDROmorphone 2 MG/ML VIAL (DILAUDID) IV PRN; -IOHEXOL 350 MG/ML 100 ML (OMNIPAQUE 350) VIAL IV ONE; -NS 250 ML (IVPB) BAG IV ONE
[2018-05-17] MEDS ORDERED: NS IV 1000 ML 1,000 ML IV ONE (11:25)
--- NOTE | 2018-05-17 11:25 | ED Abdominal Pain ---
General Chief Complaint: Abdominal/GI Problems Stated Complaint: R SIDE ABD PAIN Source of Information: Patient Exam Limitations: No Limitations History of Present Illness Date Seen by Provider: May 17, 2018 Time Seen by Provider: 11:25 Initial Comments Patient is a 38-year-old female who presents to emergency room with right-sided abdominal pain and nausea for 3 days. She has been seen several times for an adnexal mass on the right side. She is a patient of Dr. Godfrey and he is told her that he is concerned with a cancer and has referred her to a specialist at [facility]. She has an appointment with on May 29. She did call Dr. GODFREY's office today and he referred her to the emergency room for pain control. She takes oxycodone 5 at home for pain control. Timing/Duration: Changing Over Time Severity/Quality: Sharp Location: RUQ, RLQ Radiation: No Radiation Associated Symptoms: Nausea/Vomiting Allergies and Home Medications Allergies Coded Allergies: Sulfa (Sulfonamide Antibiotics) (Verified Allergy, Severe, RASH, 11/29/17) morphine (Verified Allergy, Severe, RASH, Pt has had Percocet & Lortab in the past w/o issue, 11/29/17) Home Medications Lisinopril 20 Mg Tablet, 20 MG PO DAILY, (Reported) Oxycodone HCl/Acetaminophen 1 Each Tablet, 1 EACH PO Q4H PRN for PAIN-MODERATE Prescribed by: MARIANO ZABALA on 05/06/18 1359 Oxycodone HCl/Acetaminophen 1 Each Tablet, 1 EACH PO Q4H PRN for PAIN-MODERATE Prescribed by: MARIANO ZABALA on 05/17/18 1342 Pantoprazole Sodium 20 Mg Tablet.dr, 20 MG PO DAILY, (Reported) Promethazine HCl 25 Mg Tablet, 25 MG PO Q6H PRN for NAUSEA/VOMITING Prescribed by: MARIANO ZABALA on 05/17/18 1342 Ranitidine HCl 150 Mg Tablet, 150 MG PO BID, (Reported) Patient Home Medication List Home Medication List Reviewed: Yes Review of Systems Review of Systems Constitutional: see HPI; No chills, No fever Gastrointestinal: See HPI, Abdominal Pain, Nausea All Other Systems Reviewed Negative Unless Noted: Yes Past Dyyjtxt-Ohawle-Jajufs Hx Past Med/Social Hx: Reviewed Nursing Past Med/Soc Hx Patient Social History 2nd Hand Smoke Exposure: Yes Recent Foreign Travel: No Contact w/Someone Who Travel: No Recent Hopitalizations: Yes (OVARY SURGERY WITH BOWEL ADHESIONS AND URETER LAC) Immunizations Up To Date Tetanus Booster (TDap): Unknown Date of Influenza Vaccine: Apr 20, 2017 Seasonal Allergies Seasonal Allergies: No Past Medical History Surgeries: Yes Abdominal, Appendectomy, Bladder Surgery, Section, Gallbladder, Hysterectomy, Renal Respiratory: No Currently Using CPAP: No Currently Using BIPAP: No Cardiac: No Neurological: Yes Headaches /Migraines Reproductive Disorders: Yes (CPP) Female 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 Sexually Transmitted Disease: No HIV/AIDS: No Genitourinary: Yes Kidney Infection, Bladder Infection, Kidney Stones, UTI-Chronic Gastrointestinal: Yes (LIVER LACERATION--NO SURGICAL REPAIR) Chronic Diarrhea Musculoskeletal: Yes (X 2 BACK SURG) Back Injury, Chronic Back Pain Endocrine: No HEENT: No Loss of Vision: Bilateral Hearing Impairment: Denies Cancer: No Psychosocial: Yes Depression Integumentary: No Blood Disorders: No Adverse Reaction/Blood Tranf: No (HAS HAD BLOOD WITH NO REACTION) Family Medical History Reviewed Nursing Family Hx Arthritis 19 FATHER 19 MOTHER Asthma 19 FATHER Diabetes mellitus 19 MOTHER FH: congestive heart failure 19 MOTHER Hypercholesterolemia 19 MOTHER Hypertension 19 MOTHER Kidney disease 19 MOTHER Cancer, Diabetes, Hypertension, Other Conditions/Hx Physical Exam Vital Signs Vital Signs - First Documented 05/17/18 11:08 Temp 97.4 Pulse 88 Resp 16 B/P (MAP) 151/86 (107) Pulse Ox 98 Capillary Refill : Height/Weight/BMI Height: 5'8.00" Weight: 180lbs. 0.0oz. 81.628896vg; 28.9 BMI Method:Stated General Appearance: WD/WN, no apparent distress HEENT: PERRL/EOMI, normal ENT inspection, TMs normal, pharynx normal Neck: non-tender, full range of motion, supple, normal inspection Respiratory: chest non-tender, lungs clear, normal breath sounds, no respiratory distress, no accessory muscle use Cardiovascular: normal peripheral pulses, regular rate, rhythm, no edema, no gallop, no JVD, no murmur Gastrointestinal: normal bowel sounds, soft, no organomegaly, no pulsatile mass , tenderness (right upper quadrant abdominal tenderness) Back: normal inspection, no CVA tenderness, no vertebral tenderness Neurologic/Psychiatric: alert, normal mood/affect, oriented x 3 Progress/Results/Core Measures Results/Orders Lab Results Laboratory Tests Test 05/17/18 11:22 05/17/18 12:16 Range/Units White Blood Count 6.8 4.3-11.0 10^3/uL Red Blood Count 4.66 4.35-5.85 10^6/uL Hemoglobin 12.4 11.5-16.0 G/DL Hematocrit 37 35-52 % Mean Corpuscular Volume 80 80-99 FL Mean Corpuscular Hemoglobin 27 25-34 PG Mean Corpuscular Hemoglobin Concent 33 32-36 G/DL Red Cell Distribution Width 14.5 10.0-14.5 % Platelet Count 379 130-400 10^3/uL Mean Platelet Volume 10.6 H 7.4-10.4 FL Neutrophils (%) (Auto) 76 H 42-75 % Lymphocytes (%) (Auto) 20 12-44 % Monocytes (%) (Auto) 3 0-12 % Eosinophils (%) (Auto) 1 0-10 % Basophils (%) (Auto) 0 0-10 % Neutrophils # (Auto) 5.1 1.8-7.8 X 10^3 Lymphocytes # (Auto) 1.3 1.0-4.0 X 10^3 Monocytes # (Auto) 0.2 0.0-1.0 X 10^3 Eosinophils # (Auto) 0.1 0.0-0.3 10^3/uL Basophils # (Auto) 0.0 0.0-0.1 10^3/uL Sodium Level 141 135-145 MMOL/L Potassium Level 2.8 L 3.6-5.0 MMOL/L Chloride Level 105 98-107 MMOL/L Carbon Dioxide Level 23 21-32 MMOL/L Anion Gap 13 5-14 MMOL/L Blood Urea Nitrogen 5 L 7-18 MG/DL Creatinine 0.79 0.60-1.30 MG/DL Estimat Glomerular Filtration Rate > 60 BUN/Creatinine Ratio 6 Glucose Level 157 H 70-105 MG/DL Calcium Level 9.9 8.5-10.1 MG/DL Corrected Calcium 8.5-10.1 MG/DL Total Bilirubin 0.6 0.1-1.0 MG/DL Aspartate Amino Transf (AST/SGOT) 10 5-34 U/L Alanine Aminotransferase (ALT/SGPT) 21 0-55 U/L Alkaline Phosphatase 84 40-136 U/L Total Protein 7.9 6.4-8.2 GM/DL Albumin 4.7 H 3.2-4.5 GM/DL Amylase Level 35 25-125 U/L Lipase 21 8-78 U/L Urine Color YELLOW Urine Clarity CLEAR Urine pH 7 5-9 Urine Specific [place] 1.005 L 1.016-1.022 Urine Protein NEGATIVE NEGATIVE Urine Glucose (UA) NEGATIVE NEGATIVE Urine Ketones NEGATIVE NEGATIVE Urine Nitrite NEGATIVE NEGATIVE Urine Bilirubin NEGATIVE NEGATIVE Urine Urobilinogen NORMAL NORMAL MG/DL Urine Leukocyte Esterase NEGATIVE NEGATIVE Urine RBC (Auto) NEGATIVE NEGATIVE Urine RBC NONE /HPF Urine WBC NONE /HPF Urine Squamous Epithelial Cells 2-5 /HPF Urine Crystals NONE /LPF Urine Bacteria TRACE /HPF Urine Casts NONE /LPF Urine Mucus NEGATIVE /LPF Urine Culture Indicated NO My Orders Orders - MARIANO ZABALA Comprehensive Metabolic Panel (05/17/18 11:25) Lipase (05/17/18 11:25) Amylase (05/17/18 11:25) Ua Culture If Indicated (05/17/18 11:25) Saline Lock/Iv-Start (05/17/18 11:25) Cbc With Automated Diff (05/17/18 11:25) Ondansetron Injection (Zofran Injectio (05/17/18 11:30) Saline Lock/Iv-Start (05/17/18 11:25) Saline Lock/Iv-Start (05/17/18 11:25) Ns Iv 1000 Ml (Sodium Chloride 0.9%) (05/17/18 11:25) Hydromorphone Injection (Dilaudid Inject (05/17/18 11:30) Promethazine Injection (Phenergan Injec (05/17/18 13:15) Hydromorphone Injection (Dilaudid Inject (05/17/18 13:15) Iv Push Industrial Controller Ed (05/17/18 ) Medications Given in ED Vital Signs/I&O 05/17/18 05/17/18 11:08 13:55 Temp 97.4 97.4 Pulse 88 86 Resp 16 12 B/P (MAP) 151/86 (107) 130/80 (97) Pulse Ox 98 100 Progress Progress Note : Time: 13:35 Progress Note I have seen and evaluated the patient. I have got her pain under control and her nausea is improved. She agrees with plan of care, plans for discharge, return precautions were given. Departure Impression Primary Impression: Abdominal pain Disposition: 01 HOME, SELF-CARE Condition: Stable/Unchanged Departure-Patient Inst. Decision time for Depature: 13:40 Referrals: GIOVANNA GODFREY,LOCAL PHYSICIAN (PCP) Primary Care Physician Patient Instructions: Acute Abdomen (Belly Pain), Adult (DC) Add. Discharge Instructions: Take medication as directed. Keep your appointment with [facility] on May 29. Follow-up with Dr. GODFREY's office in 1 week for recheck. Return back to the emergency room for any worsening pain, nausea, vomiting, or any other concerns as needed. All discharge instructions reviewed with patient and/or family. Voiced understanding. Scripts Promethazine HCl (Promethazine Tablet) 25 Mg Tablet 25 MG PO Q6H PRN for NAUSEA/VOMITING, #20 TAB Prov: MARIANO ZABALA 05/17/18 Oxycodone HCl/Acetaminophen (Endocet 5-325 Tablet) 1 Each Tablet 1 EACH PO Q4H PRN for PAIN-MODERATE MDD 6, #20 TAB Prov: MARIANO ZABALA 05/17/18 MARIANO ZABALA May 17, 2018 11:25
[2018-05-17] MEDS ORDERED: ONDANSETRON 4 MG/2 ML (SDV) Z0FRAN IVP ONE (11:30)
[2018-05-17] MEDS ORDERED: HYDROmorphone 2 MG/ML VIAL (DILAUDID) IV PRN ×2 (11:30→13:15)
[2018-05-17 11:33] LABS: BASOPHILS % (AUTO) 0 % (0-10); EOSINOPHILS # (AUTO) 0.1 10^3/uL (0.0-0.3); EOSINOPHILS % (AUTO) 1 % (0-10); HEMATOCRIT 37 % (35-52); HEMOGLOBIN 12.4 G/DL (11.5-16.0); LYMPHOCYTES # (AUTO) 1.3 X 10^3 (1.0-4.0); LYMPHOCYTES % (AUTO) 20 % (12-44); MEAN CORPUSCULAR HEMOGLOBIN 27 PG (25-34); MEAN CORPUSCULAR HGB CONC 33 G/DL (32-36); MEAN CORPUSCULAR VOLUME 80 FL (80-99); MEAN PLATELET VOLUME 10.6 FL (7.4-10.4); MONOCYTES # (AUTO) 0.2 X 10^3 (0.0-1.0); MONOCYTES % (AUTO) 3 % (0-12); NEUTROPHILS # (AUTO) 5.1 X 10^3 (1.8-7.8); NEUTROPHILS % (AUTO) 76 % (42-75); PLATELET COUNT 379 10^3/uL (130-400); RED BLOOD COUNT 4.66 10^6/uL (4.35-5.85); RED CELL DISTRIBUTION WIDTH 14.5 % (10.0-14.5); WHITE BLOOD COUNT 6.8 10^3/uL (4.3-11.0)
--- OUTSIDE RECORDS SUMMARY | 2018-05-17 11:45 | XMS REPORT | Continuity of Care Document ---
Author Author [facility] Address Unknown Phone Unavailable Allergies Active [...] Procedures Code Description [place] [address] UA W/ CULTURE IF INDICATED 12/12/2013 78503 OXIMETRY 08/28/2014 Results There is no data. Encounters ACCT No. Visit Date/Time Discharge Status Pt. Type Provider Facility Loc./Unit Complaint [id number] 08/28/2014 12:45:00 08/28/2014 23:59:59 CLS Outpatient DOV HAILE APRN [id number] 12/12/2013 10:19:00 12/12/2013 23:59:59 CLS Outpatient BRIAN JACOBS DO
[2018-05-17 11:46] LABS: ALANINE AMINOTRANSFERASE 21 U/L (0-55); ALBUMIN 4.7 GM/DL (3.2-4.5); ALKALINE PHOSPHATASE 84 U/L (40-136); AMYLASE 35 U/L (25-125); BILIRUBIN,TOTAL 0.6 MG/DL (0.1-1.0); BUN/CREATININE RATIO 6; CALCIUM 9.9 MG/DL (8.5-10.1); CARBON DIOXIDE 23 MMOL/L (21-32); CHLORIDE 105 MMOL/L (98-107); CREATININE SERUM 0.79 MG/DL (0.60-1.30); GFR ESTIMATED > 60; GLUCOSE 157 MG/DL (70-105); LIPASE 21 U/L (8-78); POTASSIUM 2.8 MMOL/L (3.6-5.0); SODIUM 141 MMOL/L (135-145); TOTAL PROTEIN 7.9 GM/DL (6.4-8.2)
[2018-05-17 12:33] LABS: BILIRUBIN,URINE NEGATIVE (NEGATIVE); CLARITY,URINE CLEAR; COLOR,URINE YELLOW; GLUCOSE, URINE (UA) NEGATIVE (NEGATIVE); KETONES,URINE NEGATIVE (NEGATIVE); LEUKOCYTE ESTERASE ,URINE NEGATIVE (NEGATIVE); NITRITE,URINE NEGATIVE (NEGATIVE); PH,URINE 7 (5-9); PROTEIN,URINE NEGATIVE (NEGATIVE); UROBILINOGEN,URINE NORMAL (NORMAL)
[2018-05-17 12:48] LABS: BACTERIA,URINE TRACE /HPF
[2018-05-17] MEDS ORDERED: PROMETHAZINE INJ 25 MG/ML (PHENERGAN) AMP IVP ONE (13:15)
[2018-05-17] MEDS ORDERED: PROM25TA14 PO (13:42)
[2018-05-17] MEDS ORDERED: OXYC-188 PO (13:42)
[2018-05-17 13:55] VITALS: BP 130/80
== END 2018-05-17 13:55 | disposition home or self-care (01) ==
LOC: EDUNIT# 11:07 → ER 11:08
DX: R10.11 Right upper quadrant pain (principal); R10.31 Right lower quadrant pain; G43.909 Migraine, unspecified, not intractable, without status migrainosus; F32.9 Major depressive disorder, single episode, unspecified; Z82.49 Family history of ischemic heart disease and other diseases of the circulatory system; Z87.19 Personal history of other diseases of the digestive system; Z87.440 Personal history of urinary (tract) infections; Z87.448 Personal history of other diseases of urinary system; Z88.2 Allergy status to sulfonamides; Z88.5 Allergy status to narcotic agent; Z90.49 Acquired absence of other specified parts of digestive tract; Z77.22 Contact with and (suspected) exposure to environmental tobacco smoke (acute) (chronic); Z90.89 Acquired absence of other organs; Z98.890 Other specified postprocedural states; Z90.710 Acquired absence of both cervix and uterus
CPT/HCPCS: 36415; 80053; 81000; 82150; 83690; 85025; 96361; 96374; 96375; 96376

== ENCOUNTER 2018-05-25 17:00 | Emergency (ER) | payer OTHER ==
[~2018-05-25] VITALS: Ht 172.7 cm; Wt 86.2 kg
[~2018-05-25 17:00] MED LIST changes: +OXYC-188 PO
--- OUTSIDE RECORDS SUMMARY | 2018-05-25 17:05 | XMS REPORT | Continuity of Care Document ---
Author Author [facility] of [facility] of [facility] Address Unknown Phone Unavailable Allergies Active [...] Procedures Code Description [place] [address] UA W/ CULTURE IF INDICATED 12/12/2013 33340 OXIMETRY 08/28/2014 Results There is no data. Encounters ACCT No. Visit Date/Time Discharge Status Pt. Type Provider Facility Loc./Unit Complaint [id number] 08/28/2014 12:45:00 08/28/2014 23:59:59 CLS Outpatient DOV HAILE APRN [id number] 12/12/2013 10:19:00 12/12/2013 23:59:59 CLS Outpatient BRIAN JACOBS DO
[2018-05-25 17:07] VITALS: BP 131/83
[2018-05-25] MEDS ORDERED: NS IV 1000 ML 1,000 ML IV SCH (17:15)
[2018-05-25] MEDS ORDERED: PROCHLORPERAZINE 10 MG/2ML INJ (COMPAZINE) IV ONE (17:15)
[2018-05-25] MEDS ORDERED: diphenhydrAMINE 50 MG/ML INJ (BENADRYL) IVP ONE (17:15)
--- NOTE | 2018-05-25 17:15 | ED Abdominal Pain ---
General Stated Complaint: ABD PAIN/FEVER Source of Information: Patient Exam Limitations: No Limitations History of Present Illness Date Seen by Provider: May 25, 2018 Time Seen by Provider: 17:13 Initial Comments To ER for the fourth time within the past month for right-sided abdominal pain for she has a known mass. She reports nausea and inability to keep anything down. The mass is in the right adnexal region but is unusual as she has had a complete hysterectomy. 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 Her most recent CT showed a decrease in mass size from 5 cm to 3.4 cm. Timing/Duration: 1 Week Severity/Quality: Moderate Location: RLQ Radiation: No Radiation Activities at Onset: None Associated Symptoms: Nausea/Vomiting Allergies and Home Medications Allergies Coded Allergies: Sulfa (Sulfonamide Antibiotics) (Verified Allergy, Severe, RASH, 11/29/17) morphine (Verified Allergy, Severe, RASH, Pt has had Percocet & Lortab in the past w/o issue, 11/29/17) Home Medications Cefuroxime Axetil 500 Mg Tablet, 500 MG PO BID Prescribed by: ERAN CABRAL on 05/25/18 1809 Lisinopril 20 Mg Tablet, 20 MG PO DAILY, (Reported) Oxycodone HCl/Acetaminophen 1 Each Tablet, 1 EACH PO Q4H PRN for PAIN-MODERATE Prescribed by: MARIANO ZABALA on 05/06/18 1359 Oxycodone HCl/Acetaminophen 1 Each Tablet, 1 EACH PO Q4H PRN for PAIN-MODERATE Prescribed by: MARIANO ZABALA on 05/17/18 1342 Pantoprazole Sodium 20 Mg Tablet.dr, 20 MG PO DAILY, (Reported) Promethazine HCl 25 Mg Tablet, 25 MG PO Q6H PRN for NAUSEA/VOMITING Prescribed by: MARIANO ZABALA on 05/17/18 1342 Promethazine HCl 25 Mg Tablet, 25 MG PO Q6H PRN for NAUSEA/VOMITING Prescribed by: REAN CABRAL on 05/25/18 1750 Ranitidine HCl 150 Mg Tablet, 150 MG PO BID, (Reported) Patient Home Medication List Home Medication List Reviewed: Yes Review of Systems Review of Systems Constitutional: see HPI EENTM: No Symptoms Reported Respiratory: No Symptoms Reported Cardiovascular: No Symptoms Reported Gastrointestinal: See HPI, Abdominal Pain, Nausea, Vomiting Genitourinary: No Symptoms Reported Musculoskeletal: no symptoms reported Skin: no symptoms reported Psychiatric/Neurological: No Symptoms Reported Endocrine: No Symptoms Reported Past Bzcpbzs-Nhqmdm-Zkkkzb Hx Patient Social History Alcohol Beverage of Choice: Beer 2nd Hand Smoke Exposure: Yes Recent Foreign Travel: No Contact w/Someone Who Travel: No Recent Hopitalizations: Yes (OVARY SURGERY WITH BOWEL ADHESIONS AND URETER LAC) Immunizations Up To Date Tetanus Booster (TDap): Unknown Date of Influenza Vaccine: Apr 20, 2017 Seasonal Allergies Seasonal Allergies: No Past Medical History Surgeries: Yes Abdominal, Appendectomy, Bladder Surgery, Section, Gallbladder, Hysterectomy, Renal Respiratory: No Currently Using CPAP: No Currently Using BIPAP: No Cardiac: No Neurological: Yes Headaches /Migraines Reproductive Disorders: Yes (CPP) Female 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 Sexually Transmitted Disease: No HIV/AIDS: No Genitourinary: Yes Kidney Infection, Bladder Infection, Kidney Stones, UTI-Chronic Gastrointestinal: Yes (LIVER LACERATION--NO SURGICAL REPAIR) Chronic Diarrhea Musculoskeletal: Yes (X 2 BACK SURG) Back Injury, Chronic Back Pain Endocrine: No HEENT: No Loss of Vision: Bilateral Hearing Impairment: Denies Cancer: No Psychosocial: Yes Depression Integumentary: No Blood Disorders: No Adverse Reaction/Blood Tranf: No (HAS HAD BLOOD WITH NO REACTION) Family Medical History Arthritis 19 FATHER 19 MOTHER Asthma 19 FATHER Diabetes mellitus 19 MOTHER FH: congestive heart failure 19 MOTHER Hypercholesterolemia 19 MOTHER Hypertension 19 MOTHER Kidney disease 19 MOTHER Cancer, Diabetes, Hypertension, Other Conditions/Hx Physical Exam Vital Signs Vital Signs - First Documented 05/25/18 17:07 Temp 97.4 Pulse 77 Resp 16 B/P (MAP) 131/83 (99) Pulse Ox 99 O2 Delivery Room Air Capillary Refill : Height/Weight/BMI Height: 5'8.00" Weight: 190lbs. 0.0oz. 86.837090dk; 28.9 BMI Method:Stated General Appearance: WD/WN, no apparent distress Respiratory: no respiratory distress, no accessory muscle use Gastrointestinal: normal bowel sounds, soft, tenderness Extremities: normal range of motion, non-tender Neurologic/Psychiatric: alert, normal mood/affect, oriented x 3 Skin: normal color, warm/dry Progress/Results/Core Measures Results/Orders Lab Results Laboratory Tests Test 05/25/18 17:15 11/8/18 17:47 Range/Units White Blood Count 7.4 4.3-11.0 10^3/uL Red Blood Count 4.88 4.35-5.85 10^6/uL Hemoglobin 13.0 11.5-16.0 G/DL Hematocrit 38 35-52 % Mean Corpuscular Volume 78 L 80-99 FL Mean Corpuscular Hemoglobin 27 25-34 PG Mean Corpuscular Hemoglobin Concent 34 32-36 G/DL Red Cell Distribution Width 14.0 10.0-14.5 % Platelet Count 410 H 130-400 10^3/uL Mean Platelet Volume 10.7 H 7.4-10.4 FL Neutrophils (%) (Auto) 84 H 42-75 % Lymphocytes (%) (Auto) 12 12-44 % Monocytes (%) (Auto) 4 0-12 % Eosinophils (%) (Auto) 0 0-10 % Basophils (%) (Auto) 0 0-10 % Neutrophils # (Auto) 6.2 1.8-7.8 X 10^3 Lymphocytes # (Auto) 0.9 L 1.0-4.0 X 10^3 Monocytes # (Auto) 0.3 0.0-1.0 X 10^3 Eosinophils # (Auto) 0.0 0.0-0.3 10^3/uL Basophils # (Auto) 0.0 0.0-0.1 10^3/uL Sodium Level 138 135-145 MMOL/L Potassium Level 3.8 3.6-5.0 MMOL/L Chloride Level 103 98-107 MMOL/L Carbon Dioxide Level 18 L 21-32 MMOL/L Anion Gap 17 H 5-14 MMOL/L Blood Urea Nitrogen 5 L 7-18 MG/DL Creatinine 0.76 0.60-1.30 MG/DL Estimat Glomerular Filtration Rate > 60 BUN/Creatinine Ratio 7 Glucose Level 135 H 70-105 MG/DL Calcium Level 10.7 H 8.5-10.1 MG/DL Corrected Calcium 8.5-10.1 MG/DL Total Bilirubin 0.8 0.1-1.0 MG/DL Aspartate Amino Transf (AST/SGOT) 17 5-34 U/L Alanine Aminotransferase (ALT/SGPT) 28 0-55 U/L Alkaline Phosphatase 87 40-136 U/L Total Protein 8.6 H 6.4-8.2 GM/DL Albumin 4.9 H 3.2-4.5 GM/DL Urine Color YELLOW Urine Clarity CLEAR Urine pH 6.5 5-9 Urine Specific [place] 1.010 L 1.016-1.022 Urine Protein 1+ H NEGATIVE Urine Glucose (UA) NEGATIVE NEGATIVE Urine Ketones NEGATIVE NEGATIVE Urine Nitrite POSITIVE H NEGATIVE Urine Bilirubin 2+ H NEGATIVE Urine Urobilinogen 1 NORMAL MG/DL Urine Leukocyte Esterase 1+ H NEGATIVE Urine RBC (Auto) NEGATIVE NEGATIVE Urine RBC NONE /HPF Urine WBC 2-5 /HPF Urine Squamous Epithelial Cells 5-10 /HPF Urine Crystals NONE /LPF Urine Bacteria FEW H /HPF Urine Casts NONE /LPF Urine Mucus NEGATIVE /LPF Urine Culture Indicated YES My Orders Orders - ERAN CABRAL APRN Cbc With Automated Diff (05/25/18 17:10) Comprehensive Metabolic Panel (05/25/18 17:10) Ua Culture If Indicated (05/25/18 17:10) Iv Heplock-Insert (Order) (05/25/18 17:10) Ns Iv 1000 Ml (Sodium Chloride 0.9%) (05/25/18 17:15) Diphenhydramine Injection (Benadryl Inje (05/25/18 17:15) Prochlorperazine Injection (Compazine In (05/25/18 17:15) Ondansetron Injection (Zofran Injectio (05/25/18 18:00) Urine Culture (05/25/18 17:47) Ceftriaxone For Iv Use (Rocephin For I (05/25/18 18:15) Ceftriaxone For Im Use (Rocephin For Im (05/25/18 18:15) Lidocaine 1% Inj 20 Ml (Xylocaine 1% Inj (05/25/18 18:19) Ceftriaxone For Iv Use (Rocephin For I (05/25/18 18:19) Medications Given in ED Current Medications Medications Dose Ordered Sig/Aelida Route Start Time Stop Time Status Last Admin Dose Admin Diphenhydramine HCl 25 mg ONCE ONCE IVP 05/25/18 17:15 05/25/18 17:16 DC 05/25/18 17:24 25 MG Ondansetron HCl 8 mg ONCE ONCE IVP 05/25/18 18:00 05/25/18 18:01 DC 05/25/18 18:01 8 MG Prochlorperazine Edisylate 10 mg ONCE ONCE IV 05/25/18 17:15 05/25/18 17:16 DC 05/25/18 17:24 10 MG Vital Signs/I&O 05/25/18 17:07 Temp 97.4 Pulse 77 Resp 16 B/P (MAP) 131/83 (99) Pulse Ox 99 O2 Delivery Room Air Departure Communication (Admissions) 1356-she denies any improvement in her nausea after Benadryl and Compazine. She states the Zofran and Phenergan usually works for her. I'll order Zofran 8 mg IV. IV fluids are infusing. Labs are unremarkable. She states that she is still hurting. However [facility] shows quite an impressive list of opiates prescribed recently 1825-patient's IV had come out. The patient states when she got up the IV, caught on the bedding and pulled out. The IV Rocephin was then thrown away and the order was changed intramuscular Rocephin. I discussed with the patient the urinary tract infection, her nausea would make it difficult to take oral antibiotics so we should do a dose of intramuscular Rocephin. While the nurse was mixing up the intramuscular Rocephin, patient went to the bathroom and then left without discharge papers or receiving any discharge paperwork or receiving her intramuscular Rocephin injection. This occurred after discussion about her number of opiate prescriptions recently and that we should not prescribe additional opiates at this time. She reports she is allergic to Toradol. Impression Primary Impression: Abdominal pain Qualified Codes: R10.31 - Right lower quadrant pain Additional Impressions: Nausea and vomiting Qualified Codes: R11.2 - Nausea with vomiting, unspecified Urinary tract infection Qualified Codes: N30.00 - Acute cystitis without hematuria Disposition: HOME, SELF-CARE Condition: Stable Departure-Patient Inst. Decision time for Depature: 17:48 Referrals: [facility] [place]) Primary Care Physician Patient Instructions: Nausea and Vomiting, Adult, Urinary Tract Infection, Adult (DC) Add. Discharge Instructions: 1. Return to ER for any concerns 2. Keep your appointment with [facility]. Nausea medication as needed. Scripts Cefuroxime Axetil (Cefuroxime) 500 Mg Tablet 500 MG PO BID, #10 TAB Prov: ERAN CBARAL APRN 05/25/18 Promethazine HCl (Promethazine Tablet) 25 Mg Tablet 25 MG PO Q6H PRN for NAUSEA/VOMITING, #20 TAB Prov: ERAN CABRAL APRN 05/25/18 Copy Copies To 1: BRIAN JACOBS PETER J APRN May 25, 2018 17:15
[2018-05-25 17:31] LABS: BASOPHILS % (AUTO) 0 % (0-10); EOSINOPHILS % (AUTO) 0 % (0-10); HEMATOCRIT 38 % (35-52); LYMPHOCYTES # (AUTO) 0.9 X 10^3 (1.0-4.0); LYMPHOCYTES % (AUTO) 12 % (12-44); MEAN CORPUSCULAR HEMOGLOBIN 27 PG (25-34); MEAN CORPUSCULAR HGB CONC 34 G/DL (32-36); MEAN CORPUSCULAR VOLUME 78 FL (80-99); MEAN PLATELET VOLUME 10.7 FL (7.4-10.4); MONOCYTES # (AUTO) 0.3 X 10^3 (0.0-1.0); MONOCYTES % (AUTO) 4 % (0-12); NEUTROPHILS # (AUTO) 6.2 X 10^3 (1.8-7.8); NEUTROPHILS % (AUTO) 84 % (42-75); PLATELET COUNT 410 10^3/uL (130-400); RED BLOOD COUNT 4.88 10^6/uL (4.35-5.85); WHITE BLOOD COUNT 7.4 10^3/uL (4.3-11.0)
[2018-05-25 17:45] LABS: ALANINE AMINOTRANSFERASE 28 U/L (0-55); ALBUMIN 4.9 GM/DL (3.2-4.5); ALKALINE PHOSPHATASE 87 U/L (40-136); BILIRUBIN,TOTAL 0.8 MG/DL (0.1-1.0); BUN/CREATININE RATIO 7; CALCIUM 10.7 MG/DL (8.5-10.1); CARBON DIOXIDE 18 MMOL/L (21-32); CHLORIDE 103 MMOL/L (98-107); CREATININE SERUM 0.76 MG/DL (0.60-1.30); GFR ESTIMATED > 60; GLUCOSE 135 MG/DL (70-105); POTASSIUM 3.8 MMOL/L (3.6-5.0); SODIUM 138 MMOL/L (135-145); TOTAL PROTEIN 8.6 GM/DL (6.4-8.2)
[2018-05-25] MEDS ORDERED: PROM25TA14 PO (17:50)
[2018-05-25 17:53] LABS: CLARITY,URINE CLEAR; COLOR,URINE YELLOW; GLUCOSE, URINE (UA) NEGATIVE (NEGATIVE); KETONES,URINE NEGATIVE (NEGATIVE); LEUKOCYTE ESTERASE ,URINE 1+ (NEGATIVE); NITRITE,URINE POSITIVE (NEGATIVE); PH,URINE 6.5 (5-9); PROTEIN,URINE 1+ (NEGATIVE); UROBILINOGEN,URINE 1 MG/DL (NORMAL)
[2018-05-25] MEDS ORDERED: ONDANSETRON 4 MG/2 ML (SDV) Z0FRAN IVP ONE (18:00)
[2018-05-25 18:06] LABS: BACTERIA,URINE FEW /HPF; BILIRUBIN,URINE 2+ (NEGATIVE)
[2018-05-25] MEDS ORDERED: CEFU500T63 PO (18:09)
[2018-05-25] MEDS ORDERED: cefTRIAXone FOR IV USE 1,000 MG in NS (IVPB) 50 ML IV ONE (18:15)
[2018-05-25] MEDS ORDERED: cefTRIAXone 1,000 MG/2.86 ml vial (IM ONLY) IM SCH (18:15)
[2018-05-25] MEDS ORDERED: cefTRIAXone 1 GM/10 ML for IV (ROCEPHIN) ONE (18:19)
[2018-05-25] MEDS ORDERED: LIDOCAINE 1% INJ 20 ML 20 ML VIAL ONE (18:19)
== END 2018-05-25 18:25 | disposition left against medical advice (07) ==
LOC: EDUNIT# 17:00 → ER 17:01
DX: N39.0 Urinary tract infection, site not specified (principal); G43.909 Migraine, unspecified, not intractable, without status migrainosus; F32.9 Major depressive disorder, single episode, unspecified; Z87.19 Personal history of other diseases of the digestive system; Z87.448 Personal history of other diseases of urinary system; Z82.49 Family history of ischemic heart disease and other diseases of the circulatory system; Z88.2 Allergy status to sulfonamides; Z88.5 Allergy status to narcotic agent; Z90.710 Acquired absence of both cervix and uterus; Z77.22 Contact with and (suspected) exposure to environmental tobacco smoke (acute) (chronic); Z90.89 Acquired absence of other organs; Z98.890 Other specified postprocedural states
CPT/HCPCS: 36415; 80053; 81000; 85025; 87077; 87088; 87186

== ENCOUNTER 2018-05-30 16:01 | Emergency (ER) | payer OTHER ==
[~2018-05-30] VITALS: Ht 172.7 cm; Wt 77.1 kg
[~2018-05-30 16:01] MED LIST changes: +CEFU500T63 PO
--- NOTE | 2018-05-30 16:25 | ED Abdominal Pain ---
General Stated Complaint: ABD SWELLING, PAIN AND VOMITING Source of Information: Patient Exam Limitations: No Limitations History of Present Illness Date Seen by Provider: May 30, 2018 Time Seen by Provider: 16:22 Initial Comments To ER per private vehicle with reports of abdominal swelling pain and vomiting. She has a cystic lesion in the right adnexa but has a history of complete hysterectomy so it is unclear what the cystic mass is from. She was supposed to have seen [facility] to have this evaluated on Tuesday. However she states that "they moved the appointment on me". She now states that her appointment is 2 weeks from today. After further conversation she then states that she missed the appointment because her car is broken down. She was seen here on May 25, I discussed that additional opiates were not indicated at this time given the number of opiate prescriptions from various providers that she has seen. She then left without receiving the Rocephin antibiotics but I told her she would need for her bladder infection. She did not receive discharge paperwork. I did send and Ceftin antibiotics and promethazine. She states that "the pharmacy said they didn't go through". She also states that Dr. GODFREY called her in Phenergan yesterday but she has not yet taken any of it. Timing/Duration: 1-2 Days Severity/Quality: Moderate Location: Generalized Abdomen Radiation: No Radiation Associated Symptoms: Nausea/Vomiting Allergies and Home Medications Allergies Coded Allergies: Sulfa (Sulfonamide Antibiotics) (Verified Allergy, Severe, RASH, 11/29/17) morphine (Verified Allergy, Severe, RASH, Pt has had Percocet & Lortab in the past w/o issue, 11/29/17) ketorolac (Verified Allergy, Unknown, 05/25/18) Home Medications Cefuroxime Axetil 500 Mg Tablet, 500 MG PO BID Prescribed by: ERAN CABRAL on 05/25/18 1809 Lisinopril 20 Mg Tablet, 20 MG PO DAILY, (Reported) Oxycodone HCl/Acetaminophen 1 Each Tablet, 1 EACH PO Q4H PRN for PAIN-MODERATE Prescribed by: MARIANO ZABALA on 05/06/18 1359 Oxycodone HCl/Acetaminophen 1 Each Tablet, 1 EACH PO Q4H PRN for PAIN-MODERATE Prescribed by: MARIANO ZABALA on 05/17/18 1342 Pantoprazole Sodium 20 Mg Tablet.dr, 20 MG PO DAILY, (Reported) Promethazine HCl 25 Mg Tablet, 25 MG PO Q6H PRN for NAUSEA/VOMITING Prescribed by: MARIANO ZABALA on 05/17/18 1342 Promethazine HCl 25 Mg Tablet, 25 MG PO Q6H PRN for NAUSEA/VOMITING Prescribed by: ERAN CABRAL on 05/25/18 1750 Ranitidine HCl 150 Mg Tablet, 150 MG PO BID, (Reported) Patient Home Medication List Home Medication List Reviewed: Yes Review of Systems Review of Systems Constitutional: see HPI EENTM: No Symptoms Reported Respiratory: No Symptoms Reported Cardiovascular: No Symptoms Reported Gastrointestinal: See HPI, Abdominal Pain Genitourinary: No Symptoms Reported Musculoskeletal: no symptoms reported Skin: no symptoms reported Psychiatric/Neurological: No Symptoms Reported Endocrine: No Symptoms Reported Past Cucuvfs-Ekjvdm-Uuxcar Hx Patient Social History Alcohol Beverage of Choice: Beer 2nd Hand Smoke Exposure: Yes Recent Foreign Travel: No Contact w/Someone Who Travel: No Recent Hopitalizations: Yes (OVARY SURGERY WITH BOWEL ADHESIONS AND URETER LAC) Immunizations Up To Date Tetanus Booster (TDap): Unknown Date of Influenza Vaccine: Apr 20, 2017 Seasonal Allergies Seasonal Allergies: No Past Medical History Surgeries: Yes Abdominal, Appendectomy, Bladder Surgery, Section, Gallbladder, Hysterectomy, Renal Respiratory: No Currently Using CPAP: No Currently Using BIPAP: No Cardiac: No Neurological: Yes Headaches /Migraines Reproductive Disorders: Yes (CPP) Female Reproductive Disorders: Endometriosis 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 Sexually Transmitted Disease: No HIV/AIDS: No Genitourinary: Yes Kidney Infection, Bladder Infection, Kidney Stones, UTI-Chronic Gastrointestinal: Yes (LIVER LACERATION--NO SURGICAL REPAIR) Chronic Diarrhea Musculoskeletal: Yes (X 2 BACK SURG) Back Injury, Chronic Back Pain Endocrine: No HEENT: No Loss of Vision: Bilateral Hearing Impairment: Denies Cancer: No Psychosocial: Yes Depression Integumentary: No Blood Disorders: No Adverse Reaction/Blood Tranf: No (HAS HAD BLOOD WITH NO REACTION) Family Medical History Arthritis 19 FATHER 19 MOTHER Asthma 19 FATHER Diabetes mellitus 19 MOTHER FH: congestive heart failure 19 MOTHER Hypercholesterolemia 19 MOTHER Hypertension 19 MOTHER Kidney disease 19 MOTHER Cancer, Diabetes, Hypertension, Other Conditions/Hx Physical Exam Vital Signs Vital Signs - First Documented 05/30/18 16:31 Pulse 95 Resp 19 B/P (MAP) 118/100 (106) Pulse Ox 100 O2 Delivery Room Air Capillary Refill : Height/Weight/BMI Height: 5'8.00" Weight: 190lbs. 0.0oz. 86.419334lh; 28.9 BMI Method:Stated General Appearance: WD/WN, no apparent distress HEENT: PERRL/EOMI, normal ENT inspection Respiratory: no respiratory distress, no accessory muscle use Cardiovascular: regular rate, rhythm, no murmur Gastrointestinal: other (aabdomen does not appear distended) Extremities: normal range of motion, non-tender Neurologic/Psychiatric: alert, normal mood/affect, oriented x 3 Skin: normal color, warm/dry Progress/Results/Core Measures Results/Orders Lab Results Laboratory Tests Test 05/30/18 16:31 05/30/18 18:06 Range/Units White Blood Count 5.0 4.3-11.0 10^3/uL Red Blood Count 4.96 4.35-5.85 10^6/uL Hemoglobin 13.2 11.5-16.0 G/DL Hematocrit 39 35-52 % Mean Corpuscular Volume 79 L 80-99 FL Mean Corpuscular Hemoglobin 27 25-34 PG Mean Corpuscular Hemoglobin Concent 34 32-36 G/DL Red Cell Distribution Width 14.1 10.0-14.5 % Platelet Count 345 130-400 10^3/uL Mean Platelet Volume 10.9 H 7.4-10.4 FL Neutrophils (%) (Auto) 64 42-75 % Lymphocytes (%) (Auto) 27 12-44 % Monocytes (%) (Auto) 4 0-12 % Eosinophils (%) (Auto) 3 0-10 % Basophils (%) (Auto) 1 0-10 % Neutrophils # (Auto) 3.2 1.8-7.8 X 10^3 Lymphocytes # (Auto) 1.4 1.0-4.0 X 10^3 Monocytes # (Auto) 0.2 0.0-1.0 X 10^3 Eosinophils # (Auto) 0.2 0.0-0.3 10^3/uL Basophils # (Auto) 0.0 0.0-0.1 10^3/uL Sodium Level 140 135-145 MMOL/L Potassium Level 3.4 L 3.6-5.0 MMOL/L Chloride Level 102 98-107 MMOL/L Carbon Dioxide Level 24 21-32 MMOL/L Anion Gap 14 5-14 MMOL/L Blood Urea Nitrogen 7 7-18 MG/DL Creatinine 0.79 0.60-1.30 MG/DL Estimat Glomerular Filtration Rate > 60 BUN/Creatinine Ratio 9 Glucose Level 108 H 70-105 MG/DL Calcium Level 10.0 8.5-10.1 MG/DL Corrected Calcium 8.5-10.1 MG/DL Total Bilirubin 1.0 0.1-1.0 MG/DL Aspartate Amino Transf (AST/SGOT) 19 5-34 U/L Alanine Aminotransferase (ALT/SGPT) 22 0-55 U/L Alkaline Phosphatase 88 40-136 U/L Total Protein 8.3 H 6.4-8.2 GM/DL Albumin 4.7 H 3.2-4.5 GM/DL Urine Color YELLOW Urine Clarity CLEAR Urine pH 6 5-9 Urine Specific [place] 1.015 L 1.016-1.022 Urine Protein NEGATIVE NEGATIVE Urine Glucose (UA) NEGATIVE NEGATIVE Urine Ketones NEGATIVE NEGATIVE Urine Nitrite NEGATIVE NEGATIVE Urine Bilirubin NEGATIVE NEGATIVE Urine Urobilinogen NORMAL NORMAL MG/DL Urine Leukocyte Esterase 1+ H NEGATIVE Urine RBC (Auto) NEGATIVE NEGATIVE Urine RBC NONE /HPF Urine WBC 5-10 H /HPF Urine Squamous Epithelial Cells 5-10 /HPF Urine Crystals NONE /LPF Urine Bacteria NONE /HPF Urine Casts NONE /LPF Urine Mucus NEGATIVE /LPF Urine Culture Indicated YES My Orders Orders - ERAN CABRAL APRN Cbc With Automated Diff (05/30/18 16:07) Comprehensive Metabolic Panel (05/30/18 16:07) Ua Culture If Indicated (05/30/18 16:07) Us Non Ob Transvaginal [id number] (05/30/18 16:07) Promethazine Injection (Phenergan Injec (05/30/18 16:30) Ns Iv 1000 Ml (Sodium Chloride 0.9%) (05/30/18 16:30) Drug Screen Stat (Urine) (05/30/18 16:20) Ondansetron Injection (Zofran Injectio (05/30/18 17:45) Diphenhydramine Injection (Benadryl Inje (05/30/18 17:45) Urine Culture (05/30/18 18:06) Ceftriaxone For Iv Use (Rocephin For I (05/30/18 18:30) Medications Given in ED Current Medications Medications Dose Ordered Sig/Aleida Route Start Time Stop Time Status Last Admin Dose Admin Diphenhydramine HCl 25 mg ONCE ONCE IVP 05/30/18 17:45 05/30/18 17:46 DC 05/30/18 17:46 25 MG Ondansetron HCl 8 mg ONCE ONCE IVP 05/30/18 17:45 05/30/18 17:46 DC 05/30/18 17:46 8 MG Promethazine HCl 25 mg ONCE ONCE IVP 05/30/18 16:30 05/30/18 16:31 DC 05/30/18 16:52 25 MG Vital Signs/I&O 05/30/18 16:31 Pulse 95 Resp 19 B/P (MAP) 118/100 (106) Pulse Ox 100 O2 Delivery Room Air Diagnostic Imaging Diagonstic Imaging: Ultrasound Comments NAME: ANNALEE [facility]AVARRIA [facility] REC#: [id number] PT STATUS: REG ER : 1980 PHYSICIAN: ERAN CABRAL APRN ADMIT DATE: 05/30/18/ER Draft Date of Exam:05/30/18 US NON OB TRANSVAGINAL [id number] INDICATION: Right adnexal cyst as well as pelvic pain and bloating. COMPARISON: Correlation is made with CT study from 05/06/2018. FINDINGS: Uterus and ovaries are surgically absent. There is a cyst in the right adnexa measuring 3.2 x 4.2 x 3.6 cm. This has decreased somewhat when compared with prior ultrasound from 04/21/2018. There is an internal septation present. No free fluid is seen. IMPRESSION: There has been slight decrease in size of the cystic mass in the right adnexa when compared with prior ultrasound from 04/21/2018. Dictated on workstation # [id number] Dict: 05/30/181709 Trans: 05/30/181717 [id number] Interpreted by: LAUREEN AMANDA MD Electronically signed by: Departure Communication (Admissions) She statse that her physicians phone number is [phone] , she does not know the name of the person she'll be seeing. Impression Primary Impression: Nausea and vomiting Qualified Codes: R11.2 - Nausea with vomiting, unspecified Additional Impression: Urinary tract infection Qualified Codes: N30.00 - Acute cystitis without hematuria Disposition: 01 HOME, SELF-CARE Condition: Stable Departure-Patient Inst. Decision time for Depature: 16:39 Referrals: [facility] (PCP/Family) Primary Care Physician Patient Instructions: Acute Abdomen (Belly Pain), Adult (DC) Add. Discharge Instructions: 1. Use the Phenergan as needed for nausea control. If you cannot take the pill, then use the Phenergan suppository. Scripts Promethazine HCl (Phenergan) 25 Mg Supp.rect 25 MG RC Q6H PRN for NAUSEA/VOMITING, #14 SUPP.RECT Prov: ERAN CABRAL BODY SANDER 05/30/18 ERAN CABRAL BODY SANDER May 30, 2018 16:25
[2018-05-30] MEDS ORDERED: NS IV 1000 ML 1,000 ML IV SCH (16:30)
[2018-05-30] MEDS ORDERED: PROMETHAZINE INJ 25 MG/ML (PHENERGAN) AMP IVP ONE (16:30)
[2018-05-30 16:43] LABS: BASOPHILS % (AUTO) 1 % (0-10); EOSINOPHILS # (AUTO) 0.2 10^3/uL (0.0-0.3); EOSINOPHILS % (AUTO) 3 % (0-10); HEMATOCRIT 39 % (35-52); HEMOGLOBIN 13.2 G/DL (11.5-16.0); LYMPHOCYTES # (AUTO) 1.4 X 10^3 (1.0-4.0); LYMPHOCYTES % (AUTO) 27 % (12-44); MEAN CORPUSCULAR HEMOGLOBIN 27 PG (25-34); MEAN CORPUSCULAR HGB CONC 34 G/DL (32-36); MEAN CORPUSCULAR VOLUME 79 FL (80-99); MEAN PLATELET VOLUME 10.9 FL (7.4-10.4); MONOCYTES # (AUTO) 0.2 X 10^3 (0.0-1.0); MONOCYTES % (AUTO) 4 % (0-12); NEUTROPHILS # (AUTO) 3.2 X 10^3 (1.8-7.8); NEUTROPHILS % (AUTO) 64 % (42-75); PLATELET COUNT 345 10^3/uL (130-400); RED BLOOD COUNT 4.96 10^6/uL (4.35-5.85); RED CELL DISTRIBUTION WIDTH 14.1 % (10.0-14.5)
--- OUTSIDE RECORDS SUMMARY | 2018-05-30 16:44 | XMS REPORT | Continuity of Care Document ---
Author Author [facility] Address Unknown Phone Unavailable Allergies Active Description [...] Procedures Code [place] [address] UA W/ CULTURE IF INDICATED 12/12/2013 [id number] OXIMETRY 08/28/2014 Results There is no data. Encounters ACCT No. Visit Date/Time Discharge Status Pt. Type Provider Facility Loc./Unit Complaint [id number] 08/28/2014 12:45:00 08/28/2014 23:59:59 CLS Outpatient DOV HAILE APRN [id number] 12/12/2013 10:19:00 12/12/2013 23:59:59 CLS Outpatient BRIAN JACOBS DO
[2018-05-30 17:05] LABS: ALANINE AMINOTRANSFERASE 22 U/L (0-55); ALBUMIN 4.7 GM/DL (3.2-4.5); ALKALINE PHOSPHATASE 88 U/L (40-136); BUN/CREATININE RATIO 9; CARBON DIOXIDE 24 MMOL/L (21-32); CHLORIDE 102 MMOL/L (98-107); CREATININE SERUM 0.79 MG/DL (0.60-1.30); GFR ESTIMATED > 60; GLUCOSE 108 MG/DL (70-105); POTASSIUM 3.4 MMOL/L (3.6-5.0); SODIUM 140 MMOL/L (135-145); TOTAL PROTEIN 8.3 GM/DL (6.4-8.2)
--- NOTE | 2018-05-30 17:19 | Diagnostic Imaging Report ---
INDICATION: Right adnexal cyst as well as pelvic pain and bloating. COMPARISON: Correlation is made with CT study from 05/06/2018. FINDINGS: Uterus and ovaries are surgically absent. There is a cyst in the right adnexa measuring 3.2 x 4.2 x 3.6 cm. This has decreased somewhat when compared with prior ultrasound from 04/21/2018. There is an internal septation present. No free fluid is seen. IMPRESSION: There has been slight decrease in size of the cystic mass in the right adnexa when compared with prior ultrasound from 04/21/2018. Dictated by: Dictated on workstation # [id number]
[2018-05-30] MEDS ORDERED: diphenhydrAMINE 50 MG/ML INJ (BENADRYL) IVP ONE (17:45)
[2018-05-30] MEDS ORDERED: ONDANSETRON 4 MG/2 ML (SDV) Z0FRAN IVP ONE (17:45)
[2018-05-30 18:11] LABS: BILIRUBIN,URINE NEGATIVE (NEGATIVE); CLARITY,URINE CLEAR; COLOR,URINE YELLOW; GLUCOSE, URINE (UA) NEGATIVE (NEGATIVE); KETONES,URINE NEGATIVE (NEGATIVE); LEUKOCYTE ESTERASE ,URINE 1+ (NEGATIVE); NITRITE,URINE NEGATIVE (NEGATIVE); PH,URINE 6 (5-9); PROTEIN,URINE NEGATIVE (NEGATIVE); UROBILINOGEN,URINE NORMAL (NORMAL)
[2018-05-30 18:23] LABS: AMPHETAMINE SCREEN, URINE NEGATIVE (NEGATIVE); BARBITURATE SCREEN URINE NEGATIVE (NEGATIVE); BENZODIAZEPINES SCREEN URINE NEGATIVE (NEGATIVE); CANNABINOID SCREEN, URINE POSITIVE (NEGATIVE); COCAINE SCREEN URINE NEGATIVE (NEGATIVE); METHADONE STAT NEGATIVE (NEGATIVE); METHAMPHETAMINE SCREEN URINE S NEGATIVE (NEGATIVE); OPIATE SCREEN URINE POSITIVE (NEGATIVE); OXYCODONE STAT POSITIVE (NEGATIVE); PROPOXYPHENE STAT NEGATIVE (NEGATIVE); TRICYCLIC ANTIDEPRESSANTS SCRE NEGATIVE (NEGATIVE)
[2018-05-30] MEDS ORDERED: PROM25SU43 RC (18:25)
[2018-05-30] MEDS ORDERED: cefTRIAXone FOR IV USE 1,000 MG in NS (IVPB) 50 ML IV ONE (18:30)
[2018-05-30 18:56] VITALS: BP 110/88
== END 2018-05-30 18:56 | disposition home or self-care (01) ==
LOC: EDUNIT# 16:01 → ER 16:03
DX: N39.0 Urinary tract infection, site not specified (principal); G43.909 Migraine, unspecified, not intractable, without status migrainosus; F32.9 Major depressive disorder, single episode, unspecified; Z82.49 Family history of ischemic heart disease and other diseases of the circulatory system; Z87.19 Personal history of other diseases of the digestive system; Z87.448 Personal history of other diseases of urinary system; Z90.710 Acquired absence of both cervix and uterus; Z88.2 Allergy status to sulfonamides; Z88.5 Allergy status to narcotic agent; Z88.4 Allergy status to anesthetic agent; Z77.22 Contact with and (suspected) exposure to environmental tobacco smoke (acute) (chronic); Z90.89 Acquired absence of other organs; Z98.890 Other specified postprocedural states
CPT/HCPCS: 36415; 76830; 80053; 80306; 81000; 85025; 87088; 96361; 96365; 96375

== ENCOUNTER 2018-06-16 11:40 | Emergency (ER) | payer OTHER ==
[~2018-06-16] VITALS: Ht 172.7 cm; Wt 86.2 kg
--- OUTSIDE RECORDS SUMMARY | 2018-06-16 11:44 | XMS REPORT | Continuity of Care Document ---
Author Author [facility] Address Unknown Phone Unavailable Allergies Active [...] Procedures Code Description [place] [address] UA W/ CULTURE IF INDICATED 12/12/2013 18467 OXIMETRY 08/28/2014 Results There is no data. Encounters ACCT No. Visit Date/Time Discharge Status Pt. Type Provider Facility Loc./Unit Complaint [id number] 08/28/2014 12:45:00 08/28/2014 23:59:59 CLS Outpatient DOV HAILE APRN [id number] 12/12/2013 10:19:00 12/12/2013 23:59:59 CLS Outpatient BRIAN JACOBS DO
[2018-06-16] MEDS ORDERED: ONDANSETRON 4 MG/2 ML (SDV) Z0FRAN IVP ONE (12:15)
[2018-06-16] MEDS ORDERED: NS IV 1000 ML 1,000 ML IV SCH (12:15)
[2018-06-16 12:19] LABS: BASOPHILS % (AUTO) 1 % (0-10); EOSINOPHILS # (AUTO) 0.1 10^3/uL (0.0-0.3); EOSINOPHILS % (AUTO) 3 % (0-10); HEMATOCRIT 36 % (35-52); HEMOGLOBIN 12.5 G/DL (11.5-16.0); LYMPHOCYTES % (AUTO) 53 % (12-44); MEAN CORPUSCULAR HEMOGLOBIN 27 PG (25-34); MEAN CORPUSCULAR HGB CONC 35 G/DL (32-36); MEAN CORPUSCULAR VOLUME 78 FL (80-99); MEAN PLATELET VOLUME 10.5 FL (7.4-10.4); MONOCYTES # (AUTO) 0.3 X 10^3 (0.0-1.0); MONOCYTES % (AUTO) 8 % (0-12); NEUTROPHILS # (AUTO) 1.4 X 10^3 (1.8-7.8); NEUTROPHILS % (AUTO) 36 % (42-75); PLATELET COUNT 333 10^3/uL (130-400); RED BLOOD COUNT 4.63 10^6/uL (4.35-5.85); RED CELL DISTRIBUTION WIDTH 14.8 % (10.0-14.5); WHITE BLOOD COUNT 3.9 10^3/uL (4.3-11.0)
[2018-06-16 12:31] LABS: ALANINE AMINOTRANSFERASE 45 U/L (0-55); ALBUMIN 4.5 GM/DL (3.2-4.5); ALKALINE PHOSPHATASE 80 U/L (40-136); AMYLASE 42 U/L (25-125); BILIRUBIN,TOTAL 0.6 MG/DL (0.1-1.0); BUN/CREATININE RATIO 10; CALCIUM 9.7 MG/DL (8.5-10.1); CARBON DIOXIDE 21 MMOL/L (21-32); CHLORIDE 107 MMOL/L (98-107); CREATININE SERUM 0.73 MG/DL (0.60-1.30); GFR ESTIMATED > 60; GLUCOSE 100 MG/DL (70-105); LIPASE 31 U/L (8-78); POTASSIUM 3.1 MMOL/L (3.6-5.0); SODIUM 142 MMOL/L (135-145)
[2018-06-16 12:37] LABS: BILIRUBIN,URINE NEGATIVE (NEGATIVE); CLARITY,URINE CLEAR; COLOR,URINE YELLOW; GLUCOSE, URINE (UA) NEGATIVE (NEGATIVE); KETONES,URINE NEGATIVE (NEGATIVE); LEUKOCYTE ESTERASE ,URINE NEGATIVE (NEGATIVE); NITRITE,URINE NEGATIVE (NEGATIVE); PH,URINE 6.5 (5-9); PROTEIN,URINE NEGATIVE (NEGATIVE); UROBILINOGEN,URINE NORMAL (NORMAL)
[2018-06-16 12:44] LABS: BACTERIA,URINE NEGATIVE /HPF; SQUAMOUS EPITHELIAL CELL,UR 0-2 /HPF
[2018-06-16 12:50] LABS: AMPHETAMINE SCREEN, URINE NEGATIVE (NEGATIVE); BARBITURATE SCREEN URINE NEGATIVE (NEGATIVE); BENZODIAZEPINES SCREEN URINE NEGATIVE (NEGATIVE); CANNABINOID SCREEN, URINE NEGATIVE (NEGATIVE); COCAINE SCREEN URINE NEGATIVE (NEGATIVE); METHADONE STAT NEGATIVE (NEGATIVE); METHAMPHETAMINE SCREEN URINE S NEGATIVE (NEGATIVE); OPIATE SCREEN URINE NEGATIVE (NEGATIVE); OXYCODONE STAT NEGATIVE (NEGATIVE); PROPOXYPHENE STAT NEGATIVE (NEGATIVE); TRICYCLIC ANTIDEPRESSANTS SCRE NEGATIVE (NEGATIVE)
[2018-06-16] MEDS ORDERED: PROMETHAZINE INJ 25 MG/ML (PHENERGAN) AMP IVP ONE (13:00)
[2018-06-16] MEDS ORDERED: fentaNYL INJECTION 100 MCG/2 ML AMP IVP ONE (13:15)
--- NOTE | 2018-06-16 13:20 | ED Abdominal Pain ---
General Chief Complaint: Abdominal/GI Problems Stated Complaint: ABD PAIN;N/V;FEVER Nursing Triage Note: PT AMB TO ROOM #9 W/O DIFFICULTY. A&O4. C/O LOWER RT SIDE ABD PAIN THAT RADIATES TO LT SIDE. PT REPORTS SHE HAS A MASS IN HER RT LOWER ABD IS DUE TO SEE A CANCER SURGEON @ [facility] TO HAVE REMOVED. PT REPORTS THE RADIATING PAIN IS NEW. REPORTS FEVER AND N/V SINCE 06/14/18. REPORTS WEIGHT LOSS OF 8 LBS IN X1 WK. Sepsis Screen: Possible Sepsis Risk Source of Information: Patient Exam Limitations: No Limitations History of Present Illness Date Seen by Provider: Jun 16, 2018 Time Seen by Provider: 12:00 Initial Comments Patient is a 38-year-old female who presents to the emergency room with complaints of right lower quadrant abdominal pain that radiates to the middle of her abdomen. She has a right lower quadrant adnexal mass that she is planning to see Tuesday for consultation. She had several appointment scheduled has had to cancel due to weather/vehicle troubles. She also reports cold sweats, nausea and vomiting. She is unsure if she's been running a fever. She takes tramadol 50 mg for pain and her last dose was this morning. She sees Dr. Gamboa for this issue. She reports trying to make an appointment has office but was unable to give him an appointment. Timing/Duration: Other (chronic) Severity/Quality: Throbbing Location: RLQ Radiation: Periumbilical Associated Symptoms: Nausea/Vomiting Allergies and Home Medications Allergies Coded Allergies: Sulfa (Sulfonamide Antibiotics) (Verified Allergy, Severe, RASH, 11/29/17) morphine (Verified Allergy, Severe, RASH, Pt has had Percocet & Lortab in the past w/o issue, 11/29/17) ketorolac (Verified Allergy, Unknown, 05/25/18) Home Medications Cefuroxime Axetil 500 Mg Tablet, 500 MG PO BID Prescribed by: ERAN CABRAL on 05/25/18 1809 Lisinopril 20 Mg Tablet, 20 MG PO DAILY, (Reported) Ondansetron HCl 4 Mg Tab, 4 MG PO Q4H PRN for NAUSEA/VOMITING Prescribed by: MARIANO ZABALA on 06/16/18 1344 Oxycodone HCl/Acetaminophen 1 Each Tablet, 1 EACH PO Q4H PRN for PAIN-MODERATE Prescribed by: MARIANO ZABALA on 05/06/18 1359 Oxycodone HCl/Acetaminophen 1 Each Tablet, 1 EACH PO Q4H PRN for PAIN-MODERATE Prescribed by: MARIANO ZABALA on 05/17/18 1342 Pantoprazole Sodium 20 Mg Tablet.dr, 20 MG PO DAILY, (Reported) Promethazine HCl 25 Mg Tablet, 25 MG PO Q6H PRN for NAUSEA/VOMITING Prescribed by: MARIANO ZABALA on 05/17/18 1342 Promethazine HCl 25 Mg Tablet, 25 MG PO Q6H PRN for NAUSEA/VOMITING Prescribed by: ERAN CABRAL on 05/25/18 1750 Promethazine HCl 25 Mg Supp.rect, 25 MG RC Q6H PRN for NAUSEA/VOMITING Prescribed by: ERAN CABRAL on 05/30/18 1825 Ranitidine HCl 150 Mg Tablet, 150 MG PO BID, (Reported) Patient Home Medication List Home Medication List Reviewed: Yes Review of Systems Review of Systems Constitutional: see HPI, chills Gastrointestinal: See HPI, Abdominal Pain, Nausea, Vomiting All Other Systems Reviewed Negative Unless Noted: Yes Past Wistetq-Szyjxo-Fivvqd Hx Past Med/Social Hx: Reviewed Nursing Past Med/Soc Hx Patient Social History Alcohol Beverage of Choice: Beer 2nd Hand Smoke Exposure: Yes Recent Foreign Travel: No Contact w/Someone Who Travel: No Recent Infectious Disease Expo: No Recent Hopitalizations: Yes (OVARY SURGERY WITH BOWEL ADHESIONS AND URETER LAC) Immunizations Up To Date Tetanus Booster (TDap): Unknown Date of Influenza Vaccine: Apr 20, 2017 Seasonal Allergies Seasonal Allergies: No Past Medical History Surgeries: Yes Abdominal, Appendectomy, Bladder Surgery, Section, Gallbladder, Hysterectomy, Renal Respiratory: No Currently Using CPAP: No Currently Using BIPAP: No Cardiac: No Neurological: Yes Headaches /Migraines Reproductive Disorders: Yes (CPP) Female Reproductive Disorders: Endometriosis 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 Sexually Transmitted Disease: No HIV/AIDS: No Genitourinary: Yes Kidney Infection, Bladder Infection, Kidney Stones, UTI-Chronic Gastrointestinal: Yes (LIVER LACERATION--NO SURGICAL REPAIR) Chronic Diarrhea Musculoskeletal: Yes (X 2 BACK SURG) Back Injury, Chronic Back Pain Endocrine: No HEENT: No Loss of Vision: Bilateral Hearing Impairment: Denies Cancer: No Psychosocial: Yes Depression Integumentary: No Blood Disorders: No Adverse Reaction/Blood Tranf: No (HAS HAD BLOOD WITH NO REACTION) Family Medical History Reviewed Nursing Family Hx Arthritis 19 FATHER 19 MOTHER Asthma 19 FATHER Diabetes mellitus 19 MOTHER FH: congestive heart failure 19 MOTHER Hypercholesterolemia 19 MOTHER Hypertension 19 MOTHER Kidney disease 19 MOTHER Cancer, Diabetes, Hypertension, Other Conditions/Hx Physical Exam Vital Signs Vital Signs - First Documented 06/16/18 11:48 Temp 97.8 Pulse 98 Resp 18 B/P (MAP) 132/117 (122) Pulse Ox 100 O2 Delivery Room Air Capillary Refill : Less Than 3 Seconds Height/Weight/BMI Height: 5'8.00" Weight: 190lbs. 0.0oz. 86.270410ru; 28.9 BMI Method:Stated General Appearance: WD/WN, no apparent distress Gastrointestinal: normal bowel sounds, soft, no organomegaly, no pulsatile mass , tenderness (RLQ), other (she is vomining up green colored bile in exam room) Extremities: normal capillary refill Neurologic/Psychiatric: alert, normal mood/affect, oriented x 3 Skin: normal color, warm/dry Progress/Results/Core Measures Results/Orders Lab Results Laboratory Tests Test 06/16/18 12:00 06/16/18 12:30 Range/Units White Blood Count 3.9 L 4.3-11.0 10^3/uL Red Blood Count 4.63 4.35-5.85 10^6/uL Hemoglobin 12.5 11.5-16.0 G/DL Hematocrit 36 35-52 % Mean Corpuscular Volume 78 L 80-99 FL Mean Corpuscular Hemoglobin 27 25-34 PG Mean Corpuscular Hemoglobin Concent 35 32-36 G/DL Red Cell Distribution Width 14.8 H 10.0-14.5 % Platelet Count 333 130-400 10^3/uL Mean Platelet Volume 10.5 H 7.4-10.4 FL Neutrophils (%) (Auto) 36 L 42-75 % Lymphocytes (%) (Auto) 53 H 12-44 % Monocytes (%) (Auto) 8 0-12 % Eosinophils (%) (Auto) 3 0-10 % Basophils (%) (Auto) 1 0-10 % Neutrophils # (Auto) 1.4 L 1.8-7.8 X 10^3 Lymphocytes # (Auto) 2.0 1.0-4.0 X 10^3 Monocytes # (Auto) 0.3 0.0-1.0 X 10^3 Eosinophils # (Auto) 0.1 0.0-0.3 10^3/uL Basophils # (Auto) 0.0 0.0-0.1 10^3/uL Sodium Level 142 135-145 MMOL/L Potassium Level 3.1 L 3.6-5.0 MMOL/L Chloride Level 107 98-107 MMOL/L Carbon Dioxide Level 21 21-32 MMOL/L Anion Gap 14 5-14 MMOL/L Blood Urea Nitrogen 7 7-18 MG/DL Creatinine 0.73 0.60-1.30 MG/DL Estimat Glomerular Filtration Rate > 60 BUN/Creatinine Ratio 10 Glucose Level 100 70-105 MG/DL Calcium Level 9.7 8.5-10.1 MG/DL Corrected Calcium 9.3 8.5-10.1 MG/DL Total Bilirubin 0.6 0.1-1.0 MG/DL Aspartate Amino Transf (AST/SGOT) 40 H 5-34 U/L Alanine Aminotransferase (ALT/SGPT) 45 0-55 U/L Alkaline Phosphatase 80 40-136 U/L Total Protein 8.0 6.4-8.2 GM/DL Albumin 4.5 3.2-4.5 GM/DL Amylase Level 42 25-125 U/L Lipase 31 8-78 U/L Urine Color YELLOW Urine Clarity CLEAR Urine pH 6.5 5-9 Urine Specific [place] 1.010 L 1.016-1.022 Urine Protein NEGATIVE NEGATIVE Urine Glucose (UA) NEGATIVE NEGATIVE Urine Ketones NEGATIVE NEGATIVE Urine Nitrite NEGATIVE NEGATIVE Urine Bilirubin NEGATIVE NEGATIVE Urine Urobilinogen NORMAL NORMAL MG/DL Urine Leukocyte Esterase NEGATIVE NEGATIVE Urine RBC (Auto) NEGATIVE NEGATIVE Urine RBC NONE /HPF Urine WBC NONE /HPF Urine Squamous Epithelial Cells 0-2 /HPF Urine Crystals NONE /LPF Urine Bacteria NEGATIVE /HPF Urine Casts NONE /LPF Urine Mucus NEGATIVE /LPF Urine Culture Indicated NO Urine Opiates Screen NEGATIVE NEGATIVE Urine Oxycodone Screen NEGATIVE NEGATIVE Urine Methadone Screen NEGATIVE NEGATIVE Urine Propoxyphene Screen NEGATIVE NEGATIVE Urine Barbiturates Screen NEGATIVE NEGATIVE Ur Tricyclic Antidepressants Screen NEGATIVE NEGATIVE Urine Phencyclidine Screen NEGATIVE NEGATIVE Urine Amphetamines Screen NEGATIVE NEGATIVE Urine Methamphetamines Screen NEGATIVE NEGATIVE Urine Benzodiazepines Screen NEGATIVE NEGATIVE Urine Cocaine Screen NEGATIVE NEGATIVE Urine Cannabinoids Screen NEGATIVE NEGATIVE My Orders Orders - BERNOT,MARIANO Ua Culture If Indicated (06/16/18 11:56) Comprehensive Metabolic Panel (06/16/18 12:10) Lipase (06/16/18 12:10) Amylase (06/16/18 12:10) Saline Lock/Iv-Start (06/16/18 12:10) Cbc With Automated Diff (06/16/18 12:10) Drug Screen Stat (Urine) (06/16/18 12:12) Ns Iv 1000 Ml (Sodium Chloride 0.9%) (06/16/18 12:15) Ondansetron Injection (Zofran Injectio (06/16/18 12:15) Promethazine Injection (Phenergan Injec (06/16/18 13:00) Fentanyl Injection (Sublimaze Injection (06/16/18 13:15) Oxycodone/Apap 5/325mg Tablet (Percocet (06/16/18 14:00) Medications Given in ED Vital Signs/I&O 06/16/18 06/16/18 11:48 14:12 Temp 97.8 97.8 Pulse 98 90 Resp 18 18 B/P (MAP) 132/117 (122) 128/94 (105) Pulse Ox 100 100 O2 Delivery Room Air Room Air Blood Pressure Mean: 122 Progress Progress Note : Time: 13:45 Progress Note Patient's nausea and vomiting have improved. Her pain has improved with fentanyl. She agrees with plan of care, plans for discharge, follow up with JO ANN on Tuesday. Voices no questions or concerns. Departure Impression Primary Impression: Nausea and vomiting Additional Impression: Right lower quadrant pain Disposition: 01 HOME, SELF-CARE Condition: Stable/Unchanged Departure-Patient Inst. Decision time for Depature: 13:42 Referrals: [facility] [place] Primary Care Physician Patient Instructions: CHRONIC PAIN, Nausea and Vomiting, Adult Add. Discharge Instructions: Resume your home medications as previously prescribed. Use the Zofran in addition to your Phenergan for nausea and vomiting. Keep your appointment as scheduled with JO ANN on Tuesday. Follow-up through primary care provider as needed. Return back to the emergency room for any worsening symptoms or concerns as needed. All discharge instructions reviewed with patient and/or family. Voiced understanding. Scripts Ondansetron HCl (Zofran) 4 Mg Tab 4 MG PO Q4H PRN for NAUSEA/VOMITING, #20 TAB Prov: MARIANO ZABALA 06/16/18 MARIANO ZABALA Jun 16, 2018 13:20
[2018-06-16] MEDS ORDERED: ONDN4T PO (13:44)
[2018-06-16] MEDS ORDERED: oxyCODONE/APAP 5/325MG (PERCOCET 5) TABLET PO ONE (14:00)
[2018-06-16 14:12] VITALS: BP 128/94
== END 2018-06-16 14:12 | disposition home or self-care (01) ==
LOC: EDUNIT# 11:40 → ER 11:41
DX: R10.31 Right lower quadrant pain (principal); R11.2 Nausea with vomiting, unspecified; G43.909 Migraine, unspecified, not intractable, without status migrainosus; F32.9 Major depressive disorder, single episode, unspecified; Z87.19 Personal history of other diseases of the digestive system; Z87.442 Personal history of urinary calculi; Z82.49 Family history of ischemic heart disease and other diseases of the circulatory system; Z87.448 Personal history of other diseases of urinary system; Z88.2 Allergy status to sulfonamides; Z88.5 Allergy status to narcotic agent; Z88.4 Allergy status to anesthetic agent; Z98.890 Other specified postprocedural states; Z90.49 Acquired absence of other specified parts of digestive tract; Z90.710 Acquired absence of both cervix and uterus
CPT/HCPCS: 36415; 80053; 80306; 81000; 82150; 83690; 85025; 96361; 96374; 96375

== ENCOUNTER → 2020-03-10 | Outpatient (CLI) | payer OTHER ==
[~2020-03-10] MED LIST changes: +ACHD5005; +HYDR-34; -HYDR-3812; -HYDR-3816; -HYDR-3816 PO; -ONDA8TAB12 PO; +ONDA8TAB15 PO; +RANI-613 PO; -RANI150T46 PO; -TRAM50TA2; +TRM50T
== END ==
LOC: LABNPT 06:01
PROVIDERS: ATTEND Surgery
DX: Z20.828 Contact with and (suspected) exposure to other viral communicable diseases (principal)

== ENCOUNTER → 2021-01-21 | Outpatient (CLI) | payer OTHER ==
[~2021-01-21] MED LIST changes: +CIPR500T5 PO; -LISI-552; +LISI20TA26; -OXYC-464 PO; -OXYC-471 PO; +OXYC1TAB11 PO; +OXYC1TAB15 PO; -PANT40TA3 PO; +PANT40TA52 PO
[2021-01-21 14:54] LABS: BASOPHILS # (AUTO) 0.1 10^3/uL (0.0-0.1); BASOPHILS % (AUTO) 1 % (0-10); EOSINOPHILS # (AUTO) 0.5 10^3/uL (0.0-0.3); EOSINOPHILS % (AUTO) 7 % (0-10); HEMATOCRIT 36 % (35-52); HEMOGLOBIN 11.9 g/dL (11.5-16.0); LYMPHOCYTES # (AUTO) 1.9 10^3/uL (1.0-4.0); LYMPHOCYTES % (AUTO) 29 % (12-44); MEAN CORPUSCULAR HEMOGLOBIN 28 pg (25-34); MEAN CORPUSCULAR HGB CONC 33 g/dL (32-36); MEAN CORPUSCULAR VOLUME 84 fL (80-99); MEAN PLATELET VOLUME 11.2 fL (9.0-12.2); MONOCYTES # (AUTO) 0.3 10^3/uL (0.0-1.0); MONOCYTES % (AUTO) 5 % (0-12); NEUTROPHILS # (AUTO) 3.6 10^3/uL (1.8-7.8); NEUTROPHILS % (AUTO) 57 % (42-75); PLATELET COUNT 280 10^3/uL (130-400); WHITE BLOOD COUNT 6.3 10^3/uL (4.3-11.0)
[2021-01-21 15:07] LABS: ALBUMIN 4.2 GM/DL (3.2-4.5); CHLORIDE 110 MMOL/L (98-107); POTASSIUM 3.4 MMOL/L (3.6-5.0); SODIUM 142 MMOL/L (135-145)
[2021-01-21 15:08] LABS: CALCIUM 9.1 MG/DL (8.5-10.1)
[2021-01-21 15:09] LABS: GLUCOSE 133 MG/DL (70-105)
[2021-01-21 15:10] LABS: TOTAL PROTEIN 7.1 GM/DL (6.4-8.2)
[2021-01-21 15:11] LABS: CARBON DIOXIDE 21 MMOL/L (21-32)
[2021-01-21 15:12] LABS: BILIRUBIN,TOTAL 0.4 MG/DL (0.1-1.0)
[2021-01-21 15:13] LABS: ALKALINE PHOSPHATASE 71 U/L (40-136); CREATININE SERUM 0.75 MG/DL (0.60-1.30); GFR ESTIMATED > 60
[2021-01-21 15:14] LABS: BUN/CREATININE RATIO 11
[2021-01-21 15:16] LABS: ALANINE AMINOTRANSFERASE 20 U/L (0-55)
== END ==
LOC: LAB 14:22
DX: R23.3 Spontaneous ecchymoses (principal)
CPT/HCPCS: 36415; 80053; 82607; 82728; 82746; 83540; 83550; 85025

== ENCOUNTER → 2021-05-14 | Outpatient (CLI) | payer OTHER ==
[~2021-05-14] MED LIST changes: -DOXY100C2 PO; +DOXY100C5 PO
--- NOTE | 2021-05-14 12:51 | Diagnostic Imaging Report ---
EXAMINATION: US Abdomen complete. TECHNIQUE: Multiple real-time grayscale images were obtained over the right upper quadrant in various projections. HISTORY: Right upper quadrant pain. COMPARISON: 10/29/2014. FINDINGS: The liver is normal in size. The liver is increased in echogenicity. No focal lesions are seen. The portal vein is patent with hepatopedal flow. The gallbladder is surgically absent. Sonographic Ching sign is negative. Common duct measures 6 mm. There is no biliary ductal dilation. The visualized portions of the pancreas are normal. The right kidney is normal without hydronephrosis. The left kidney is normal without hydronephrosis. The aorta and inferior vena cava are normal. The spleen is normal. No ascites is seen. IMPRESSION: 1. Steatotic liver and absent gallbladder, otherwise unremarkable exam. Dictated by: Dictated on workstation # [id number]
== END ==
LOC: RAD 09:45
PROVIDERS: ATTEND Nurse Practitioner Family
DX: K76.0 Fatty (change of) liver, not elsewhere classified (principal); Z90.49 Acquired absence of other specified parts of digestive tract
CPT/HCPCS: 76700

== ENCOUNTER → 2021-05-19 | Outpatient (CLI) | payer OTHER | LOC: CARD 13:00 | PROVIDERS: ATTEND Nurse Practitioner Family | DX: I51.7 Cardiomegaly (principal); Z86.16 Personal history of COVID-19 | CPT/HCPCS: 93306 ==

== ENCOUNTER 2021-06-02 15:47 | Day surgery (SDC) | payer OTHER ==
[~2021-06-02] VITALS: Ht 172.7 cm; Wt 81.2 kg
[~2021-06-02 15:47] MED LIST changes: +CYCL10TA25 PO; +ONDA-106 PO; -ONDA8TAB15 PO
--- NOTE | 2021-06-02 16:42 | ED Chest Pain ---
General Chief Complaint: Chest Pain Stated Complaint: SOB, CHEST PRESSURE Nursing Triage Note: PT C/O CHEST PAIN, CHEST PRESSURE, SOB, AND FATIGUE X1 WEEK THAT HAS WORSENED THE LAST 2 DAYS. Source: patient Exam Limitations: no limitations (YUSUF CRUZ) History of Present Illness Date Seen by Provider: Jun 02, 2021 Time Seen by Provider: 16:00 Initial Comments Patient is a 41-year-old female presents ED with chest pressure over the past 1 to 2 weeks. Pain appears to be intermittent but has become constant over the past few days. Associated shortness of breath worse with ambulation. Intermittent lightheadedness she states she was diagnosed with Covid 1 year ago. She states she had a recent echocardiogram that showed few abnormalities. Not currently on any diuretic. History of hypertension and takes clonidine as needed. No history of diabetes, high cholesterol, smoking or known family cardiac history. Patient denies any wheezing, history of COPD. Unclear etiology of this shortness of breath and chest tightness. Denies any vomiting. Chronic nausea. Denies fever, chills, leg swelling, abdominal pain, dysuria, hematuria (YUSUF CRUZ) Allergies and Home Medications Allergies Coded Allergies: Sulfa (Sulfonamide Antibiotics) (Verified Allergy, Severe, RASH, 11/29/17) morphine (Verified Allergy, Severe, RASH, Pt has had Percocet & Lortab in the past w/o issue, 11/29/17) ketorolac (Verified Allergy, Unknown, 05/25/18) Patient Home Medication List Home Medication List Reviewed: Yes (YUSUF CRUZ) Cefuroxime Axetil (Cefuroxime) 500 Mg Tablet, 500 MG PO BID Prescribed by: ERAN CABARL on 05/25/18 1809 Lisinopril (Lisinopril) 20 Mg Tablet, (Reported) Entered as Reported by: KELSY MELO on 05/06/18 1214 Ondansetron HCl (Zofran) 4 Mg Tab, 4 MG PO Q4H PRN for NAUSEA/VOMITING Prescribed by: MARIANO ZABALA on 06/16/18 1344 Oxycodone HCl/Acetaminophen (Oxycodone-Acetaminophen 5-325) 1 Each Tablet, 1 EACH PO Q4H PRN for PAIN-MODERATE Prescribed by: MARIANO ZABALA on 05/06/18 1359 Oxycodone HCl/Acetaminophen (Endocet 5-325 Tablet) 1 Each Tablet, 1 EACH PO Q4H PRN for PAIN-MODERATE Prescribed by: MARIANO ZABALA on 05/17/18 1342 Pantoprazole Sodium (Protonix) 20 Mg Tablet.dr, 20 MG PO DAILY, (Reported) Entered as Reported by: KELSY MELO on 05/06/18 1216 Promethazine HCl (Promethazine Tablet) 25 Mg Tablet, 25 MG PO Q6H PRN for NAUSEA/VOMITING Prescribed by: MARIANO ZABALA on 05/17/18 1342 Promethazine HCl (Promethazine Tablet) 25 Mg Tablet, 25 MG PO Q6H PRN for NAUSEA/VOMITING Prescribed by: ERAN CABRAL on 05/25/18 1750 Promethazine HCl (Phenergan) 25 Mg Supp.rect, 25 MG RC Q6H PRN for NAUSEA/VOMITING Prescribed by: ERAN CABRAL on 05/30/18 1825 Ranitidine HCl (Zantac) 150 Mg Tablet, 150 MG PO BID, (Reported) Entered as Reported by: KELSY MELO on 05/06/18 1216 Discontinued Medications Lisinopril (Zestril) 20 Mg Tablet, 20 MG PO DAILY, (Reported) Entered as Reported by: KELSY MELO on 05/06/18 1216 Review of Systems Review of Systems Constitutional: No see HPI, No chills, No diaphoresis, No fever, No malaise Respiratory: Denies Cough; SOA With Exertion; Denies Stridor, Denies Wheezing Cardiovascular: Chest Pain; Denies Edema; Lightheadedness Gastrointestinal: Denies Abdomen Distended, Denies Abdominal Pain, Denies Constipated, Denies Diarrhea, Denies Difficulty Swallowing Genitourinary: Denies Burning, Denies Discharge Musculoskeletal: No back pain, No gout, No joint pain Skin: No change in color, No change in hair/nails, No dryness Endocrine: See HPI Hematologic/Lymphatic: See HPI (YUSUF CRUZ) Past Tondwnr-Xjeroz-Xzukvm Hx Patient Social History Tobacco Use?: No Use of E-Cig and/or Vaping dev: No Substance use?: No Alcohol Use?: No Pt feels they are or have been: No (YUSUF CRUZ) Immunizations Up To Date Tetanus Booster (TDap): Unknown Influenza Vaccine Up-to-Date: No; Not Current First/Initial COVID19 Vaccinat: MAR 2021 Second COVID19 Vaccination Segundo: MAR 2021 (YUSUF CRUZ) Seasonal Allergies Seasonal Allergies: No (YUSUF CRUZ) Past Medical History Surgeries: Yes Abdominal, Appendectomy, Bladder Surgery, Section, Gallbladder, Hysterectomy, Renal Respiratory: No Currently Using CPAP: No Currently Using BIPAP: No Cardiac: No Neurological: Yes Headaches /Migraines Reproductive Disorders: Yes (CPP) Female Reproductive Disorders: Endometriosis 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 Sexually Transmitted Disease: No HIV/AIDS: No Genitourinary: Yes Kidney Infection, Bladder Infection, Kidney Stones, UTI-Chronic Gastrointestinal: Yes (LIVER LACERATION--NO SURGICAL REPAIR) Chronic Diarrhea Musculoskeletal: Yes (X 2 BACK SURG) Back Injury, Chronic Back Pain Endocrine: No HEENT: No Loss of Vision: Bilateral Hearing Impairment: Denies Cancer: No Psychosocial: Yes Depression Integumentary: No Blood Disorders: No Adverse Reaction/Blood Tranf: No (HAS HAD BLOOD WITH NO REACTION) (YUSUF CRUZ) Family Medical History Arthritis 19 FATHER 19 MOTHER Asthma 19 FATHER Diabetes mellitus 19 MOTHER FH: congestive heart failure 19 MOTHER Hypercholesterolemia 19 MOTHER Hypertension 19 MOTHER Kidney disease 19 MOTHER Cancer, Diabetes, Hypertension, Other Conditions/Hx (YUSUF CRUZ) Physical Exam Vital Signs Vital Signs - First Documented 06/02/21 16:31 Temp 36.9 Pulse 79 Resp 20 B/P (MAP) 136/91 (106) Pulse Ox 99 O2 Delivery Room Air (TELMA NAIDU MD) Vital Signs Capillary Refill : (YUSFU CRUZ) Height, Weight, BMI Height: 5'8.00" Weight: 190lbs. 0.0oz. 86.839562pc; 27.00 BMI Method:Stated General Appearance: No Apparent Distress, WD/WN HEENT: PERRL/EOMI, TMs Normal, Normal ENT Inspection, Pharynx Normal Neck: Full Range of Motion, Normal Inspection, Non Tender, Supple Respiratory: Chest Non Tender, Lungs Clear, Normal Breath Sounds, No Accessory Muscle Use, No Respiratory Distress Cardiovascular: Regular Rate, Rhythm, No Edema, No Gallop, No JVD, No Murmur Gastrointestinal: Normal Bowel Sounds, No Organomegaly, No Pulsatile Mass, Non Tender Extremity: Normal Capillary Refill, Normal Inspection, Normal Range of Motion Neurologic/Psychiatric: Alert, Oriented x3, No Motor/Sensory Deficits Skin: Normal Color, Warm/Dry (YUSUF CRUZ) Progress/Results/Core Measures Results/Orders Lab Results Laboratory Tests Test 06/02/21 16:10 Range/Units White Blood Count 6.0 4.3-11.0 10^3/uL Red Blood Count 4.64 3.80-5.11 10^6/uL Hemoglobin 12.3 11.5-16.0 g/dL Hematocrit 39 35-52 % Mean Corpuscular Volume 83 80-99 fL Mean Corpuscular Hemoglobin 27 25-34 pg Mean Corpuscular Hemoglobin Concent 32 32-36 g/dL Red Cell Distribution Width 12.9 10.0-14.5 % Platelet Count 299 130-400 10^3/uL Mean Platelet Volume 12.2 9.0-12.2 fL Immature Granulocyte % (Auto) 0 % Neutrophils (%) (Auto) 68 42-75 % Lymphocytes (%) (Auto) 21 12-44 % Monocytes (%) (Auto) 5 0-12 % Eosinophils (%) (Auto) 5 0-10 % Basophils (%) (Auto) 1 0-10 % Neutrophils # (Auto) 4.1 1.8-7.8 10^3/uL Lymphocytes # (Auto) 1.3 1.0-4.0 10^3/uL Monocytes # (Auto) 0.3 0.0-1.0 10^3/uL Eosinophils # (Auto) 0.3 0.0-0.3 10^3/uL Basophils # (Auto) 0.1 0.0-0.1 10^3/uL Immature Granulocyte # (Auto) 0.0 0.0-0.1 10^3/uL Prothrombin Time 13.8 12.2-14.7 SEC INR Comment 1.0 0.8-1.4 Activated Partial Thromboplast Time 34 24-35 SEC D-Dimer 0.21 0.00-0.49 UG/ML Sodium Level 140 135-145 MMOL/L Potassium Level 3.8 3.6-5.0 MMOL/L Chloride Level 106 98-107 MMOL/L Carbon Dioxide Level 22 21-32 MMOL/L Anion Gap 12 5-14 MMOL/L Blood Urea Nitrogen 8 7-18 MG/DL Creatinine 0.76 0.60-1.30 MG/DL Estimat Glomerular Filtration Rate 84 BUN/Creatinine Ratio 11 Glucose Level 94 70-105 MG/DL Calcium Level 9.5 8.5-10.1 MG/DL Corrected Calcium 9.1 8.5-10.1 MG/DL Magnesium Level 2.0 1.6-2.4 MG/DL Total Bilirubin 0.5 0.1-1.0 MG/DL Aspartate Amino Transf (AST/SGOT) 17 5-34 U/L Alanine Aminotransferase (ALT/SGPT) 14 0-55 U/L Alkaline Phosphatase 77 40-136 U/L Troponin I 0.098 H <0.028 NG/ML Total Protein 7.5 6.4-8.2 GM/DL Albumin 4.5 3.2-4.5 GM/DL (TELMA NAIDU MD) Vital Signs/I&O 06/02/21 06/02/21 06/02/21 06/02/21 16:31 16:38 17:17 18:52 Temp 36.9 Pulse 79 79 78 90 Resp 20 16 18 20 B/P (MAP) 136/91 (106) 129/85 118/80 125/106 Pulse Ox 99 99 99 99 O2 Delivery Room Air Room Air Room Air Room Air (TELMA NAIDU MD) Blood Pressure Mean: 106 Initial ECG Impression Date: Jun 02, 2021 Initial ECG Impression Time: 16:44 Comment Sinus rhythm, 73 bpm, QRS duration 92 MS, QTC 427 MS (YUSUF CRUZ) Departure Communication (Admissions) Patient presents ED with chest pressure, shortness of breath over the past 1 to 2 weeks. Symptoms` became worse over the past few days. History of hypertension. Cardiac risk factors ar low. EKG normal sinus rhythm. Elevated troponin. Concerning for cardiac etiology. Patient was discussed with Dr. Holm cardiology. Recommend Belt Lacer. She was given aspirin. Pain improved here so nitro and morphine was held initially on arrival. But she started to have pain here in the ED. Discussed with Dr. Holm who recommends Belt Lacer. Recommended no anticoagulant such ass heparin at this time. Patient was disc ussed with hospitalist Dr. Whitten who accepts patient at this time. Chest x- ray unremarkable. Lab work otherwise unremarkable. (YUSUF CRUZ) Impression Primary Impression: Non-STEMI (non-ST elevated myocardial infarction) Disposition: ADMITTED INPATIENT Condition: Stable Admissions Decision to Admit Reason: Admit from ER (General) Decision to Admit/Date: Jun 02, 2021 Time/Decision to Admit Time: 18:56 (YUSUF CRUZ) Departure-Patient Inst. Ref[place]: [facility] [place] Primary Care Physician ATTENDING PHYSICIAN NOTE: I was physically present as attending physician in the emergency department during the care of this patient, but I was not directly involved in the decision making or delivery of care for this patient. (TELMA NADIU MD) UYSUF CRUZ Jun 02, 2021 16:42 TELMA NAIDU MD Jun 04, 2021 05:21
[2021-06-02] MEDS ORDERED: ASPIRIN 81 MG CHEW (CHILDREN'S ASA) PO ONE (16:45)
[2021-06-02 16:46] LABS: BASOPHILS # (AUTO) 0.1 10^3/uL (0.0-0.1); BASOPHILS % (AUTO) 1 % (0-10); EOSINOPHILS # (AUTO) 0.3 10^3/uL (0.0-0.3); EOSINOPHILS % (AUTO) 5 % (0-10); HEMATOCRIT 39 % (35-52); HEMOGLOBIN 12.3 g/dL (11.5-16.0); LYMPHOCYTES # (AUTO) 1.3 10^3/uL (1.0-4.0); LYMPHOCYTES % (AUTO) 21 % (12-44); MEAN CORPUSCULAR HEMOGLOBIN 27 pg (25-34); MEAN CORPUSCULAR HGB CONC 32 g/dL (32-36); MEAN CORPUSCULAR VOLUME 83 fL (80-99); MEAN PLATELET VOLUME 12.2 fL (9.0-12.2); MONOCYTES # (AUTO) 0.3 10^3/uL (0.0-1.0); MONOCYTES % (AUTO) 5 % (0-12); NEUTROPHILS # (AUTO) 4.1 10^3/uL (1.8-7.8); NEUTROPHILS % (AUTO) 68 % (42-75); PLATELET COUNT 299 10^3/uL (130-400)
[2021-06-02 16:47] LABS: ALBUMIN 4.5 GM/DL (3.2-4.5)
[2021-06-02 16:48] LABS: POTASSIUM 3.8 MMOL/L (3.6-5.0)
[2021-06-02 16:49] LABS: CALCIUM 9.5 MG/DL (8.5-10.1)
[2021-06-02 16:50] LABS: TOTAL PROTEIN 7.5 GM/DL (6.4-8.2)
[2021-06-02 16:52] LABS: BILIRUBIN,TOTAL 0.5 MG/DL (0.1-1.0); PROTHROMBIN TIME PATIENT 13.8 SEC (12.2-14.7)
[2021-06-02 16:54] LABS: CREATININE SERUM 0.76 MG/DL (0.60-1.30)
--- NOTE | 2021-06-02 17:03 | Diagnostic Imaging Report ---
INDICATION: Chest pain. Frontal chest obtained at 4:47 p.m. FINDINGS: Heart and mediastinal silhouette are normal in appearance. The lungs are clear. There is no pneumothorax or pleural fluid. IMPRESSION: Negative chest. Dictated by: Dictated on workstation # [id number]
[2021-06-02] MEDS ORDERED: HEParin (CATH LAB) 2,000 ML IV ONE (18:29)
[2021-06-02] MEDS ORDERED: NS IV 1000 ML 1,000 ML ONE (18:29)
[2021-06-02] MEDS ORDERED: LIDOCAINE 1% INJ 20 ML 20 ML VIAL ONE (18:29)
[2021-06-02] MEDS ORDERED: VERAPAMIL 5 MG/2 ML (CALAN) VIAL IV ONE (18:43)
[2021-06-02] MEDS ORDERED: fentaNYL INJ 100 MCG/2 ML AMP ONE (18:44)
[2021-06-02] MEDS ORDERED: NITRO DRIP 25000 MCG/D5W 250 ML IV ONE (18:44)
[2021-06-02] MEDS ORDERED: HEParin 1000 UNIT/ML (10ML VIAL) FOR BOLUS ONE (18:44)
[2021-06-02] MEDS ORDERED: MIDAZOLAM 5 MG/5 ML (VERSED) VIAL ONE (18:44)
--- NOTE | 2021-06-02 18:44 | Consultation-Cardiology ---
HPI-Cardiology Cardiology Consultation Date of Consultation 06/02/21 Date of Admission Time Seen by Provider: 18:39 Indication: Chest pain HPI 41-year-old lady with history of multiple bone fusion, maintained on Percocet and hydrocodone, following with Shona Scott in [place]. Started to have chest pain described as dull achiness on the left side of her chest persistent. Came into the emergency room for evaluation, cardiac enzymes were mildly elevated. EKG did not show any acute abnormality. On my evaluation she was still having chest pain, reporting that for the past couple of days has been having chest pressure associated with diaphoresis and shortness of breath. Home Medications & Allergies Allergies: Coded Allergies: Sulfa (Sulfonamide Antibiotics) (Verified Allergy, Severe, RASH, 11/29/17) morphine (Verified Allergy, Severe, RASH, Pt has had Percocet & Lortab in the past w/o issue, 11/29/17) ketorolac (Verified Allergy, Unknown, 05/25/18) Home Medication List Reviewed: Yes [id number]-Cvsalv-Lzlgdq Hx Patient Social History 2nd Hand Smoke Exposure: Yes Recent Hopitalizations: Yes (OVARY SURGERY WITH BOWEL ADHESIONS AND URETER LAC) Have you traveled recently?: No Alcohol Use?: No Immunizations Up To Date Tetanus Booster (TDap): Unknown Date of Influenza Vaccine: Apr 20, 2017 Past Medical History Bone fusion, multiple procedure in her back Family Medical History Significant Family History: Cancer, Diabetes, Hypertension, Other Conditions/Hx Family History: Arthritis 19 FATHER 19 MOTHER Asthma 19 FATHER Diabetes mellitus 19 MOTHER FH: congestive heart failure 19 MOTHER Hypercholesterolemia 19 MOTHER Hypertension 19 MOTHER Kidney disease 19 MOTHER Review of Systems-General Review of Systems Constitutional: No see HPI, No chills, No diaphoresis, No fever, No malaise EENTM: see HPI, no symptoms reported Respiratory: see HPI; No cough, No dyspnea on exertion, No hemoptysis, No orthopnea, No phlegm; short of breath; No stridor, No wheezing, No other Cardiovascular: see HPI, chest pain; No edema, No Hx of Intervention, No palpitations, No syncope, No vascular heart diseas, No other Gastrointestinal: no symptoms reported, see HPI Genitourinary: no symptoms reported, see HPI Musculoskeletal: No back pain, No gout, No joint pain Skin: No change in color, No change in hair/nails, No dryness Psychiatric/Neurological: No Symptoms Reported, See HPI Reviewed Test Results Reviewed Test Results Lab Laboratory Tests Test 06/02/21 16:10 Range/Units White Blood Count 6.0 4.3-11.0 10^3/uL Red Blood Count 4.64 3.80-5.11 10^6/uL Hemoglobin 12.3 11.5-16.0 g/dL Hematocrit 39 35-52 % Mean Corpuscular Volume 83 80-99 fL Mean Corpuscular Hemoglobin 27 25-34 pg Mean Corpuscular Hemoglobin Concent 32 32-36 g/dL Red Cell Distribution Width 12.9 10.0-14.5 % Platelet Count 299 130-400 10^3/uL Mean Platelet Volume 12.2 9.0-12.2 fL Immature Granulocyte % (Auto) 0 % Neutrophils (%) (Auto) 68 42-75 % Lymphocytes (%) (Auto) 21 12-44 % Monocytes (%) (Auto) 5 0-12 % Eosinophils (%) (Auto) 5 0-10 % Basophils (%) (Auto) 1 0-10 % Neutrophils # (Auto) 4.1 1.8-7.8 10^3/uL Lymphocytes # (Auto) 1.3 1.0-4.0 10^3/uL Monocytes # (Auto) 0.3 0.0-1.0 10^3/uL Eosinophils # (Auto) 0.3 0.0-0.3 10^3/uL Basophils # (Auto) 0.1 0.0-0.1 10^3/uL Immature Granulocyte # (Auto) 0.0 0.0-0.1 10^3/uL Prothrombin Time 13.8 12.2-14.7 SEC INR Comment 1.0 0.8-1.4 Activated Partial Thromboplast Time 34 24-35 SEC D-Dimer 0.21 0.00-0.49 UG/ML Sodium Level 140 135-145 MMOL/L Potassium Level 3.8 3.6-5.0 MMOL/L Chloride Level 106 98-107 MMOL/L Carbon Dioxide Level 22 21-32 MMOL/L Anion Gap 12 5-14 MMOL/L Blood Urea Nitrogen 8 7-18 MG/DL Creatinine 0.76 0.60-1.30 MG/DL Estimat Glomerular Filtration Rate 84 BUN/Creatinine Ratio 11 Glucose Level 94 70-105 MG/DL Calcium Level 9.5 8.5-10.1 MG/DL Corrected Calcium 9.1 8.5-10.1 MG/DL Magnesium Level 2.0 1.6-2.4 MG/DL Total Bilirubin 0.5 0.1-1.0 MG/DL Aspartate Amino Transf (AST/SGOT) 17 5-34 U/L Alanine Aminotransferase (ALT/SGPT) 14 0-55 U/L Alkaline Phosphatase 77 40-136 U/L Troponin I 0.098 H <0.028 NG/ML Total Protein 7.5 6.4-8.2 GM/DL Albumin 4.5 3.2-4.5 GM/DL Physical Exam Physical Exam Vital Signs Vital Signs - First Documented 06/02/21 16:31 Temp 36.9 Pulse 79 Resp 20 B/P (MAP) 136/91 (106) Pulse Ox 99 O2 Delivery Room Air Capillary Refill : Less Than 3 Seconds Height, Weight, BMI Height: 5'8.00" Weight: 190lbs. 0.0oz. 86.830894dn; 27.00 BMI Method:Stated General Appearance: No Apparent Distress, WD/WN HEENT: PERRL/EOMI, TMs Normal, Normal ENT Inspection, Pharynx Normal Neck: Full Range of Motion, Normal Inspection, Non Tender, Supple Respiratory: Chest Non Tender, Lungs Clear, Normal Breath Sounds, No Accessory Muscle Use, No Respiratory Distress Cardiovascular: Regular Rate, Rhythm, No Edema, No Gallop, No JVD, No Murmur Gastrointestinal: Normal Bowel Sounds, No Organomegaly, No Pulsatile Mass, Non Tender Extremity: Normal Capillary Refill, Normal Inspection, Normal Range of Motion Neurologic/Psychiatric: Alert, Oriented x3, No Motor/Sensory Deficits Skin: Normal Color, Warm/Dry A/P-Cardiology Admission Diagnosis Unstable angina Coronary artery disease Back pain Chronic pain Assessment/Plan Chest pain, unstable angina with elevated troponin level, still having active chest pain and shortness of breath. I will proceed with cardiac catheterization possible PTCA Coronary artery disease, elevated troponin, planning to proceed with cardiac catheterization History of multiple back surgeries, bone fusion, herrera, maintained on Percocet and hydrocodone, managed by her primary care physician MARY RENTERIA MD Jun 02, 2021 18:43
--- NOTE | 2021-06-02 18:45 | Conscious Sedation/ASA ---
Conscious Sedation Pre-Proced Time 18:44 ASA Score 3 For ASA 3 and 4: Consider anesthesia and medical clearance. Also, for patients with a history of failed moderate sedation consider anesthesia. Airway Lungs Heart ASA score ASA 1: a normal healthy patient ASA 2: a patient with a mild systemic disease (mid diabetes, controlled hypertension, obesity x ASA 3: a patient with a severe systemic disease that limits activity (angina, COPD, prior Myocardial infarction) ASA 4: a patient with an incapacitating disease that is a constant threat to life (CHF, renal failure) ASA 5: a moribund patient not expected to survive 24 hrs. (ruptured aneurysm) ASA 6: a declared brain- patient whose organs are being harvested. For emergent operations, add the letter E after the classification Mallampati Classification Grade 3 Sedation Plan Analgesia, Amnesia, Plan communicated to team members, Discussed options with patient/fam, Discussed risks with patient/fam The patient is an appropriate candidate to undergo the planned procedure, sedation, and anesthesia. The patient immediately re-assessed prior to indication. MARY RENTERIA MD Jun 02, 2021 18:45
[2021-06-02 19:58] VITALS: BP 113/77
[2021-06-02] MEDS ORDERED: HYDROcodone/APAP 7.5 MG/325 MG (LORTAB, LORCET PLUS) TABLET PO PRN (20:00)
[2021-06-02] MEDS: oxyCODONE/APAP 10/325MG (PERCOCET 10) TABLET PO SCH (21:25)
[2021-06-03] VITALS: BP 99/56
[2021-06-03 04:00] VITALS: BP 107/65
[2021-06-03] MEDS: oxyCODONE/APAP 10/325MG (PERCOCET 10) TABLET PO SCH (05:36)
[2021-06-03 08:01] VITALS: BP 118/83
--- NOTE | 2021-06-03 10:46 | Cardiology Progress Note ---
Subjective Date Seen by Provider: Jun 03, 2021 Time Seen by Provider: 10:44 Subjective/Events-last exam Patient sitting up in bed, asking to go home, no new complaints. Deniesa any chest pain Review of Systems General: No Chills, No Night Sweats, No Fatigue, No Malaise, No Appetite, No Other HEENT: No Head Aches, No Visual Changes, No Eye Pain, No Ear Pain, No Dysph melony, No Sinus Congestion, No Post Nasal Drip, No Sore Throat, No Other Pulmonary: No Dyspnea, No Cough, No Pleuritic Chest Pain, No Other Cardiovascular: No: Chest Pain, Palpitations, Orthopnea, Paroxysmal Noc. Dyspnea, Edema, Lt Headedness, Other Objective-Cardiology Exam Last Set of Vital Signs Vital Signs 06/03/21 06/03/21 08:01 09:00 Temp 36.4 Pulse 88 Resp 18 B/P (MAP) 118/83 (95) Pulse Ox 98 O2 Delivery Room Air I&O Intake and Output 06/03/21 00:00 Intake Total 380 ml Balance 380 ml Intake Oral 380 ml # Voids 1 Daily Weight Change Yes, 24-33 lbs General: Alert, Oriented X3, Cooperative HEENT: Atraumatic, PERRLA Neck: Supple, No JVD, No Thyromegaly Lungs: Clear to Auscultation, Normal Air Movement Heart: Regular Rate Abdomen: Normal Bowel Sounds, Soft, No Tenderness, No Hepatosplenomegaly, No Masses Extremities: No Clubbing, No Cyanosis, No Edema, Normal Pulses, No Tenderness/Swelling Skin: No Rashes, No Breakdown, No Significant Lesion Neuro: Normal Gait, Normal Speech, Strength at 5/5 X4 Ext, Normal Tone, Sensation Intact Psych/Mental Status: Mental Status NL Results Lab Laboratory Tests 06/02/21 16:10 A/P-Cardiology Admission Diagnosis Unstable angina Coronary artery disease Back pain Chronic pain Assessment/Plan Chest pain, nonspecific etiology, cardiac catheterization was carried out showing mild coronary artery disease nonobstructive disease. Ready to go home, patient has an appointment with Dr. Salinas this afternoon. Coronary artery disease, nonobstructive per cardiac catheterization done 06/02/21 HTP, mild, continue to monitor. History of multiple back surgeries, bone fusion, herrera, maintained on Percocet and hydrocodone, managed by her primary care physician OK for discharge from cardiology standpoint. Patient has appt with Dr. Salinas this afternoon, asking to keep appt. Patient was seen and evaluated with Charmaine, examination performed, management plan was discussed, agree with the current scribed note, I made few changes to the note using Italic font Patient was seen at bedside laying down comfortably, no chest pain, wrist is healing well Mild coronary artery disease per cardiac catheterization Planning to discharge home today. Final diagnosis Chest pain nonspecific etiology Questionable pulmonary hypertension Chronic back pain Supervisory-Addendum Brief Supervisory Addendum Participated in pt care: history, MDM, physical Personally performed: exam, history, MDM Care discussed with: KAY Results interpretation: Verified all documentation Notes: Patient was seen and evaluated with Charmaine, examination performed, management plan was discussed, agree with the current scribed note, I made few changes to the note using Italic font Patient has an appointment with Dr. Salinas this afternoon, she will be discharged and follow-up with CHARMAINE Ann Jun 03, 2021 10:46 MARY RENTERIA MD Jun 03, 2021 10:51
--- NOTE | 2021-06-03 11:56 | Cardiac Cath Report ---
Cardiac Cath Report Physician (s)/Sewage Plant Operator (s) Physician MARY RENTERIA MD Pre-Procedure Diagnosis Pre-Procedure Diagnosis: Coronary artery disease Post-Procedure Note Procedure Start Date: Jun 02, 2021 Name of Procedure: Left heart catheterization Left ventriculogram Aortic arch angiogram Findings/Procedure Note PROCEDURE NOTE: 41 years old lady admitted with acute chest pain, had elevation in troponin level, described numbness in the left side of her chest, continue to have persistent active pain with mild elevation in troponin, decided to proceed with cardiac catheterization possible PTCA. After explaining the procedure to the patient, all pros and cons were explained, all questions were answered. The patient signed the consent and then she was placed on the cardiac catheterization laboratory. Groin was prepped SL fashion local anesthesia was used. Sheath placed in the right radial artery, Cisco catheter was advanced to the left ventricular cavity, pressure was measured, left ventriculogram was done, pullback LV to aorta was done, I engaged the right and left coronary system and angiogram was done, pulled back to the aortic arch and aortic arch angiogram was done. At the end of the procedure the sheath was removed. Vascular band deployed FINDINGS: Hemodynamics LV 114/10, end-diastolic pressure of 10 Aortic pressure 101/65 mean of 82 ANATOMY: Left Main is free of obstructive disease Left Anterior Descending has mild tortuosity with no obstructive disease Left Circumflex no significant obstructive disease was seen Right Coronary Artery no significant obstructive disease LV Gram was done showing normal left ventricular size and systolic function estimate ejection fraction 60% Aorta evaluation done with aortic arch angiogram showing normal aortic arch, no dissection or aneurysm, normal origin of the brachiocephalic artery, left subclavian and left carotid artery CONCLUSION: 1. Mild coronary artery disease with no significant obstructive disease 2. Normal left ventricular size and systolic function estimate ejection fraction 60% 3. Normal aortic arch, no dissection or aneurysm. DISCUSSION AND RECOMMENDATION: Patient has no significant obstructive disease in her coronary system, mild elevation in troponin is probably related to small vessel disease nonobstructive disease or transient hypotension Anesthesia Type: Conscious Sedation Estimated blood loss (mL): 10 ml Contrast Amount: 50 ml Total Radiation Dose: 199 mGy Post-Procedure Diagnosis Post-operative diagnosis: Chest pain Coronary artery disease Back pain MARY RENTERIA MD Jun 03, 2021 11:56
[2021-06-03 12:07] VITALS: BP 127/85
== END 2021-06-03 12:00 | disposition home or self-care (01) ==
LOC: EDUNIT# 15:47 → ER 15:49 → CSD 18:53 → SDC 18:53 → UNDOADMIN 18:54 → CSD 18:54 → SDC 06-03 12:00 → UNDODISIN 06-03 19:00
PROVIDERS: ATTEND Internal Medicine Cardiovascular Disease
PROC: 4A023N7 Measurement of Cardiac Sampling and Pressure, Left Heart, Percutaneous Approach (ICD-10-PCS; principal; 2021-06-02)
PROC: B2111ZZ Fluoroscopy of Multiple Coronary Arteries using Low Osmolar Contrast (ICD-10-PCS; 2021-06-02)
PROC: B2151ZZ Fluoroscopy of Left Heart using Low Osmolar Contrast (ICD-10-PCS; 2021-06-02)
DX: I25.110 Atherosclerotic heart disease of native coronary artery with unstable angina pectoris (principal); I10 Essential (primary) hypertension; H54.7 Unspecified visual loss; M54.9 Dorsalgia, unspecified; G43.909 Migraine, unspecified, not intractable, without status migrainosus; K52.9 Noninfective gastroenteritis and colitis, unspecified; G89.29 Other chronic pain; I21.4 Non-ST elevation (NSTEMI) myocardial infarction; F32.A Depression, unspecified; Z86.16 Personal history of COVID-19; Z98.1 Arthrodesis status; Z88.6 Allergy status to analgesic agent; Z88.5 Allergy status to narcotic agent; Z88.2 Allergy status to sulfonamides; Z79.891 Long term (current) use of opiate analgesic; Z79.899 Other long term (current) drug therapy; Z90.710 Acquired absence of both cervix and uterus; Z83.3 Family history of diabetes mellitus
CPT/HCPCS: 36221; 71045; 80053; 83735; 84484; 85025; 85379; 85610; 85730; 93005; 93458; 99285; C1894; 36415

== ENCOUNTER → 2021-06-09 | Outpatient (CLI) | payer OTHER ==
[~2021-06-09] MED LIST changes: +CATHETER FLUSH 10 ML SYR IV PRN; +HOLD METFORMIN - RECEIVED CONTRAST 20 ML VIAL IV SCH; +IOHEXOL 350 MG/ML 100 ML (OMNIPAQUE 350) VIAL IV ONE; +NS 100 ML (IVPB) BAG IV ONE
--- NOTE | 2021-06-09 11:45 | Diagnostic Imaging Report ---
PROCEDURE: CT angiography of the chest with contrast. TECHNIQUE: Multiple contiguous axial images were obtained through the chest after uneventful bolus administration of intravenous contrast. 3D reconstructed CTA MIP acquisitions were also performed. Auto Exposure Controls were utilized during the CT exam to meet ALARA standards for radiation dose reduction. DATE: June 09, 2021. COMPARISON: CT chest, abdomen, pelvis April 18, 2018. INDICATION: 41-year-old female, history of COVID 19 infection. Shortness of breath. Chest pain. FINDINGS: There is no identified pulmonary nodule. There is no lung mass. There is minimal dependent atelectasis. There is no additional focal airspace consolidation. There is no pneumothorax. There is no pleural effusion. There are no peripheral reticular opacities. There is no identified pulmonary embolus. The heart is not enlarged. There is no pericardial effusion. There is no identified abnormally enlarged mediastinal, hilar, or axillary lymph node meeting CT size criteria for adenopathy. There is low-attenuation 9 mm right thyroid nodule on axial image 10. The patient is status post cholecystectomy. Additional evaluation of the imaged portions of the upper abdomen is unremarkable. There is no identified acute bony abnormality. IMPRESSION: CT CHEST. 1. No identified pulmonary embolus or other acute cardiopulmonary abnormality. 2. No evidence of scarring or chronic lung changes. Report was faxed to [facility] by wesley at 11:49AM. Dictated by: Dictated on workstation # [id number]
== END ==
LOC: RAD 10:15
PROVIDERS: ATTEND Internal Medicine Cardiovascular Disease
DX: R07.9 Chest pain, unspecified (principal); R06.02 Shortness of breath; Z86.16 Personal history of COVID-19
CPT/HCPCS: 71275

== ENCOUNTER → 2021-06-23 | Outpatient (CLI) | payer OTHER ==
[~2021-06-23] MED LIST changes: -CATHETER FLUSH 10 ML SYR IV PRN; -HOLD METFORMIN - RECEIVED CONTRAST 20 ML VIAL IV SCH; -IOHEXOL 350 MG/ML 100 ML (OMNIPAQUE 350) VIAL IV ONE; -NS 100 ML (IVPB) BAG IV ONE; +RT-ALBUTEROL SULF 2.5 MG/3 ML PRE-MIX VIAL INH ONE
== END ==
LOC: RT 14:15
PROVIDERS: ATTEND Internal Medicine Cardiovascular Disease
DX: R06.9 Unspecified abnormalities of breathing (principal)
CPT/HCPCS: 94060; 94726; 94729

== ENCOUNTER → 2021-06-26 | Outpatient (CLI) | payer OTHER ==
[~2021-06-26] MED LIST changes: -RT-ALBUTEROL SULF 2.5 MG/3 ML PRE-MIX VIAL INH ONE
== END ==
LOC: CARD 12:00
PROVIDERS: ATTEND Internal Medicine Cardiovascular Disease
DX: R06.09 Other forms of dyspnea (principal)
CPT/HCPCS: 93308

== ENCOUNTER 2021-12-30 13:14 | Outpatient (RCR) | payer OTHER ==
--- NOTE | 2022-01-17 08:59 | 30 Day Event Recorder ---
30-DAY EVENT RECORDER 7-DAY ZTI AT EVENT RECORDER DATE OF PROCEDURE: 12/30/2021-01/03/2022. INDICATION: Syncope. PROCEDURE: A 7-day ZIO AT event recorder was obtained for a total of 4 days days. 11 rhythm strips were presented for review. The study quality is adequate. RESULTS: 1. Baseline sinus rhythm with an average heart rate of 77 bpm, ranging from 37- 123 bpm with rare, isolated premature supraventricular and premature ventricular complexes representing less than 1% of the total recording time and rare supraventricular couplets and triplets. 2. There were no pauses exceeding 3 seconds in duration. 3. There was 1 brief episode of 2-1 AV block. 3. No symptoms appear to have been reported during the test. IMPRESSION: 1. This is a 7-day ZIO AT event monitor that was obtained for total of 4 days and 11 rhythm strips were presented for review. 2. Baseline sinus rhythm with an average heart rate of 77 bpm, ranging from 37- 123 bpm with rare, isolated premature supraventricular and premature ventricular complexes representing less than 1% of the total recording time and rare supraventricular couplets and triplets. 3. There was 1 brief episode of 2-1 AV block. 4. No symptoms appear to have been reported during the test. Certain portions of this document may have been dictated utilizing voice recognition technology. Inherent to this technology, typographical and grammatical errors may exist. As much as I am diligent to identify and correct these mistakes, some errors may remain in the document. ASIM LU JR, MD Jan 17, 2022 08:59
== END 2022-01-14 ==
LOC: CARD 13:14
PROVIDERS: ATTEND Internal Medicine Cardiovascular Disease
DX: R55 Syncope and collapse (principal)
CPT/HCPCS: 93246

== ENCOUNTER 2022-01-14 09:35 | Outpatient (CLI) | payer OTHER ==
[2022-01-14] VITALS (18 sets, daily range): BP systolic 102–130; BP diastolic 70–98
[~2022-01-14] VITALS: Ht 172.7 cm; Wt 84.7 kg
[2022-01-14] MEDS ORDERED: NS IV 1000 ML 1,000 ML ONE (09:55)
[2022-01-14] MEDS ORDERED: NS IV 1000 ML 1,000 ML IV ONE (11:15)
[2022-01-14] MEDS ORDERED: CATHETER FLUSH 10 ML SYR IV PRN (11:15)
--- NOTE | 2022-01-17 09:07 | Cardiac Procedure Note-[facility] ---
Cardiology Procedures Date of Procedure 01/14/2022 TILT TABLE TEST INDICATION: Syncope. PROCEDURE: After informed consent and in the fasting state, a peripheral IV was placed. The patient was then placed in the supine position on the tilt table. Continuous telemetry monitoring and periodic vital signs were obtained. The patient was monitored for approximately 10 minutes in the supine position and then brought to 70 degrees upright and monitored for 30 minutes. The resting vital signs were a heart rate of 76 bpm with a blood pressure of 117/83 mmHg. there were no significant changes in the heart rate or blood pressure during the study. The minimum upright heart rate was 72 bpm with a minimum blood pressure of 110/70 7 bpm. The patient was subsequently brought to the supine position. The final vital signs were a heart rate of 68 bpm with a blood pressure of 111/80 mmHg. This is a negative upright tilt table test for vasovagal syncope. IMPRESSION: 1. Negative upright tilt table test for vasovagal syncope. Certain portions of this document may have been dictated utilizing voice recognition technology. Inherent to this technology, typographical and grammatical errors may exist. As much as I am diligent to identify and correct these mistakes, some errors may remain in the document. ASIM LU JR, MD Jan 17, 2022 09:07
== END 2022-01-14 11:12 | disposition home or self-care (01) ==
LOC: CARD 09:35
PROVIDERS: ATTEND Internal Medicine Cardiovascular Disease
DX: R55 Syncope and collapse (principal)
CPT/HCPCS: 93660